=== PATIENT | female | born 1970 | race Caucasian/White ===

== ENCOUNTER 2016-05-16 15:01 | Outpatient (RCR) | payer OTHER, MEDICARE ==
--- OUTSIDE RECORDS SUMMARY | 2016-05-15 11:19 | XMS REPORT | Continuity of Care Document ---
Author Author [facility] Organization [facility] Address Unknown Phone Unavailable Care Team Providers Care Philosophy And Religion Instructor Name Role Phone Yoon Ross PCP [phone] Source Comments Some departments are not documenting in the electronic medical record. If you do not see the information that you expected, contact Release of Information in the Health Information Management department at [phone] for further assistance in locating additional records.[facility] Active Allergies and Adverse Reactions Allergen Noted Date Severity Reactions Comments Tramadol 09/18/2012 ANAPHYLAXIS Current Medications Prescription Sig. Disp. Refills Start End Date Status Date [place]-3 Fatty Acids Take 2 Caps by mouth at Active (SALMON OIL-1000) cap bedtime daily. gabapentin (NEURONTIN) Take 800 mg by mouth Active 800 mg tablet daily. gabapentin (NEURONTIN) Take 1,600 mg by mouth at Active 800 mg tablet bedtime daily. omeprazole DR(+) Take 20 mg by mouth twice Active (PRILOSEC) 20 mg capsule daily. temazepam (RESTORIL) 30 Take 30 mg by mouth at Active mg capsule bedtime as needed. simvastatin (ZOCOR) 40 mg Take 40 mg by mouth at Active tablet bedtime daily. cyclobenzaprine Take 20 mg by mouth at Active (FLEXERIL) 10 mg tablet bedtime daily. ferrous sulfate 325 mg Take 325 mg by mouth Active (65 mg iron) tablet twice weekly. LORazepam (ATIVAN) 0.5 mg Take 0.5 mg by mouth Active tablet every 8 hours as needed. valACYclovir (VALTREX) 1 Take 1,000 mg by mouth Active g tablet twice daily as needed. fluconazole (DIFLUCAN) Take 150 mg by mouth as Active 150 mg tablet Needed. oxyCODone-acetaminophen Take 1 Tab by mouth every Active (PERCOCET; ENDOCET) 4-6 hours as needed Max 10-325 mg tablet 12 tabs/day albuterol (VENTOLIN HFA, Inhale 2 Puffs by mouth Active PROAIR HFA) 90 every 4 hours as needed. mcg/actuation inhaler Jteiubk-Ryqjlyaghbtnl-Dzd Take 2 Caps by mouth Active tamin (VICKS NYQUIL every 4 hours as needed. LIQUICAPS) 6.25-5-325 mg cap predniSONE (DELTASONE) 1 Take 4 mg by mouth daily. Active mg tablet potassium chloride SR Take 20-40 mEq by mouth Active (K-DUR) 20 mEq tablet daily. frovatriptan(+) (FROVA) Take 2.5 mg by mouth as Active 2.5 mg Tab Needed. At onset of headache. May repeat in 2 hours with a maximum of 3 tabs in 24 hours. furosemide (LASIX) 40 mg Take 40-80 mg by mouth. Active tablet sodium chloride (SALINE Apply 1-2 Sprays to each Active NASAL MIST) 0.65 % nasal nostril as directed as spray Needed. sinus rinse (AYR SALINE Insert 1 Packet into nose Active NASAL NETI RINSE) Pack as directed as Needed. kit Propylene Glycol-Glycerin Place 1-2 Drops into or Active (SOOTHE) 0.6-0.6 % Dpet around eye(s) as Needed. simethicone (GAS-X) 80 mg Take 80 mg by mouth every Active chew tablet 6 hours as needed. HYDROmorphone (DILAUDID) Take 1 Tab by mouth every 30 Tab 0 09/23/19 Active 2 mg tablet 6 hours as needed 13 Earliest Fill Date: 09/23/12 warfarin (COUMADIN) 7.5 Take 1 Tab by mouth 90 Tab 09/23/19 Active mg tablet daily. Mon, Wed, Fri 13 ondansetron (ZOFRAN) 4 mg Take 4 mg by mouth every Active tablet 8 hours as needed. folic acid (FOLVITE) 1 mg Take 3 mg by mouth daily. Active tablet cephalexin (KEFLEX) 250 Take 1 Cap by mouth four 0 10/14/19 Active mg capsule times daily. 13 Active Problems Problem Noted Date Cellulitis 09/20/2012 SLE (systemic lupus erythematosus) ([facility]) 09/20/2012 Antiphospholipid antibody positive 09/20/2012 Social History Tobacco Use Types Packs/Day Years Used Date Never Smoker Alcohol Use Drinks/Week oz/Week Comments Yes one glass of wine every week to two Last Filed Vital Signs Vital Sign Reading Time Taken Blood Pressure 106/78 10/09/2012 11:52 AM MANAGER LINUX Pulse 100 10/09/2012 11:52 AM MANAGER LINUX Temperature 36.7 C (98 F) 10/09/2012 11:52 AM MANAGER LINUX Respiratory Rate 16 10/09/2012 11:52 AM MANAGER LINUX Height 1.626 m (5' 4") 10/09/2012 11:52 AM MANAGER LINUX Weight 76.567 kg (168 lb 12.8 10/09/2012 11:52 AM MANAGER LINUX oz) Body Mass Index 28.96 10/09/2012 11:52 AM MANAGER LINUX Oxygen Saturation 99% 09/23/2012 12:13 PM MANAGER LINUX Plan of Care Health Maintenance Due Date Last Done Comments Physical (Comprehensive) 1976 Exam Pertussis Vaccine 1980 Tetanus Vaccine 1986 Cervical Cancer Screening 1990 Breast Cancer Screening 2009 Influenza Vaccine 04/11/2016 Results from Last 3 Months Not on file
[2016-05-15 12:37] LABS: BASOPHILS % (AUTO) 1 % (0-10); EOSINOPHILS # (AUTO) 0.3 10^3/uL (0.0-0.3); EOSINOPHILS % (AUTO) 5 % (0-10); LYMPHOCYTES # (AUTO) 2.2 X 10^3 (1.0-4.0); LYMPHOCYTES % (AUTO) 38 % (12-44); MEAN CORPUSCULAR HEMOGLOBIN 27 PG (25-34); MEAN CORPUSCULAR HGB CONC 31 G/DL (32-36); MEAN CORPUSCULAR VOLUME 87 FL (80-99); MEAN PLATELET VOLUME 11.8 FL (7.4-10.4); MONOCYTES # (AUTO) 0.4 X 10^3 (0.0-1.0); MONOCYTES % (AUTO) 8 % (0-12); NEUTROPHILS # (AUTO) 2.9 X 10^3 (1.8-7.8); NEUTROPHILS % (AUTO) 49 % (42-75); PLATELET COUNT 210 10^3/uL (130-400); RED BLOOD COUNT 4.76 10^6/uL (4.35-5.85); WHITE BLOOD COUNT 5.9 10^3/uL (4.3-11.0)
[2016-05-15 12:43] LABS: ALANINE AMINOTRANSFERASE 23 U/L (0-55); ALBUMIN 4.1 G/DL (3.2-4.5); ANION GAP 10 MMOL/L (5-14); ASPARTATE AMINO TRANSFERASE 24 U/L (5-34); BILIRUBIN,TOTAL 0.3 MG/DL (0.1-1.0); BLOOD UREA NITROGEN 9 MG/DL (7-18); BUN/CREATININE RATIO 9; CALCIUM 8.8 MG/DL (8.5-10.1); CARBON DIOXIDE 18 MMOL/L (21-32); CHLORIDE 112 MMOL/L (98-107); CREATININE SERUM 0.98 MG/DL (0.60-1.30); GFR ESTIMATED > 60; GLUCOSE 103 MG/DL (70-105); POTASSIUM 3.4 MMOL/L (3.6-5.0); SODIUM 140 MMOL/L (135-145); TOTAL PROTEIN 5.9 G/DL (6.4-8.2)
[2016-05-15 14:13] LABS: %SAT TOTAL IRON BINDING CAPIC 43 % (15-50); TIBC 198 ug/dL (280-380)
[2016-05-15 15:36] LABS: UIBC 113 ug/dL (55-450)
[2016-05-16 07:51] LABS: FERRITIN 562 ng/mL (15-150)
[~2016-05-16 15:01] MED LIST: AC325T PO; AC500T PO; ALBU0.8322 NEB; ALBU5SOL10 IH; ALBU8.5H2 IH; ALPR0.25 PO; AMOX-355 PO; BUDE3CAP PO; BUTA-234 PO; CEFP250T2 PO; CETI10CA PO; CETI10TA17 PO; CLAR-19 PO; CODE-54 PO; CPH250CIP PO; CYCL-97 PO; CYCL10TA9 PO; DM/P295L13 PO; FERR325T74 PO; FLC150T PO; FLC1T PO; FLUC100T PO; FLUT1DIS26 IH; FOLI0.4T2 PO; FROV2.5T3 PO; FRSM40T PO; GABA800T PO; GABA800T2 PO; GUAI177L4 PO; GUAI400T71 PO; HDR2T PO; HYDR-2997 PO; HYDR-3456 PO; HYDR-3812 PO; HYDR115S2 PO; HYDR1TAB71 PO; HYDR1TAB85 PO; HYDR473S17 PO; HYOS0.1217 SL; IVIG IV; K-ROCEP1PB IV; LACT1CAP39 PO; LINA145C PO; LINA290C PO; LORA-405 PO; LORA0.5T PO; LORA1TAB PO; METH2.5T PO; METO-354 PO; METO5TAB2 PO; MONT10TA21 PO; MPR22T TP; MTX2.5T PO; MULT-974 PO; NAPR220C11 PO; NITR100C10 PO; NYST1000 PO; OMEP-10 PO; OMEP20TA33 PO; ONDA8TAB9 PO; ONDN4T PO; OSLT75C PO; OXYC-188 PO; OXYC-272 PO; PHOS250T5 PO; POTA10CA43 PO; POTA25TA7 PO; PRD10T PO; PRD1T PO; PRD20T PO; PRED5TAB PO; PREG100C PO; PREG50CA2 PO; RIVA20TA2 PO; RIZA10TA23 PO; SALM1CAP4 PO; SERT50TA9 PO; SIME125C78 PO; SIMV40TA4 PO; TEMA30CA6 PO; TOPI50TA13 PO; TOPI50TA37 PO; VALA100033 PO; VANC250C4 PO; WRF10T PO; WRF5T PO; [UNRECOGNIZED DRUG - CODE] IV; [UNRECOGNIZED DRUG - MIXTURE] TOP; [UNRECOGNIZED DRUG - OTHER] PO; folic acid PO
[2016-05-17 01:19] LABS: IMMUNOGLOBULIN IGA 42 mg/dL (71-263); IMMUNOGLOBULIN IGG 535 mg/dL (672-1680)
[2016-05-17 07:53] LABS: IMMUNOGLOBULIN IGM 28 mg/dL (47-209)
== END 2016-08-13 | disposition home or self-care (01) ==
LOC: ONC 15:01
PROVIDERS: ATTEND Internal Medicine Hematology & Oncology
DX: D80.1 Nonfamilial hypogammaglobulinemia (principal); D50.9 Iron deficiency anemia, unspecified; M32.10 Systemic lupus erythematosus, organ or system involvement unspecified; M06.9 Rheumatoid arthritis, unspecified; Z79.899 Other long term (current) drug therapy
CPT/HCPCS: 80053; 82728; 82784; 83540; 85025; 99213

== ENCOUNTER → 2016-08-20 | Outpatient (CLI) | payer OTHER, MEDICARE ==
[~2016-08-20] MED LIST changes: +ACET-789 PO; +CYCL1DRO OP; +OXYC-197 PO; +RIVA20TA PO; +TOPI100T PO
--- OUTSIDE RECORDS SUMMARY | 2016-08-20 06:19 | XMS REPORT | Continuity of Care Document ---
Author Author [facility] Organization [facility] Address Unknown Phone Unavailable Care Team Providers Care Packaging Specialist Name Role Phone Yoon Ross PCP [phone] Source Comments Some departments are not documenting in the electronic medical record. If you do not see the information that you expected, contact Release of Information in the Health Information Management department at [phone] for further assistance in locating additional records.[facility] Active Allergies and Adverse Reactions Allergen Noted Date Severity Reactions Comments Tramadol 09/18/2012 ANAPHYLAXIS Current Medications Prescription Sig. Disp. Refills Start End Date Status Date [place]-3 Fatty Acids Take 2 Caps by mouth [...] every 4 hours as needed. mcg/actuation inhaler Vefwqyx-Sjfvdncljfvcl-Sir Take 2 Caps by mouth Active tamin [...] 09/20/2012 SLE (systemic lupus erythematosus) ([facility]) 09/20/2012 Antiphospholipid antibody positive 09/20/2012 Social History Tobacco Use Types Packs/Day Years Used Date Never Smoker Alcohol Use Drinks/Week oz/Week Comments Yes one glass of wine every week to two Last Filed Vital Signs Vital Sign Reading Time Taken Blood Pressure 106/78 10/09/2012 11:[address] [employer] Pulse 100 10/09/2012 11:[address] [employer] Temperature 36.7 C (98 F) 10/09/2012 11:[address] [employer] Respiratory Rate 16 10/09/2012 11:[address] [employer] Height 1.626 m (5' 4") 10/09/2012 11:[address] [employer] Weight 76.567 kg (168 lb 12.8 10/09/2012 11:[address] DE[employer] oz) Body Mass Index 28.96 10/09/2012 11:[address] [employer] Oxygen Saturation 99% 09/23/2012 12:[address] [employer] Plan of Care Health Maintenance Due Date Last Done Comments Physical (Comprehensive) 1977 Exam Pertussis Vaccine 1980 Tetanus Vaccine 1986 Cervical Cancer Screening 1990 Breast Cancer Screening 2009 Influenza Vaccine 04/11/2016 Results from Last 3 Months Not on file
== END ==
LOC: PREOP 06:15
PROVIDERS: ATTEND Otolaryngology Otolaryngology/Facial Plastic Surgery
DX: Z01.818 Encounter for other preprocedural examination (principal)

== ENCOUNTER 2016-09-04 09:51 | Outpatient (RCR) | payer OTHER, MEDICARE ==
[~2016-09-04 09:51] MED LIST changes: -ACET-789 PO; -CYCL1DRO OP; -OXYC-197 PO; -RIVA20TA PO; -TOPI100T PO
--- OUTSIDE RECORDS SUMMARY | 2016-09-04 09:54 | XMS REPORT | Continuity of Care Document ---
Author Author [facility] Organization [facility] Address Unknown Phone Unavailable Care Team Providers Care Customer Services Coordinator Name Role Phone Yoon Ross PCP [phone] Source Comments Some departments are not documenting in the electronic medical record. If you do not see the information that you expected, contact Release of Information in the Health Information Management department at [phone] for further assistance in locating additional records.[facility] Active Allergies and Adverse Reactions Allergen Noted Date Severity Reactions Comments Tramadol 09/18/2012 ANAPHYLAXIS Current Medications Prescription Sig. Disp. Refills Start End Date Status Date [place]-3 Fatty Acids Take 2 Caps by mouth [...] every 4 hours as needed. mcg/actuation inhaler Eqohsif-Royuoduqwfgtu-Tfx Take 2 Caps by mouth Active tamin [...] Date Cellulitis 09/20/2012 SLE (systemic lupus erythematosus) ([facility]) 09/20/2012 Antiphospholipid antibody positive 09/20/2012 Social History Tobacco Use Types Packs/Day Years Used Date Never Smoker Alcohol Use Drinks/Week oz/Week Comments Yes one glass of wine every week to two Last Filed Vital Signs Vital Sign Reading Time Taken Blood Pressure 106/78 10/09/2012 11:52 AM WALLET ASSEMBLER Pulse 100 10/09/2012 11:52 AM WALLET ASSEMBLER Temperature 36.7 C (98 F) 10/09/2012 11:52 AM WALLET ASSEMBLER Respiratory Rate 16 10/09/2012 11:52 AM WALLET ASSEMBLER Height 1.626 m (5' 4") 10/09/2012 11:52 AM WALLET ASSEMBLER Weight 76.567 kg (168 lb 12.8 10/09/2012 11:52 AM WALLET ASSEMBLER oz) Body Mass Index 28.96 10/09/2012 11:52 AM WALLET ASSEMBLER Oxygen Saturation 99% 09/23/2012 12:13 PM WALLET ASSEMBLER Plan of Care Health Maintenance Due Date Last Done Comments Physical (Comprehensive) 1977 Exam Pertussis Vaccine 1980 Tetanus Vaccine 1986 Cervical Cancer Screening 1990 Breast Cancer Screening 2009 Influenza Vaccine 04/11/2016 Results from Last 3 Months Not on file
[2016-09-04 10:21] LABS: BASOPHILS % (AUTO) 1 % (0-10); EOSINOPHILS # (AUTO) 0.3 10^3/uL (0.0-0.3); EOSINOPHILS % (AUTO) 4 % (0-10); LYMPHOCYTES # (AUTO) 2.1 X 10^3 (1.0-4.0); LYMPHOCYTES % (AUTO) 33 % (12-44); MEAN CORPUSCULAR HEMOGLOBIN 33 PG (25-34); MEAN CORPUSCULAR HGB CONC 35 G/DL (32-36); MEAN CORPUSCULAR VOLUME 97 FL (80-99); MEAN PLATELET VOLUME 12.2 FL (7.4-10.4); MONOCYTES # (AUTO) 0.4 X 10^3 (0.0-1.0); MONOCYTES % (AUTO) 6 % (0-12); NEUTROPHILS # (AUTO) 3.5 X 10^3 (1.8-7.8); NEUTROPHILS % (AUTO) 56 % (42-75); PLATELET COUNT 219 10^3/uL (130-400); RED BLOOD COUNT 4.43 10^6/uL (4.35-5.85); RED CELL DISTRIBUTION WIDTH 14.4 % (10.0-14.5); WHITE BLOOD COUNT 6.3 10^3/uL (4.3-11.0)
[2016-09-04 10:52] LABS: ALBUMIN 4.2 G/DL (3.2-4.5); BILIRUBIN,TOTAL 0.4 MG/DL (0.1-1.0); CALCIUM 8.8 MG/DL (8.5-10.1); CREATININE SERUM 1.35 MG/DL (0.60-1.30); POTASSIUM 3.5 MMOL/L (3.6-5.0); TOTAL PROTEIN 5.9 G/DL (6.4-8.2)
[2016-09-04 14:23] LABS: %SAT TOTAL IRON BINDING CAPIC 17 % (15-50); TIBC 263 ug/dL (280-380)
[2016-09-05 05:26] LABS: IMMUNOGLOBULIN IGA 51 mg/dL (71-263); IMMUNOGLOBULIN IGG 670 mg/dL (672-1680)
[2016-09-05 08:46] LABS: FERRITIN 156 ng/mL (15-150); UIBC 219 ug/dL (55-450)
[2016-09-05 08:55] LABS: IMMUNOGLOBULIN IGM 28 mg/dL (47-209)
[2016-09-05 08:58] LABS: ERYTHROCYTE SEDIMENTATION RATE 4 MM/HR (0-35)
[2016-11-11] MEDS ORDERED: OXYC-197 PO (12:07)
[2016-11-11] MEDS ORDERED: ACET-789 PO (12:07)
[2016-11-11] MEDS ORDERED: TOPI100T PO (12:07)
[2016-11-11] MEDS ORDERED: RIVA20TA PO (12:12)
[2016-11-11] MEDS ORDERED: CYCL1DRO OP (12:12)
[2016-11-11] MEDS ORDERED: HEParin (CENTRAL IV FLUSH) 500 UNIT/5 ML SYR ONE (12:38)
== END 2016-12-03 | disposition home or self-care (01) ==
LOC: ONC 09:51
PROVIDERS: ATTEND Internal Medicine Hematology & Oncology
DX: D80.1 Nonfamilial hypogammaglobulinemia (principal); D50.9 Iron deficiency anemia, unspecified; M32.10 Systemic lupus erythematosus, organ or system involvement unspecified; M06.9 Rheumatoid arthritis, unspecified; Z79.899 Other long term (current) drug therapy
CPT/HCPCS: 36591; 80053; 82728; 82784; 83540; 85025; 85652; 99213

== ENCOUNTER → 2016-09-04 | Outpatient (CLI) | payer OTHER, MEDICARE ==
--- OUTSIDE RECORDS SUMMARY | 2016-09-04 10:31 | XMS REPORT | Continuity of Care Document ---
Author Author [facility] Organization [facility] Address Unknown Phone Unavailable Care Team Providers Care Smoking Tobacco Cutter Operator Name Role Phone Yoon Ross PCP [phone] Source Comments Some departments are not documenting in the electronic medical record. If you do not see the information that you expected, contact Release of Information in the Health Information Management department at [phone] for further assistance in locating additional records.[facility] Active Allergies and Adverse Reactions Allergen Noted Date Severity Reactions Comments Tramadol 09/18/2012 ANAPHYLAXIS Current Medications Prescription Sig. Disp. Refills Start End Date Status Date [place]-3 Fatty Acids Take 2 Caps by mouth [...] every 4 hours as needed. mcg/actuation inhaler Whsuhjd-Oxmhhnvyosrdu-Dlx Take 2 Caps by mouth Active tamin [...] Date Cellulitis 09/20/2012 SLE (systemic lupus erythematosus) ([facility]) 09/20/2012 Antiphospholipid antibody positive 09/20/2012 Social History Tobacco Use Types Packs/Day Years Used Date Never Smoker Alcohol Use Drinks/Week oz/Week Comments Yes one glass of wine every week to two Last Filed Vital Signs Vital Sign Reading Time Taken Blood Pressure 106/78 10/09/2012 11:52 AM CHILDCARE ATTENDANT Pulse 100 10/09/2012 11:52 AM CHILDCARE ATTENDANT Temperature 36.7 C (98 F) 10/09/2012 11:52 AM CHILDCARE ATTENDANT Respiratory Rate 16 10/09/2012 11:52 AM CHILDCARE ATTENDANT Height 1.626 m (5' 4") 10/09/2012 11:52 AM CHILDCARE ATTENDANT Weight 76.567 kg (168 lb 12.8 10/09/2012 11:52 AM CHILDCARE ATTENDANT oz) Body Mass Index 28.96 10/09/2012 11:52 AM CHILDCARE ATTENDANT Oxygen Saturation 99% 09/23/2012 12:13 PM CHILDCARE ATTENDANT Plan of Care Health Maintenance Due Date Last Done Comments Physical (Comprehensive) 1977 Exam Pertussis Vaccine 1980 Tetanus Vaccine 1986 Cervical Cancer Screening 1990 Breast Cancer Screening 2009 Influenza Vaccine 04/11/2016 Results from Last 3 Months Not on file
[2016-09-04 10:50] LABS: ALBUMIN 4.2 G/DL (3.2-4.5); CALCIUM 9.1 MG/DL (8.5-10.1); CREATININE SERUM 1.34 MG/DL (0.60-1.30); PHOSPHORUS 3.5 MG/DL (2.3-4.7); POTASSIUM 3.6 MMOL/L (3.6-5.0); URIC ACID 6.6 MG/DL (2.6-7.2)
[2016-09-04 11:32] LABS: BILIRUBIN,URINE NEGATIVE (NEGATIVE); KETONES,URINE 2+ (NEGATIVE); LEUKOCYTE ESTERASE ,URINE 1+ (NEGATIVE); NITRITE,URINE NEGATIVE (NEGATIVE); PH,URINE 6.5 (5-9); PROTEIN,URINE NEGATIVE (NEGATIVE); UROBILINOGEN,URINE NORMAL (NORMAL)
[2016-09-04 11:56] LABS: PROTEIN/CREATININE RATIO 0.07
[2016-09-04 12:08] LABS: HYALINE CASTS, URINE RARE /LPF; WBC,URINE 0-2 /HPF
[2016-09-05 08:46] LABS: CALCIUM PARA THYROID HORMONE 8.9 mg/dL (8.5-10.5)
== END ==
LOC: LAB 10:28
PROVIDERS: ATTEND Internal Medicine Nephrology
DX: B37.0 Candidal stomatitis (principal); M32.10 Systemic lupus erythematosus, organ or system involvement unspecified; N18.3 Chronic kidney disease, stage 3 (moderate); D80.1 Nonfamilial hypogammaglobulinemia
CPT/HCPCS: 80069; 81000; 82306; 82570; 83970; 84100; 84156; 84550

== ENCOUNTER → 2016-09-13 | Outpatient (CLI) | payer OTHER, MEDICARE ==
[~2016-09-13] MED LIST changes: +ACET-789 PO; +CYCL1DRO OP; +OXYC-197 PO; +RIVA20TA PO; +TOPI100T PO
--- OUTSIDE RECORDS SUMMARY | 2016-09-13 12:01 | XMS REPORT | Continuity of Care Document ---
Author Author [facility] Organization [facility] Address Unknown Phone Unavailable Care Team Providers Care Budget Director Name Role Phone Yoon Ross PCP [phone] Source Comments Some departments are not documenting in the electronic medical record. If you do not see the information that you expected, contact Release of Information in the Health Information Management department at [phone] for further assistance in locating additional records.[facility] Active Allergies and Adverse Reactions Allergen Noted Date Severity Reactions Comments Tramadol 09/18/2012 ANAPHYLAXIS Current Medications Prescription Sig. Disp. Refills Start End Date Status Date [place]-3 Fatty Acids Take 2 Caps by mouth [...] every 4 hours as needed. mcg/actuation inhaler Mwhtpyv-Arfoxbgmvzmtj-Izm Take 2 Caps by mouth Active tamin [...] Date Cellulitis 09/20/2012 SLE (systemic lupus erythematosus) ([facility]) 09/20/2012 Antiphospholipid antibody positive 09/20/2012 Social History Tobacco Use Types Packs/Day Years Used Date Never Smoker Alcohol Use Drinks/Week oz/Week Comments Yes one glass of wine every week to two Last Filed Vital Signs Vital Sign Reading Time Taken Blood Pressure 106/78 10/09/2012 11:52 AM SNELLER HAND Pulse 100 10/09/2012 11:52 AM SNELLER HAND Temperature 36.7 C (98 F) 10/09/2012 11:52 AM SNELLER HAND Respiratory Rate 16 10/09/2012 11:52 AM SNELLER HAND Height 1.626 m (5' 4") 10/09/2012 11:52 AM SNELLER HAND Weight 76.567 kg (168 lb 12.8 10/09/2012 11:52 AM SNELLER HAND oz) Body Mass Index 28.96 10/09/2012 11:52 AM SNELLER HAND Oxygen Saturation 99% 09/23/2012 12:13 PM SNELLER HAND Plan of Care Health Maintenance Due Date Last Done Comments Physical (Comprehensive) 1977 Exam Pertussis Vaccine 1980 Tetanus Vaccine 1986 Cervical Cancer Screening 1990 Breast Cancer Screening 2009 Influenza Vaccine 04/11/2016 Results from Last 3 Months Not on file
--- NOTE | 2016-09-13 13:33 | Diagnostic Imaging Report ---
INDICATION: Renal failure, right flank pain. EXAMINATION: Bladder ultrasound. FINDINGS: Pre-void urinary bladder volume was 313 mL. Post-void urinary bladder volume was 8 mL. There are no masses seen in the bladder. Bladder wall is normal in thickness. IMPRESSION: Negative ultrasound of the urinary bladder. Dictated by: Dictated on workstation # [id number]
--- NOTE | 2016-09-13 14:15 | Diagnostic Imaging Report ---
INDICATION: Acute renal failure. Bilateral renal sonography is performed in the routine fashion. The right kidney measures 10.5 x 3.9 x 4.7 cm. The left measures 11.0 x 4.4 x 4.9 cm. Both kidneys show normal cortical echogenicity and thickness with no hydronephrosis or mass. Urinary bladder appears unremarkable with bilateral ureteral jets present. Incidentally, there appears to be a cyst in the right ovary measuring about 3.4 cm. IMPRESSION: Unremarkable bilateral renal sonography. Bladder appears unremarkable with bilateral ureteral jets. There is a 3.4 cm right ovarian cyst. Dictated by: Dictated on workstation # [id number]
== END ==
LOC: RAD 11:58
PROVIDERS: ATTEND Internal Medicine Nephrology
DX: N17.9 Acute kidney failure, unspecified (principal); R10.9 Unspecified abdominal pain; E83.31 Familial hypophosphatemia; N18.3 Chronic kidney disease, stage 3 (moderate)
CPT/HCPCS: 76770; 76857

== ENCOUNTER → 2016-09-21 | Outpatient (CLI) | payer OTHER, MEDICARE ==
[~2016-09-21] MED LIST changes: +HEParin (CENTRAL IV FLUSH) 500 UNIT/5 ML SYR ONE
--- OUTSIDE RECORDS SUMMARY | 2016-09-21 09:50 | XMS REPORT | Continuity of Care Document ---
Author Author [facility] Organization [facility] Address Unknown Phone Unavailable Care Team Providers Care Coil Binder Name Role Phone Yoon Ross PCP [phone] Source Comments Some departments are not documenting in the electronic medical record. If you do not see the information that you expected, contact Release of Information in the Health Information Management department at [phone] for further assistance in locating additional records.[facility] Active Allergies and Adverse Reactions Allergen Noted Date Severity Reactions Comments Tramadol 09/18/2012 ANAPHYLAXIS Current Medications Prescription Sig. Disp. Refills Start End Date Status Date [place]-3 Fatty Acids Take 2 Caps by mouth [...] every 4 hours as needed. mcg/actuation inhaler Wugilnz-Tujuokdjzskbv-Gca Take 2 Caps by mouth Active tamin [...] Date Cellulitis 09/20/2012 SLE (systemic lupus erythematosus) ([facility]) 09/20/2012 Antiphospholipid antibody positive 09/20/2012 Social History Tobacco Use Types Packs/Day Years Used Date Never Smoker Alcohol Use Drinks/Week oz/Week Comments Yes one glass of wine every week to two Last Filed Vital Signs Vital Sign Reading Time Taken Blood Pressure 106/78 10/09/2012 11:52 AM CORRECTIONAL COOK Pulse 100 10/09/2012 11:52 AM CORRECTIONAL COOK Temperature 36.7 C (98 F) 10/09/2012 11:52 AM CORRECTIONAL COOK Respiratory Rate 16 10/09/2012 11:52 AM CORRECTIONAL COOK Height 1.626 m (5' 4") 10/09/2012 11:52 AM CORRECTIONAL COOK Weight 76.567 kg (168 lb 12.8 10/09/2012 11:52 AM CORRECTIONAL COOK oz) Body Mass Index 28.96 10/09/2012 11:52 AM CORRECTIONAL COOK Oxygen Saturation 99% 09/23/2012 12:13 PM CORRECTIONAL COOK Plan of Care Health Maintenance Due Date Last Done Comments Physical (Comprehensive) 1977 Exam Pertussis Vaccine 1980 Tetanus Vaccine 1986 Cervical Cancer Screening 1990 Breast Cancer Screening 2009 Influenza Vaccine 04/11/2016 Results from Last 3 Months Not on file
[2016-09-23 17:02] LABS: IGG MUMPS ANTIBODY 3.05 (0.00-0.89); IGM MUMPS ANTIBODY <1:10 (<1:10)
== END ==
LOC: LAB 09:42
PROVIDERS: ATTEND Otolaryngology Otolaryngology/Facial Plastic Surgery
DX: K11.20 Sialoadenitis, unspecified (principal); D89.9 Disorder involving the immune mechanism, unspecified
CPT/HCPCS: 36415; 86735; 87798

== ENCOUNTER → 2016-10-01 | Outpatient (CLI) | payer OTHER, MEDICARE ==
[~2016-10-01] MED LIST changes: -HEParin (CENTRAL IV FLUSH) 500 UNIT/5 ML SYR ONE
[2016-10-01 11:15] LABS: ALBUMIN 3.8 G/DL (3.2-4.5); CALCIUM 8.8 MG/DL (8.5-10.1); CREATININE SERUM 1.15 MG/DL (0.60-1.30); PHOSPHORUS 2.5 MG/DL (2.3-4.7); POTASSIUM 3.4 MMOL/L (3.6-5.0)
--- OUTSIDE RECORDS SUMMARY | 2016-10-01 13:29 | XMS REPORT | Continuity of Care Document ---
Author Author [facility] Organization [facility] Address Unknown Phone Unavailable Care Team Providers Care Mailhouse Operator Name Role Phone Yoon Ross PCP [phone] Source Comments Some departments are not documenting in the electronic medical record. If you do not see the information that you expected, contact Release of Information in the Health Information Management department at [phone] for further assistance in locating additional records.[facility] Active Allergies and Adverse Reactions Allergen Noted Date Severity Reactions Comments Tramadol 09/18/2012 ANAPHYLAXIS Current Medications Prescription Sig. Disp. Refills Start End Date Status Date [place]-3 Fatty Acids Take 2 Caps by mouth [...] every 4 hours as needed. mcg/actuation inhaler Bhibhkh-Uuklxdwpkbwrj-Udv Take 2 Caps by mouth Active tamin [...] Date Cellulitis 09/20/2012 SLE (systemic lupus erythematosus) ([facility]) 09/20/2012 Antiphospholipid antibody positive 09/20/2012 Social History Tobacco Use Types Packs/Day Years Used Date Never Smoker Alcohol Use Drinks/Week oz/Week Comments Yes one glass of wine every week to two Last Filed Vital Signs Vital Sign Reading Time Taken Blood Pressure 106/78 10/09/2012 11:52 AM RAILROAD DINING CAR STEWARDESS Pulse 100 10/09/2012 11:52 AM RAILROAD DINING CAR STEWARDESS Temperature 36.7 C (98 F) 10/09/2012 11:52 AM RAILROAD DINING CAR STEWARDESS Respiratory Rate 16 10/09/2012 11:52 AM RAILROAD DINING CAR STEWARDESS Height 1.626 m (5' 4") 10/09/2012 11:52 AM RAILROAD DINING CAR STEWARDESS Weight 76.567 kg (168 lb 12.8 10/09/2012 11:52 AM RAILROAD DINING CAR STEWARDESS oz) Body Mass Index 28.96 10/09/2012 11:52 AM RAILROAD DINING CAR STEWARDESS Oxygen Saturation 99% 09/23/2012 12:13 PM RAILROAD DINING CAR STEWARDESS Plan of Care Health Maintenance Due Date Last Done Comments Physical (Comprehensive) 1977 Exam Pertussis Vaccine 1980 Tetanus Vaccine 1986 Cervical Cancer Screening 1990 Breast Cancer Screening 2009 Influenza Vaccine 04/11/2016 Results from Last 3 Months Not on file
== END ==
LOC: LAB 10:43
PROVIDERS: ATTEND Internal Medicine Nephrology
DX: N18.3 Chronic kidney disease, stage 3 (moderate) (principal)
CPT/HCPCS: 36415; 80069

== ENCOUNTER → 2016-10-01 | Outpatient (CLI) | payer OTHER, MEDICARE ==
--- OUTSIDE RECORDS SUMMARY | 2016-10-01 13:23 | XMS REPORT | Continuity of Care Document ---
Author Author [facility] Organization [facility] Address Unknown Phone Unavailable Care Team Providers Care Assistant Maintenance Manager Name Role Phone Yoon Ross PCP [phone] Source Comments Some departments are not documenting in the electronic medical record. If you do not see the information that you expected, contact Release of Information in the Health Information Management department at [phone] for further assistance in locating additional records.[facility] Active Allergies and Adverse Reactions Allergen Noted Date Severity Reactions Comments Tramadol 09/18/2012 ANAPHYLAXIS Current Medications Prescription Sig. Disp. Refills Start End Date Status Date [place]-3 Fatty Acids Take 2 Caps by mouth [...] every 4 hours as needed. mcg/actuation inhaler Gvpxkjn-Haynoqmhoypuu-Lzu Take 2 Caps by mouth Active tamin [...] Taken Blood Pressure 106/78 10/09/2012 11:52 AM OPTICAL ENGINEER Pulse 100 10/09/2012 11:52 AM OPTICAL ENGINEER Temperature 36.7 C (98 F) 10/09/2012 11:52 AM OPTICAL ENGINEER Respiratory Rate 16 10/09/2012 11:52 AM OPTICAL ENGINEER Height 1.626 m (5' 4") 10/09/2012 11:52 AM OPTICAL ENGINEER Weight 76.567 kg (168 lb 12.8 10/09/2012 11:52 AM OPTICAL ENGINEER oz) Body Mass Index 28.96 10/09/2012 11:52 AM OPTICAL ENGINEER Oxygen Saturation 99% 09/23/2012 12:13 PM OPTICAL ENGINEER Plan of Care Health Maintenance Due Date Last Done Comments Physical (Comprehensive) 1977 Exam Pertussis Vaccine 1980 Tetanus Vaccine 1986 Cervical Cancer Screening 1990 Breast Cancer Screening 2009 Influenza Vaccine 04/11/2016 Results from Last 3 Months Not on file
--- NOTE | 2016-10-01 13:27 | Diagnostic Imaging Report ---
PROCEDURE: MRI neck without contrast. TECHNIQUE: Multiplanar, multisequence MRI of the neck was performed without contrast. INDICATION: Left neck mass. FINDINGS: There are no previous MRI examinations available for comparison. By history, the patient has a palpable abnormality in the left supraclavicular region. A marker was placed over the area of concern. In this region, however, there is no discrete solid or cystic mass. The subcutaneous fat in this area is somewhat more prominent than at the corresponding level on the right. Whether this accounts for the patient's palpable abnormality, however, is not certain. The scalene muscle on the left is also somewhat larger, and this may also contribute to the patient's apparent palpable abnormality in this area. No other abnormality involving the neck is visualized. There is no mass or adenopathy. The submandibular and parotid glands and thyroid gland are generally unremarkable. There is moderate mucosal thickening of the visualized portions of both maxillary antra. The bone windows show no sign of a fracture or of a destructive lesion. There is levoscoliosis of the upper thoracic spine. IMPRESSION: 1. There is no discrete mass in the area of the patient's palpable abnormality in the left supraclavicular region. The apparent mass could be secondary to asymmetric collection of subcutaneous fat in this area and to the mild prominence of the left scalene muscle when compared to the right. 2. There is no acute abnormality involving the neck otherwise, and there is no sign of a mass or adenopathy. 3. There is bilateral maxillary sinusitis. Dictated by: Dictated on workstation # [id number]
--- NOTE | 2016-10-01 14:22 | Diagnostic Imaging Report ---
CLINICAL INDICATION: Patient with productive cough times approximately 1 week. EXAM: Chest x-ray PA view only. COMPARISONS: Chest x-ray dated 01/15/2016. FINDINGS: Again seen a central line overlying the left chest with distal portion in the distal superior vena cava. Lungs/pleura: There is mild atelectasis in the left lung base and lingular region. There is no interval lung infiltrate. There is no pneumothorax. There is no pleural effusion. Mediastinum: Again seen moderate-sized hiatal hernia which is more fluid-filled than compared to the prior study. Pulmonary vasculature: Unremarkable. Heart: Unremarkable. Bones/extrathoracic soft tissue: Again seen dextroscoliosis of the thoracolumbar spine. Lower cervical spine anterior fusion hardware seen. IMPRESSION: 1: Interval mild atelectasis in the left lung base. Otherwise, there is no radiographic evidence of acute cardiopulmonary process. 2: Moderate hiatal hernia is again seen. Dictated by: Dictated on workstation # [id number]
== END ==
LOC: RAD 09:42
PROVIDERS: ATTEND Otolaryngology Otolaryngology/Facial Plastic Surgery
DX: R05 Cough (principal); R22.1 Localized swelling, mass and lump, neck
CPT/HCPCS: 70540; 71010

== ENCOUNTER 2016-11-11 11:43 | Outpatient (CLI) | payer OTHER, MEDICARE ==
[~2016-11-11] VITALS: Ht 162.6 cm; Wt 85.4 kg
[~2016-11-11 11:43] MED LIST changes: -ACET-789 PO; -CYCL1DRO OP; -OXYC-197 PO; -RIVA20TA PO; -TOPI100T PO
[2016-11-11] MEDS ORDERED: OXYC-197 PO (12:07)
[2016-11-11] MEDS ORDERED: TOPI100T PO (12:07)
[2016-11-11] MEDS ORDERED: ACET-789 PO (12:07)
[2016-11-11] MEDS ORDERED: RIVA20TA PO (12:12)
[2016-11-11] MEDS ORDERED: CYCL1DRO OP (12:12)
[2016-11-11 12:16] VITALS: BP 101/66
== END 2016-11-11 15:00 | disposition home or self-care (01) ==
LOC: PREOP 11:43
PROVIDERS: ATTEND Otolaryngology Otolaryngology/Facial Plastic Surgery
DX: Z01.818 Encounter for other preprocedural examination (principal); Z11.2 Encounter for screening for other bacterial diseases; J32.9 Chronic sinusitis, unspecified
CPT/HCPCS: 87081

== ENCOUNTER 2016-11-14 06:06 | Day surgery (SDC) | payer OTHER, MEDICARE ==
[~2016-11-14] VITALS: Ht 162.6 cm; Wt 85.4 kg
[~2016-11-14 06:06] MED LIST changes: +ACET-789 PO; +CYCL1DRO OP; +OXYC-197 PO; +RIVA20TA PO; +TOPI100T PO
[2016-11-14] MEDS ORDERED: LACTATED RINGERS 1,000 ML IV PRN (06:33)
[2016-11-14] MEDS ORDERED: FAMOTIDINE 20MG/2ML IV (PEPCID) IV ONE (06:45)
[2016-11-14] MEDS ORDERED: proPOfol 200 MG/20 ML (DIPRIVAN) VIAL IV ONE (06:48)
[2016-11-14] MEDS ORDERED: LIDOCAINE PF 2% 10 ML (XYLOCAINE) AMP ONE (06:48)
[2016-11-14] MEDS ORDERED: LIDOCAINE JELLY 2% (XYLOCAINE) 5 ML TUBE ONE (06:48)
[2016-11-14] MEDS ORDERED: ONDANSETRON 4 MG/2 ML (SDV) Z0FRAN ONE ×2 (06:48→08:53)
[2016-11-14] MEDS ORDERED: MIDAZOLAM 2 MG/2 ML (VERSED) VIAL ONE (06:49)
[2016-11-14] MEDS ORDERED: fentaNYL INJECTION 100 MCG/2 ML AMP ONE (06:49)
[2016-11-14] MEDS ORDERED: COCAINE HCL 4% 2 ML SYR ONE (06:55)
[2016-11-14] MEDS ORDERED: BSS 15 ML ONE (06:55)
[2016-11-14] MEDS ORDERED: LACTATED RINGERS 1,000 ML IV ONE (06:56)
[2016-11-14] MEDS ORDERED: PHENYLEPHRINE 0.5% NASAL SPR (NEO-SYNEPHRINE) REG ONE ×2 (06:56→08:18)
[2016-11-14] MEDS ORDERED: ATRACURIUM 50 MG/5 ML (TRACRIUM) IV ONE (06:56)
[2016-11-14] MEDS ORDERED: LIDOCAINE/EPI 1%-1:100,000 (XYLOCAINE) 20ML ONE (06:56)
--- NOTE | 2016-11-14 06:57 | Progress Note-Pre Operative ---
Pre-Operative Progress Note H&P Reviewed The H&P was reviewed, patient examined and no changes noted. Date H&P Reviewed: Nov 14, 2016 Time H&P Reviewed: 06:45 Pre-Operative Diagnosis: Bilat Chronic Sinusitis, Septal Perforation DEEPA RONDON MD Nov 14, 2016 6:57 am
[2016-11-14 07:00] VITALS: BP 107/80
[2016-11-14] MEDS ORDERED: AMPICILLIN/SULBACTAM 1.5 GM/NS 50 ML IVPB IV ONE ×2 (07:00)
[2016-11-14] MEDS ORDERED: HYDROCORTISONE 100 MG/2 ML (Solu-CORTEF) VIAL IV ONE (07:00)
[2016-11-14 07:46] LABS: BASOPHILS % (AUTO) 0 % (0-10); EOSINOPHILS # (AUTO) 0.1 10^3/uL (0.0-0.3); EOSINOPHILS % (AUTO) 2 % (0-10); LYMPHOCYTES # (AUTO) 1.6 X 10^3 (1.0-4.0); LYMPHOCYTES % (AUTO) 20 % (12-44); MEAN CORPUSCULAR HEMOGLOBIN 32 PG (25-34); MEAN CORPUSCULAR HGB CONC 34 G/DL (32-36); MEAN CORPUSCULAR VOLUME 94 FL (80-99); MEAN PLATELET VOLUME 11.9 FL (7.4-10.4); MONOCYTES # (AUTO) 0.4 X 10^3 (0.0-1.0); MONOCYTES % (AUTO) 4 % (0-12); NEUTROPHILS # (AUTO) 6.1 X 10^3 (1.8-7.8); NEUTROPHILS % (AUTO) 74 % (42-75); PLATELET COUNT 249 10^3/uL (130-400); RED BLOOD COUNT 4.17 10^6/uL (4.35-5.85); RED CELL DISTRIBUTION WIDTH 14.1 % (10.0-14.5); WHITE BLOOD COUNT 8.2 10^3/uL (4.3-11.0)
[2016-11-14] MEDS ORDERED: SEVOFLURANE (ULTANE) 15 ML INHAL SOLN ONE ×4 (08:11→08:49)
[2016-11-14] MEDS ORDERED: MEPERIDINE (DEMEROL) INJ 50 MG/ML ONE (08:52)
[2016-11-14] MEDS ORDERED: HYDROmorphone (DILAUDID) 2 MG/ML VIAL ONE (08:52)
[2016-11-14] MEDS ORDERED: morphine INJ 10 MG/ML 1ML (SYR OR VIAL) ONE (08:53)
[2016-11-14] MEDS ORDERED: D5 1/2 NS W/KCL 20 MEQ/L 1,000 ML IV SCH (08:58)
--- NOTE | 2016-11-14 08:58 | Progress Note-Post Operative ---
Post-Operative Progess Note Surgeon (s)/Chief Counsel (s) Surgeon DEEPA RONDON MD Chief Counsel: n/a Pre-Operative Diagnosis Bilat Chronic Sinusitis, Septal Perforation Post-Operative Diagnosis same Post-Op Procedure Note Date of Procedure: Nov 14, 2016 Name of Procedure Performed: Bilat Revision ESS, Placement of Septal Button for SEptal Perforation Description of the Procedure: n/a Findings of the Procedure /a Anesthesia Type get Estimated blood loss (mL): 50cc Packing: DNP bilaterally Specimen(s) collected/removed Bilat Chronic Sinus Disease, Bilat cultures aerobic anaerobic and fungal of right and left maxillary sinuses DEEPA RONDON MD Nov 14, 2016 8:58 am
[2016-11-14] MEDS ORDERED: ONDANSETRON 4 MG/2 ML (SDV) Z0FRAN IVP PRN (09:00)
[2016-11-14] MEDS ORDERED: HYDROcodone/APAP 5 MG/325 MG (LORTAB) TAB PO PRN (09:00)
[2016-11-14] MEDS ORDERED: predniSONE 20 MG TAB PO ONE (09:00)
[2016-11-14] MEDS ORDERED: ACETAMINOPHEN 325 MG TABLET/CAPLET (TYLENOL) PO PRN (09:00)
[2016-11-14] MEDS ORDERED: MEPERIDINE (DEMEROL) INJ 50 MG/ML IVP PRN (09:15)
[2016-11-14] MEDS ORDERED: oxyCODONE/APAP 5/325MG (PERCOCET 5) TABLET PO PRN (09:15)
[2016-11-14] MEDS ORDERED: fentaNYL INJECTION 100 MCG/2 ML AMP IVP PRN (09:15)
[2016-11-14 10:05] VITALS: BP 82/69
[2016-11-14 10:35] VITALS: BP 96/61
[2016-11-14 11:05] VITALS: BP 101/70
[2016-11-14] MEDS ORDERED: predniSONE 20 MG TAB ONE (11:39)
[2016-11-14] MEDS ORDERED: HEParin (CENTRAL IV FLUSH) 500 UNIT/5 ML SYR ONE (11:39)
[2016-11-14] MEDS ORDERED: HEParin (CENTRAL IV FLUSH) 500 UNIT/5 ML SYR IV ONE (12:00)
[2016-11-14 12:20] VITALS: BP 101/70
--- OUTSIDE RECORDS SUMMARY | 2016-12-15 20:15 | XMS REPORT | Continuity of Care Document ---
Author Author [facility] Organization [facility] Address Unknown Phone Unavailable Care Team Providers Care Loss Prevention Specialist Name Role Phone Marcello Hill III PCP [phone] Source Comments Some departments are not documenting in the electronic medical record. If you do not see the information that you expected, contact Release of Information in the Health Information Management department at [phone] for further assistance in locating additional records.[facility] Active Allergies and Adverse Reactions Allergen Noted Date Severity Reactions Comments Levaquin 10/18/2016 Medium MUSCLE PAIN tendonitis Tegaderm 11/20/2016 High BLISTERS Tramadol 09/18/2012 ANAPHYLAXIS Current Medications Prescription Sig. Disp. Refills Start End Date Status Date Abiquiu-3 Fatty Acids Take 2 Caps by mouth [...] twice daily as needed. fluconazole (DIFLUCAN) Take 100 mg by mouth Active 150 mg tablet three times weekly. oxyCODone-acetaminophen Take 1 Tab by mouth every Active (PERCOCET; ENDOCET) 4-6 hours as needed (5 10-325 mg tablet mg) Max 12 tabs/day albuterol (VENTOLIN HFA, Inhale 2 Puffs by mouth Active PROAIR HFA) 90 every 4 hours as needed. mcg/actuation inhaler Asckjhd-Iqyatffstyqwk-Umn Take 2 Caps by mouth Active tamin [...] 3 mg by mouth daily. Active tablet cefuroxime (CEFTIN) 250 Take 250 mg by mouth Active mg tablet every 12 hours. rizatriptan (MAXALT) 10 Take 10 mg by mouth once Active mg tablet as needed. May repeat in 2 hours in needed pregabalin (LYRICA) 150 Take 150 mg by mouth Active mg capsule three times daily. rivaroxaban (XARELTO) 20 Take 20 mg by mouth Active mg tablet daily. Take with food. methotrexate sodium Take 2.5 mg by mouth Active (RHEUMATREX) 2.5 mg every 7 days. tablet metoclopramide (REGLAN) Take 10 mg by mouth Active 10 mg tablet before meals and at bedtime. linaclotide(+) (LINZESS) Take 145 mcg by mouth Active 145 mcg cap capsule daily 30 minutes before breakfast. nystatin (MYCOSTATIN) Take 500,000 Units by Active 100,000 units/mL oral mouth twice daily as suspension needed for Oral Thrush. CETIRIZINE HCL (ZYRTEC Take by mouth. Active PO) MULTIVITAMIN PO Take by mouth. Active FLUTICASONE/SALMETEROL Inhale by mouth into the Active (ADVAIR DISKUS IN) lungs twice daily. montelukast (SINGULAIR) Take 10 mg by mouth at Active 10 mg tablet bedtime daily. ALPRAZolam (XANAX) 0.25 Take 0.25 mg by mouth Active mg tablet twice daily as needed for Anxiety. OLANZAPINE PO Take by mouth. Active other medication 1 Dose. Medication Name & Active Strength: IVIG Dose(how many): 34 grams as of 10/18/16 Frequency(how often): every 4 weeks amoxicillin/K clavulanate Take 1 Tab by mouth every Active (AUGMENTIN) 500/125 mg 12 hours. Take with food. tablet cyclosporine (RESTASIS) Place 1 Drop into or Active 0.05 % ophthalmic around eye(s) twice emulsion daily. doxycycline (VIBRAMYCIN) Take 1 Tab by mouth twice 56 Tab 0 10/19/19 11/16/19 100 mg tablet daily for 28 days. 17 17 Cefepime 2 gram solr Administer 2 g through 1 Each 11/21/19 12/01/19 vein every 8 hours for 10 17 17 days. 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 Infectious Diseases Hever Moran MD Antibiotic Therapy 11/26/2016 Telephone Infectious Diseases Hever Moran MD Outpatient Antibiotic Therapy ([facility]pat) 11/20/2016 Infusion Infusion Hever Moran MD Pseudomonas infection (Primary Dx) 11/20/2016 Office Visit Infectious Diseases Hever Moran MD Pseudomonas infection (Primary Dx); Acute recurrent frontal sinusitis; Immunocompromised (HCC) 11/19/2016 Outpt. Infectious Diseases Hever Moran MD Antibiotic Therapy 11/18/2016 Telephone Infectious Diseases Hever Moran MD General Question 10/18/2016 Office Visit Infectious Diseases Hever Moran MD Chronic maxillary sinusitis (Primary Dx); SLE (systemic lupus erythematosus related syndrome) (HCC); Low grade fever Social History Tobacco Use Types Packs/Day Years Used Date Never Smoker Alcohol Use Drinks/Week oz/Week Comments Yes one glass of wine every week to two Last Filed Vital Signs Vital Sign Reading Time Taken Blood Pressure 101/58 11/20/2016 4:37 PM CDT Pulse 85 11/20/2016 4:37 PM CDT Temperature 36.7 C (98.1 F) 11/20/2016 3:39 PM CDT Respiratory Rate 16 11/20/2016 2:26 PM CDT Height 1.626 m (5' 4") 11/20/2016 2:26 PM CDT Weight 85.186 kg (187 lb 12.8 11/20/2016 2:26 PM CDT oz) Body Mass Index 32.22 11/20/2016 2:26 PM CDT Oxygen Saturation 94% 11/20/2016 3:39 PM CDT Plan of Care Health Maintenance Due Date Last Done Comments Physical (Comprehensive) 1976 Exam Pertussis Vaccine 1980 Tetanus Vaccine 1986 Cervical Cancer Screening 1990 Breast Cancer Screening 2009 Influenza Vaccine 04/11/2017 Results from Last 3 Months * BUN (11/28/2016) Component Value Range Blood Urea Nitrogen 15 Specimen Blood * ALT (SGPT) (11/28/2016) Component Value Range ALT (SGPT) 36 Specimen Blood * AST (SGOT) (11/28/2016) Component Value Range AST (SGOT) 28 Specimen Blood * POTASSIUM (11/28/2016) Component Value Range Potassium 3.6 Specimen Blood * ALK PHOS TOTAL (11/28/2016) Component Value Range Alk Phosphatase 86 Specimen Blood * CREATININE (11/28/2016) Component Value Range Creatinine 1.09 Specimen Blood * PLATELET COUNT (11/28/2016) Component Value Range Platelet Count 200 Specimen Blood * CBC (11/28/2016) Component Value Range White Blood Cells 6.2 Specimen Blood * HEMOGLOBIN (11/28/2016) Component Value Range Hemoglobin 13.5 Specimen Blood * COMPREHENSIVE METABOLIC PANEL (11/20/2016 3:34 PM) Component Value Range Sodium 137 137-147 MMOL/L Potassium 3.9 3.5-5.1 MMOL/L Chloride 103 98-110 MMOL/L Glucose 151 (H) 70-100 MG/DL Blood Urea Nitrogen 16 7-25 MG/DL Creatinine 1.25 (H) 0.4-1.00 MG/DL Calcium 8.9 8.5-10.6 MG/DL Total Protein 6.8 6.0-8.0 G/DL Total Bilirubin 0.3 0.3-1.2 MG/DL Albumin 4.0 3.5-5.0 G/DL Alk Phosphatase 88 25-110 U/L AST (SGOT) 24 7-40 U/L CO2 24 21-30 MMOL/L ALT (SGPT) 20 7-56 U/L Anion Gap 10 3-12 eGFR Non 46 (L)Comment: >60 mL/min The eGFR is not validated for use in drug dosing adjustments. Continue to use estimated creatinine clearance per dosing reference text. Please contact the Clinical Pharmacist for questions. eGFR 56 (L)Comment: >60 mL/min The eGFR is not validated for use in drug dosing adjustments. Continue to use estimated creatinine clearance per dosing reference text. Please contact the Clinical Pharmacist for questions. Specimen Blood * CBC AND DIFF (11/20/2016 3:34 PM) Component Value Range White Blood Cells 13.1 (H) 4.5-11.0 K/UL RBC 4.57 4.0-5.0 M/UL Hemoglobin 14.5 12.0-15.0 GM/DL Hematocrit 43.3 36-45 % MCV 94.9 80-100 FL MCH 31.7 26-34 PG MCHC 33.4 32.0-36.0 G/DL RDW 15.1 (H) 11-15 % Platelet Count 269 150-400 K/UL MPV 10.1 7-11 FL Neutrophils 83 (H) 41-77 % Lymphocytes 12 (L) 24-44 % Monocytes 4 4-12 % Eosinophils 1 0-5 % Basophils 0 0-2 % Absolute Neutrophil Count 10.90 (H) 1.8-7.0 K/UL Absolute Lymph Count 1.60 1.0-4.8 K/UL Absolute Monocyte Count 0.50 0-0.80 K/UL Absolute Eosinophil Count 0.10 0-0.45 K/UL Absolute Basophil Count 0.00 0-0.20 K/UL Specimen Blood
--- OUTSIDE RECORDS SUMMARY | 2016-12-15 20:21 | XMS REPORT | Continuity of Care Document ---
Author Author [facility] Organization [facility] Address Unknown Phone Unavailable Allergies Active Description Code Type Severity Reaction Onset Reported/Identified Relationship to Patient Clinical Status Yes TEGADERM TEGADERM Unknown BLISTERS 01/23/2014 Yes tramadol HCl [id number] Drug Allergy Severe ANAPHYLAXIS 11/11/2016 Yes levofloxacin [id number] Drug Allergy Moderate N/A 11/11/2016 Medications Problems Date Dx Coded Attending Type Code Diagnosis Diagnosed By 07/10/1107 KEVIN BEY, JEANNETTE Adams Ot D50.9 IRON DEFICIENCY ANEMIA, UNSPECIFIED 07/10/1107 KEVIN BEY, JEANNETTE Adams Ot D80.1 NONFAMILIAL HYPOGAMMAGLOBULINEMIA 07/10/1107 KEVIN BEY, JEANNETTE Adams Ot M06.9 RHEUMATOID ARTHRITIS, UNSPECIFIED 07/10/1107 KEVIN BEY, JEANNETTE Adams Ot M32.10 SYSTEMIC LUPUS ERYTHEMATOSUS, ORGAN OR S 07/24/2011 Ot V58.61 ANTICOAGULANTS,LT,CURRENT USE 07/24/2011 Ot V58.83 ENCOUNTER FOR THERAPEUTIC DRUG MONITORIN 10/22/2011 Ot 795.79 OTH AND UNSPEC NONSPECIFIC IMMUNOLOGICAL 10/22/2011 Ot V58.61 ANTICOAGULANTS,LT,CURRENT USE 03/24/2012 Ot 795.79 OTH AND UNSPEC NONSPECIFIC IMMUNOLOGICAL 09/18/2012 Ot 038.9 SEPTICEMIA NOS 09/18/2012 Ot 112.0 THRUSH 09/18/2012 Ot 458.9 HYPOTENSION NOS 09/18/2012 Ot 487.1 FLU W RESP MANIFEST NEC 09/18/2012 Ot 593.9 RENAL URETERAL DIS NOS 09/18/2012 Ot 682.3 CELLULITIS OF ARM 09/18/2012 Ot 710.0 SYST LUPUS ERYTHEMATOSIS 09/18/2012 Ot 726.33 OLECRANON BURSITIS 09/18/2012 Ot 995.91 SEPSIS 09/18/2012 Ot V12.51 HX-VENOUS THROMBOSIS EMBOLISM 09/18/2012 Ot V12.55 PERSONAL HISTORY OF PULMONARY EMBOLISM 09/18/2012 Ot V58.65 LONG-TERM(CURRENT)USE OF STEROIDS 09/18/2012 Ot V58.69 OTH MED,LT,CURRENT USE 11/09/2012 Ot 008.45 INTESTINAL INFECTION DUE TO CLOSTRIDIUM 11/09/2012 Ot 276.51 DEHYDRATION 11/09/2012 Ot 346.90 MIGRAINE UNSPECIFIED W/O INTRACT MGRN W/ 11/09/2012 Ot 493.90 ASTHMA, UNSPECIFIED 11/09/2012 Ot 710.0 SYST LUPUS ERYTHEMATOSIS 11/09/2012 Ot 714.0 RHEUMATOID ARTHRITIS 11/09/2012 Ot V12.51 HX-VENOUS THROMBOSIS EMBOLISM 11/09/2012 Ot V12.55 PERSONAL HISTORY OF PULMONARY EMBOLISM 11/09/2012 Ot V58.61 ANTICOAGULANTS,LT,CURRENT USE 04/06/2013 FARIHA EDMONDSON DO Ot 250.00 DIAB WILLY WO COMPL, TYPE II OR UNSPEC TY 04/06/2013 FARIHA EDMONDSON DO Ot 285.9 ANEMIA NOS 04/06/2013 FARIHA EDMONDSON DO Ot 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 04/06/2013 FARIHA EDMONDSON DO Ot 401.9 HYPERTENSION NOS 04/06/2013 FARIHA EDMONDSON DO Ot 486 PNEUMONIA, ORGANISM NOS 04/06/2013 FARIHA EDMONDSON DO Ot 493.90 ASTHMA, UNSPECIFIED 04/06/2013 FARIHA EDMONDSON DO Ot 530.81 ESOPHAGEAL REFLUX 04/06/2013 FARIHA EDMONDSON DO Ot 564.00 UNSPEC CONSTIPATION 04/06/2013 FARIHA EDMONDSON DO Ot 564.1 IRRITABLE BOWEL SYNDROME 04/06/2013 FARIHA EDMONDSON DO Ot 710.0 SYST LUPUS ERYTHEMATOSIS 04/06/2013 FARIHA EDMONDSON DO Ot 714.0 RHEUMATOID ARTHRITIS 04/06/2013 FARIHA EDMONDSON DO Ot 729.1 MYALGIA AND MYOSITIS NOS 04/06/2013 FARIHA EDMONDSON DO, Ot V12.51 HX-VENOUS THROMBOSIS EMBOLISM 04/06/2013 FARIHA EDMONDSON DO, Ot V12.55 PERSONAL HISTORY OF PULMONARY EMBOLISM 04/06/2013 FARIHA EDMONDSON DO, Ot V58.61 ANTICOAGULANTS,LT,CURRENT USE 07/25/2013 RIDINGSLION C ORTHOPEDIC RADIOLOGIC TECHNOLOGIST Ot 780.64 CHILLS (WITHOUT FEVER) 07/25/2013 RIDINGS, LION C ORTHOPEDIC RADIOLOGIC TECHNOLOGIST Ot 786.2 COUGH 09/06/2013 RIDINGSLION ORTHOPEDIC RADIOLOGIC TECHNOLOGIST Ot 959.09 INJURY OF FACE AND NECK 09/06/2013 LION DE LA CRUZ ORTHOPEDIC RADIOLOGIC TECHNOLOGIST Ot E000.8 OTHER EXTERNAL CAUSE STATUS 09/06/2013 LION DE LA CRUZ ORTHOPEDIC RADIOLOGIC TECHNOLOGIST Ot E928.9 ACCIDENT NOS 09/06/2013 RIDLION CHAPPELL ORTHOPEDIC RADIOLOGIC TECHNOLOGIST Ot V58.81 FIT/ADJ VASCULAR CATHETER 12/06/2013 JEANNETTE BROWN MD Ot 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 12/06/2013 JEANNETTE BROWN MD Ot 280.9 IRON DEFIC ANEMIA NOS 12/06/2013 JEANNETTE BROWN MD Ot 710.0 SYST LUPUS ERYTHEMATOSIS 12/06/2013 JEANNETTE BROWN MD Ot 714.0 RHEUMATOID ARTHRITIS 12/06/2013 JEANNETTE BROWN MD Ot V12.51 HX-VENOUS THROMBOSIS EMBOLISM 12/06/2013 JEANNETTE RBOWN MD Ot V58.11 ENCOUNTER FOR ANTINEOPLASTIC CHEMOTHERAP 12/06/2013 JEANNETTE BROWN MD Ot V58.61 ANTICOAGULANTS,LT,CURRENT USE 12/06/2013 JEANNETTE BROWN MD Ot V58.65 LONG-TERM(CURRENT)USE OF STEROIDS 12/06/2013 JEANNETTE BROWN MD Ot V58.69 OTH MED,LT,CURRENT USE 01/23/2014 PATRICK LAND MD Ot 346.90 MIGRAINE UNSPECIFIED W/O INTRACT MGRN W/ 03/08/2014 JEANNETTE BROWN MD Ot 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 03/08/2014 JEANNETTE BROWN MD Ot 280.9 IRON DEFIC ANEMIA NOS 03/08/2014 JEANNETTE BROWN MD Ot 710.0 SYST LUPUS ERYTHEMATOSIS 03/08/2014 JEANNETTE BROWN MD Ot 714.0 RHEUMATOID ARTHRITIS 03/08/2014 JEANNETTE BROWN MD Ot V58.65 LONG-TERM(CURRENT)USE OF STEROIDS 03/08/2014 JEANNETTE BROWN MD Ot V58.69 OTH MED,LT,CURRENT USE 04/04/2014 FARIHA EDMONDSON DO Ot 585.9 CHRONIC KIDNEY DISEASE, UNSPECIFIED 06/29/2014 JEANNETTE BROWN MD Ot 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 06/29/2014 JEANNETTE BROWN MD Ot 280.9 IRON DEFIC ANEMIA NOS 06/29/2014 JEANNETTE BROWN MD Ot 710.0 SYST LUPUS ERYTHEMATOSIS 06/29/2014 JEANNETTE BROWN MD Ot 714.0 RHEUMATOID ARTHRITIS 06/29/2014 JEANNETTE BROWN MD Ot V58.65 LONG-TERM(CURRENT)USE OF STEROIDS 06/29/2014 JEANNETTE BROWN MD Ot V58.69 OT MED,LT,CURRENT USE 06/29/2014 Ot 289.81 06/29/2014 Ot 453.40 06/29/2014 Ot V58.61 06/29/2014 Ot V58.83 06/29/2014 FARIHA EDMONDSON DO Ot 959.09 06/29/2014 FARIHA EDMONDSON DO Ot E000.8 06/29/2014 FARIHA EDMONDSON DO Ot E928.9 06/29/2014 Ot 780.64 06/29/2014 Ot 786.2 06/29/2014 FARIHA EDMONDSON DO Ot 285.9 06/29/2014 FARIHA EDMONDSON DO Ot V76.12 06/29/2014 LION EDMONDSON DIRECTOR OF ARCHITECTURE Ot 250.00 06/29/2014 LION EDMONDSON DIRECTOR OF ARCHITECTURE Ot 486 06/29/2014 LION EDMONDSON DIRECTOR OF ARCHITECTURE Ot 780.79 06/29/2014 LION EDMONDSON DIRECTOR OF ARCHITECTURE Ot V58.69 06/29/2014 LION DE LA CRUZ ORTHOPEDIC RADIOLOGIC TECHNOLOGIST Ot 486 06/29/2014 MARIA LUZ ANDRADE DIRECTOR OF ARCHITECTURE Ot 279.00 06/29/2014 MARIA LUZ ANDRADE DIRECTOR OF ARCHITECTURE Ot 280.9 06/29/2014 MARIA LUZ ANDRADE DIRECTOR OF ARCHITECTURE Ot 453.40 06/29/2014 MARIA LUZ ANDRADE DIRECTOR OF ARCHITECTURE Ot 585.3 06/29/2014 MARIA LUZ ANDRADE DIRECTOR OF ARCHITECTURE Ot 710.0 06/29/2014 MARIA LUZ ANDRADE DIRECTOR OF ARCHITECTURE Ot 714.0 06/29/2014 MARIA LUZ ANDRADE DIRECTOR OF ARCHITECTURE Ot V58.61 06/29/2014 MARIA LUZ ANDRADE DIRECTOR OF ARCHITECTURE Ot V58.65 06/29/2014 MARIA LUZ ANDRADE DIRECTOR OF ARCHITECTURE Ot V58.69 06/29/2014 FARIHA EDMONDSON DO Ot 593.9 06/29/2014 FARIHA EDMONDSON DO Ot 780.60 06/29/2014 DELVIS SAUERFARIHA Ot 784.0 06/29/2014 EDMONDSON DO, FARIHA Blakely Ot 780.60 06/29/2014 EDMONDSON DO, FARIHA Blakely Ot 919.4 06/29/2014 EDMONDSON DOFARIHA Ot E906.4 06/29/2014 EDMONDSON DO, FARIHA Blakely Ot V58.81 06/29/2014 EDMONDSON DO, FARIHA Blakely Ot 279.00 06/29/2014 EDMONDSON DO, FARIHA Blakely Ot 280.9 06/29/2014 EDMONDSON DO, FARIHA Blakely Ot 585.3 06/29/2014 EDMONDSON DO, FARIHA Blakely Ot 710.0 06/29/2014 EDMONDSON DO, FARIHA Blakely Ot 714.0 06/29/2014 EDMONDSON DO, FARIHA Blakely Ot V58.61 06/29/2014 EDMONDSON DO, FARIHA Blakely Ot V58.65 06/29/2014 EDMONDSON DO, FARIHA Blakely Ot V58.69 06/29/2014 EDMONDSON DO, FARIHA Blakely Ot V58.81 06/29/2014 RAHEL BEY, DAX Scott Ot 695.4 06/29/2014 KEVIN BEY, JEANNETTE Adams Ot 279.00 06/29/2014 KEVIN BEY, JEANNETTE Adams Ot 280.9 06/29/2014 KEVIN BEY, JEANNETTE Adams Ot 710.0 06/29/2014 KEVIN BEY, JEANNETTE Adams Ot 714.0 06/29/2014 JEANNETTE BROWN MD Ot V58.65 06/29/2014 KEVIN BEY, JEANNETTE Adams Ot V58.69 06/29/2014 Ot 585.9 07/04/2014 KEVIN BEY, JEANNETTE Adams Ot 279.00 07/04/2014 KEVIN BEY, JEANNETTE Adams Ot 280.9 07/04/2014 KEVIN BEY, JEANNETTE Adams Ot 710.0 07/04/2014 KEVIN BEY, JEANNETTE Adams Ot 714.0 07/04/2014 KEVIN BEY, JEANNETTE Adams Ot V58.65 07/04/2014 KEIVN BEY, JEANNETTE Adams Ot V58.69 07/04/2014 KEVIN BEY, JEANNETTE Adams Ot 279.00 07/04/2014 KEVIN BEY, JEANNETTE Adams Ot 280.9 07/04/2014 KEVIN BEY, JEANNETTE Adams Ot 710.0 07/04/2014 KEVIN BEY, JEANNETTE Adams Ot 714.0 07/04/2014 JEANNETTE BROWN MD Ot V58.65 07/04/2014 KEVIN BEY, JEANNETTE Adams Ot V58.69 07/05/2014 KEVIN BEY, JEANNETTE Adams Ot 279.00 07/05/2014 KEVIN BEY, JEANNETTE Adams Ot 280.9 07/05/2014 KEVIN BEY, JEANNETTE Adams Ot 710.0 07/05/2014 KEVIN BEY, JEANNETTE Adams Ot 714.0 07/05/2014 KEVIN BEY, JEANNETTE Adams Ot V58.65 07/05/2014 KEVIN BEY, JEANNETTE Adams Ot V58.69 07/06/2014 KEVIN BEY, JEANNETTE Angie Ot 279.00 07/06/2014 KEVIN BEY, JEANNETTE Adams Ot 280.9 07/06/2014 KEVIN BEY, JEANNETTE Adams Ot 710.0 07/06/2014 KEVIN BEY, JEANNETTE Adams Ot 714.0 07/06/2014 KEVIN BEY, JEANNETTE Adams Ot V58.65 07/06/2014 KEVIN BEY, JEANNETTE Adams Ot V58.69 07/26/2014 ZAC GILLETTE DO Ot 279.00 07/26/2014 ZAC GILLETTE DO Ot 584.9 07/26/2014 ZAC GILLETTE DO Ot 710.0 07/26/2014 ZAC GILLETTE DO Ot 782.3 08/01/2014 KEVIN BEY, JEANNETTE Adams Ot 279.00 08/01/2014 KEVIN BEY, JEANNETTE Adams Ot 280.9 08/01/2014 KEVIN BEY, JEANNETTE Adams Ot 710.0 08/01/2014 KEVIN BEY, JEANNETTE Adams Ot 714.0 08/01/2014 KEVIN BEY, JEANNETTE Adams Ot V58.65 08/01/2014 KEVIN BEY, JEANNETTE Adams Ot V58.69 08/31/2014 KEVIN BEY, JEANNETTE Adams Ot 279.00 08/31/2014 KEVIN BEY, JEANNETTE Adams Ot 280.9 08/31/2014 KEVIN BEY, JEANNETTE Adams Ot 710.0 08/31/2014 KEVIN BEY, JEANNETTE Adams Ot 714.0 08/31/2014 KEVIN BEY, JEANNETTE Adams Ot V58.65 08/31/2014 KEVIN BEY, JEANNETTE Adams Ot V58.69 09/01/2014 KEVIN BEY, JEANNETTE Adams Ot 279.00 09/01/2014 KEVIN BEY, JEANNETTE Angie Ot 280.9 09/01/2014 KEVIN BEY, JEANNETTE Adams Ot 710.0 09/01/2014 KEVIN BEY, JEANNETTE Angie Ot 714.0 09/01/2014 KEVIN BEY, JEANNETTE Adams Ot V58.65 09/01/2014 KEVIN BEY, JEANNETTE Adams Ot V58.69 09/21/2014 FARIHA EDMONDSON DO Ot 486 09/21/2014 FARIHA EDMONDSON DO Ot 486 09/21/2014 FARIHA EDMONDSON DO Ot 786.2 10/03/2014 KEVIN BEY, JEANNETTE Adams Ot 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 10/03/2014 KEVIN BEY, JEANNETTE Adams Ot 280.9 IRON DEFIC ANEMIA NOS 10/03/2014 KEVIN BEY, JEANNETTE Adams Ot 710.0 SYST LUPUS ERYTHEMATOSIS 10/03/2014 KEVIN BEY, JEANNETTE Adams Ot 714.0 RHEUMATOID ARTHRITIS 10/03/2014 KEVIN BEY, JEANNETTE Adams Ot V58.65 LONG-TERM(CURRENT)USE OF STEROIDS 10/03/2014 KEVIN BEY, JEANNETTE Adams Ot V58.69 OT MED,LT,CURRENT USE 10/05/2014 KEVIN BEY, JEANNETTE Adams Ot 279.00 10/05/2014 KEVIN BEY, JEANNETTE Adams Ot 280.9 10/05/2014 KEVIN BEY, JEANNETTE Adams Ot 710.0 10/05/2014 KEVIN BEY, JEANNETTE Adams Ot 714.0 10/05/2014 KEVIN BEY, JEANNETTE Adams Ot V58.65 10/05/2014 KEVIN BEY, JEANNETTE Adams Ot V58.69 10/05/2014 KEVIN BEY, JEANNETTE Adams Ot 279.00 10/05/2014 KEVIN BEY, JEANNETTE Adams Ot 280.9 10/05/2014 KEVIN BEY, JEANNETTE Adams Ot 710.0 10/05/2014 KEVIN BEY, JEANNETTE Adams Ot 714.0 10/05/2014 KEVIN BEY, JEANNETTE Adams Ot V58.65 10/05/2014 KEVIN BEY, JEANNETTE Adams Ot V58.69 10/05/2014 KEVIN BEY, JEANNETTE Adams Ot 279.00 10/05/2014 KEVIN BEY, JEANNETTE Adams Ot 280.9 10/05/2014 KEVIN BEY, JEANNETTE Adams Ot 710.0 10/05/2014 KEVIN BEY, JEANNETTE Adams Ot 714.0 10/05/2014 KEVIN BEY, JEANNETTE Adams Ot V58.65 10/05/2014 KEVIN BEY, JEANNETTE Adams Ot V58.69 10/06/2014 KEVIN BEY, JEANNETTE Adams Ot 279.00 10/06/2014 KEVIN BEY, JEANNETTE Adams Ot 280.9 10/06/2014 KEVIN BEY, JEANNETTE Adams Ot 710.0 10/06/2014 KEVIN BEY, JEANNETTE Adams Ot 714.0 10/06/2014 KEVIN BEY, JEANNETTE Adams Ot V58.65 10/06/2014 KEVIN BEY, JEANNETTE Adams Ot V58.69 10/31/2014 KEVIN BEY, JEANNETTE Adams Ot 279.00 10/31/2014 KEVIN BEY, JEANNETTE Adams Ot 280.9 10/31/2014 KEVIN BEY, JEANNETTE Adams Ot 710.0 10/31/2014 KEVIN BEY, JEANNETTE Adams Ot 714.0 10/31/2014 KEVIN BEY, JEANNETTE Adams Ot V58.65 10/31/2014 KEVIN BEY, JEANNETTE Adams Ot V58.69 11/03/2014 KEVIN BEY, JEANNETTE Adams Ot 279.00 11/03/2014 KEVIN BEY, JEANNETTE Adams Ot 280.9 11/03/2014 KEVIN BEY, JEANNETTE Adams Ot 710.0 11/03/2014 KEVIN BEY, JEANNETTE Adams Ot 714.0 11/03/2014 KEVIN BEY, JEANNETTE Adams Ot V58.65 11/03/2014 KEVIN BEY, JEANNETTE Adams Ot V58.69 11/04/2014 LETA SAUER ZAC M Ot 276.8 11/04/2014 LETAMARGARITA SAUER ZAC Scott Ot 584.9 11/04/2014 LETAMARGARITA SAUER ZAC Scott Ot 710.0 11/04/2014 [facility] DO ZAC Scott Ot 276.8 11/04/2014 LETAMARGARITA SAUER ZAC Soctt Ot 584.9 11/04/2014 LETAMARGARITA SAUER ZAC Scott Ot 710.0 11/07/2014 Ot 289.81 11/07/2014 Ot 453.40 11/07/2014 Ot V58.61 11/07/2014 Ot V58.83 11/07/2014 Ot V58.61 11/07/2014 Ot V58.83 11/07/2014 Ot V58.61 11/07/2014 Ot V58.83 11/07/2014 Ot V58.61 11/07/2014 Ot V58.83 11/07/2014 Ot 719.66 11/07/2014 Ot V72.63 11/07/2014 Ot V74.8 11/07/2014 Ot 786.50 11/07/2014 Ot 793.19 11/07/2014 FARIHA EDMONDSON DO Ot 959.09 11/07/2014 FARIHA EDMONDSON DO Ot E000.8 11/07/2014 DELVIS SAUER FARIHA J Ot E928.9 11/07/2014 Ot 780.64 11/07/2014 Ot 786.2 11/07/2014 DELVIS SAUER FARIHA Reddy Ot 285.9 11/07/2014 Ot 959.09 11/07/2014 Ot E000.8 11/07/2014 Ot E928.9 11/07/2014 Ot V58.81 11/07/2014 FARIHA EDMONDSON DO Ot V76.12 11/07/2014 LION EDMONDSON DIRECTOR OF ARCHITECTURE Ot 250.00 11/07/2014 LION EDMONDSON DIRECTOR OF ARCHITECTURE Ot 486 11/07/2014 LION EDMONDSON DIRECTOR OF ARCHITECTURE Ot 780.79 11/07/2014 LION EDMONDSON DIRECTOR OF ARCHITECTURE Ot V58.69 11/07/2014 LION DE LA CRUZ ORTHOPEDIC RADIOLOGIC TECHNOLOGIST Ot 486 11/07/2014 MARIA LUZ ANDRADE DIRECTOR OF ARCHITECTURE Ot 279.00 11/07/2014 MARIA LUZ ANDRADE DIRECTOR OF ARCHITECTURE Ot 280.9 11/07/2014 MARIA LUZ ANDRADE DIRECTOR OF ARCHITECTURE Ot 453.40 11/07/2014 MARIA LUZ ANDRADE DIRECTOR OF ARCHITECTURE Ot 585.3 11/07/2014 MARIA LUZ ANDRADE DIRECTOR OF ARCHITECTURE Ot 710.0 11/07/2014 MARIA LUZ ANDRADE DIRECTOR OF ARCHITECTURE Ot 714.0 11/07/2014 MARIA LUZ ANDRADE DIRECTOR OF ARCHITECTURE Ot V58.61 11/07/2014 MARIA LUZ ANDRADE DIRECTOR OF ARCHITECTURE Ot V58.65 11/07/2014 MARIA LUZ ANDRADE DIRECTOR OF ARCHITECTURE Ot V58.69 11/07/2014 FARIHA EDMONDSON DO Ot 593.9 11/07/2014 FARIHA EDMONDSON DO Ot 780.60 11/07/2014 EDMONDSONFARIHA JACKSON DO Ot 784.0 11/07/2014 FARIHA EDMONDSON DO Ot 780.60 11/07/2014 FARIHA EDMONDSON DO Ot 919.4 11/07/2014 FARIHA EDMONDSON DO Ot E906.4 11/07/2014 FARIHA EDMONDSON DO Ot V58.81 11/07/2014 FARIHA EDMONDSON DO Ot 279.00 11/07/2014 FARIHA EDMONDSON DO Ot 280.9 11/07/2014 EDMONDSON DOFARIHA Ot 585.3 11/07/2014 EDMONDSON DOFARIHA Ot 710.0 11/07/2014 EDMONDSON DOFARIHA Ot 714.0 11/07/2014 EDMONDSON FARIHA Ot V58.61 11/07/2014 EDMONDSON DOFARIHA Ot V58.65 11/07/2014 EDMONDSON DO FARIHA Blakely Ot V58.69 11/07/2014 EDMONDSON DO FARIHA Blakely Ot V58.81 11/07/2014 DAX MCGINNIS MD Ot 695.4 11/07/2014 Ot 585.9 11/07/2014 [facility] ZAC SAUER Ot 279.00 11/07/2014 [facility] ZAC SAUER Ot 584.9 11/07/2014 [facility] DO ZAC M Ot 710.0 11/07/2014 LETA DO ZAC M Ot 782.3 11/07/2014 EDMONDSONMANUEL SAUER FARIHA Blakely Ot 486 11/07/2014 EDMONDSONMANUEL SAUER FARIHA Blakely Ot 486 11/07/2014 DELVIS SAUER FARIHA Blakely Ot 786.2 11/07/2014 LETAZAC AVILA DO Ot 599.70 11/07/2014 KEVIN BEY, JEANNETTE Adams Ot 279.00 11/07/2014 KEVIN BEY, JEANNETTE Adams Ot 280.9 11/07/2014 KEVIN BEY, JEANNETTE Adams Ot 710.0 11/07/2014 KEVIN BEY, JEANNETTE Adams Ot 714.0 11/07/2014 KEVIN BEY, JEANNETTE Adams Ot V58.65 11/07/2014 KEVIN BEY, JEANNETTE Adams Ot V58.69 11/07/2014 [facility] DO ZAC M Ot 276.8 11/07/2014 [facility] DO ZAC Tyler Ot 584.9 11/07/2014 LETAZAC AVILA DO Ot 710.0 11/07/2014 Ot V58.61 11/07/2014 Ot V58.83 11/07/2014 Ot V58.61 11/07/2014 Ot V58.83 11/07/2014 Ot V58.61 11/07/2014 Ot V58.83 11/07/2014 Ot 719.66 11/07/2014 Ot V72.63 11/07/2014 Ot V74.8 11/07/2014 Ot 786.50 11/07/2014 Ot 793.19 11/07/2014 EDMONDSON FARIHA SAUER Ot 959.09 11/07/2014 FARIHA EDMONDSON DO Ot E000.8 11/07/2014 FARIHA EDMONDSON DO Ot E928.9 11/07/2014 Ot 780.64 11/07/2014 Ot 786.2 11/07/2014 EDMONDSON FARIHA Blakely Ot 285.9 11/07/2014 Ot 959.09 11/07/2014 Ot E000.8 11/07/2014 Ot E928.9 11/07/2014 Ot V58.81 11/07/2014 DELVIS SAUER FARIHA Reddy Ot V76.12 11/07/2014 LION EDMONDSON DIRECTOR OF ARCHITECTURE Ot 250.00 11/07/2014 LION EDMONDSON DIRECTOR OF ARCHITECTURE Ot 486 11/07/2014 LION EDMONDSON DIRECTOR OF ARCHITECTURE Ot 780.79 11/07/2014 LION EDMONDSON DIRECTOR OF ARCHITECTURE Ot V58.69 11/07/2014 LION DE LA CRUZ ORTHOPEDIC RADIOLOGIC TECHNOLOGIST Ot 486 11/07/2014 MARIA LUZ ANDRADE DIRECTOR OF ARCHITECTURE Ot 279.00 11/07/2014 MARIA LUZ ANDRADE DIRECTOR OF ARCHITECTURE Ot 280.9 11/07/2014 MARIA LUZ ANDRADE DIRECTOR OF ARCHITECTURE Ot 453.40 11/07/2014 MARIA LUZ ANDRADE DIRECTOR OF ARCHITECTURE Ot 585.3 11/07/2014 MARIA LUZ ANDRADE DIRECTOR OF ARCHITECTURE Ot 710.0 11/07/2014 MARIA LUZ ANDRADE DIRECTOR OF ARCHITECTURE Ot 714.0 11/07/2014 MARIA LUZ ANDRADE DIRECTOR OF ARCHITECTURE Ot V58.61 11/07/2014 MARIA LUZ ANDRADE DIRECTOR OF ARCHITECTURE Ot V58.65 11/07/2014 MARIA LUZ ANDRADE DIRECTOR OF ARCHITECTURE Ot V58.69 11/07/2014 FARIHA EDMONDSON DO Ot 593.9 11/07/2014 FARIHA EDMONDSON DO Ot 780.60 11/07/2014 FARIHA EDMONDSON DO Ot 784.0 11/07/2014 FARIHA EDMONDSON DO Ot 780.60 11/07/2014 FARIHA EDMONDSON DO Ot 919.4 11/07/2014 EDMONDSON DOFARIHA Ot E906.4 11/07/2014 EDMONDSON DO, FARIHA Blakely Ot V58.81 11/07/2014 EDMONDSON DO, FARIHA Blakely Ot 279.00 11/07/2014 EDMONDSON DO, FARIHA Blakely Ot 280.9 11/07/2014 EDMONDSON DO, FARIHA Blakely Ot 585.3 11/07/2014 EDMONDSON DO, FARIHA Blakely Ot 710.0 11/07/2014 EDMONDSON DO, FARIHA Blakely Ot 714.0 11/07/2014 EDMONDSON DO FARIHA Blakely Ot V58.61 11/07/2014 EDMONDSON DO, FARIHA Blakely Ot V58.65 11/07/2014 EDMONDSON DO, FARIHA Blakely Ot V58.69 11/07/2014 EDMON[facility]ON DO FARIHA Blakely Ot V58.81 11/07/2014 RAHEL BEY, DAX Scott Ot 695.4 11/07/2014 Ot 585.9 11/07/2014 LETA DOZAC Ot 279.00 11/07/2014 LETA DOZAC Ot 584.9 11/07/2014 LETA DOZAC Ot 710.0 11/07/2014 LETA DOZAC Ot 782.3 11/07/2014 EDMON[facility] DO FARIHA Blakely Ot 486 11/07/2014 EDMONDSON DO FARIHA Blakely Ot 486 11/07/2014 EDMON[facility]ON DO FARIHA Blakely Ot 786.2 11/07/2014 LETAZAC AVILA DO Ot 599.70 11/07/2014 KEVIN BEY, JEANNETTE Adams Ot 279.00 11/07/2014 KEVIN BEY, JEANNETTE Adams Ot 280.9 11/07/2014 KEVIN BEY, JEANNETTE Adams Ot 710.0 11/07/2014 KEVIN BEY, JEANNETTE Adams Ot 714.0 11/07/2014 KEVIN BEY, JEANNETTE Adams Ot V58.65 11/07/2014 KEVIN BEY, JEANNETTE Adams Ot V58.69 11/07/2014 LETA DOZAC Ot 276.8 11/07/2014 LETA DOZAC Ot 584.9 11/07/2014 LETA DOZAC Ot 710.0 11/08/2014 EDMONDSON DOFARIHA Ot 466.0 11/10/2014 LET[facility] DO ZAC M Ot 276.8 11/10/2014 LET[facility] DO ZAC M Ot 584.9 11/10/2014 LETA SAUER ZAC M Ot 710.0 11/16/2014 KEVIN BEY, JEANNETTE Adams Ot 279.00 11/16/2014 KEVIN BEY, JEANNETTE Adams Ot 280.9 11/16/2014 KEVIN BEY, JEANNETTE Adams Ot 710.0 11/16/2014 KEVIN BEY, JEANNETTE Adams Ot 714.0 11/16/2014 JEANNETTE BROWN MD Ot V58.65 11/16/2014 JEANNETTE BROWN MD Ot V58.69 11/18/2014 FARIHA EDMONDSON DO Ot 466.0 12/05/2014 [facility] DO ZAC M Ot 276.8 12/05/2014 [facility] DO ZAC M Ot 584.9 12/05/2014 [facility] ZAC SAUER Ot 710.0 12/19/2014 [facility] ZAC SAUER Ot 599.70 12/19/2014 [facility] ZAC SAUER Ot 599.70 01/03/2015 JEANNETTE BROWN MD Ot 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 01/03/2015 JEANNETTE BROWN MD Ot 280.9 IRON DEFIC ANEMIA NOS 01/03/2015 JEANNETTE BROWN MD Ot 710.0 SYST LUPUS ERYTHEMATOSIS 01/03/2015 JEANNETTE BROWN MD Ot 714.0 RHEUMATOID ARTHRITIS 01/03/2015 JEANNETTE BROWN MD Ot V58.65 LONG-TERM(CURRENT)USE OF STEROIDS 01/03/2015 JEANNETTE BROWN MD Ot V58.69 [facility] MED,LT,CURRENT USE 01/05/2015 JEANNETTE BROWN MD Ot 279.00 01/05/2015 JEANNETTE BROWN MD Ot 280.9 01/05/2015 JEANNETTE BROWN MD Ot 710.0 01/05/2015 JEANNETTE BROWN MD Ot 714.0 01/05/2015 JEANNETTE BROWN MD Ot V58.65 01/05/2015 JEANNETTE BROWN MD Ot V58.69 01/06/2015 JEANNETTE BROWN MD Ot 279.00 01/06/2015 JEANNETTE BROWN MD Ot 280.9 01/06/2015 JEANNETTE BROWN MD Ot 710.0 01/06/2015 JEANNETTE BROWN MD Ot 714.0 01/06/2015 KEVIN BEY, JEANNETTE Adams Ot V58.65 01/06/2015 KEVIN BYE, JEANNETTE Adams Ot V58.69 01/09/2015 KEVIN BEY, JEANNETTE Adams Ot 279.00 01/09/2015 KEVIN BEY, JEANNETTE Adams Ot 280.9 01/09/2015 KEVIN BEY, JEANNETTE Adams Ot 710.0 01/09/2015 KEVIN BEY, JEANNETTE Adams Ot 714.0 01/09/2015 KEVIN BEY, EJANNETTE Adams Ot V58.65 01/09/2015 KEVIN BEY, JEANNETTE Adams Ot V58.69 01/09/2015 FARIHA EDMONDSON DO Ot 486 01/20/2015 ZAC GILLETTE DO Ot 599.70 01/27/2015 FARIHA EDMONDSON DO Ot 508.2 01/27/2015 FARIHA EDMONDSON DO Ot 780.60 02/04/2015 FARIHA EDMONDSON DO Ot 486 02/04/2015 FARIHA EDMONDSON DO Ot 786.2 02/07/2015 ZAC GILLETTE DO Ot 584.9 02/07/2015 ZAC GILLETTE DO Ot 599.70 02/07/2015 ZAC GILLETTE DO Ot 710.0 02/07/2015 ZAC GILLETTE DO Ot 729.2 02/09/2015 Ot V58.61 02/09/2015 Ot V58.83 02/09/2015 Ot V58.61 02/09/2015 Ot V58.83 02/09/2015 Ot V58.61 02/09/2015 Ot V58.83 02/09/2015 Ot 719.66 02/09/2015 Ot V72.63 02/09/2015 Ot V74.8 02/09/2015 Ot 786.50 02/09/2015 Ot 793.19 02/09/2015 FARIHA EDMONDSON DO Ot 959.09 02/09/2015 FARIHA EDMONDSON DO Ot E000.8 02/09/2015 FARIHA EDMONDSON DO Ot E928.9 02/09/2015 Ot 780.64 02/09/2015 Ot 786.2 02/09/2015 FARIHA EDMONDSON DO Ot 285.9 02/09/2015 Ot 959.09 02/09/2015 Ot E000.8 02/09/2015 Ot E928.9 02/09/2015 Ot V58.81 02/09/2015 FARIHA EDMONDSON DO Ot V76.12 02/09/2015 DELVISFABYIA Renato DIRECTOR OF ARCHITECTURE Ot 250.00 02/09/2015 DELVISLION DIRECTOR OF ARCHITECTURE Ot 486 02/09/2015 DELVISLION DIRECTOR OF ARCHITECTURE Ot 780.79 02/09/2015 DELVIS LION Gross DIRECTOR OF ARCHITECTURE Ot V58.69 02/09/2015 MALULION CHAPPELL ORTHOPEDIC RADIOLOGIC TECHNOLOGIST Ot 486 02/09/2015 MARIA LUZ ANDRADE DIRECTOR OF ARCHITECTURE Ot 279.00 02/09/2015 MARIA LUZ ANDRADE DIRECTOR OF ARCHITECTURE Ot 280.9 02/09/2015 MARIA LUZ ANDRADE DIRECTOR OF ARCHITECTURE Ot 453.40 02/09/2015 MARIA LUZ ANDRADE DIRECTOR OF ARCHITECTURE Ot 585.3 02/09/2015 MARIA LUZ ANDRADE S DIRECTOR OF ARCHITECTURE Ot 710.0 02/09/2015 MARIA LUZ ANDRADE S DIRECTOR OF ARCHITECTURE Ot 714.0 02/09/2015 LUPE VELVETTIN S DIRECTOR OF ARCHITECTURE Ot V58.61 02/09/2015 LUPE MARIA LUZ S DIRECTOR OF ARCHITECTURE Ot V58.65 02/09/2015 MARIA LUZ ANDRADE S DIRECTOR OF ARCHITECTURE Ot V58.69 02/09/2015 FARIHA EDMONDSON DO Ot 593.9 02/09/2015 FARIHA EDMONDSON DO Ot 780.60 02/09/2015 FARIHA EDMONDSON DO Ot 784.0 02/09/2015 FARIHA EDMONDSON DO Ot 780.60 02/09/2015 FARIHA EDMONDSON DO Ot 919.4 02/09/2015 FARIHA EDMONDSON DO Ot E906.4 02/09/2015 FARIHA EDMONDSON DO Ot V58.81 02/09/2015 FARIHA EDMONDSON DO Ot 279.00 02/09/2015 FARIHA EDMONDSON DO Ot 280.9 02/09/2015 FARIHA EDMONDSON DO Ot 585.3 02/09/2015 FARIHA EDMONDSON DO Ot 710.0 02/09/2015 FARIHA EDMONDSON DO Ot 714.0 02/09/2015 FARIHA EDMONDSON DO Ot V58.61 02/09/2015 EDMONDSON DO, FARIHA Blakely Ot V58.65 02/09/2015 EDMONDSON DO, FARIHA Blakely Ot V58.69 02/09/2015 EDMONDSON DO, FARIHA Reddy Ot V58.81 02/09/2015 RAHEL BEY DAX Soctt Ot 695.4 02/09/2015 Ot 585.9 02/09/2015 LETA DO, ZAC Scott Ot 279.00 02/09/2015 LETA DO, ZAC Scott Ot 584.9 02/09/2015 LETA DO, ZAC Scott Ot 710.0 02/09/2015 LETA DO, ZAC Scott Ot 782.3 02/09/2015 EDMONDSON DO FARIHA Reddy Ot 486 02/09/2015 EDMONDSON DOFARIHA Ot 486 02/09/2015 EDMONDSON DO FARIHA Reddy Ot 786.2 02/09/2015 LETA DO, ZAC Scott Ot 599.70 02/09/2015 LETA DO, ZAC M Ot 276.8 02/09/2015 LETA DO, ZAC Scott Ot 584.9 02/09/2015 LETA DO, ZAC Scott Ot 710.0 02/09/2015 EDMONDSON DO, FARIHA Blakely Ot 466.0 02/09/2015 EDMONDSON DO, FARIHA Blakely Ot 466.0 02/09/2015 LETA DO, ZAC Scott Ot 276.8 02/09/2015 LETA DO, ZAC Scott Ot 584.9 02/09/2015 LETA DO, ZAC Scott Ot 710.0 02/09/2015 EDMONDSON DO FARIHA Reddy Ot 508.2 02/09/2015 EDMONDSON DO FARIHA Reddy Ot 786.2 02/09/2015 EDMONDSON DO FARIHA Reddy Ot E890.2 02/09/2015 EDMONDSON DOFARIHA Ot 508.2 02/09/2015 EDMONDSON DOFARIHA Ot 780.60 02/09/2015 KEVIN BEY, JEANNETTE Adams Ot 279.00 02/09/2015 KEVIN BEY, JEANNETTE Adams Ot 280.9 02/09/2015 KEVIN BEY, JEANNETTE Adams Ot 710.0 02/09/2015 KEVIN BEY, JEANNETTE Adams Ot 714.0 02/09/2015 KEVIN BEY, JEANNETTE K Ot V58.65 02/09/2015 KEVIN BEY, JEANNETTE K Ot V58.69 02/09/2015 LETA DO, ZAC M Ot 584.9 02/09/2015 LETA DO, ZAC M Ot 599.70 02/09/2015 LETA DO, ZAC M Ot 710.0 02/09/2015 LETA DO, ZAC M Ot 729.2 02/13/2015 LETA DO, ZAC M Ot 279.00 02/13/2015 LETA DO, ZAC M Ot 584.9 02/13/2015 LETA DO, ZAC M Ot 710.0 02/13/2015 LETA DO, ZAC M Ot 782.3 02/13/2015 KEVIN BEY, JEANNETTE Angie Ot 279.00 02/13/2015 KEVIN BEY, JEANNETTE K Ot 280.9 02/13/2015 KEVIN BEY, JEANNETTE K Ot 710.0 02/13/2015 KEVIN BEY, JEANNETTE K Ot 714.0 02/13/2015 KEVIN BEY, JEANNETTE K Ot V58.65 02/13/2015 KEVIN BEY, JEANNETTE K Ot V58.69 02/13/2015 KEVIN BEY, JEANNETTE K Ot 279.00 02/13/2015 KEVIN BEY, JEANNETTE K Ot 280.9 02/13/2015 KEVIN BEY, JEANNETTE K Ot 710.0 02/13/2015 KEVIN BEY, JEANNETTE K Ot 714.0 02/13/2015 KEVIN BEY, JEANNETTE K Ot V58.65 02/13/2015 KEVIN BEY, JEANNETTE K Ot V58.69 02/14/2015 KEVIN BEY, JEANNETTE K Ot 279.00 02/14/2015 KEVIN BEY, JEANNETTE K Ot 280.9 02/14/2015 KEVIN BEY, JEANNETTE K Ot 710.0 02/14/2015 KEVIN BEY, JEANNETTE K Ot 714.0 02/14/2015 KEVIN BEY, JEANNETTE K Ot V58.65 02/14/2015 KEVIN BEY, JEANNETTE K Ot V58.69 02/16/2015 LETA DO, ZAC M Ot 584.9 02/16/2015 LETA DO, ZAC M Ot 599.70 02/16/2015 LETA DO, ZAC M Ot 710.0 02/16/2015 LETA DO, ZAC M Ot 729.2 02/21/2015 KEVIN BEY, JEANNETTE Adams Ot 279.00 02/21/2015 KEVIN BEY, JEANNETTE Adams Ot 280.9 02/21/2015 KEVIN BEY, JEANNETTE Adams Ot 710.0 02/21/2015 KEVIN BEY, JEANNETTE Adams Ot 714.0 02/21/2015 KEVIN BEY, JEANNETTE Adams Ot V58.65 02/21/2015 KEVIN BEY, JEANNETTE Adams Ot V58.69 02/22/2015 Ot 289.81 02/22/2015 Ot 453.40 02/22/2015 Ot V58.61 02/22/2015 Ot V58.83 02/22/2015 DELVIS SAUERFARIHA Ot 959.09 02/22/2015 EDMONDSON FARIHA SAUER Ot E000.8 02/22/2015 DELVIS SAUERFARIHA Ot E928.9 02/22/2015 Ot 780.64 02/22/2015 Ot 786.2 02/22/2015 DELVIS SAUERFARIHA Ot 285.9 02/22/2015 Ot 959.09 02/22/2015 Ot E000.8 02/22/2015 Ot E928.9 02/22/2015 Ot V58.81 02/22/2015 DELVIS SAUERFARIHA Ot V76.12 02/22/2015 LION EDMONDSON DIRECTOR OF ARCHITECTURE Ot 250.00 02/22/2015 LION EDMONDSON DIRECTOR OF ARCHITECTURE Ot 486 02/22/2015 LION EDMONDSON DIRECTOR OF ARCHITECTURE Ot 780.79 02/22/2015 LION EDMONDSON DIRECTOR OF ARCHITECTURE Ot V58.69 02/22/2015 LION DE LA CRUZ ORTHOPEDIC RADIOLOGIC TECHNOLOGIST Ot 486 02/22/2015 MARIA LUZ ANDRADE DIRECTOR OF ARCHITECTURE Ot 279.00 02/22/2015 MARIA LUZ ANDRADE DIRECTOR OF ARCHITECTURE Ot 280.9 02/22/2015 MARIA LUZ ANDRADE DIRECTOR OF ARCHITECTURE Ot 453.40 02/22/2015 MARIA LUZ ANDRADE DIRECTOR OF ARCHITECTURE Ot 585.3 02/22/2015 MARIA LUZ ANDRADE DIRECTOR OF ARCHITECTURE Ot 710.0 02/22/2015 MARIA LUZ ANDRADE DIRECTOR OF ARCHITECTURE Ot 714.0 02/22/2015 MARIA LUZ ANDRADE DIRECTOR OF ARCHITECTURE Ot V58.61 02/22/2015 MARIA LUZ ANDRADE DIRECTOR OF ARCHITECTURE Ot V58.65 02/22/2015 MARIA LUZ ANDRADE DIRECTOR OF ARCHITECTURE Ot V58.69 02/22/2015 EDMONDSON DO, FARIHA Blakely Ot 593.9 02/22/2015 EDMONDSON DO, FARIHA Blakely Ot 780.60 02/22/2015 EDMONDSON DO, FARIHA Blakely Ot 784.0 02/22/2015 EDMONDSON DO, FARIHA Blakely Ot 780.60 02/22/2015 EDMONDSON DO, FARIHA Blakely Ot 919.4 02/22/2015 EDMONDSON DO, FARIHA Blakely Ot E906.4 02/22/2015 EDMONDSON DO FARIHA Blakely Ot V58.81 02/22/2015 EDMONDSON DO, FARIHA Blakely Ot 279.00 02/22/2015 EDMONDSON DO, FARIHA Blakely Ot 280.9 02/22/2015 EDMONDSON DO FARIHA Reddy Ot 585.3 02/22/2015 EDMONDSON DO FARIHA Blakely Ot 710.0 02/22/2015 EDMONDSON DO FARIHA Blakely Ot 714.0 02/22/2015 EDMONDSON DO FARIHA Blakely Ot V58.61 02/22/2015 EDMONDSON DO FARIHA Blakely Ot V58.65 02/22/2015 EDMONDSON DO FARIHA Blakely Ot V58.69 02/22/2015 EDMONDSON DO FARIHA Blakely Ot V58.81 02/22/2015 DAX MCGINNIS MD Ot 695.4 02/22/2015 Ot 585.9 02/22/2015 LETA DOZAC M Ot 279.00 02/22/2015 LETA DOZAC M Ot 584.9 02/22/2015 LETA DOMACKE M Ot 710.0 02/22/2015 LETA DOMACKE M Ot 782.3 02/22/2015 EDMONDSON DOFARIHA Ot 486 02/22/2015 EDMONDSON DOFARIHA Ot 486 02/22/2015 EDMONDSON DO, FARIHA Blakely Ot 786.2 02/22/2015 LETA DOZAC M Ot 599.70 02/22/2015 LETA DOMACKE M Ot 276.8 02/22/2015 LETA DOMACKE M Ot 584.9 02/22/2015 LETA DOMACKE M Ot 710.0 02/22/2015 EDMONDSON DOFARIHA Ot 466.0 02/22/2015 EDMONDSON DO, FARIHA Blakely Ot 466.0 02/22/2015 LETA DO, ZAC M Ot 276.8 02/22/2015 LETA DO, ZAC M Ot 584.9 02/22/2015 LETA DO, ZAC M Ot 710.0 02/22/2015 EDMONDSON DO, FARIHA Blakely Ot 508.2 02/22/2015 EDMONDSONFARIHA JACKSON DO Ot 786.2 02/22/2015 EDMONDSON DOFARIHA Ot E890.2 02/22/2015 EDMONDSON DO, FARIHA Blakely Ot 508.2 02/22/2015 EDMONDSONFARIHA JACKSON DO Ot 780.60 02/22/2015 KEVIN BEY, JEANNETTE Adams Ot 279.00 02/22/2015 KEVIN BEY, JEANNETTE Adams Ot 280.9 02/22/2015 KEVIN BEY, JEANNETTE Adams Ot 710.0 02/22/2015 KEVIN BEY, JEANNETTE Adams Ot 714.0 02/22/2015 KEVIN BEY, JEANNETTE Adams Ot V58.65 02/22/2015 KEVIN BEY, JEANNETTE Adams Ot V58.69 02/22/2015 LETA DO, ZAC M Ot 584.9 02/22/2015 ELTA DO, ZAC M Ot 599.70 02/22/2015 LETA DO, ZAC M Ot 710.0 02/22/2015 LETA DO, ZAC M Ot 729.2 02/22/2015 LETA DO, ZAC M Ot 279.00 02/22/2015 LETA DO, ZAC M Ot 585.3 02/24/2015 LETA DO, ZAC M Ot 279.00 02/24/2015 LETA DO, ZAC M Ot 585.3 03/30/2015 Ot 289.81 03/30/2015 Ot 453.40 03/30/2015 Ot V58.61 03/30/2015 Ot V58.83 03/30/2015 FARIHA EDMONDSON DO Ot 959.09 03/30/2015 FARIHA EDMONDSON DO Ot E000.8 03/30/2015 FARIHA EDMONDSON DO Ot E928.9 03/30/2015 Ot 780.64 03/30/2015 Ot 786.2 03/30/2015 FARIHA EDMONDSON DO Ot 285.9 03/30/2015 Ot 959.09 03/30/2015 Ot E000.8 03/30/2015 Ot E928.9 03/30/2015 Ot V58.81 03/30/2015 FARIHA EDMONDSON DO Ot V76.12 03/30/2015 KELL EDMONDSONRICIA Renato DIRECTOR OF ARCHITECTURE Ot 250.00 03/30/2015 KELL EDMONDSONRICCALEB Gross DIRECTOR OF ARCHITECTURE Ot 486 03/30/2015 LION EDMONDSON DIRECTOR OF ARCHITECTURE Ot 780.79 03/30/2015 LION EDMONDSON DIRECTOR OF ARCHITECTURE Ot V58.69 03/30/2015 JONOLION ORTHOPEDIC RADIOLOGIC TECHNOLOGIST Ot 486 03/30/2015 MARIA LUZ ANDRADE DIRECTOR OF ARCHITECTURE Ot 279.00 03/30/2015 MARIA LUZ ANDRADE DIRECTOR OF ARCHITECTURE Ot 280.9 03/30/2015 MARIA LUZ ANDRADE DIRECTOR OF ARCHITECTURE Ot 453.40 03/30/2015 MARIA LZU ANDRADE DIRECTOR OF ARCHITECTURE Ot 585.3 03/30/2015 MARIA LUZ ANDRADE DIRECTOR OF ARCHITECTURE Ot 710.0 03/30/2015 MARIA LUZ ANDRADE DIRECTOR OF ARCHITECTURE Ot 714.0 03/30/2015 MARIA LUZ ANDRADE DIRECTOR OF ARCHITECTURE Ot V58.61 03/30/2015 MARIA LUZ ANDRADE DIRECTOR OF ARCHITECTURE Ot V58.65 03/30/2015 MARIA LUZ ANDRADE S DIRECTOR OF ARCHITECTURE Ot V58.69 03/30/2015 FARIHA EDMONDSON DO Ot 593.9 03/30/2015 FARIHA EDMONDSON DO Ot 780.60 03/30/2015 FARIHA EDMONDSON DO Ot 784.0 03/30/2015 EDMONDSONFARIHA CLEMENTE DO Ot 780.60 03/30/2015 EDMONDSONFARIHA JACKSON DO Ot 919.4 03/30/2015 FARIHA EDMONDSON DO Ot E906.4 03/30/2015 FARIHA EDMONDSON DO Ot V58.81 03/30/2015 FARIHA EDMONDSON DO Ot 279.00 03/30/2015 FARIHA EDMONDSON DO Ot 280.9 03/30/2015 FARIHA EDMONDSON DO Ot 585.3 03/30/2015 FARIHA EDMONDSON DO Ot 710.0 03/30/2015 EDMONDSON DO, FARIHA Blakely Ot 714.0 03/30/2015 EDMONDSON DO, FARIHA Blakely Ot V58.61 03/30/2015 EDMONDSON DO, FARIHA Reddy Ot V58.65 03/30/2015 EDMONDSON DO, FARIHA Blakely Ot V58.69 03/30/2015 EDMONDSON DO, FARIHA Blakely Ot V58.81 03/30/2015 RAHEL BEY DAX Scott Ot 695.4 03/30/2015 Ot 585.9 03/30/2015 LETA DO, ZAC Scott Ot 279.00 03/30/2015 LETA DO, ZAC Scott Ot 584.9 03/30/2015 LETA DO, ZAC M Ot 710.0 03/30/2015 LETA DO, ZAC Scott Ot 782.3 03/30/2015 EDMONDSON DO, FARIHA Blakely Ot 486 03/30/2015 EDMONDSON DO, FARIHA Reddy Ot 486 03/30/2015 EDMONDSON DO, FARIHA Blakely Ot 786.2 03/30/2015 LETA DO, ZAC Scott Ot 599.70 03/30/2015 LETA DO, ZAC Scott Ot 276.8 03/30/2015 LETA DO, ZAC Scott Ot 584.9 03/30/2015 LETA DO, ZAC Scott Ot 710.0 03/30/2015 EDMONDSON DO, FARIHA Blakely Ot 466.0 03/30/2015 EDMONDSON DO, FARIHA Blakely Ot 466.0 03/30/2015 LETA DO, ZAC Scott Ot 276.8 03/30/2015 LETA DO, ZAC Scott Ot 584.9 03/30/2015 LETA DO, ZAC Scott Ot 710.0 03/30/2015 EDMONDSON DO, FARIHA Blakely Ot 508.2 03/30/2015 EDMONDSON DO, FARIHA Blakely Ot 786.2 03/30/2015 EDMONDSON DO, FARIHA Blakely Ot E890.2 03/30/2015 EDMONDSON DO, FARIHA Blakely Ot 508.2 03/30/2015 EDMONDSON DO, FARIHA Blakely Ot 780.60 03/30/2015 KEVIN BEY, JEANNETTE Adams Ot 279.00 03/30/2015 KEVIN BEY, JEANNETTE Adams Ot 280.9 03/30/2015 KEVIN BEY, JEANNETTE Adams Ot 710.0 03/30/2015 KEVIN BEY, JEANNETTE Angie Ot 714.0 03/30/2015 KEVIN BEY, JEANNETTE Adams Ot V58.65 03/30/2015 KEVIN BEY, JEANNETTE Adams Ot V58.69 03/30/2015 ZAC GILLETTE DO Ot 584.9 03/30/2015 LETA SAUER, ZAC Scott Ot 599.70 03/30/2015 LETA DO, ZAC Scott Ot 710.0 03/30/2015 LETA DO, ZCA M Ot 729.2 03/30/2015 LETAZAC AVILA DO Ot 279.00 03/30/2015 LETAZAC AVILA DO Ot 585.3 03/31/2015 DEANDRE SPENCER DO Ot 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 03/31/2015 VIDA SPENCER DOI Ot 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 03/31/2015 VIDA SPENCER DOI Ot 285.9 ANEMIA NOS 03/31/2015 VIDA SPENCER DOI Ot 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 03/31/2015 VIDA SPENCER DOI Ot 300.00 ANXIETY STATE NOS 03/31/2015 TJ SAUER DEANDRE Ot 564.1 IRRITABLE BOWEL SYNDROME 03/31/2015 VIDA SPENCER DOI Ot 710.0 SYST LUPUS ERYTHEMATOSIS 03/31/2015 VIDA SPENCER DOI Ot 714.0 RHEUMATOID ARTHRITIS 03/31/2015 VIDA SPENCER DOI Ot 729.1 MYALGIA AND MYOSITIS NOS 03/31/2015 VIDA SPENCER DOI Ot 786.50 CHEST PAIN NOS 03/31/2015 VIDA SPENCER DOI Ot E932.0 ADV EFF CORTICOSTEROIDS 03/31/2015 VIDA SPENCER DOI Ot V12.51 HX-VENOUS THROMBOSIS EMBOLISM 03/31/2015 TJ SAUER DEANDRE Ot 255.0 03/31/2015 VIDA SPENCER DOI Ot 279.03 03/31/2015 TJ SAUER DEANDRE Ot 285.9 03/31/2015 TJ SAUER DEANDRE Ot 289.81 03/31/2015 TJ SAUER DEANDRE Ot 300.00 03/31/2015 VIDA SPENCER DOI Ot 564.1 03/31/2015 VIDA SPENCER DOI Ot 710.0 03/31/2015 SPENCER DO, DEANDRE Ot 714.0 03/31/2015 SPENCER DO, DEANDRE Ot 729.1 03/31/2015 SPENCER DO, DEANDRE Ot 786.50 03/31/2015 SPENCER DO, DEANDRE Ot E932.0 03/31/2015 TJ SAUER, DEANDRE Ot V12.51 04/06/2015 KEVIN BEY, JEANNETTE Adams Ot 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 04/06/2015 KEVIN BEY, JEANNETTE Adams Ot 280.9 IRON DEFIC ANEMIA NOS 04/06/2015 JEANNETTE BROWN MD Ot 710.0 SYST LUPUS ERYTHEMATOSIS 04/06/2015 JEANNETTE BROWN MD Ot 714.0 RHEUMATOID ARTHRITIS 04/06/2015 JEANNETTE BROWN MD Ot V58.65 LONG-TERM(CURRENT)USE OF STEROIDS 04/06/2015 JEANNETTE BROWN MD, Ot V58.69 OT MED,LT,CURRENT USE 04/26/2015 KEVIN BEY, JEANNETTE Adams Ot 279.00 04/26/2015 JEANNETTE BROWN MD Ot 280.9 04/26/2015 JEANNETTE BROWN MD Ot 710.0 04/26/2015 JEANNETTE BROWN MD Ot 714.0 04/26/2015 JEANNETTE BROWN MD Ot V58.65 04/26/2015 JEANNETTE BROWN MD Ot V58.69 05/04/2015 KEVIN BEY, JEANNETTE Adams Ot 279.00 05/04/2015 KEVIN BEY, JEANNETTE Adams Ot 280.9 05/04/2015 JEANNETTE BROWN MD Ot 710.0 05/04/2015 KEVIN BEY, JEANNETTE Adams Ot 714.0 05/04/2015 JEANNETTE BROWN MD Ot V58.65 05/04/2015 JEANNETTE BROWN MD Ot V58.69 05/05/2015 Ot 289.81 05/05/2015 Ot 453.40 05/05/2015 Ot V58.61 05/05/2015 Ot V58.83 05/05/2015 FARIHA EDMONDSON DO Ot 959.09 05/05/2015 FARIHA EDMONDSON DO Ot E000.8 05/05/2015 FARIHA EDMONDSON DO Ot E928.9 05/05/2015 Ot 780.64 05/05/2015 Ot 786.2 05/05/2015 FARIHA EDMONDSON DO Ot 285.9 05/05/2015 Ot 959.09 05/05/2015 Ot E000.8 05/05/2015 Ot E928.9 05/05/2015 Ot V58.81 05/05/2015 FARIHA EDMONDSON DO Ot V76.12 05/05/2015 DELVISLION DIRECTOR OF ARCHITECTURE Ot 250.00 05/05/2015 DELVISLION DIRECTOR OF ARCHITECTURE Ot 486 05/05/2015 DELVIS LION L DIRECTOR OF ARCHITECTURE Ot 780.79 05/05/2015 DELVISLION DIRECTOR OF ARCHITECTURE Ot V58.69 05/05/2015 MALULION CHAPPELL ORTHOPEDIC RADIOLOGIC TECHNOLOGIST Ot 486 05/05/2015 MARIA LUZ ANDRADE DIRECTOR OF ARCHITECTURE Ot 279.00 05/05/2015 MARIA LUZ ANDRADE DIRECTOR OF ARCHITECTURE Ot 280.9 05/05/2015 MARIA LUZ ANDRADE DIRECTOR OF ARCHITECTURE Ot 453.40 05/05/2015 MARIA LUZ ANDRADE DIRECTOR OF ARCHITECTURE Ot 585.3 05/05/2015 MARIA LUZ ANDRADE DIRECTOR OF ARCHITECTURE Ot 710.0 05/05/2015 MARIA LUZ ANDRADE DIRECTOR OF ARCHITECTURE Ot 714.0 05/05/2015 MARIA LUZ ANDRADE DIRECTOR OF ARCHITECTURE Ot V58.61 05/05/2015 MARIA LUZ ANDRADE S DIRECTOR OF ARCHITECTURE Ot V58.65 05/05/2015 MARIA LUZ ANDRADE S DIRECTOR OF ARCHITECTURE Ot V58.69 05/05/2015 FARIHA EDMONDSON DO Ot 593.9 05/05/2015 FARIHA EDMONDSON DO Ot 780.60 05/05/2015 FARIHA EDMONDSON DO Ot 784.0 05/05/2015 FARIHA EDMONDSON DO Ot 780.60 05/05/2015 EDMONDSONFARIHA CLEMENTE DO Ot 919.4 05/05/2015 EDMONDSONFARIHA JACKSON DO Ot E906.4 05/05/2015 FARIHA EDMONDSON DO Ot V58.81 05/05/2015 FARIHA EDMONDSON DO Ot 279.00 05/05/2015 FARIHA EDMONDSON DO Ot 280.9 05/05/2015 FARIHA EDMONDSON DO Ot 585.3 05/05/2015 FARIHA EDMONDSON DO Ot 710.0 05/05/2015 FARIHA EDMONDSON DO Ot 714.0 05/05/2015 DELVIS SAUER FARIHA J Ot V58.61 05/05/2015 EDMONDSON DO, FARIHA Blakely Ot V58.65 05/05/2015 EDMONDSON DOFARIHA Ot V58.69 05/05/2015 EDMONDSON DOFARIHA Ot V58.81 05/05/2015 RAHEL BEY DAX M Ot 695.4 05/05/2015 Ot 585.9 05/05/2015 LETA DO, ZAC M Ot 279.00 05/05/2015 LETA DO, ZAC M Ot 584.9 05/05/2015 LETA DO, ZAC M Ot 710.0 05/05/2015 LETA DOMACKE M Ot 782.3 05/05/2015 EDMONDSON DOFARIHA Ot 486 05/05/2015 EDMONDSON DOFARIHA Ot 486 05/05/2015 EDMONDSON DOFARIHA Ot 786.2 05/05/2015 LETA DOMACKE M Ot 599.70 05/05/2015 LETA DO ZAC M Ot 276.8 05/05/2015 LETA DO, ZAC M Ot 584.9 05/05/2015 LETA DO ZAC M Ot 710.0 05/05/2015 EDMONDSON DOFARIHA Ot 466.0 05/05/2015 EDMONDSON DOFARIHA Ot 466.0 05/05/2015 LETA DO ZAC M Ot 276.8 05/05/2015 LETA DO ZAC M Ot 584.9 05/05/2015 LETA DO ZAC M Ot 710.0 05/05/2015 EDMONDSON DOFARIHA Ot 508.2 05/05/2015 EDMONDSON DOFARIHA Ot 786.2 05/05/2015 EDMONDSON DOFARIHA Ot E890.2 05/05/2015 EDMONDSON DOFARIHA Ot 508.2 05/05/2015 EDMONDSON DOFARIHA Ot 780.60 05/05/2015 LETA DO ZAC M Ot 584.9 05/05/2015 LETA DO ZAC M Ot 599.70 05/05/2015 LETA DO ZAC M Ot 710.0 05/05/2015 LETA ZAC SAUER Ot 729.2 05/05/2015 LETA SAUERZAC Ot 279.00 05/05/2015 LETA SAUERZAC Ot 585.3 05/05/2015 KEVIN BEY, JEANNETTE Adams Ot 279.00 05/05/2015 KEVIN BEY, JEANNETTE Adams Ot 280.9 05/05/2015 KEVIN BEY, JEANNETTE Adams Ot 710.0 05/05/2015 KEVIN BEY, JEANNETTE Adams Ot 714.0 05/05/2015 KEVIN BEY, JEANNETTE Adams Ot V58.65 05/05/2015 KEVIN BEY, JEANNETTE Adams Ot V58.69 05/11/2015 KEVIN BEY, JEANNETTE Adams Ot 279.00 05/11/2015 KEVIN BEY, JEANNETTE Adams Ot 280.9 05/11/2015 KEVIN BEY, JEANNETTE Adams Ot 710.0 05/11/2015 KEVIN BEY, JEANNETTE Adams Ot 714.0 05/11/2015 KEVIN BEY, JEANNETTE Adams Ot V58.65 05/11/2015 KEVIN BEY, JEANNETTE Adams Ot V58.69 06/08/2015 KEVIN BEY, JEANNETTE Adams Ot 279.00 06/08/2015 KEVIN BEY, JEANNETTE Adams Ot 280.9 06/08/2015 KEVIN BEY, JEANNETTE Adams Ot 710.0 06/08/2015 KEVIN BEY, JEANNETTE Adams Ot 714.0 06/08/2015 KEVIN BEY, JEANNETTE Adams Ot V58.65 06/08/2015 KEVIN BEY, JEANNETTE Adams Ot V58.69 06/13/2015 LION EDMONDSON Ot L03.90 06/13/2015 LION EDMONDSON Ot R50.9 06/21/2015 Ot V58.61 06/21/2015 Ot V58.83 06/21/2015 Ot V58.61 06/21/2015 Ot V58.83 06/21/2015 Ot V58.61 06/21/2015 Ot V58.83 06/21/2015 Ot 719.66 06/21/2015 Ot V72.63 06/21/2015 Ot V74.8 06/21/2015 Ot 786.50 06/21/2015 Ot 793.19 06/21/2015 FARIHA EDMONDSON DO Ot 959.09 06/21/2015 FARIHA EDMONDSON DO Ot E000.8 06/21/2015 FARIHA EDMONDSON DO Ot E928.9 06/21/2015 Ot 780.64 06/21/2015 Ot 786.2 06/21/2015 DELVIS SAUER FARIHA Blakely Ot 285.9 06/21/2015 Ot 959.09 06/21/2015 Ot E000.8 06/21/2015 Ot E928.9 06/21/2015 Ot V58.81 06/21/2015 DELVIS SAUER FARIHA Reddy Ot V76.12 06/21/2015 LION EDMONDSON DIRECTOR OF ARCHITECTURE Ot 250.00 06/21/2015 LION EDMONDSON DIRECTOR OF ARCHITECTURE Ot 486 06/21/2015 LION EDMONDSON DIRECTOR OF ARCHITECTURE Ot 780.79 06/21/2015 LION EDMONDSON DIRECTOR OF ARCHITECTURE Ot V58.69 06/21/2015 LION DE LA CRUZ ORTHOPEDIC RADIOLOGIC TECHNOLOGIST Ot 486 06/21/2015 MARIA LUZ ANDRADE DIRECTOR OF ARCHITECTURE Ot 279.00 06/21/2015 MARIA LUZ ANDRADE DIRECTOR OF ARCHITECTURE Ot 280.9 06/21/2015 MARIA LUZ ANDRADE DIRECTOR OF ARCHITECTURE Ot 453.40 06/21/2015 MARIA LUZ ANDRADE DIRECTOR OF ARCHITECTURE Ot 585.3 06/21/2015 MARIA LUZ ANDRADE DIRECTOR OF ARCHITECTURE Ot 710.0 06/21/2015 MARIA LUZ ANDRADE DIRECTOR OF ARCHITECTURE Ot 714.0 06/21/2015 MARIA LUZ ANDRADE DIRECTOR OF ARCHITECTURE Ot V58.61 06/21/2015 MARIA LUZ ANDRADE DIRECTOR OF ARCHITECTURE Ot V58.65 06/21/2015 MARIA LUZ ANDRADE DIRECTOR OF ARCHITECTURE Ot V58.69 06/21/2015 DELVIS SAUER FARIHA Reddy Ot 593.9 06/21/2015 DELVIS SAUER FARIHA Reddy Ot 780.60 06/21/2015 DELVIS SAUER FARIHA Reddy Ot 784.0 06/21/2015 FARIHA EDMONDSON DO Ot 780.60 06/21/2015 FARIHA EDMONDSON DO Ot 919.4 06/21/2015 DELVIS SAUER FARIHA Reddy Ot E906.4 06/21/2015 DELVIS SAUER FARIHA Reddy Ot V58.81 06/21/2015 DELVIS SAUER FARIHA Reddy Ot 279.00 06/21/2015 FARIHA EDMONDSON DO Ot 280.9 06/21/2015 EDMONDSON DOFARIHA Ot 585.3 06/21/2015 EDMONDSON DOFARIHA Ot 710.0 06/21/2015 EDMONDSON DOFARIHA Ot 714.0 06/21/2015 EDMONDSON DOFARIHA Ot V58.61 06/21/2015 EDMONDSON DOFARIHA Ot V58.65 06/21/2015 EDMONDSON DOFARIHA Ot V58.69 06/21/2015 EDMONDSON DOFARIHA Ot V58.81 06/21/2015 DAX MCGINNIS MD Ot 695.4 06/21/2015 Ot 585.9 06/21/2015 LETA DOZAC Ot 279.00 06/21/2015 LETA DOZAC Ot 584.9 06/21/2015 LETA DO ZAC M Ot 710.0 06/21/2015 LETA DOZAC Ot 782.3 06/21/2015 EDMONDSONFARIHA JACKSON DO Ot 486 06/21/2015 EDMONDSON DOFARIHA Ot 486 06/21/2015 EDMONDSON DOFARIHA Ot 786.2 06/21/2015 LETA DO ZAC M Ot 599.70 06/21/2015 LETA DO ZAC M Ot 276.8 06/21/2015 LETA DO ZAC M Ot 584.9 06/21/2015 LETA DO ZAC M Ot 710.0 06/21/2015 FARIHA EDMONDSON DO Ot 466.0 06/21/2015 EDMONDSON DOFARIHA Ot 466.0 06/21/2015 LETA DO ZAC M Ot 276.8 06/21/2015 LETA DO ZAC Tyler Ot 584.9 06/21/2015 LETA DO ZAC M Ot 710.0 06/21/2015 EDMONDSONFARIHA JACKSON DO Ot 508.2 06/21/2015 EDMONDSON FARIHA SAUER Ot 786.2 06/21/2015 EDMONDSONFARIHA JACKSON DO Ot E890.2 06/21/2015 EDMONDSONFARIHA JACKSON DO Ot 508.2 06/21/2015 EDMONDSONFARIHA JACKSON DO Ot 780.60 06/21/2015 LETA DOZAC Ot 584.9 06/21/2015 LETA DO, ZAC Scott Ot 599.70 06/21/2015 LETA SAUER, ZAC Scott Ot 710.0 06/21/2015 LETA DO, ZAC Scott Ot 729.2 06/21/2015 ZAC GILLETTE DO Ot 279.00 06/21/2015 ZAC GILLETTE DO Ot 585.3 06/21/2015 KEVIN BEY, JEANNETTE Adams Ot 279.00 06/21/2015 KEVIN BEY, JEANNETTE Adams Ot 280.9 06/21/2015 KEVIN BEY, JEANNETTE Adams Ot 710.0 06/21/2015 KEVIN BEY, JEANNETTE Adams Ot 714.0 06/21/2015 KEVIN BEY, JEANNETTE Adams Ot D50.9 06/21/2015 KEVIN BEY, JEANNETTE Adams Ot D80.1 06/21/2015 KEVIN BEY, JEANNETTE Adams Ot M06.9 06/21/2015 KEVIN BEY, JEANNETTE Adams Ot M32.10 06/21/2015 KEVIN BEY, JEANNETTE Adams Ot V58.65 06/21/2015 KEVIN BEY, JEANNETTE Adams Ot V58.69 06/21/2015 LION EDMONDSON DIRECTOR OF ARCHITECTURE Ot L03.90 06/21/2015 LION EDMONDSON DIRECTOR OF ARCHITECTURE Ot R50.9 06/22/2015 Ot 289.81 06/22/2015 Ot 453.40 06/22/2015 Ot V58.61 06/22/2015 Ot V58.83 06/22/2015 FARIHA EDMONDSON DO Ot 959.09 06/22/2015 FARIHA EDMONDSON DO Ot E000.8 06/22/2015 FARIHA EDMONDSON DO Ot E928.9 06/22/2015 Ot 780.64 06/22/2015 Ot 786.2 06/22/2015 FARIHA EDMONDSON DO Ot 285.9 06/22/2015 Ot 959.09 06/22/2015 Ot E000.8 06/22/2015 Ot E928.9 06/22/2015 Ot V58.81 06/22/2015 FARIHA EDMONDSON DO Ot V76.12 06/22/2015 LION EDMONDSON DIRECTOR OF ARCHITECTURE Ot 250.00 06/22/2015 LION EDMONDSON DIRECTOR OF ARCHITECTURE Ot 486 06/22/2015 EDMONDSONLION CLEMENTE DIRECTOR OF ARCHITECTURE Ot 780.79 06/22/2015 EDMONDSONLION DIRECTOR OF ARCHITECTURE Ot V58.69 06/22/2015 LION DE LA CRUZ ORTHOPEDIC RADIOLOGIC TECHNOLOGIST Ot 486 06/22/2015 ANDRADEMARIA LUZ Garcia DIRECTOR OF ARCHITECTURE Ot 279.00 06/22/2015 ANDRADE MARIA LUZ S DIRECTOR OF ARCHITECTURE Ot 280.9 06/22/2015 ANDRADE MARIA LUZ S DIRECTOR OF ARCHITECTURE Ot 453.40 06/22/2015 ANDRADE MARIA LUZ S DIRECTOR OF ARCHITECTURE Ot 585.3 06/22/2015 ANDRADE VELVETAH S DIRECTOR OF ARCHITECTURE Ot 710.0 06/22/2015 ANDRADE VELVETAH S DIRECTOR OF ARCHITECTURE Ot 714.0 06/22/2015 LUPE MARIA LUZ S DIRECTOR OF ARCHITECTURE Ot V58.61 06/22/2015 ANDRADE MARIA LUZ S DIRECTOR OF ARCHITECTURE Ot V58.65 06/22/2015 LUPE MARIA LUZ S DIRECTOR OF ARCHITECTURE Ot V58.69 06/22/2015 FARIHA EDMONDSON DO Ot 593.9 06/22/2015 EDMONDSONFARIHA CLEMENTE DO Ot 780.60 06/22/2015 EDMONDSON FARIHA SAUER Ot 784.0 06/22/2015 EDMONDSONFARIHA CLEMENTE DO Ot 780.60 06/22/2015 EDMONDSONFARIHA CLEMENTE DO Ot 919.4 06/22/2015 EDMONDSONFARIHA CLEMENTE DO Ot E906.4 06/22/2015 EDMONDSONFARIHA CLEMENTE DO Ot V58.81 06/22/2015 EDMONDSONFARIHA JACKSON DO Ot 279.00 06/22/2015 EDMONDSONFARIHA JACKSON DO Ot 280.9 06/22/2015 EDMONDSON FARIHA SAUER Ot 585.3 06/22/2015 EDMONDSON FARIHA SAUER Ot 710.0 06/22/2015 EDMONDSONFARIHA CLEMENTE DO Ot 714.0 06/22/2015 EDMONDSONFARIHA CLEMENTE DO Ot V58.61 06/22/2015 EDMONDSON FARIHA SAUER Ot V58.65 06/22/2015 EDMONDSON FARIHA SAUER Ot V58.69 06/22/2015 EDMONDSONFARIHA CLEMENTE DO Ot V58.81 06/22/2015 RAHEL BEY, DAX M Ot 695.4 06/22/2015 Ot 585.9 06/22/2015 LETA DO, ZAC M Ot 279.00 06/22/2015 LETA DO, ZAC M Ot 584.9 06/22/2015 LETA DO, ZAC M Ot 710.0 06/22/2015 LETA DO, ZAC M Ot 782.3 06/22/2015 EDMONDSONFARIHA JACKSON DO Ot 486 06/22/2015 EDMONDSON DO, FARIHA Blakely Ot 486 06/22/2015 EDMONDSON DO, FARIHA Blakely Ot 786.2 06/22/2015 LETA DO, ZAC M Ot 599.70 06/22/2015 LETA DO, ZAC M Ot 276.8 06/22/2015 LETA DO, ZAC M Ot 584.9 06/22/2015 LETA DO, ZAC M Ot 710.0 06/22/2015 EDMONDSON DOFARIHA Ot 466.0 06/22/2015 EDMONDSON DO, FARIHA Blakely Ot 466.0 06/22/2015 LETA DO, ZAC M Ot 276.8 06/22/2015 LETA DO, ZAC M Ot 584.9 06/22/2015 LETA DO, ZAC M Ot 710.0 06/22/2015 EDMONDSON DOFARIHA Ot 508.2 06/22/2015 EDMONDSON DOFARIHA Ot 786.2 06/22/2015 EDMONDSON DOFARIHA Ot E890.2 06/22/2015 EDMONDSON DOFARIHA Ot 508.2 06/22/2015 EDMONDSON DOFARIHA Ot 780.60 06/22/2015 LETA DO, ZAC M Ot 584.9 06/22/2015 LETA DO, ZCA M Ot 599.70 06/22/2015 LETA DO, ZAC M Ot 710.0 06/22/2015 LETA DO, ZAC M Ot 729.2 06/22/2015 LETA DO, ZAC M Ot 279.00 06/22/2015 LETA DO, ZAC M Ot 585.3 06/22/2015 KEVIN BEY, JEANNETTE Adams Ot 279.00 06/22/2015 KEVIN BEY, JEANNETTE Adams Ot 280.9 06/22/2015 JEANNETTE BROWN MD Ot 710.0 06/22/2015 KEVIN BEY, JEANNETTE Adams Ot 714.0 06/22/2015 JEANNETTE BROWN MD Ot D50.9 06/22/2015 JEANNETTE BROWN MD Ot D80.1 06/22/2015 JEANNETTE BROWN MD Ot M06.9 06/22/2015 JEANNETTE BROWN MD Ot M32.10 06/22/2015 JEANNETTE BROWN MD Ot V58.65 06/22/2015 JEANNETTE BROWN MD Ot V58.69 06/22/2015 FABY EDMONDSONIA L DIRECTOR OF ARCHITECTURE Ot L03.90 06/22/2015 DELVIS LION L DIRECTOR OF ARCHITECTURE Ot R50.9 06/23/2015 DELVIS LION L DIRECTOR OF ARCHITECTURE Ot J32.9 06/23/2015 DELVIS LION L DIRECTOR OF ARCHITECTURE Ot R50.9 07/20/2015 DELVIS LION L DIRECTOR OF ARCHITECTURE Ot J32.9 07/20/2015 DELVIS LION L DIRECTOR OF ARCHITECTURE Ot R50.9 07/25/2015 DELVIS LION L DIRECTOR OF ARCHITECTURE Ot J32.9 07/25/2015 EDMONDSON, LION L DIRECTOR OF ARCHITECTURE Ot R50.9 07/31/2015 DELVIS LION L DIRECTOR OF ARCHITECTURE Ot L03.90 07/31/2015 DELVIS LION L DIRECTOR OF ARCHITECTURE Ot R50.9 08/10/2015 JEANNETTE BROWN MD Ot 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 08/10/2015 JEANNETTE BROWN MD Ot 280.9 IRON DEFIC ANEMIA NOS 08/10/2015 JEANNETTE BROWN MD Ot 710.0 SYST LUPUS ERYTHEMATOSIS 08/10/2015 JEANNETTE BROWN MD Ot 714.0 RHEUMATOID ARTHRITIS 08/10/2015 JEANNETTE BROWN MD Ot D50.9 IRON DEFICIENCY ANEMIA, UNSPECIFIED 08/10/2015 JEANNETTE BROWN MD Ot D80.1 NONFAMILIAL HYPOGAMMAGLOBULINEMIA 08/10/2015 JEANNETTE BROWN MD Ot M06.9 RHEUMATOID ARTHRITIS, UNSPECIFIED 08/10/2015 JEANNETTE BROWN MD Ot M32.10 SYSTEMIC LUPUS ERYTHEMATOSUS, ORGAN OR S 08/15/2015 JEANNETTE BROWN MD Ot 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 08/15/2015 JEANNETTE BROWN MD Ot 280.9 IRON DEFIC ANEMIA NOS 08/15/2015 JEANNETTE BROWN MD Ot 710.0 SYST LUPUS ERYTHEMATOSIS 08/15/2015 JEANNETTE BROWN MD Ot 714.0 RHEUMATOID ARTHRITIS 08/15/2015 JEANNETTE BROWN MD Ot D50.9 IRON DEFICIENCY ANEMIA, UNSPECIFIED 08/15/2015 JEANNETTE BROWN MD Ot D80.1 NONFAMILIAL HYPOGAMMAGLOBULINEMIA 08/15/2015 JEANNETTE BROWN MD Ot M06.9 RHEUMATOID ARTHRITIS, UNSPECIFIED 08/15/2015 JEANNETTE BROWN MD Ot M32.10 SYSTEMIC LUPUS ERYTHEMATOSUS, ORGAN OR S 08/15/2015 JEANNETTE BROWN MD Ot V58.65 LONG-TERM(CURRENT)USE OF STEROIDS 08/15/2015 JEANNETTE BROWN MD, Ot V58.69 OT MED,LT,CURRENT USE 08/15/2015 LION EDMONDSON DIRECTOR OF ARCHITECTURE Ot J32.9 08/15/2015 LION EDMONDSON DIRECTOR OF ARCHITECTURE Ot R50.9 09/06/2015 LION EDMONDSON DIRECTOR OF ARCHITECTURE Ot L03.90 09/06/2015 LION EDMONDSON DIRECTOR OF ARCHITECTURE Ot R50.9 09/06/2015 LION EDMONDSON DIRECTOR OF ARCHITECTURE Ot J06.9 09/06/2015 FARIHA EDMONDSON DO Ot J18.9 09/06/2015 RAHEL BEY, DAX Scott Ot Z51.81 09/06/2015 RAHEL BEY, DAX Scott Ot Z79.899 09/06/2015 ZAC GILLETTE DO Ot D64.9 09/06/2015 ZAC GILLETTE DO Ot M32.9 09/06/2015 ZAC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 DEEPA Lindsey Ot R05 COUGH 10/02/2016 DEEPA RONDON MD Ot R22.1 LOCALIZED SWELLING, MASS AND LUMP, NECK 10/03/2016 ZAC GILLETTE DO, Ot B37.0 CANDIDAL STOMATITIS 10/03/2016 ZAC GILLETTE DO Ot D80.1 NONFAMILIAL HYPOGAMMAGLOBULINEMIA 10/03/2016 ZAC GILLETTE DO, Ot M32.10 SYSTEMIC LUPUS ERYTHEMATOSUS, ORGAN OR S 10/03/2016 ZAC GILLETTE DO Ot N18.3 CHRONIC KIDNEY DISEASE, STAGE 3 (MODERAT 10/09/2016 JEANNETTE BROWN MD, Ot D50.9 IRON DEFICIENCY ANEMIA, UNSPECIFIED 10/09/2016 JEANNETTE BROWN MD, Ot D80.1 NONFAMILIAL HYPOGAMMAGLOBULINEMIA 10/09/2016 JEANNETTE BROWN MD Ot M06.9 RHEUMATOID ARTHRITIS, UNSPECIFIED 10/09/2016 JEANNETTE BROWN MD Ot M32.10 SYSTEMIC LUPUS ERYTHEMATOSUS, ORGAN OR S 10/09/2016 KEVIN BEY, JEANNETTE Adams Ot Z79.899 OTHER [place] CAPTAIN (CURRENT) DRUG THERAPY 10/16/2016 ZAC GILLETTE DO Ot 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 10/16/2016 ZAC GILLETTE DO, Ot N17.9 ACUTE KIDNEY FAILURE, UNSPECIFIED 10/16/2016 ZAC GILLETTE DO, Ot N18.3 CHRONIC KIDNEY DISEASE, STAGE 3 (MODERAT 10/16/2016 ZAC GILLETTE DO, Ot R10.9 UNSPECIFIED ABDOMINAL PAIN 10/25/2016 JEANNETTE BROWN MD, Ot D50.9 IRON DEFICIENCY ANEMIA, UNSPECIFIED 10/25/2016 JEANNETTE BROWN MD Ot D80.1 NONFAMILIAL HYPOGAMMAGLOBULINEMIA 10/25/2016 JEANNETTE BROWN MD Ot M06.9 RHEUMATOID ARTHRITIS, UNSPECIFIED 10/25/2016 JEANNETTE BROWN MD Ot M32.10 SYSTEMIC LUPUS ERYTHEMATOSUS, ORGAN OR S 10/25/2016 JEANNETTE BROWN MD Ot Z79.899 OTHER [place] (CURRENT) DRUG THERAPY 10/28/2016 DEEPA RONDON MD Ot 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, 10/28/2016 DEEPA RONDON MD Ot K11.20 SIALOADENITIS, UNSPECIFIED 10/30/2016 DEEPA RONDON MD Ot R05 COUGH 10/30/2016 DEEPA RONDON MD Ot R22.1 LOCALIZED SWELLING, MASS AND LUMP, NECK 10/30/2016 LETA DO ZAC Tyler Ot N18.3 CHRONIC KIDNEY DISEASE, STAGE 3 (MODERAT 11/11/2016 Ot 780.64 CHILLS (WITHOUT FEVER) 11/11/2016 Ot 786.2 COUGH 11/11/2016 Ot 959.09 INJURY OF FACE AND NECK 11/11/2016 Ot E000.8 OTHER EXTERNAL CAUSE STATUS 11/11/2016 Ot E928.9 ACCIDENT NOS 11/11/2016 Ot V58.81 FIT/ADJ VASCULAR CATHETER 11/11/2016 Ot 585.9 CHRONIC KIDNEY DISEASE, UNSPECIFIED 11/11/2016 JEANNETTE BROWN MD Ot J06.9 ACUTE UPPER RESPIRATORY INFECTION, UNSPE 11/11/2016 DEEPA RONDON MD Ot J32.9 CHRONIC SINUSITIS, UNSPECIFIED 11/11/2016 DEEPA RONDON MD Ot Z01.818 ENCOUNTER FOR OTHER PREPROCEDURAL EXAMIN 11/11/2016 DEEPA RONDON MD Ot Z11.2 ENCOUNTER FOR SCREENING FOR OTHER BACTER 11/13/2016 DEEPA RONDON MD Ot J32.9 CHRONIC SINUSITIS, UNSPECIFIED 11/13/2016 DEEAP RONDON MD Ot Z01.818 ENCOUNTER FOR OTHER PREPROCEDURAL EXAMIN 11/13/2016 DEEPA RONDON MD Ot Z11.2 ENCOUNTER FOR SCREENING FOR OTHER BACTER 11/14/2016 FARIHA EDMONDSON DO Ot J18.9 PNEUMONIA, UNSPECIFIED ORGANISM 11/14/2016 LION EDMONDSON Ot R59.0 LOCALIZED ENLARGED LYMPH NODES 11/14/2016 LION EDMONDSON Ot R68.84 JAW PAIN 11/14/2016 JEANNETTE BROWN MD Ot D50.9 IRON DEFICIENCY ANEMIA, UNSPECIFIED 11/14/2016 JEANNETTE BROWN MD Ot D80.1 NONFAMILIAL HYPOGAMMAGLOBULINEMIA 11/14/2016 JEANNETTE BROWN MD Ot M06.9 RHEUMATOID ARTHRITIS, UNSPECIFIED 11/14/2016 JEANNETTE BROWN MD Ot M32.10 SYSTEMIC LUPUS ERYTHEMATOSUS, ORGAN OR S 11/14/2016 JEANNETTE BROWN MD Ot Z79.899 OTHER HALFWAY (CURRENT) DRUG THERAPY 11/14/2016 DEEPA RONDON MD Ot Z01.818 ENCOUNTER FOR OTHER PREPROCEDURAL EXAMIN 11/14/2016 ZAC GILLETTE DO, Ot B37.0 CANDIDAL STOMATITIS 11/14/2016 ZAC GILLETTE DO, Ot D80.1 NONFAMILIAL HYPOGAMMAGLOBULINEMIA 11/14/2016 ZAC GILLETTE DO, Ot M32.10 SYSTEMIC LUPUS ERYTHEMATOSUS, ORGAN OR S 11/14/2016 ZAC GILLETTE DO, Ot N18.3 CHRONIC KIDNEY DISEASE, STAGE 3 (MODERAT 11/14/2016 ZAC GILLETTE DO Ot 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 11/14/2016 ZAC GILLETTE DO, Ot N17.9 ACUTE KIDNEY FAILURE, UNSPECIFIED 11/14/2016 ZAC GILLETTE DO, Ot N18.3 CHRONIC KIDNEY DISEASE, STAGE 3 (MODERAT 11/14/2016 ZAC GILLETTE DO Ot R10.9 UNSPECIFIED ABDOMINAL PAIN 11/14/2016 DEEPA RONDON MD Ot 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, 11/14/2016 DEEPA RONDON MD Ot K11.20 SIALOADENITIS, UNSPECIFIED 11/14/2016 DEEPA RONDON MD Ot R05 COUGH 11/14/2016 DEEPA RONDON MD Ot R22.1 LOCALIZED SWELLING, MASS AND LUMP, NECK 11/14/2016 ZAC GILLETTE DO, Ot N18.3 CHRONIC KIDNEY DISEASE, STAGE 3 (MODERAT 11/14/2016 DEEPA RONDON MD Ot J32.0 CHRONIC MAXILLARY SINUSITIS 11/14/2016 DEEPA RONDON MD Ot J32.2 CHRONIC ETHMOIDAL SINUSITIS 11/14/2016 DEEPA RONDON MD Ot 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 11/15/2016 DEEPA RONDON MD Ot J32.0 CHRONIC MAXILLARY SINUSITIS 11/15/2016 DEEPA RONDON MD Ot J32.2 CHRONIC ETHMOIDAL SINUSITIS 11/15/2016 DEEPA RONDON MD Ot 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 11/17/2016 DEEPA RONDON MD Ot J32.0 CHRONIC MAXILLARY SINUSITIS 11/17/2016 DEEPA RONDON MD Ot J32.2 CHRONIC ETHMOIDAL SINUSITIS 11/17/2016 DEEPA RONDON MD Ot 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 11/20/2016 DEEPA RONDON MD Ot J32.0 CHRONIC MAXILLARY SINUSITIS 11/20/2016 DEEPA RONDON MD Ot J32.2 CHRONIC ETHMOIDAL SINUSITIS 11/20/2016 DEEPA RONDON MD Ot 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 11/21/2016 DEEPA RONDON MD Ot J32.0 CHRONIC MAXILLARY SINUSITIS 11/21/2016 DEEPA RONDON MD Ot J32.2 CHRONIC ETHMOIDAL SINUSITIS 11/21/2016 DEEPA RONDON MD Ot 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 12/03/2016 JEANNETTE BROWN MD, Ot D50.9 IRON DEFICIENCY ANEMIA, UNSPECIFIED 12/03/2016 JEANNETTE BROWN MD, Ot D80.1 NONFAMILIAL HYPOGAMMAGLOBULINEMIA 12/03/2016 JEANNETTE BROWN MD, Ot M06.9 RHEUMATOID ARTHRITIS, UNSPECIFIED 12/03/2016 JEANNETTE BROWN MD, Ot M32.10 SYSTEMIC LUPUS ERYTHEMATOSUS, ORGAN OR S 12/03/2016 JEANNETTE BROWN MD, Ot Z79.899 OTHER HALFWAY (CURRENT) DRUG THERAPY Procedures Results Test Result Range Complete blood count (CBC) with automated white blood cell (WBC) differential - 03/19/16 13:49 Blood leukocytes automated count (number/volume) 8.0 10*3/ uL 4.3-11.0 Blood erythrocytes automated count (number/volume) 4.18 10*6 /uL 4.35-5.85 Venous blood hemoglobin measurement (mass/volume) 9.8 g/dL 11.5-16.0 Blood hematocrit (volume fraction) 33 % 35-52 Automated erythrocyte mean corpuscular volume 79 [foz_us] 80-99 Automated erythrocyte mean corpuscular hemoglobin (mass per erythrocyte) 23 pg 25-34 Automated erythrocyte mean corpuscular hemoglobin concentration measurement ( mass/volume) 30 g/dL 32-36 Automated erythrocyte distribution width ratio 18.4 % 10.0-14.5 Automated blood platelet count (count/volume) 394 10*3/uL 130-400 Automated blood platelet mean volume measurement 11.7 [foz_ us] 7.4-10.4 Automated blood neutrophils/100 leukocytes 62 % 42-75 Automated blood lymphocytes/100 leukocytes 26 % 12-44 Blood monocytes/100 leukocytes 8 % 0-12 Automated blood eosinophils/100 leukocytes 3 % 0-10 Automated blood basophils/100 leukocytes 1 % 0-10 Blood neutrophils automated count (number/volume) 5.0 10*3 1.8-7.8 Blood lymphocytes automated count (number/volume) 2.1 10*3 1.0-4.0 Blood monocytes automated count (number/volume) 0.7 10*3 0.0-1.0 Automated eosinophil count 0.3 10*3/uL 0.0-0.3 Automated blood basophil count (count/volume) 0.1 10*3/uL 0.0-0.1 Serum or plasma iron measurement (mass/volume) - 03/19/16 13:49 Serum or plasma iron measurement (mass/volume) 15 ug/dL 50-175 Serum or plasma ferritin measurement (mass/volume) - 03/19/16 13:49 Serum or plasma ferritin measurement (mass/volume) 14 % 15-150 Serum or plasma renal function panel (Na, K, Cl, CO2, BUN, Cr, glucose,Ca, phos , alb) - 09/04/16 10:15 Serum or plasma sodium measurement (moles/volume) 139 mmol/ L 135-145 Serum or plasma potassium measurement (moles/volume) 3.6 mmol/L 3.6-5.0 Serum or plasma chloride measurement (moles/volume) 106 mmol /L 98-107 Carbon dioxide 22 mmol/L 21-32 Serum or plasma anion gap determination (moles/volume) 11 mmol/L 5-14 Serum or plasma urea nitrogen measurement (mass/volume) 18 mg/dL 7-18 Serum or plasma creatinine measurement (mass/volume) 1.34 mg /dL 0.60-1.30 Serum or plasma urea nitrogen/creatinine mass ratio 13 NRG Serum or plasma creatinine measurement with calculation of estimated glomerular filtration rate 42 NRG Serum or plasma glucose measurement (mass/volume) 88 mg/dL 70-105 Serum or plasma calcium measurement (mass/volume) 9.1 mg/dL 8.5-10.1 Serum or plasma albumin measurement (mass/volume) 4.2 g/dL 3.2-4.5 Serum or plasma phosphate measurement (mass/volume) 3.5 mg/ dL 2.3-4.7 Serum or plasma uric acid measurement (mass/volume) - 09/04/16 10:15 Serum or plasma uric acid measurement (mass/volume) 6.6 mg/ dL 2.6-7.2 Serum or plasma intact pararthyroid hormone measurement (mass/volume) - 10:15 Serum or plasma intact parathyroid hormone measurement (mass/volume) 123 pg/mL 10-65 Bio-intact parathyroid hormone (PTH) measurement with calcium 8.9 % 8.5-10.5 25-hydroxyvitamin D measurement - 09/04/16 10:15 25-hydroxy vitamin D measurement 36 % 30- 100 Complete urinalysis with reflex to culture - 09/04/16 11:20 Urine color determination YELLOW NRG Urine clarity determination CLEAR NRG Urine pH measurement by test strip 6.5 5 -9 Specific gravity of urine by test strip 1.010 1.016-1.022 Urine protein assay by test strip, semi-quantitative NEGATIVE NEGATIVE Urine glucose detection by automated test strip NEGATIVE NEGATIVE Erythrocytes detection in urine sediment by light microscopy NEGATIVE NEGATIVE Urine ketones detection by automated test strip 2+ NEGATIVE Urine nitrite detection by test strip NEGATIVE NEGATIVE Urine total bilirubin detection by test strip NEGATIVE NEGATIVE Urine urobilinogen measurement by automated test strip (mass/volume) NORMAL NORMAL Urine leukocyte esterase detection by dipstick 1+ NEGATIVE Automated urine sediment erythrocyte count by microscopy (number/high power field) NONE NRG Automated urine sediment leukocyte count by microscopy (number/high power field ) [HPF] NRG Bacteria detection in urine sediment by light microscopy TRACE NRG Squamous epithelial cells detection in urine sediment by light microscopy 5-10 NRG Crystals detection in urine sediment by light microscopy NONE NRG Casts detection in urine sediment by light microscopy PRESENT NRG Mucus detection in urine sediment by light microscopy NEGATIVE NRG Complete urinalysis with reflex to culture NO NRG Hyaline casts detection in urine sediment by light microscopy RARE NRG Urine protein/creatinine mass ratio - 09/04/16 11:20 Urine protein measurement (mass/volume) 14 mg/dL 6-12 Urine creatinine measurement (mass/volume) 194 mg/dL 30-125 Urine protein/creatinine mass ratio 0.07 NRG Gram stain microscopy - 09/21/16 10:00 Gram stain microscopy TNP NRG MUMPS ANTIBODY IGG T M - 09/21/16 10:00 Serum mumps virus IgG antibody assay (units/volume) 3.05 0.00-0.89 Serum mumps virus IgM antibody assay (units/volume) <1:10 <1:10 Bacteria identified - 09/21/16 10:00 Bacteria identified See scanned report for mumps PCR result NRG Serum or plasma renal function panel (Na, K, Cl, CO2, BUN, Cr, glucose,Ca, phos , alb) - 10/01/16 10:51 Serum or plasma sodium measurement (moles/volume) 138 mmol/ L 135-145 Serum or plasma potassium measurement (moles/volume) 3.4 mmol/L 3.6-5.0 Serum or plasma chloride measurement (moles/volume) 106 mmol /L 98-107 Carbon dioxide 24 mmol/L 21-32 Serum or plasma anion gap determination (moles/volume) 8 mmol/L 5-14 Serum or plasma urea nitrogen measurement (mass/volume) 12 mg/dL 7-18 Serum or plasma creatinine measurement (mass/volume) 1.15 mg /dL 0.60-1.30 Serum or plasma urea nitrogen/creatinine mass ratio 10 NRG Serum or plasma creatinine measurement with calculation of estimated glomerular filtration rate 51 NRG Serum or plasma glucose measurement (mass/volume) 149 mg/dL 70-105 Serum or plasma calcium measurement (mass/volume) 8.8 mg/dL 8.5-10.1 Serum or plasma albumin measurement (mass/volume) 3.8 g/dL 3.2-4.5 Serum or plasma phosphate measurement (mass/volume) 2.5 mg/ dL 2.3-4.7 Methicillin resistant Staphylococcus aureus (MRSA) screening culture - 12:45 Methicillin resistant Staphylococcus aureus (MRSA) screening culture NEG NRG Urine beta human chorionic gonadotropin (hCG) measurement - 11/14/16 06:10 Urine beta human chorionic gonadotropin (hCG) measurement NEGATIVE NEGATIVE Complete blood count (CBC) with automated white blood cell (WBC) differential - 11/14/16 07:30 Blood leukocytes automated count (number/volume) 8.2 10*3/ uL 4.3-11.0 Blood erythrocytes automated count (number/volume) 4.17 10*6 /uL 4.35-5.85 Venous blood hemoglobin measurement (mass/volume) 13.4 g/dL 11.5-16.0 Blood hematocrit (volume fraction) 39 % 35-52 Automated erythrocyte mean corpuscular volume 94 [foz_us] 80-99 Automated erythrocyte mean corpuscular hemoglobin (mass per erythrocyte) 32 pg 25-34 Automated erythrocyte mean corpuscular hemoglobin concentration measurement ( mass/volume) 34 g/dL 32-36 Automated erythrocyte distribution width ratio 14.1 % 10.0-14.5 Automated blood platelet count (count/volume) 249 10*3/uL 130-400 Automated blood platelet mean volume measurement 11.9 [foz_ us] 7.4-10.4 Automated blood neutrophils/100 leukocytes 74 % 42-75 Automated blood lymphocytes/100 leukocytes 20 % 12-44 Blood monocytes/100 leukocytes 4 % 0-12 Automated blood eosinophils/100 leukocytes 2 % 0-10 Automated blood basophils/100 leukocytes 0 % 0-10 Blood neutrophils automated count (number/volume) 6.1 10*3 1.8-7.8 Blood lymphocytes automated count (number/volume) 1.6 10*3 1.0-4.0 Blood monocytes automated count (number/volume) 0.4 10*3 0.0-1.0 Automated eosinophil count 0.1 10*3/uL 0.0-0.3 Automated blood basophil count (count/volume) 0.0 10*3/uL 0.0-0.1 Bacteria identification in isolate by anaerobe culture - 11/14/16 08:07 Bacteria identification in isolate by anaerobe culture NOANA NRG Gram stain microscopy - 11/14/16 08:07 GRAM STAIN RESULT FEW WBC'S, NO BACTERIA OBSERVED NRG Bacteria identification in wound by culture - 11/14/16 08:07 Bacteria identification in wound by culture [id number] NR FREE TEXT EXTERNAL SENSITIVITY REPORTED AT 1000, 4-10-17 NRG QUANTITY OF GROWTH Scant Growth NR Bacterial susceptibility panel - 11/14/16 08:07 Gentamicin susceptibility test by minimum inhibitory concentration <= NRG Tobramycin susceptibility test by minimum inhibitory concentration <= NRG Piperacillin/tazobactam susceptibility test by minimum inhibitory concentration 8 NRG Ciprofloxacin susceptibility test by minimum inhibitory concentration 0.5 NRG Meropenem susceptibility test by minimum inhibitory concentration <= NRG Cefepime susceptibility test by minimum inhibitory concentration 2 NR Bacterial susceptibility panel - 11/14/16 08:07 Oxacillin susceptibility test by minimum inhibitory concentration >= NRG Gentamicin susceptibility test by minimum inhibitory concentration <= NRG Clindamycin susceptibility test by minimum inhibitory concentration >= NRG Erythromycin susceptibility test by minimum inhibitory concentration >= NRG Trimethoprim/sulfamethoxazole susceptibility test by minimum inhibitoryconcentration 80 NRG Vancomycin susceptibility test by minimum inhibitory concentration 1 NRG Levofloxacin susceptibility test by minimum inhibitory concentration >= NRG Rifampin susceptibility test by minimum inhibitory concentration <= NRG Tetracycline susceptibility test by minimum inhibitory concentration >= NRG Ciprofloxacin susceptibility test by minimum inhibitory concentration R NRG Fungus culture - 11/14/16 08:07 FUNGUS REPORT NO FUNGUS GROWTH OBSERVED NRG Bacteria identification in isolate by anaerobe culture - 11/14/16 08:24 Bacteria identification in isolate by anaerobe culture NG NRG Gram stain microscopy - 11/14/16 08:24 GRAM STAIN RESULT FEW WBC'S, NO BACTERIA OBSERVED NRG Bacteria identification in wound by culture - 11/14/16 08:24 Bacteria identification in wound by culture [id number] NRG FREE TEXT EXTERNAL REFER TO CULTURE M4681 FOR SENSITIVITIES NRG QUANTITY OF GROWTH Scant Growth NRG Fungus culture - 11/14/16 08:24 FUNGUS REPORT NO FUNGUS GROWTH OBSERVED NRG Complete blood count (CBC) with automated white blood cell (WBC) differential - 11/28/16 17:28 Blood leukocytes automated count (number/volume) 6.2 10*3/ uL 4.3-11.0 Blood erythrocytes automated count (number/volume) 4.31 10*6 /uL 4.35-5.85 Venous blood hemoglobin measurement (mass/volume) 13.5 g/dL 11.5-16.0 Blood hematocrit (volume fraction) 42 % 35-52 Automated erythrocyte mean corpuscular volume 97 [foz_us] 80-99 Automated erythrocyte mean corpuscular hemoglobin (mass per erythrocyte) 31 pg 25-34 Automated erythrocyte mean corpuscular hemoglobin concentration measurement ( mass/volume) 32 g/dL 32-36 Automated erythrocyte distribution width ratio 15.1 % 10.0-14.5 Automated blood platelet count (count/volume) 200 10*3/uL 130-400 Automated blood platelet mean volume measurement 11.5 [foz_ us] 7.4-10.4 Automated blood neutrophils/100 leukocytes 69 % 42-75 Automated blood lymphocytes/100 leukocytes 20 % 12-44 Blood monocytes/100 leukocytes 5 % 0-12 Automated blood eosinophils/100 leukocytes 5 % 0-10 Automated blood basophils/100 leukocytes 1 % 0-10 Blood neutrophils automated count (number/volume) 4.3 10*3 1.8-7.8 Blood lymphocytes automated count (number/volume) 1.3 10*3 1.0-4.0 Blood monocytes automated count (number/volume) 0.3 10*3 0.0-1.0 Automated eosinophil count 0.3 10*3/uL 0.0-0.3 Automated blood basophil count (count/volume) 0.0 10*3/uL 0.0-0.1 Comprehensive metabolic panel - 11/28/16 17:28 Serum or plasma sodium measurement (moles/volume) 140 mmol/ L 135-145 Serum or plasma potassium measurement (moles/volume) 3.6 mmol/L 3.6-5.0 Serum or plasma chloride measurement (moles/volume) 110 mmol /L 98-107 Carbon dioxide 20 mmol/L 21-32 Serum or plasma anion gap determination (moles/volume) 10 mmol/L 5-14 Serum or plasma urea nitrogen measurement (mass/volume) 15 mg/dL 7-18 Serum or plasma creatinine measurement (mass/volume) 1.09 mg /dL 0.60-1.30 Serum or plasma urea nitrogen/creatinine mass ratio 14 NRG Serum or plasma creatinine measurement with calculation of estimated glomerular filtration rate 54 NRG Serum or plasma glucose measurement (mass/volume) 163 mg/dL 70-105 Serum or plasma calcium measurement (mass/volume) 8.9 mg/dL 8.5-10.1 Serum or plasma total bilirubin measurement (mass/volume) 0.3 mg/dL 0.1-1.0 Serum or plasma alkaline phosphatase measurement (enzymatic activity/volume) 86 U/L 40-136 Serum or plasma aspartate aminotransferase measurement (enzymatic activity/ volume) 28 U/L 5-34 Serum or plasma alanine aminotransferase measurement (enzymatic activity/volume ) 36 U/L 0-55 Serum or plasma protein measurement (mass/volume) 6.2 g/dL 6.4-8.2 Serum or plasma albumin measurement (mass/volume) 3.9 g/dL 3.2-4.5 Encounters ACCT No. Visit Date/Time Discharge Status Pt. Type Provider Facility Loc./Unit Complaint [id number] 09/04/2016 09:51:00 2016 00:01:00 DIS Outpatient KEVIN BEY, JEANNETTE [facility] [id number] 11/14/2016 06:06:00 2016 12:20:00 DIS Outpatient DEEPA RONDON MD [facility] SLIPPED SEPTAL BUTTON [id number] 11/11/2016 11:43:00 2016 15:00:00 DIS Outpatient DEEPA RONDON MD [facility] PREOP SEPTAL BUTTON [id number] 09/04/2016 09:47:00 2016 09:47:00 CAN Preadmit JEANNETTE BROWN MD [facility] ONC [id number] 05/16/2016 15:01:00 2016 00:01:00 DIS Outpatient JEANNETTE BROWN MD [facility] ONC [id number] 04/19/2016 15:05:00 2015 11:08:00 DIS Outpatient JEANNETTE BROWN MD [facility] ONC [id number] 02/16/2016 07:07:00 2015 13:20:00 DIS Outpatient DEEPA RONDON MD [facility] CHRONIC SINUSITIS,DEVIATED SEPTUM [id number] 02/13/2016 05:32:00 2015 09:44:00 DIS Outpatient DEEPA RONDON MD [facility] PREOP SEPTAL NASAL PERF [id number] 01/15/2016 13:58:00 2015 16:20:00 DIS Outpatient DEEPA RONDON MD [facility] PREOP SINUSITIS,DEVAITED SEPTUM [id number] 07/03/2015 15:17:00 2015 00:01:00 DIS Outpatient LION EDMONDSON [facility] LAB [id number] 05/05/2015 09:45:00 2015 00:01:00 DIS Outpatient JEANNETTE BROWN MD [facility] ONC [id number] 07/14/2015 10:49:00 2014 00:01:00 DIS Outpatient JEANNETTE BROWN MD [facility] ONC [id number] 07/12/2015 13:13:00 2014 23:59:59 CLS Outpatient ZAC GILLETTE DO [facility] LAB [id number] 07/05/2015 14:39:00 2014 23:59:59 CLS Outpatient DAX MCGINNIS MD [facility] LAB [id number] 06/26/2015 14:32:00 2014 23:59:59 CLS Outpatient FARIHA EDMONDSON DO [facility] LAB [id number] 06/21/2015 15:03:00 2014 23:59:59 CLS Outpatient LION EDMONDSON [facility] LAB FEVER [id number] 05/31/2015 09:23:00 2014 23:59:59 CLS Outpatient LION EDMONDSON [facility] LAB [id number] 03/30/2015 10:27:00 2014 00:01:00 DIS Outpatient JEANNETTE BROWN MD [facility] ONC [id number] 03/30/2015 20:42:00 2014 15:50:00 DIS Inpatient DEANDRE SPENCER DO [facility] CSD CHEST PAIN [id number] 02/09/2015 09:37:00 2014 23:59:59 CLS Outpatient ZAC GILLETTE DO [facility] RAD HEMATURIA,ACUTE RENAL FAILURE [id number] 02/02/2015 11:05:00 2014 23:59:59 CLS Outpatient ZAC GILLETTE DO [facility] LAB [id number] 01/03/2015 11:55:00 2014 00:01:00 DIS Outpatient JEANNETTE BROWN MD [facility] ONC [id number] 11/16/2014 14:45:00 2014 23:59:59 CLS Outpatient FARIHA EDMONDSON DO [facility] RAD SMOKE INHALATION,FEVER [id number] 11/16/2014 14:00:00 2014 23:59:59 CLS Outpatient FARIHA EDMONDSON DO [facility] LAB [id number] 11/10/2014 16:02:00 2014 23:59:59 CLS Outpatient ZAC GILLETTE DO [facility] LAB [id number] 11/07/2014 17:35:00 2014 23:59:59 CLS Outpatient FARIHA EDMONDSON DO [facility] SURG RCR PORT ACCESS [id number] 11/07/2014 17:31:00 2014 23:59:59 CLS Outpatient FARIHA EDMONDSON DO [facility] LAB ACUTE BRONCHITIS [id number] 10/31/2014 13:48:00 2014 23:59:59 CLS Outpatient ZAC GILLETTE DO [facility] LAB [id number] 09/27/2014 09:50:00 2014 23:59:59 CLS Outpatient ZAC GILLETTE DO [facility] LAB [id number] 09/07/2014 09:39:00 2014 23:59:59 CLS Outpatient JEANNETTE BROWN MD [facility] ONC [id number] 08/25/2014 11:33:00 2014 23:59:59 CLS Outpatient FARIHA EDMONDSON DO [facility] RAD [id number] 08/25/2014 11:26:00 2014 23:59:59 CLS Outpatient FARIHA EDMONDSON DO [facility] LAB [id number] 07/05/2014 10:16:00 2013 23:59:59 CLS Outpatient ZAC GILLETTE DO [facility] LAB [id number] 06/13/2014 12:52:00 2013 00:01:00 DIS Outpatient JEANNETTE BROWN MD [facility] ONC [id number] 01/04/2014 10:35:00 2013 00:01:00 DIS Outpatient FARIHA EDMONDSON DO [facility] LAB CHRONIC KIDNEY DISEASE [id number] 02/01/2014 09:54:00 2013 00:01:00 DIS Outpatient JEANNETTE BROWN MD [facility] ONC [id number] 02/01/2014 09:57:00 2013 23:59:59 CLS Outpatient DAX MCGINNIS MD [facility] LAB [id number] 01/27/2014 10:17:00 2013 23:59:59 CLS Outpatient FARIHA EDMONDSON DO [facility] ONC [id number] 01/22/2014 23:49:00 2013 02:05:00 DIS Emergency SHANDA BEY, PATRICK Tran [facility] ER HEADACHE;ON IV ANTIBIOTICS [id number] 01/17/2014 16:26:00 2013 23:59:59 CLS Outpatient FARIHA EDMONDSON DO [facility] ONC [id number] 01/13/2014 10:22:00 2013 23:59:59 CLS Outpatient FARIHA EDMONDSON DO [facility] SDC TICK BITE,HEADACHE,FEVER [id number] 01/12/2014 15:07:00 2013 23:59:59 CLS Outpatient FARIHA EDMONDSON DO [facility] LAB [id number] 01/04/2014 10:41:00 2013 23:59:59 CLS Outpatient FARIHA EDMONDSON DO [facility] RAD RENAL INSUFFINCENCY [id number] 12/08/2013 09:04:00 2013 23:59:59 CLS Outpatient MARIA LUZ ANDRADE [facility] ONC [id number] 11/16/2013 08:54:00 2013 00:01:00 DIS Outpatient JEANNETTE BROWN MD [facility] ONC [id number] 11/25/2013 08:52:00 2013 23:59:59 CLS Outpatient FARIHA EDMONDSON DO [facility] RAD SCREENING [id number] 09/27/2013 16:00:00 2013 23:59:59 CLS Outpatient LION DE LA CRUZ APRN [facility] RAD COUGH,PNUEMOINA [id number] 09/22/2013 14:36:00 2013 23:59:59 CLS Outpatient LION EDMONDSON DIRECTOR OF ARCHITECTURE [facility] PNUEMONIA,DIABETES [id number] 06/08/2013 11:23:00 2013 00:01:00 DIS Outpatient RIDINGSLION ORTHOPEDIC RADIOLOGIC TECHNOLOGIST [facility] MONTHLY PORT FLUSH [id number] 08/23/2013 15:46:00 2013 23:59:59 CLS Outpatient FARIHA EDMONDSON DO [facility] ANEMIA [id number] 04/27/2013 07:31:00 2012 00:01:00 DIS Outpatient RIDTA LION Robin APRN [facility] LAB COUGH/CHILLS,ELEVATED TEMP [id number] 06/08/2013 11:17:00 2012 23:59:59 CLS Outpatient FARIHA EDMONDSON DO [facility] RAD TRAUMA [id number] 04/04/2013 21:53:00 2012 12:22:00 DIS Inpatient FARIHA EDMONDSON DO [facility] 4TH PNEUMONIA UNRESPONSIVE TO OUTPATIENT TREATMENT [id number] 12/04/2016 00:11:00 PEN Preadmit JEANNETTE BROWN MD [facility] ONC [id number] 11/27/2016 22:40:00 PEN Preadmit MALCOLM JUSTIN MD [facility] HH PSUEDOMONAS INFECTION [id number] 10/01/2016 10:43:00 ACT Outpatient ZAC GILLETTE DO [facility] LAB KD STAGE III [id number] 10/01/2016 09:42:00 ACT Outpatient DEEPA RONDON MD [facility] RAD COUGH [id number] 09/21/2016 09:42:00 ACT Outpatient DEEPA RONDON MD [facility] LAB UN PAROTITIS IN IMMUNOSUPPRESSED PT [id number] 09/13/2016 11:58:00 ACT Outpatient ZAC GILLETTE DO [facility] RAD ACUTE RENAL FAILURE [id number] 09/04/2016 10:28:00 ACT Outpatient LETA ZAC SAUER [facility] LAB [id number] 08/20/2016 06:15:00 ACT Outpatient DEEPA RONDON MD [facility] PREOP SLIPPED SEPTAL BUTTON [id number] 06/10/2016 16:26:00 ACT Outpatient LION EDMONDSON [facility] RAD MASS LT SALIVARY GLAND [id number] 05/08/2016 09:19:00 ACT Outpatient FARIHA EDMONDSON DO [facility] SDC PORT ACCESS [id number] 03/19/2016 13:28:00 ACT Outpatient FARIHA EDMONDSON DO [facility] LAB IRON DEFICIENCY [id number] 10/19/2015 14:21:00 ACT Outpatient FARIHA EDMONDSON DO [facility] RAD CONTUSSION OF THROAT [id number] 10/06/2015 13:26:00 ACT Outpatient BOGDAN BARBOUR [facility] QUICK [id number] 09/11/2015 13:51:00 ACT Outpatient FARIHA EDMONDSON DO [facility] LAB Rheumatoid arthritis,Iron deficiency anemia, unspe [id number] 08/16/2015 00:08:00 DEENA BROWN MD, JEANNETTE Adams [facility] ONC [id number] 11/07/2014 17:31:00 Document Registration [id number] 11/07/2014 17:31:00 Document Registration [id number] 11/07/2014 17:31:00 Document Registration [id number] 11/07/2014 17:31:00 Document Registration [id number] 11/07/2014 17:30:00 Document Registration [id number] 04/05/2014 00:00:00 Document Registration [id number] 09/07/2013 00:00:00 Document Registration [id number] 07/26/2013 00:00:00 Document Registration [id number] 09/17/2012 18:45:00 Document Registration [id number] 09/04/2012 12:27:00 Document Registration [id number] 07/21/2012 08:17:00 Document Registration [id number] 08/09/2011 13:43:00 Document Registration [id number] 06/19/2011 08:59:00 Document Registration [id number] 06/07/2011 11:43:00 Document Registration [id number] 05/25/2011 11:02:00 Document Registration [id number] 05/20/2011 12:14:00 Document Registration [id number] 05/18/2011 11:19:00 Document Registration
== END 2016-11-14 12:20 | disposition home or self-care (01) ==
LOC: SDC 06:06
PROVIDERS: ATTEND Otolaryngology Otolaryngology/Facial Plastic Surgery
DX: J32.2 Chronic ethmoidal sinusitis (principal); J32.0 Chronic maxillary sinusitis; J34.2 Deviated nasal septum
CPT/HCPCS: 36415; 84703; 85025; 87070; 87075; 87101; 87186; 87205; 88305

== ENCOUNTER → 2016-12-24 | Outpatient (CLI) | payer OTHER, MEDICARE ==
[~2016-12-24] MED LIST changes: +HEParin (CENTRAL IV FLUSH) 500 UNIT/5 ML SYR IV PRN
[2016-12-24 14:50] LABS: BILIRUBIN,URINE NEGATIVE (NEGATIVE); KETONES,URINE NEGATIVE (NEGATIVE); LEUKOCYTE ESTERASE ,URINE 1+ (NEGATIVE); NITRITE,URINE NEGATIVE (NEGATIVE); PH,URINE 8 (5-9); PROTEIN,URINE NEGATIVE (NEGATIVE); UROBILINOGEN,URINE NORMAL (NORMAL)
[2016-12-24 15:12] LABS: CALCIUM OXALATE CRYSTALS,UR MODERATE /LPF
[2016-12-24 15:23] LABS: BASOPHILS % (AUTO) 0 % (0-10); EOSINOPHILS # (AUTO) 0.2 10^3/uL (0.0-0.3); EOSINOPHILS % (AUTO) 3 % (0-10); LYMPHOCYTES # (AUTO) 2.1 X 10^3 (1.0-4.0); LYMPHOCYTES % (AUTO) 34 % (12-44); MEAN CORPUSCULAR HEMOGLOBIN 31 PG (25-34); MEAN CORPUSCULAR HGB CONC 33 G/DL (32-36); MEAN CORPUSCULAR VOLUME 93 FL (80-99); MEAN PLATELET VOLUME 11.9 FL (7.4-10.4); MONOCYTES # (AUTO) 0.4 X 10^3 (0.0-1.0); MONOCYTES % (AUTO) 6 % (0-12); NEUTROPHILS # (AUTO) 3.4 X 10^3 (1.8-7.8); NEUTROPHILS % (AUTO) 56 % (42-75); PLATELET COUNT 258 10^3/uL (130-400); RED CELL DISTRIBUTION WIDTH 15.1 % (10.0-14.5); WHITE BLOOD COUNT 6.2 10^3/uL (4.3-11.0)
[2016-12-24 15:43] LABS: ALBUMIN 3.8 G/DL (3.2-4.5); CALCIUM 8.7 MG/DL (8.5-10.1); CREATININE SERUM 1.05 MG/DL (0.60-1.30); PHOSPHORUS 3.2 MG/DL (2.3-4.7); POTASSIUM 3.6 MMOL/L (3.6-5.0)
== END ==
LOC: LAB 14:28
PROVIDERS: ATTEND Internal Medicine Nephrology
DX: N17.9 Acute kidney failure, unspecified (principal); R10.9 Unspecified abdominal pain; E83.31 Familial hypophosphatemia; N18.3 Chronic kidney disease, stage 3 (moderate)
CPT/HCPCS: 36415; 80069; 81000; 82570; 84156; 85025

== ENCOUNTER → 2017-01-22 | Outpatient (CLI) | payer OTHER, MEDICARE ==
[~2017-01-22] MED LIST changes: -HEParin (CENTRAL IV FLUSH) 500 UNIT/5 ML SYR IV PRN
--- NOTE | 2017-01-22 13:58 | Diagnostic Imaging Report ---
EXAMINATION: Three views of the cervical spine. INDICATION: Spondylosis. FINDINGS: There is anterior fusion hardware seen at the C4 through C6 levels with solid anterior fusion of these vertebral bodies. There is straightening of the cervical lordosis. The alignment of the posterior spinal line is satisfactory. The alignment of the lateral masses of C1 and C2 is satisfactory. Sclerotic degenerative changes are suggested along the upper and mid cervical spine facet joints. IMPRESSION: C4 through C6 anterior fusion hardware with solid osseous fusion seen. Dictated by: Dictated on workstation # [id number]
== END ==
LOC: RAD 11:10
PROVIDERS: ATTEND Psychiatry & Neurology Neurology
DX: M47.812 Spondylosis without myelopathy or radiculopathy, cervical region (principal); Z98.1 Arthrodesis status
CPT/HCPCS: 72040

== ENCOUNTER → 2017-01-22 | Outpatient (CLI) | payer OTHER, MEDICARE ==
--- NOTE | 2017-01-22 13:33 | Diagnostic Imaging Report ---
PROCEDURE: MR imaging left lower extremity without contrast. TECHNIQUE: Multiplanar, multisequence non contrast enhanced MR imaging of the left ankle was accomplished. INDICATION: Foot pain. COMPARISONS: None available. FINDINGS: TENDONS: Distal Achilles tendon is normal. Peroneal tendons are normal in position and morphology. The posterior tibialis, flexor digitorum longus and flexor hallucis longus tendons are normal. Anterior tibialis, extensor hallucis longus, and extensor digitorum longus tendons are also normal. LIGAMENTS: Visualized aspects of the Lisfranc ligament are normal. The anterior and posterior inferior tibiofibular syndesmotic ligaments are intact. The anterior talofibular, calcaneofibular and posterior talofibular ligaments are normal. The medial deltoid ligamentous complex is intact. Spring ligament is intact with mild thickening, which may relate to old injury and/or scar tissue. BONES AND CARTILAGE: No fracture or bone contusion. No osteochondral lesion of the talar dome. There is fluid distending the talonavicular joint resulting in a convex margin of the dorsal talonavicular ligament/capsule. This is more focal on the lateral aspect of the talonavicular joint and may represent a small ganglion measuring approximately 10 x 5 mm. There is no abnormal mass effect on the tarsal canal/sinus tarsi. Posterior subtalar joint space is maintained and there is no chondromalacia. SOFT TISSUES: No evidence of plantar fasciitis. No abnormal soft tissue scar/fibrosis within the tarsal canal/sinus tarsi or tarsal tunnel. No ankle joint effusion. IMPRESSION: 1. There is a joint effusion and small ganglion distending the lateral aspect of the talonavicular joint which is near the region of patient's maximal pain and may serve as a source of patient's pain. 2. No ligamentous or tendon abnormalities to account for patient's lateral ankle pain. 3. No stress fracture or bone contusion. Dictated by: Dictated on workstation # [id number]
== END ==
LOC: RAD 11:20
PROVIDERS: ATTEND Podiatrist Foot & Ankle Surgery
DX: G57.52 Tarsal tunnel syndrome, left lower limb (principal)

== ENCOUNTER → 2017-01-31 | Outpatient (CLI) | payer OTHER, MEDICARE ==
[2017-01-31 16:07] LABS: BILIRUBIN,URINE NEGATIVE (NEGATIVE); KETONES,URINE NEGATIVE (NEGATIVE); LEUKOCYTE ESTERASE ,URINE NEGATIVE (NEGATIVE); NITRITE,URINE NEGATIVE (NEGATIVE); PH,URINE 7 (5-9); PROTEIN,URINE NEGATIVE (NEGATIVE); UROBILINOGEN,URINE NORMAL (NORMAL)
[2017-01-31 16:23] LABS: GRANULAR CASTS,URINE 0-2 /LPF
[2017-01-31 16:27] LABS: BASOPHILS % (AUTO) 1 % (0-10); EOSINOPHILS # (AUTO) 0.2 10^3/uL (0.0-0.3); EOSINOPHILS % (AUTO) 4 % (0-10); LYMPHOCYTES # (AUTO) 1.6 X 10^3 (1.0-4.0); LYMPHOCYTES % (AUTO) 30 % (12-44); MEAN CORPUSCULAR HEMOGLOBIN 29 PG (25-34); MEAN CORPUSCULAR HGB CONC 32 G/DL (32-36); MEAN CORPUSCULAR VOLUME 90 FL (80-99); MONOCYTES # (AUTO) 0.3 X 10^3 (0.0-1.0); MONOCYTES % (AUTO) 6 % (0-12); NEUTROPHILS # (AUTO) 3.2 X 10^3 (1.8-7.8); NEUTROPHILS % (AUTO) 59 % (42-75); PLATELET COUNT 270 10^3/uL (130-400); RED BLOOD COUNT 4.16 10^6/uL (4.35-5.85); RED CELL DISTRIBUTION WIDTH 16.4 % (10.0-14.5); WHITE BLOOD COUNT 5.3 10^3/uL (4.3-11.0)
[2017-01-31 16:48] LABS: ALBUMIN 3.8 GM/DL (3.2-4.5); CALCIUM 8.9 MG/DL (8.5-10.1); CREATININE SERUM 1.13 MG/DL (0.60-1.30); ICTERUS 0.3 (-100-1.9); PHOSPHORUS 2.9 MG/DL (2.3-4.7); POTASSIUM 3.9 MMOL/L (3.6-5.0)
== END ==
LOC: LAB 15:40
PROVIDERS: ATTEND Internal Medicine Nephrology
DX: N18.3 Chronic kidney disease, stage 3 (moderate) (principal)
CPT/HCPCS: 36415; 80069; 81000; 85025

== ENCOUNTER → 2017-07-16 | Outpatient (CLI) | payer OTHER, MEDICARE ==
--- NOTE | 2017-07-16 13:11 | Diagnostic Imaging Report ---
EXAMINATION: PA and lateral views of the chest. INDICATION: Right axilla and chest pain. FINDINGS: There is a moderate-sized hiatal hernia. Minimal atelectasis in the left lung base is seen. The right lung is clear. The heart size is normal. No effusion or pneumothorax. The mediastinum and mike appear unremarkable. There is a left subclavian venous catheter terminating at the upper SVC level. There is scoliosis convex to the right in the lower thoracic and convex to the left in the upper thoracic levels. Cervical spine fusion hardware is noted. IMPRESSION: Moderate hiatal hernia. Minimal left basilar atelectasis. Dictated by: Dictated on workstation # [id number]
--- NOTE | 2017-07-16 13:49 | Diagnostic Imaging Report ---
EXAMINATION: Right upper extremity venous vascular duplex Ultrasound. INDICATION: Right axillary pain. FINDINGS: The right internal jugular, subclavian, axillary, brachial, basilic, radial, and ulnar veins are all patent with venous flow, waveforms and normal compressibility seen when applicable. The cephalic vein is not seen. The right axillary area of pain is scanned with no definite underlying abnormality. IMPRESSION: Negative study. Dictated by: Dictated on workstation # [id number]
== END ==
LOC: RAD 12:41
PROVIDERS: ATTEND Internal Medicine
DX: M79.621 Pain in right upper arm (principal); K44.9 Diaphragmatic hernia without obstruction or gangrene; R07.9 Chest pain, unspecified
CPT/HCPCS: 71020

== ENCOUNTER → 2017-08-27 | Outpatient (CLI) | payer OTHER, MEDICARE ==
[~2017-08-27] MED LIST changes: +ACHD5005 PO; -HYDR-3812 PO
== END ==
LOC: LAB 14:58
PROVIDERS: ATTEND Internal Medicine
DX: J11.1 Influenza due to unidentified influenza virus with other respiratory manifestations (principal)
CPT/HCPCS: 87804

== ENCOUNTER 2017-09-11 14:13 | Outpatient (RCR) | payer OTHER, MEDICARE ==
[2017-07-31 09:06] LABS: BASOPHILS % (AUTO) 1 % (0-10); EOSINOPHILS # (AUTO) 0.3 10^3/uL (0.0-0.3); EOSINOPHILS % (AUTO) 4 % (0-10); HEMATOCRIT 32 % (35-52); HEMOGLOBIN 9.7 G/DL (11.5-16.0); LYMPHOCYTES # (AUTO) 2.7 X 10^3 (1.0-4.0); LYMPHOCYTES % (AUTO) 37 % (12-44); MEAN CORPUSCULAR HEMOGLOBIN 23 PG (25-34); MEAN CORPUSCULAR HGB CONC 31 G/DL (32-36); MEAN CORPUSCULAR VOLUME 77 FL (80-99); MEAN PLATELET VOLUME 12.7 FL (7.4-10.4); MONOCYTES # (AUTO) 0.5 X 10^3 (0.0-1.0); MONOCYTES % (AUTO) 7 % (0-12); NEUTROPHILS # (AUTO) 3.7 X 10^3 (1.8-7.8); NEUTROPHILS % (AUTO) 51 % (42-75); PLATELET COUNT 338 10^3/uL (130-400); RED BLOOD COUNT 4.14 10^6/uL (4.35-5.85); RED CELL DISTRIBUTION WIDTH 18.2 % (10.0-14.5); WHITE BLOOD COUNT 7.2 10^3/uL (4.3-11.0)
[2017-07-31 09:20] LABS: ABSOLUTE RETIC # 69 10e9/L (24-90); RETICULOCYTE % 1.67 % (0.50-2.40)
[2017-07-31 09:28] LABS: ALBUMIN 4.2 GM/DL (3.2-4.5); BILIRUBIN,TOTAL 0.2 MG/DL (0.1-1.0); CALCIUM 8.7 MG/DL (8.5-10.1); CREATININE SERUM 1.24 MG/DL (0.60-1.30); TOTAL PROTEIN 6.6 GM/DL (6.4-8.2)
[~2017-09-11 14:13] MED LIST changes: +FERRIC CARBOXYMALTOSE (CANCER) 750 MG in NS (IVPB) CANCER CENTER 250 ML IV SCH
[2017-09-11 15:13] LABS: BASOPHILS % (AUTO) 0 % (0-10); EOSINOPHILS # (AUTO) 0.4 10^3/uL (0.0-0.3); EOSINOPHILS % (AUTO) 6 % (0-10); HEMATOCRIT 40 % (35-52); LYMPHOCYTES # (AUTO) 1.7 X 10^3 (1.0-4.0); LYMPHOCYTES % (AUTO) 25 % (12-44); MEAN CORPUSCULAR HEMOGLOBIN 28 PG (25-34); MEAN CORPUSCULAR HGB CONC 33 G/DL (32-36); MEAN CORPUSCULAR VOLUME 85 FL (80-99); MEAN PLATELET VOLUME 11.6 FL (7.4-10.4); MONOCYTES # (AUTO) 0.4 X 10^3 (0.0-1.0); MONOCYTES % (AUTO) 6 % (0-12); NEUTROPHILS # (AUTO) 4.4 X 10^3 (1.8-7.8); NEUTROPHILS % (AUTO) 64 % (42-75); PLATELET COUNT 238 10^3/uL (130-400); RED CELL DISTRIBUTION WIDTH 23.8 % (10.0-14.5)
[2017-10-13] MEDS ORDERED: HYDR115S2 PO (14:07)
[2017-10-13] MEDS ORDERED: CETI10TA17 PO (14:07)
[2017-10-13] MEDS ORDERED: RT-ALBUINH IH (14:07)
[2017-10-13] MEDS ORDERED: METO10TA3 PO (14:07)
[2017-10-13] MEDS ORDERED: METH2.5T PO (14:07)
[2017-10-13] MEDS ORDERED: VALA10004 PO (14:07)
[2017-10-13] MEDS ORDERED: TEMA30CA PO (14:07)
[2017-10-13] MEDS ORDERED: SALM1CAP4 PO (14:07)
[2017-10-13] MEDS ORDERED: CYCL10TA9 PO (14:07)
[2017-10-13] MEDS ORDERED: FOLI1TAB24 PO (14:07)
[2017-10-13] MEDS ORDERED: RIZA10TA23 PO (14:07)
[2017-10-13] MEDS ORDERED: RTX10V10 IV (14:07)
[2017-10-13] MEDS ORDERED: RIVA20TA PO (14:07)
== END 2017-10-29 | disposition home or self-care (01) ==
LOC: ONC 14:13
PROVIDERS: ATTEND Internal Medicine Hematology & Oncology
DX: D80.1 Nonfamilial hypogammaglobulinemia (principal); D50.9 Iron deficiency anemia, unspecified; M32.10 Systemic lupus erythematosus, organ or system involvement unspecified; M06.9 Rheumatoid arthritis, unspecified; Z79.899 Other long term (current) drug therapy
CPT/HCPCS: 36415; 36591; 80053; 82607; 82668; 82728; 82746; 82784; 83540; 85025; 85045; 96365

== ENCOUNTER 2017-10-13 06:13 | Outpatient (CLI) | payer OTHER, MEDICARE ==
[~2017-10-13] VITALS: Ht 162.6 cm; Wt 79.8 kg
[~2017-10-13 06:13] MED LIST changes: -FERRIC CARBOXYMALTOSE (CANCER) 750 MG in NS (IVPB) CANCER CENTER 250 ML IV SCH
[2017-10-13] MEDS ORDERED: SALM1CAP4 PO (14:07)
[2017-10-13] MEDS ORDERED: RT-ALBUINH IH (14:07)
[2017-10-13] MEDS ORDERED: HYDR115S2 PO (14:07)
[2017-10-13] MEDS ORDERED: CETI10TA17 PO (14:07)
[2017-10-13] MEDS ORDERED: RIVA20TA PO (14:07)
[2017-10-13] MEDS ORDERED: METO10TA3 PO (14:07)
[2017-10-13] MEDS ORDERED: FOLI1TAB24 PO (14:07)
[2017-10-13] MEDS ORDERED: RIZA10TA23 PO (14:07)
[2017-10-13] MEDS ORDERED: CYCL10TA9 PO (14:07)
[2017-10-13] MEDS ORDERED: VALA10004 PO (14:07)
[2017-10-13] MEDS ORDERED: RTX10V10 IV (14:07)
[2017-10-13] MEDS ORDERED: TEMA30CA PO (14:07)
[2017-10-13] MEDS ORDERED: METH2.5T PO (14:07)
== END 2017-10-13 14:14 ==
LOC: PREOP 06:13
PROVIDERS: ATTEND Specialist
DX: Z01.818 Encounter for other preprocedural examination (principal); H25.89 Other age-related cataract

== ENCOUNTER 2017-10-17 09:56 | Day surgery (SDC) | payer OTHER, MEDICARE ==
[~2017-10-17] VITALS: Ht 162.6 cm; Wt 79.8 kg
[~2017-10-17 09:56] MED LIST changes: +FOLI1TAB24 PO; +METO10TA3 PO; +RT-ALBUINH IH; +RTX10V10 IV; +TEMA30CA PO; +VALA10004 PO
[2017-10-17] MEDS ORDERED: EPINEPHrine INJECTION 1 MG/ML AMP INJ ONE (10:15)
[2017-10-17] MEDS: TETRACAINE 0.5% OPHTH SOLN 4 ML BTL (SINGLE DOSE ONLY) OU PRN ×4 (10:15→10:50)
[2017-10-17] MEDS ORDERED: TIMOLOL MALEATE 0.5% 5 ML (TIMOPTIC) BTL OU PRN (10:15)
[2017-10-17] MEDS ORDERED: POVIDONE (BETADINE) OPHTH SOLN 5% 30 ML OP ONE (10:15)
[2017-10-17] MEDS ORDERED: LIDOCAINE PF 1% 2 ML AMP IR PRN (10:15)
[2017-10-17] MEDS ORDERED: VANCOMYCIN/BSS (COMPOUNDED) 10 MG/ML SYR OP ONE (10:15)
[2017-10-17 10:30] VITALS: BP 95/66
[2017-10-17] MEDS: CYCLOPENTOLATE 1% (CYCLOGYL) 2 ML DROPS OP SCH ×3 (10:35→10:50)
[2017-10-17] MEDS: PHENYLEPHRINE 10% OPHTH (NEO-SYN) 5 ML BTL OU SCH ×3 (10:35→10:50)
[2017-10-17] MEDS ORDERED: HEParin (CENTRAL IV FLUSH) 500 UNIT/5 ML SYR ONE (10:55)
--- NOTE | 2017-10-17 11:09 | Ophthalmologist Pre-Op Note ---
Pre-Operative Progress Note H&P Reviewed The H&P was reviewed, patient examined and no changes noted. Date H&P Reviewed: Oct 17, 2017 Time H&P Reviewed: 11:08 Pre-Op Dx Cataract, Left Eye AZEEM RABAGO MD Oct 17, 2017 11:09
[2017-10-17] MEDS ORDERED: MIDAZOLAM 2 MG/2 ML (VERSED) VIAL ONE (11:13)
--- NOTE | 2017-10-17 11:36 | Ophthalmology Operative Report ---
Cataract removal/placement IOL PREOPERATIVE DIAGNOSIS: Cataract Left Eye POSTOPERATIVE DIAGNOSIS: Cataract Left Eye PROCEDURE: Cataract removal and placement of posterior chamber implant, left eye SURGEON: Te Rabago ANESTHESIA: Topical with sedation COMPLICATIONS: None ESTIMATED BLOOD LOSS: Minimal DESCRIPTION OF PROCEDURE: After proper informed consent was obtained, the patient, a 47 female, was taken to the Operating Room and the left eye was anesthetized with tetracaine. They left eye was then prepped and draped in the usual manner. A wire lid speculum was placed. A paracentesis was made at the left hand position. Preservative free lidocaine was injected into the anterior chamber followed by viscoelastic. A clear corneal incision was made in the temporal position. A capsulorrhexis was preformed and the central nuclear and cortical material were removed. The posterior capsule was polished and [place] [id number] 22.0 IOL was placed into the capsular bag. The residual viscoelastic was aspirated and balanced saline solution was injected into the anterior chamber. 1.0 ml of Vancomycin (10mg/ 1.0ml) was injected into the anterior chamber. The would was checked and found to be water tight. The patient tolerated the procedure well without complications. TE RABAGO MD Oct 17, 2017 11:36
[2017-10-17 11:52] VITALS: BP 99/67
--- NOTE | 2017-10-17 15:01 | Anesthesia-General Post-Op ---
MAC Patient Condition Mental Status/LOC: Same as Preop Cardiovascular: Satisfactory Nausea/Vomiting: Absent Respiratory: Satisfactory Pain: Controlled Complications: Absent Post Op Complications Complications None Follow Up Care/Instructions Patient Instructions None needed. Anesthesiology Discharge Order Discharge Order Patient is doing well, no complaints, stable vital signs, no apparent adverse anesthesia problems. No complications reported per nursing. SUSAN HUNT CRNA Oct 17, 2017 15:01
--- OUTSIDE RECORDS SUMMARY | 2017-10-19 04:11 | XMS REPORT | Clinical Summary ---
Author Author [facility] Organization [facility] Address Unknown Phone Unavailable Care Team Providers [employer] Name Role Phone Sonal Calderon MD Unavailable Rina Flores RN Unavailable Unavailable Hever Moran MD Unavailable Marcello Hill MD PCP Source Comments Some departments are not documenting in the electronic medical record. If you do not see the information that you expected, contact Release of Information in the Health Information Management department at [phone] for further assistance in locating additional records.[facility] Allergies Active Allergy Reactions Severity Noted Date Comments Adhesive Tape (Rosins) RASH Medium 09/17/2017 Levofloxacin MUSCLE PAIN Medium 10/18/2016 tendonitis Tegaderm BLISTERS High 11/20/2016 Tramadol ANAPHYLAXIS 09/18/2012 Current Medications Prescription Sig. Disp. Refills Start End Date Status Date [place]-3 Fatty Acids Take 2 Caps by mouth at Active (SALMON OIL-1000) cap bedtime daily. omeprazole DR(+) Take 20 mg by mouth twice Active (PRILOSEC) 20 mg capsule daily. temazepam (RESTORIL) 30 Take 30 mg by mouth at Active mg capsule bedtime as needed. cyclobenzaprine Take 20 mg by mouth at Active (FLEXERIL) 10 mg tablet bedtime daily. LORazepam (ATIVAN) 0.5 mg Take 0.5 mg [...] every 4 hours as needed. mcg/actuation inhaler predniSONE (DELTASONE) 1 Take 4 mg by mouth daily. Active mg tablet sodium chloride (SALINE Apply 1-2 Sprays to each Active NASAL MIST) 0.65 % nasal nostril as directed as spray Needed. sinus rinse (AYR SALINE Insert 1 Packet into nose Active NASAL NETI RINSE) Pack as directed as Needed. kit simethicone (GAS-X) 80 mg Take 80 mg by mouth every Active chew tablet 6 hours as needed. ondansetron (ZOFRAN) 4 mg Take 4 mg by mouth every Active tablet 8 hours as needed. folic acid (FOLVITE) 1 mg Take 3 mg by mouth daily. Active tablet rizatriptan (MAXALT) 10 Take 10 mg by mouth once Active mg tablet as needed. May repeat in 2 hours in needed pregabalin (LYRICA) 150 Take 150 mg by mouth Active mg capsule three times daily. rivaroxaban (XARELTO) 20 Take 20 mg by mouth Active mg tablet daily. Take with food. metoclopramide (REGLAN) Take 10 mg by mouth [...] % ophthalmic around eye(s) twice emulsion daily. hydroCHLOROthiazide Take 50 mg by mouth every Active (HYDRODIURIL) 50 mg morning. tablet nitrofurantoin Take 100 mg by mouth Active monohyd/m-cryst daily. Take with food. (MACROBID) 100 mg capsule TOPIRAMATE (TOPAMAX PO) Take 50 mg by mouth. 50mg Active tab every morning and 100mg every night sertraline (ZOLOFT) 50 mg Take 100 mg by mouth Active tablet daily. Potassium Bicarb-Citric Take 25 mEq by mouth. Active Acid (EFFER-K) 20 mEq tbef HYDROCODONE/CHLORPHEN Take by mouth. Active P-STIREX (TUSSIONEX PENNKINETIC ER PO) other medication 1 Dose. Medication Name & Active Strength: Blink Dose(how many): 1-2 drops to both eyes Frequency(how often): every evening methotrexate sodium Take 15 mg by mouth every Active (RHEUMATREX) 2.5 mg 7 days. tablet AMIKACIN (BULK) MISC Use as directed. Using Active amakacin in neti pot bid. Active Problems Problem Noted Date Nasal septal perforation 08/08/2017 Immunosuppressed status ([facility]) 07/07/2017 Pseudomonas infection 11/19/2016 Cellulitis 09/20/2012 SLE (systemic lupus erythematosus) ([facility]) 09/20/2012 Antiphospholipid antibody positive 09/20/2012 Encounters Date Type Specialty Care Team Description 09/22/2017 Clinical Otolaryngology Stephanie Perez AUD Sensorineural hearing Support loss (SNHL) of left ear with unrestricted hearing of right ear 09/22/2017 Office Visit Otolaryngology Raul Fowler MD Nasal septal perforation (Primary Dx); Asymmetrical hearing loss of left ear; Sensorineural hearing loss (SNHL) of left ear with unrestricted hearing of right ear 09/17/2017 Office Visit Otolaryngology Iván Ortez MD Nasal septal perforation (Primary Dx); Antiphospholipid antibody positive 07/28/2017 Telephone Otolaryngology Raul Fowler MD Results 07/21/2017 Hospital Lab Raul Fowler MD Other general symptoms Encounter and signs 07/21/2017 Office Visit Otolaryngology Raul Fowler MD Nasal septal perforation (Primary Dx); Flu-like symptoms from Last 3 Months Immunizations Name Dates Previously Given Next Due Flu Vaccine=>6 Months 06/27/2017 Quadrivalent PF Family History Medical History Relation Name Comments Cancer Father Heart Attack Father Arthritis-osteo Mother Relation Name Status Comments Father Mother Alive Social History Tobacco Use Types Packs/Day Years Used Date Never Smoker Smokeless Tobacco: Never Used Alcohol Use Drinks/Week oz/Week Comments Yes one glass of wine every week to two Sex Assigned at Date Recorded Not on file Last Filed Vital Signs Vital Sign Reading Time Taken Blood Pressure 115/76 09/22/2017 3:05 PM ORDER [facility] Pulse 102 09/22/2017 3:05 PM ORDER [facility] Temperature 37.4 C (99.4 F) 06/27/2017 11:06 AM ORDER [facility] Respiratory Rate 16 11/20/2016 2:26 PM CDT Oxygen Saturation 94% 11/20/2016 3:39 PM CDT Inhaled Oxygen - - Concentration Weight 82.1 kg (181 lb) 09/22/2017 3:05 PM ORDER [facility] Height 162.6 cm (5' 4") 09/22/2017 3:05 PM ORDER [facility]ER Body Mass Index 31.07 09/22/2017 3:05 PM ORDER [facility]ER Plan of Treatment Health Maintenance Due Date Last Done Comments PHYSICAL (COMPREHENSIVE) 1976 EXAM PERTUSSIS VACCINE 1980 HIV SCREENING 1984 TETANUS VACCINE 1986 CERVICAL CANCER SCREENING 1999 BREAST CANCER SCREENING 2009 INFLUENZA VACCINE 05/11/2018 06/27/2017 Procedures Procedure Name Priority Date/Time Associated Diagnosis Comments AUDIOMETRY WITH Routine 09/22/2017 TYMPANOMETRY 12:00 AM ORDER BOOKER from Last 3 Months Results * AUDIOMETRY WITH TYMPANOMETRY (09/22/2017) Specimen Performing Laboratory IN CLINIC * CULTURE-WOUND/TISSUE/FLUID(AEROBIC ONLY)W/SENSITIVITY (07/21/2017 12:15 PM) Component Value Ref Range Battery Name ROUTINE CULTURE Specimen Description SWAB RIGHT SPHENOID SINUS Special Requests NONE Culture NO GROWTH 5 DAYS Report Status FINAL 07/26/2017 Specimen Performing Laboratory [facility] [address] [place] [address] from Last 3 Months
--- OUTSIDE RECORDS SUMMARY | 2017-10-19 04:11 | XMS REPORT | Encounter Summary ---
Author Author [facility] Organization [facility] Address Unknown Phone Unavailable Care Team Providers Care Torts Law Professor Name Role Phone Sonal Calderon MD Unavailable Rina Flores RN Unavailable Unavailable Hever Moran MD Unavailable Marcello Hill MD PCP Reason for Visit * Reason Comments Nasal Obstruction Encounter Details Date Type Department Care Team Description 09/17/2017 [facility] Iván Ortez MD Nasal septal perforation Physicians - ENT [address] (Primary Dx); 3RD FLOOR POD C [place] [address] Antiphospholipid antibody [address] [place] [address] positive OFFICE BLDG [phone] [place] [address] Social History Tobacco Use Types Packs/Day Years Used Date Never Smoker Smokeless Tobacco: Never Used Alcohol Use Drinks/Week oz/Week Comments Yes one glass of wine every week to two Sex Assigned at Date Recorded Not on file as of this encounter Last Filed Vital Signs Vital Sign Reading Time Taken Blood Pressure 111/77 09/17/2017 1:50 PM WARPER CREELER Pulse 97 09/17/2017 1:50 PM WARPER CREELER Temperature - - Respiratory Rate - - Oxygen Saturation - - Inhaled Oxygen - - Concentration Weight 82.4 kg (181 lb 9.6 oz) 09/17/2017 1:50 PM WARPER CREELER Height 162.6 cm (5' 4") 09/17/2017 1:50 PM WARPER CREELER Body Mass Index 31.17 09/17/2017 1:50 PM WARPER CREELER in this encounter Functional Status Functional Status Response Date of Assessment Does the patient have a hearing impairment: No 11/20/2016 Does the patient have a visual impairment: Yes 11/20/2016 Does the patient have impaired ambulation: No 11/20/2016 Does the patient have an activity of daily living No 11/20/2016 (ADL) impairment: Does the patient have an instrumental activity of No 11/20/2016 daily living (IADL) impairment: Cognitive Status Response Date of Assessment Does the patient have a cognitive impairment: No 11/20/2016 as of this encounter Progress Notes * Iván Ortez MD - 09/17/2017 1:30 PM WARPER CREELER Formatting of this note may be different from the original. Date of Service: 09/17/2017 Subjective: Ritika Nuñez is a 47 y.o. female. History of Present Illness Kia presents on referral from Luis Fowler with a septal perforation and congestion. She has had multiple septal buttons placed and the current button has been in place at least 2 years. She is noticing more foul drainage around the button recently. There was a question of colonization with Pseudomonas but cultures were negative. She was previously a heavy Afrin user. She also has SLE that she reports is not well controlled currently. She has antiphospholipid antibodies causing hypercoagulability requiring that she be on Xarelto. Review of Systems Constitutional: Negative. HENT: Positive for congestion. Eyes: Negative. Respiratory: Negative. Cardiovascular: Negative. Gastrointestinal: Negative. Endocrine: Negative. Genitourinary: Negative. Musculoskeletal: Negative. Skin: Negative. Allergic/Immunologic: Negative. Neurological: Positive for headaches. Hematological: Negative. Psychiatric/Behavioral: Negative. Objective: albuterol (VENTOLIN HFA, PROAIR HFA) 90 mcg/actuation inhaler Inhale 2 Puffs by mouth every 4 hours as needed. ALPRAZolam (XANAX) 0.25 mg tablet Take 0.25 mg by mouth twice daily as needed for Anxiety. amoxicillin/K clavulanate (AUGMENTIN) 500/125 mg tablet Take 1 Tab by mouth every 12 hours. Take with food. CETIRIZINE HCL (ZYRTEC PO) Take by mouth. cyclobenzaprine (FLEXERIL) 10 mg tablet Take 20 mg by mouth at bedtime daily. cyclosporine (RESTASIS) 0.05 % ophthalmic emulsion Place 1 Drop into or around eye(s) twice daily. fluconazole (DIFLUCAN) 150 mg tablet Take 100 mg by mouth three times weekly. FLUTICASONE/SALMETEROL (ADVAIR DISKUS IN) Inhale by mouth into the lungs twice daily. folic acid (FOLVITE) 1 mg tablet Take 3 mg by mouth daily. hydroCHLOROthiazide (HYDRODIURIL) 50 mg tablet Take 50 mg by mouth every morning. HYDROCODONE/CHLORPHEN P-STIREX (TUSSIONEX PENNKINETIC ER PO) Take by mouth. linaclotide(+) (LINZESS) 145 mcg cap capsule Take 145 mcg by mouth daily 30 minutes before breakfast. LORazepam (ATIVAN) 0.5 mg tablet Take 0.5 mg by mouth every 8 hours as needed. methotrexate sodium (RHEUMATREX) 2.5 mg tablet Take 15 mg by mouth every 7 days. metoclopramide (REGLAN) 10 mg tablet Take 10 mg by mouth before meals and at bedtime. montelukast (SINGULAIR) 10 mg tablet Take 10 mg by mouth at bedtime daily. MULTIVITAMIN PO Take by mouth. nitrofurantoin monohyd/m-cryst (MACROBID) 100 mg capsule Take 100 mg by mouth daily. Take with food. nystatin (MYCOSTATIN) 100,000 units/mL oral suspension Take 500,000 Units by mouth twice daily as needed for Oral Thrush. OLANZAPINE PO Take by mouth. [place]-3 Fatty Acids (SALMON OIL-1000) cap Take 2 Caps by mouth at bedtime daily. omeprazole DR(+) (PRILOSEC) 20 mg capsule Take 20 mg by mouth twice daily. ondansetron (ZOFRAN) 4 mg tablet Take 4 mg by mouth every 8 hours as needed. other medication 1 Dose. Medication Name & Strength: Blink Dose(how many) : 1-2 drops to both eyes Frequency(how often): every evening other medication 1 Dose. Medication Name & Strength: IVIG Dose(how many): 34 grams as of 10/18/16 Frequency(how often): every 4 weeks oxyCODone-acetaminophen (PERCOCET; ENDOCET) 10-325 mg tablet Take 1 Tab by mouth every 4-6 hours as needed (5 mg) Max 12 tabs/day Potassium Bicarb-Citric Acid (EFFER-K) 20 mEq tbef Take 25 mEq by mouth. predniSONE (DELTASONE) 1 mg tablet Take 4 mg by mouth daily. pregabalin (LYRICA) 150 mg capsule Take 150 mg by mouth three times daily. rivaroxaban (XARELTO) 20 mg tablet Take 20 mg by mouth daily. Take with food. rizatriptan (MAXALT) 10 mg tablet Take 10 mg by mouth once as needed. May repeat in 2 hours in needed sertraline (ZOLOFT) 50 mg tablet Take 100 mg by mouth daily. simethicone (GAS-X) 80 mg chew tablet Take 80 mg by mouth every 6 hours as needed. sinus rinse (AYR SALINE NASAL NETI RINSE) Pack kit Insert 1 Packet into nose as directed as Needed. sodium chloride (SALINE NASAL MIST) 0.65 % nasal spray Apply 1-2 Sprays to each nostril as directed as Needed. temazepam (RESTORIL) 30 mg capsule Take 30 mg by mouth at bedtime as needed. TOPIRAMATE (TOPAMAX PO) Take 50 mg by mouth. 50mg tab every morning and 100mg every night valACYclovir (VALTREX) 1 g tablet Take 1,000 mg by mouth twice daily as needed. Vitals: 09/17/17 1350 BP: 111/77 Pulse: 97 Weight: 82.4 kg (181 lb 9.6 oz) Height: 162.6 cm (64") Body mass index is 31.17 kg/m. Physical Exam NAD, alert, awake. Anterior rhinoscopy performed revealing patent airways. Grommet type septal button is in good position. I lifted the edges of the button revealing an ~2 cm perforation. The edges are covered with moist mucosa. There is no crust or bleeding. There is some deviation of the septum to the left side. Assessment and Plan: Ritika has a longstanding septal deviation. I think this is most likely secondary to her prior Afrin use although SLE is a consideration as well. The edges are healthy and she has done well with a button in the past. The current button has been in over 2 years and she complains that it shifts around a lot. It has a small round grommet. We have discussed replacement with a new button with an elliptical grommet in the OR. We will schedule at her convenience. in this encounter Plan of Treatment Not on fileas of this encounter Visit Diagnoses Diagnosis Nasal septal perforation - Primary Other diseases of nasal cavity and sinuses Antiphospholipid antibody positive Other and unspecified nonspecific immunological findings
--- OUTSIDE RECORDS SUMMARY | 2017-10-19 04:11 | XMS REPORT | Continuity of Care Document ---
Author Author [facility] Organization [facility] Address Unknown Phone Unavailable Care Team Providers Care Emergency Veterinary Technician Name Role Phone [employer] Unavailable Unavailable Problems Medications Allergies, Adverse Reactions, Alerts Immunizations Results Vital Signs Encounters Location Location Details Encounter Type Encounter Number Reason For Visit Attending Provider ADM Date DC Date Status Source OUTPATIENT [id number] DARCI CHENG 07/07/2017 07/07/2017 Active [facility] SPECIMEN [id number] DARCI CHENG 07/07/2017 07/07/2017 Active [facility] SPECIMEN [id number] DARCI CHENG 07/21/2017 07/21/2017 Active [facility] O DARCI CHENG Active [facility] Procedures Plan of Care Social History Assessment and Plan Family History Advance Directives Functional Status
--- OUTSIDE RECORDS SUMMARY | 2017-10-19 04:11 | XMS REPORT | Encounter Summary ---
Author Author [facility] Organization [facility] Address Unknown Phone Unavailable Care Team Providers Care Oyster Grader Name Role Phone Sonal Calderon MD Unavailable Rina Flores RN Unavailable Unavailable Hever Moran MD Unavailable Marcello Hill MD PCP Reason for Visit * Reason Comments Hearing Testing Encounter Details Date Type Department Care Team Description 09/22/2017 Clinical [facility] Stephanie Perez AUD Sensorineural hearing Support Physicians - ENT [address] loss (SNHL) of left ear 3RD [place] [address] with unrestricted hearing [address] MED [phone] [place] [address] Social History Tobacco Use Types Packs/Day Years Used Date Never Smoker Smokeless Tobacco: Never Used Alcohol Use Drinks/Week oz/Week Comments Yes one glass of wine every week to two Sex Assigned at Date Recorded Not on file as of this encounter Functional Status Functional Status Response [...] impairment: No 11/20/2016 as of this encounter Plan of Treatment Not on fileas of this encounter Procedures Procedure Name Priority Date/Time Associated Diagnosis Comments AUDIOMETRY WITH Routine 09/22/2017 TYMPANOMETRY 12:00 AM PUBLIC RELATIONS ASSOCIATE in this encounter Visit Diagnoses Diagnosis Sensorineural hearing loss (SNHL) of left ear with unrestricted hearing of right ear
--- OUTSIDE RECORDS SUMMARY | 2017-10-19 04:11 | XMS REPORT | Encounter Summary ---
Author Author [facility] Organization [facility] Address Unknown Phone Unavailable Care Team Providers Care Inspector Salvage Name Role Phone Sonal Calderon MD Unavailable Rina Flores RN Unavailable Unavailable Hever Moran MD Unavailable Marcello Hill MD PCP Reason for Visit * Reason Comments Results Encounter Details Date Type Department Care Team Description 07/28/2017 Telephone [facility] Raul Fowler MD Results Physicians - ENT [address] [facility] 3RD FLOOR POD C [place] [address] [facility] [place] [address] OFFICE BLDG [phone] [place] [address] Social History Tobacco Use Types [...] impairment: No 11/20/2016 as of this encounter Miscellaneous Notes * Telephone Encounter - Emily Yost RN - 07/28/2017 3:47 PM HEAD START COORDINATOR Patient notified of lab results. Patient verbalized understanding and will contact the office if she has any further questions. Emily Yost AUTOMOTIVE DESIGN LAYOUT DRAFTER * Telephone Encounter - Emily Yost RN - 07/28/2017 3:42 PM HEAD START COORDINATOR ----- Message from Raul Fowler MD sent at 07/27/2017 1:13 PM HEAD START COORDINATOR ----- Call with results in this encounter Plan of Treatment Not on fileas of this encounter Visit Diagnoses Not on filein this encounter
--- OUTSIDE RECORDS SUMMARY | 2017-10-19 04:11 | XMS REPORT | Encounter Summary ---
Author Author [facility] Organization [facility] Address Unknown Phone Unavailable Care Team Providers Care Ice Guard Skating Rink Name Role Phone Sonal Calderon MD Unavailable Rina Flores RN Unavailable Unavailable Hever Moran MD Unavailable Marcello Hill MD PCP Reason for Visit * Reason Comments Nasal Obstruction Encounter Details Date Type Department Care Team Description 09/22/2017 Office Visit [facility] Raul Fowler MD Nasal septal perforation Physicians - ENT [address] (Primary Dx); 3RD FLOOR POD C [place] [address] Asymmetrical hearing loss [address] [place] [address] of left ear; OFFICE BLDG [phone] Sensorineural hearing [place] loss (SNHL) of left ear [phone] with unrestricted hearing [phone] of right ear Social History Tobacco Use Types Packs/Day Years Used Date Never Smoker Smokeless Tobacco: Never Used Alcohol Use Drinks/Week oz/Week Comments Yes one glass of wine every week to two Sex Assigned at Date Recorded Not on file as of this encounter Last Filed Vital Signs Vital Sign Reading Time Taken Blood Pressure 115/76 09/22/2017 3:05 PM HEAD CONTROL CLERK Pulse 102 09/22/2017 3:05 PM HEAD CONTROL CLERK Temperature - - Respiratory Rate - - Oxygen Saturation - - Inhaled Oxygen - - Concentration Weight 82.1 kg (181 lb) 09/22/2017 3:05 PM HEAD CONTROL CLERK Height 162.6 cm (5' 4") 09/22/2017 3:05 PM HEAD CONTROL CLERK Body Mass Index 31.07 09/22/2017 3:05 PM HEAD CONTROL CLERK in this encounter Functional Status Functional Status [...] as of this encounter Progress Notes * Raul Fowler MD - 09/22/2017 3:00 PM HEAD CONTROL CLERK Formatting of this note may be different from the original. Date of Service: 09/22/2017 Subjective: Ritika Nuñez is a 47 y.o. female. History of Present Illness Is not happy with current nasal septal button because it makes noises and shifts around We referred to Dr. Ortez who said he could replace with new button with an elliptical grommet in the OR. Plans to do that in November Has some crusting when irrigating but has not been bright green in color like in the past Complains of aural fullness and some ear pain when blowing her nose. Ears will pop intermittently She feels like she has difficulty hearing, been getting worse within the past year or two Review of Systems Constitutional: Negative. HENT: Positive for sinus pain (a little). Pt states having pressure in ears when blowing nose Eyes: Negative. Respiratory: Negative. Cardiovascular: Negative. Gastrointestinal: Negative. Endocrine: Negative. Genitourinary: Negative. Musculoskeletal: Negative. Skin: Negative. Allergic/Immunologic: Negative. Neurological: Negative. Hematological: Negative. Psychiatric/Behavioral: Negative. Objective: albuterol (VENTOLIN HFA, PROAIR HFA) 90 mcg/actuation inhaler Inhale 2 Puffs by mouth every 4 hours as needed. ALPRAZolam (XANAX) 0.25 mg tablet Take 0.25 mg by mouth twice daily as needed for Anxiety. AMIKACIN (BULK) MISC Use as directed. Using amakacin in neti pot bid. amoxicillin/K clavulanate (AUGMENTIN) 500/125 mg tablet Take [...] Oral Thrush. OLANZAPINE PO Take by mouth. [place]-3 Fatty Acids (SALMON OIL-1000) cap Take 2 [...] by mouth twice daily as needed. Vitals: 09/22/17 1505 BP: 115/76 Pulse: 102 Weight: 82.1 kg (181 lb) Height: 162.6 cm (64") Body mass index is 31.07 kg/m. Physical Exam General: Well-developed, well-nourished Inspection: Normocephalic and atraumatic without mass or lesion Palpation: Facial skeleton intact without bony stepoffs Facial Strength: Facial motility symmetric and full bilaterally Tympanic Membrane: Normal bilaterally External nose: No scar or anatomic deformity Internal Nose: Septum with septal button. Oral cavity, Lips, Teeth, and Gums: Mucosa and teeth intact and viable, No lesions, masses or ulcers Oropharynx: No erythema or exudate, no masses or ulcerations, non-obstructive tonsils Larynx: Normal voice, no stridor or stertor. Neck, Trachea, Lymphatics: Midline trachea without mass or lesion, no lymphadenopathy Eyes: No nystagmus with equal extraocular motion bilaterally Cranial nerves I-XII are intact Rinne: AC>BC bilaterally Amezquita: middle Assessment and Plan: Encounter Diagnoses Name Primary? Nasal septal perforation Yes Asymmetrical hearing loss of left ear Sensorineural hearing loss (SNHL) of left ear with unrestricted hearing of right ear Had an audiogram done today due to possible hearing loss--some SNHL on the left with conductive component and asymmetry. Discrim normal. Will plan to repeat in 6 months. She is planning to replace button with Dr. Ortez In the presence of Raul Fowler MD, I have taken down these notes, Klaus Lua. 09/22/2017 4:24 PM in this encounter Plan of Treatment Not on fileas of this encounter Visit Diagnoses Diagnosis Nasal septal perforation - Primary Other diseases of nasal cavity and sinuses Asymmetrical hearing loss of left ear Sensorineural hearing loss (SNHL) of left ear with unrestricted hearing of right ear
--- OUTSIDE RECORDS SUMMARY | 2017-10-19 04:12 | XMS REPORT | Encounter Summary ---
Author Author [facility] Organization [facility] Address Unknown Phone Unavailable Care Team Providers Care Circular Saw Filer Name Role Phone Sonal Calderon MD Unavailable Rina Flores RN Unavailable Unavailable Heevr Moran MD Unavailable Marcello Hill MD PCP Encounter Details Date Type Department Care Team Description 07/21/2017 Hospital [facility], Raul Smith MD Other general symptoms Encounter [address] [place] [address] [address] [place] [address] [phone] Social History Tobacco Use Types Packs/Day Years [...] impairment: No 11/20/2016 as of this encounter Medications at Time of Discharge Medication Sig. Disp. Refills Start Date End Date albuterol (VENTOLIN HFA, Inhale 2 Puffs by mouth PROAIR HFA) 90 every 4 hours as needed. mcg/actuation inhaler ALPRAZolam (XANAX) 0.25 Take 0.25 mg by mouth mg tablet twice daily as needed for Anxiety. amoxicillin/K clavulanate Take 1 Tab by mouth every (AUGMENTIN) 500/125 mg 12 hours. Take with food. tablet CETIRIZINE HCL (ZYRTEC Take by mouth. PO) cyclobenzaprine Take 20 mg by mouth at (FLEXERIL) 10 mg tablet bedtime daily. cyclosporine (RESTASIS) Place 1 Drop into or 0.05 % ophthalmic around eye(s) twice emulsion daily. fluconazole (DIFLUCAN) Take 100 mg by mouth 150 mg tablet three times weekly. FLUTICASONE/SALMETEROL Inhale by mouth into the (ADVAIR DISKUS IN) lungs twice daily. folic acid (FOLVITE) 1 mg Take 3 mg by mouth daily. tablet hydroCHLOROthiazide Take 50 mg by mouth every (HYDRODIURIL) 50 mg morning. tablet HYDROCODONE/CHLORPHEN Take by mouth. P-STIREX (TUSSIONEX PENNKINETIC ER PO) linaclotide(+) (LINZESS) Take 145 mcg by mouth 145 mcg cap capsule daily 30 minutes before breakfast. LORazepam (ATIVAN) 0.5 mg Take 0.5 mg by mouth tablet every 8 hours as needed. metoclopramide (REGLAN) Take 10 mg by mouth 10 mg tablet before meals and at bedtime. montelukast (SINGULAIR) Take 10 mg by mouth at 10 mg tablet bedtime daily. MULTIVITAMIN PO Take by mouth. nitrofurantoin Take 100 mg by mouth monohyd/m-cryst daily. Take with food. (MACROBID) 100 mg capsule nystatin (MYCOSTATIN) Take 500,000 Units by 100,000 units/mL oral mouth twice daily as suspension needed for Oral Thrush. OLANZAPINE PO Take by mouth. [place]-3 Fatty Acids Take 2 Caps by mouth at (SALMON OIL-1000) cap bedtime daily. omeprazole DR(+) Take 20 mg by mouth twice (PRILOSEC) 20 mg capsule daily. ondansetron (ZOFRAN) 4 mg Take 4 mg by mouth every tablet 8 hours as needed. other medication 1 Dose. Medication Name & Strength: IVIG Dose(how many): 34 grams as of 10/18/16 Frequency(how often): every 4 weeks oxyCODone-acetaminophen Take 1 Tab by mouth every (PERCOCET; ENDOCET) 4-6 hours as needed (5 10-325 mg tablet mg) Max 12 tabs/day Potassium Bicarb-Citric Take 25 mEq by mouth. Acid (EFFER-K) 20 mEq tbef predniSONE (DELTASONE) 1 Take 4 mg by mouth daily. mg tablet pregabalin (LYRICA) 150 Take 150 mg by mouth mg capsule three times daily. rivaroxaban (XARELTO) 20 Take 20 mg by mouth mg tablet daily. Take with food. rizatriptan (MAXALT) 10 Take 10 mg by mouth once mg tablet as needed. May repeat in 2 hours in needed sertraline (ZOLOFT) 50 mg Take 100 mg by mouth tablet daily. simethicone (GAS-X) 80 mg Take 80 mg by mouth every chew tablet 6 hours as needed. sinus rinse (AYR SALINE Insert 1 Packet into nose NASAL NETI RINSE) Pack as directed as Needed. kit sodium chloride (SALINE Apply 1-2 Sprays to each NASAL MIST) 0.65 % nasal nostril as directed as spray Needed. temazepam (RESTORIL) 30 Take 30 mg by mouth at mg capsule bedtime as needed. TOPIRAMATE (TOPAMAX PO) Take 50 mg by mouth. 50mg tab every morning and 100mg every night valACYclovir (VALTREX) 1 Take 1,000 mg by mouth g tablet twice daily as needed. cefuroxime (CEFTIN) 250 Take 250 mg by mouth 09/17/2017 mg tablet every 12 hours. Dqcmgxu-Iujgrkyuxqrrb-Crn Take 2 Caps by mouth 09/17/2017 tamin (VICKS NYQUIL every 4 hours as needed. LIQUICAPS) 6.25-5-325 mg cap ferrous sulfate 325 mg Take 325 mg by mouth 09/17/2017 (65 mg iron) tablet twice weekly. frovatriptan(+) (FROVA) Take 2.5 mg by mouth as 09/17/2017 2.5 mg Tab Needed. At onset of headache. May repeat in 2 hours with a maximum of 3 tabs in 24 hours. furosemide (LASIX) 40 mg Take 40-80 mg by mouth. 09/17/2017 tablet gabapentin (NEURONTIN) Take 800 mg by mouth 09/17/2017 800 mg tablet daily. gabapentin (NEURONTIN) Take 1,600 mg by mouth at 09/17/2017 800 mg tablet bedtime daily. HYDROmorphone (DILAUDID) Take 1 Tab by mouth every 30 Tab 0 201209/17/2017 2 mg tablet 6 hours as needed Earliest Fill Date: 09/23/12 methotrexate sodium Take 2.5 mg by mouth 09/17/2017 (RHEUMATREX) 2.5 mg every 7 days. tablet oseltamivir (TAMIFLU) 75 Take 1 capsule by mouth 10 capsule 0 201609/17/2017 mg capsule twice daily. potassium chloride SR Take 20-40 mEq by mouth 09/17/2017 (K-DUR) 20 mEq tablet daily. Propylene Glycol-Glycerin Place 1-2 Drops into or 09/17/2017 (SOOTHE) 0.6-0.6 % Dpet around eye(s) as Needed. simvastatin (ZOCOR) 40 mg Take 40 mg by mouth at 09/17/2017 tablet bedtime daily. SOD PHOS DI, MONO/K PHOS Take by mouth. 09/17/2017 MONO (PHOSPHA 250 NEUTRAL PO) warfarin (COUMADIN) 7.5 Take 1 Tab by mouth 90 Tab 09/23/20122017 mg tablet daily. Mon, Wed, Fri as of this encounter Plan of Treatment Not on fileas of this encounter Results * CULTURE-WOUND/TISSUE/FLUID(AEROBIC ONLY)W/SENSITIVITY (07/21/2017 12:15 PM) Component Value Ref Range Battery Name ROUTINE CULTURE Specimen Description SWAB RIGHT SPHENOID SINUS Special Requests NONE Culture NO GROWTH 5 DAYS Report Status FINAL 07/26/2017 Specimen Performing Laboratory Swab [facility] [address] [place] [address] in this encounter Visit Diagnoses Diagnosis Flu-like symptoms Influenza with other respiratory manifestations Admitting Diagnoses Diagnosis Other general symptoms and signs
--- OUTSIDE RECORDS SUMMARY | 2017-10-19 04:12 | XMS REPORT | Encounter Summary ---
Author Author [facility] Organization [facility] Address Unknown Phone Unavailable Care Team Providers Care Provider Relations Manager Name Role Phone Sonal Calderon MD Unavailable Rina Flores RN Unavailable Unavailable Hever Moran MD Unavailable Marcello Hill MD PCP Reason for Visit * Reason Comments Follow Up Encounter Details Date Type Department Care Team Description 07/21/2017 Office Visit [facility] Raul Fowler MD Nasal septal perforation [facility] - ENT [address] (Primary Dx); 3RD FLOOR POD [address] Flu-like symptoms [address] [place] [address] OFFICE BLDG [phone] [place] [address] Social History Tobacco Use Types Packs/Day Years Used Date Never Smoker Smokeless Tobacco: Never Used Alcohol Use Drinks/Week oz/Week Comments Yes one glass of wine every week to two Sex Assigned at Date Recorded Not on file as of this encounter Last Filed Vital Signs Vital Sign Reading Time Taken Blood Pressure 127/74 07/21/2017 11:20 AM [facility] Pulse 104 07/21/2017 11:20 AM [facility] Temperature - - Respiratory Rate - - Oxygen Saturation - - Inhaled Oxygen - - Concentration Weight 86.5 kg (190 lb 9.6 oz) 07/21/2017 11:20 AM [facility] Height 162.6 cm (5' 4") 07/21/2017 11:20 AM [facility] Body Mass Index 32.72 07/21/2017 11:20 AM [facility] in this encounter Functional Status Functional Status [...] Progress Notes * Raul Fowler MD - 07/21/2017 11:15 AM [facility] Formatting of this note may be different from the original. Date of Service: 07/21/2017 Subjective: Ritika Nuñez is a 47 y.o. female. History of Present Illness Ritika Nuñez is a 47 y.o. female. Patient is not feeling well today. Complaining of flu- like symptoms; fever, sore throat, achy. Will test for flu. Due to chronic kidneys; recommended Amacasin instead of Gentamycin. Has had IV Gentamycin previously with ringing ears. Using baby shampoo nasal irrigation for pseudomonas. Patient states that it victor but notices that this is getting better. She has been told to replace irrigation bottle every couple of months. Review of Systems Constitutional: Negative. HENT: Positive for postnasal drip and sinus pressure. Eyes: Negative. Respiratory: Negative. Cardiovascular: Negative. Gastrointestinal: [...] mouth every 12 hours. Take with food. cefuroxime (CEFTIN) 250 mg tablet Take 250 mg by mouth every 12 hours. CETIRIZINE HCL (ZYRTEC PO) Take by mouth. cyclobenzaprine (FLEXERIL) 10 mg tablet Take 20 mg by mouth at bedtime daily. cyclosporine (RESTASIS) 0.05 % ophthalmic emulsion Place 1 Drop into or around eye(s) twice daily. Znxzqfv-Bfwkxaldcahas-Faanibcz (VICKS NYQUIL LIQUICAPS) 6.25-5-325 mg cap Take 2 Caps by mouth every 4 hours as needed. ferrous sulfate 325 mg (65 mg iron) tablet Take 325 mg by mouth twice weekly. fluconazole (DIFLUCAN) 150 mg tablet Take 100 mg by mouth three times weekly. FLUTICASONE/SALMETEROL (ADVAIR DISKUS IN) Inhale by mouth into the lungs twice daily. folic acid (FOLVITE) 1 mg tablet Take 3 mg by mouth daily. frovatriptan(+) (FROVA) 2.5 mg Tab Take 2.5 mg by mouth as Needed. At onset of headache. May repeat in 2 hours with a maximum of 3 tabs in 24 hours. furosemide (LASIX) 40 mg tablet Take 40-80 mg by mouth. gabapentin (NEURONTIN) 800 mg tablet Take 800 mg by mouth daily. gabapentin (NEURONTIN) 800 mg tablet Take 1,600 mg by mouth at bedtime daily. hydroCHLOROthiazide (HYDRODIURIL) 50 mg tablet Take 50 mg by mouth every morning. HYDROCODONE/CHLORPHEN P-STIREX (TUSSIONEX PENNKINETIC ER PO) Take by mouth. HYDROmorphone (DILAUDID) 2 mg tablet Take 1 Tab by mouth every 6 hours as needed Earliest Fill Date: 09/23/12 linaclotide(+) (LINZESS) 145 mcg cap capsule Take 145 mcg by mouth daily 30 minutes before breakfast. LORazepam (ATIVAN) 0.5 mg tablet Take 0.5 mg by mouth every 8 hours as needed. methotrexate sodium (RHEUMATREX) 2.5 mg tablet Take 2.5 mg by mouth every 7 days. metoclopramide [...] Oral Thrush. OLANZAPINE PO Take by mouth. [place]-3 Fatty Acids (SALMON OIL-1000) cap Take 2 [...] mEq tbef Take 25 mEq by mouth. potassium chloride SR (K-DUR) 20 mEq tablet Take 20-40 mEq by mouth daily. predniSONE (DELTASONE) 1 mg tablet Take 4 mg by mouth daily. pregabalin (LYRICA) 150 mg capsule Take 150 mg by mouth three times daily. Propylene Glycol-Glycerin (SOOTHE) 0.6-0.6 % Dpet Place 1-2 Drops into or around eye(s) as Needed. rivaroxaban (XARELTO) 20 mg tablet Take 20 mg by mouth daily. Take with food. rizatriptan (MAXALT) 10 mg tablet Take 10 mg by mouth once as needed. May repeat in 2 hours in needed sertraline (ZOLOFT) 50 mg tablet Take 100 mg by mouth daily. simethicone (GAS-X) 80 mg chew tablet Take 80 mg by mouth every 6 hours as needed. simvastatin (ZOCOR) 40 mg tablet Take 40 mg by mouth at bedtime daily. sinus rinse (AYR SALINE NASAL NETI RINSE) Pack kit Insert 1 Packet into nose as directed as Needed. SOD PHOS DI, MONO/K PHOS MONO (PHOSPHA 250 NEUTRAL PO) Take by mouth. sodium chloride (SALINE NASAL MIST) 0.65 % nasal spray Apply 1-2 Sprays to each nostril as directed as Needed. temazepam (RESTORIL) 30 mg capsule Take 30 mg by mouth at bedtime as needed. TOPIRAMATE (TOPAMAX PO) Take 50 mg by mouth. valACYclovir (VALTREX) 1 g tablet Take 1,000 mg by mouth twice daily as needed. warfarin (COUMADIN) 7.5 mg tablet Take 1 Tab by mouth daily. Mon, Wed, Fri Vitals: 07/21/17 1120 BP: 127/74 Pulse: 104 Weight: 86.5 kg (190 lb 9.6 oz) Height: 162.6 cm (64") Body mass index is 32.72 kg/(m^2). Physical Exam General: Well-developed, well-nourished Communication and Voice: Clear pitch and clarity Hearing: Hearing adequate for verbal communication bilaterally Inspection: Normocephalic and atraumatic without mass or lesion Palpation: Facial skeleton intact without bony stepoffs Facial Strength: Facial motility symmetric and full bilaterally Pinna: External ear intact and fully developed External canal: Canal is patent with intact skin Tympanic Membrane: Normal bilaterally External nose: No scar or anatomic deformity Internal Nose: Septum with perforation and septal button in place Oral cavity, Lips, Teeth, and Gums: Mucosa and teeth intact and viable, No lesions, masses or ulcers Oropharynx: No erythema or exudate, no masses or ulcerations, non-obstructive tonsils Larynx: Normal voice, no stridor or stertor. Neck, Trachea, Lymphatics: Midline trachea without mass or lesion, no lymphadenopathy Thyroid: No mass or nodularity Eyes: No nystagmus with equal extraocular motion bilaterally Neuro/Psych/Balance: Patient oriented and appropriate in interaction; Appropriate mood and affect; Gait is intact with no imbalance; Cranial nerves I -XII are intact Respiratory effort: Equal inspiration and expiration, no respiratory distress Peripheral Vascular: Warm extremities with equal distal pulses CT images and report reviewed with her today Per my interpretation there is a septal perforation with button in place There is mucosal edema in the bilateral maxillary sinuses, however the OMC is open and maxillary sinus ostia are widely open. Assessment and Plan: Encounter Diagnoses Name Primary? Nasal septal perforation Yes Flu-like symptoms Nasal button is still in place. Looks okay, but possibly covered in biofilm and this could lead to infection. Patient is given the option of having the button removed in clinic today or keeping the button in place and continuing current treatment for 6 more weeks. Also given the option for referral to facial plastics for consultation for closure of septal defect. RTC in 6 weeks in this encounter Plan of Treatment Not on fileas of this encounter Results * CULTURE-WOUND/TISSUE/FLUID(AEROBIC ONLY)W/SENSITIVITY (07/21/2017 12:15 PM) Component Value Ref Range Battery Name ROUTINE CULTURE Specimen Description SWAB RIGHT SPHENOID SINUS Special Requests NONE Culture NO GROWTH 5 DAYS Report Status FINAL 07/26/2017 Specimen Performing Laboratory [facility] [address] [place] [address] in this encounter Visit Diagnoses Diagnosis Nasal septal perforation - Primary Other diseases of nasal cavity and sinuses Flu-like symptoms Influenza with other respiratory manifestations
--- OUTSIDE RECORDS SUMMARY | 2017-10-19 04:20 | XMS REPORT | Continuity of Care Document ---
Author Author [facility] [address] Organization [facility] [address] Address Unknown Phone Unavailable Allergies Active Description Code Type Severity Reaction Onset Reported/Identified Relationship to Patient Clinical Status Yes TEGADERM TEGADERM Unknown BLISTERS 01/23/2014 Yes tramadol HCl [id number] Drug Allergy Severe ANAPHYLAXIS 11/11/2016 Yes levofloxacin [id number] Drug Allergy Moderate N/A 11/11/2016 Medications There is no data. Problems Date Dx Coded Attending Type Code Diagnosis Diagnosed By 07/10/1107 KEVIN BEY, JEANNETTE Adams Ot D50.9 IRON DEFICIENCY ANEMIA, UNSPECIFIED 07/10/1107 JEANNETTE BROWN MD Ot D80.1 NONFAMILIAL HYPOGAMMAGLOBULINEMIA 07/10/1107 JEANNETTE BROWN MD Ot M06.9 RHEUMATOID ARTHRITIS, UNSPECIFIED 07/10/1107 JEANNETTE BROWN MD Ot M32.10 SYSTEMIC LUPUS [...] HISTORY OF PULMONARY EMBOLISM 09/18/2012 Ot V58.65 LONG-TERM( CURRENT)USE OF STEROIDS 09/18/2012 Ot V58.69 OTH MED,LT, CURRENT USE 11/09/2012 Ot 008.45 INTESTINAL INFECTION DUE [...] EDMONDSON DO, Ot V58.61 ANTICOAGULANTS,LT,CURRENT USE 07/25/2013 LION DE LA CRUZ APRN Ot 780.64 CHILLS (WITHOUT FEVER) 07/25/2013 LION DE LA CRUZ C NATURAL GAS TECHNICIAN Ot 786.2 COUGH 09/06/2013 RIDLION CHAPPELL NATURAL GAS TECHNICIAN Ot 959.09 INJURY OF FACE AND NECK 09/06/2013 LION DE LA CRUZ NATURAL GAS TECHNICIAN Ot E000.8 OTHER EXTERNAL CAUSE STATUS 09/06/2013 LION DE LA CRUZ NATURAL GAS TECHNICIAN Ot E928.9 ACCIDENT NOS 09/06/2013 RIDLION CHAPPELL NATURAL GAS TECHNICIAN Ot V58.81 FIT/ADJ VASCULAR CATHETER 12/06/2013 JEANNETTE BROWN MD Ot 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 12/06/2013 JEANNETTE BROWN MD Ot 280.9 IRON DEFIC ANEMIA NOS 12/06/2013 JEANNETTE BROWN MD Ot 710.0 SYST LUPUS ERYTHEMATOSIS 12/06/2013 JEANNETTE BROWN MD Ot 714.0 RHEUMATOID ARTHRITIS 12/06/2013 JEANNETTE BROWN MD Ot V12.51 HX-VENOUS THROMBOSIS EMBOLISM 12/06/2013 JEANNETTE BROWN MD Ot V58.11 ENCOUNTER FOR ANTINEOPLASTIC CHEMOTHERAP [...] STEROIDS 06/29/2014 JEANNETTE BROWN MD Ot V58.69 OTH MED,LT,CURRENT USE 06/29/2014 Ot 289.81 06/29/2014 Ot 453.40 06/29/2014 Ot V58.61 06/29/2014 Ot V58.83 06/29/2014 FARIHA EDMONDSON DO Ot 959.09 06/29/2014 FARIHA EDMONDSON DO Ot E000.8 06/29/2014 FARIHA EDMONDSON DO Ot E928.9 06/29/2014 Ot 780.64 06/29/2014 Ot 786.2 06/29/2014 FARIHA EDMONDSON DO Ot 285.9 06/29/2014 FARIHA EDMONDSON DO Ot V76.12 06/29/2014 LION EDMONDSON POMOLOGIST Ot 250.00 06/29/2014 LION EDMONDSON POMOLOGIST Ot 486 06/29/2014 LION EDMONDSON POMOLOGIST Ot 780.79 06/29/2014 LION EDMONDSON POMOLOGIST Ot V58.69 06/29/2014 LION DE LA CRUZ NATURAL GAS TECHNICIAN Ot 486 06/29/2014 MARIA LUZ ANDRADE POMOLOGIST Ot 279.00 06/29/2014 MARIA LUZ ANDRADE POMOLOGIST Ot 280.9 06/29/2014 MARIA LUZ ANDRADE POMOLOGIST Ot 453.40 06/29/2014 MARIA LUZ ANDRADE POMOLOGIST Ot 585.3 06/29/2014 MARIA LUZ ANDRADE POMOLOGIST Ot 710.0 06/29/2014 MARIA LUZ ANDRADE POMOLOGIST Ot 714.0 06/29/2014 MARIA LUZ ANDARDE POMOLOGIST Ot V58.61 06/29/2014 MARIA LUZ ANDRADE POMOLOGIST Ot V58.65 06/29/2014 MARIA LUZ ANDRADE POMOLOGIST Ot V58.69 06/29/2014 FARIHA EDMONDSON DO Ot 593.9 06/29/2014 FARIHA EDMONDSON DO Ot 780.60 06/29/2014 EDMONDSON DOFARIHA Ot 784.0 06/29/2014 EDMONDSON DO, FARIHA Blakely [...] KEVIN BEY, JEANNETTE Adams Ot 714.0 06/29/2014 KEVIN BEY, JEANNETTE Adams Ot V58.65 06/29/2014 KEVIN BEY, JEANNETTE Adams Ot V58.69 06/29/2014 Ot 585.9 07/04/2014 KEVIN BEY, JEANNETTE Adams Ot 279.00 07/04/2014 KEVIN BEY, JEANNETTE Adams Ot 280.9 07/04/2014 KEVIN BEY, JEANNETTE Adams Ot 710.0 07/04/2014 KEVIN BEY, JEANNETTE Adams Ot 714.0 07/04/2014 KEVIN BEY, JEANNETTE Adams Ot V58.65 07/04/2014 KEVIN BEY, JEANNETTE Adams Ot V58.69 07/04/2014 KEVIN BEY, JEANNETTE Adams Ot 279.00 07/04/2014 KEVIN BEY, JEANNETTE Adams Ot 280.9 07/04/2014 KEVIN BEY, JEANNETTE Adams Ot 710.0 07/04/2014 JEANNETTE BROWN MD Ot 714.0 07/04/2014 JEANNETTE BROWN MD Angie Ot V58.65 07/04/2014 KEVIN BEY, JEANNETTE Adams Ot V58.69 07/05/2014 KEVIN BEY, JEANNETTE Adams Ot 279.00 07/05/2014 KEVIN BEY, JEANNETTE Angie Ot 280.9 07/05/2014 KEVIN BEY, JEANNETTE Adams Ot 710.0 07/05/2014 KEVIN BEY, JEANNETTE Adams Ot 714.0 07/05/2014 KEVIN BEY, JEANNETTE Adams Ot V58.65 07/05/2014 KEVIN BEY, JEANNETTE Angie Ot V58.69 07/06/2014 KEVIN BEY, JEANNETTE Angie Ot 279.00 07/06/2014 KEVIN BEY, JEANNETTE Angie Ot 280.9 07/06/2014 KEVIN BEY, JEANNETTE Adams Ot 710.0 07/06/2014 KEVIN BEY, JEANNETTE Adams Ot 714.0 07/06/2014 KEVIN BEY, JEANNETTE Adams Ot V58.65 07/06/2014 KEVIN BEY, JEANNETTE Adams Ot V58.69 07/26/2014 ZAC GILLETTE DO Ot 279.00 07/26/2014 ZAC GILLETTE DO Ot 584.9 07/26/2014 ZAC GILLETTE DO Ot 710.0 07/26/2014 ZAC GILLETTE DO M Ot 782.3 08/01/2014 KEVIN BEY, JEANNETTE Adams [...] LETA SAUER ZAC M Ot 276.8 11/04/2014 [facility] DO ZAC Scott Ot 584.9 11/04/2014 [facility] DO ZAC Scott Ot 710.0 11/04/2014 [facility] DO ZAC M Ot 276.8 11/04/2014 LETAMARGARITA SAUER ZAC M Ot 584.9 11/04/2014 LETAMARGARITA SAUER ZAC Scott [...] FARIHA EDMONDSON DO Ot E000.8 11/07/2014 DELVIS SAUERFARIHA Ot E928.9 11/07/2014 Ot 780.64 11/07/2014 Ot 786.2 11/07/2014 DELVIS SAUER FARIHA Reddy Ot 285.9 11/07/2014 Ot 959.09 11/07/2014 Ot E000.8 11/07/2014 Ot E928.9 11/07/2014 Ot V58.81 11/07/2014 FARIHA EDMONDSON DO Ot V76.12 11/07/2014 LION EDMONDSON POMOLOGIST Ot 250.00 11/07/2014 LION EDMONDSON POMOLOGIST Ot 486 11/07/2014 LION EDMONDSON POMOLOGIST Ot 780.79 11/07/2014 LION EDMONDSON POMOLOGIST Ot V58.69 11/07/2014 LION DE LA CRUZ NATURAL GAS TECHNICIAN Ot 486 11/07/2014 MARIA LUZ ANDRADE POMOLOGIST Ot 279.00 11/07/2014 MARIA LUZ ANDRADE POMOLOGIST Ot 280.9 11/07/2014 MARIA LUZ ANDRADE POMOLOGIST Ot 453.40 11/07/2014 MARIA LUZ ANDRADE POMOLOGIST Ot 585.3 11/07/2014 MARIA LUZ ANDRADE POMOLOGIST Ot 710.0 11/07/2014 MARIA LUZ ANDRADE POMOLOGIST Ot 714.0 11/07/2014 MARIA LUZ ANDRADE POMOLOGIST Ot V58.61 11/07/2014 MARIA LUZ ANDRADE POMOLOGIST Ot V58.65 11/07/2014 MARIA LUZ ANDRADE POMOLOGIST Ot V58.69 11/07/2014 FARIHA EDMONDSON DO Ot [...] 11/07/2014 EDMONDSON DOFARIHA Ot 714.0 11/07/2014 EDMONDSON DOFARIHA Ot V58.61 11/07/2014 EDMONDSON DOFARIHA Ot V58.65 11/07/2014 EDMONDSON DOFARIHA Ot V58.69 11/07/2014 EDMONDSON DO FARIHA Blakely Ot V58.81 11/07/2014 RAHEL BEY, DAX Scott Ot 695.4 11/07/2014 Ot 585.9 11/07/2014 LETA ZAC SAUER Ot 279.00 11/07/2014 LETA DO ZAC Tyler Ot 584.9 11/07/2014 LETA DO ZAC Tyler Ot 710.0 11/07/2014 LETAZAC AVILA DO Ot 782.3 11/07/2014 EDMONDSONMANUEL SAUER FARIHA Blakely Ot 486 11/07/2014 EDMONDSON DO FARIHA Blakely Ot 486 11/07/2014 EDMONDSONFARIHA JACKSON DO Ot 786.2 11/07/2014 ZAC GILLETTE DO Ot 599.70 11/07/2014 KEVIN BEY, JEANNETTE Adams Ot 279.00 11/07/2014 KEVIN BEY, JEANNETTE Adams Ot 280.9 11/07/2014 KEVIN BEY, JEANNETTE Adams Ot 710.0 11/07/2014 KEVIN BEY, JEANNETTE Adams Ot 714.0 11/07/2014 KEVIN BEY, JEANNETTE Adams Ot V58.65 11/07/2014 KEVIN BEY, JEANNETTE Adams Ot V58.69 11/07/2014 LETAMARGARITA SAUER ZAC Tyler Ot 276.8 11/07/2014 LETA DO ZAC Tyler Ot 584.9 11/07/2014 LETAZAC [...] EDMONDSON DO Ot V76.12 11/07/2014 LION EDMONDSON POMOLOGIST Ot 250.00 11/07/2014 LION EDMONDSON POMOLOGIST Ot 486 11/07/2014 LION EDMONDSON POMOLOGIST Ot 780.79 11/07/2014 LION EDMONDSON POMOLOGIST Ot V58.69 11/07/2014 LION DE LA CRUZ NATURAL GAS TECHNICIAN Ot 486 11/07/2014 MARIA LUZ ANDRADE POMOLOGIST Ot 279.00 11/07/2014 MARIA LUZ ANDRADE POMOLOGIST Ot 280.9 11/07/2014 MARIA LUZ ANDRADE POMOLOGIST Ot 453.40 11/07/2014 MARIA LUZ ANDRADE POMOLOGIST Ot 585.3 11/07/2014 MARIA LUZ ANDRADE POMOLOGIST Ot 710.0 11/07/2014 MARIA LUZ ANDRADE POMOLOGIST Ot 714.0 11/07/2014 MARIA LUZ ANDRADE POMOLOGIST Ot V58.61 11/07/2014 MARIA LUZ ANDRADE POMOLOGIST Ot V58.65 11/07/2014 MARIA LUZ ANDRADE POMOLOGIST Ot V58.69 11/07/2014 FARIHA EDMONDSON DO Ot 593.9 11/07/2014 FARIHA EDMONDSON DO Ot 780.60 11/07/2014 FARIHA EDMONDSON DO Ot 784.0 11/07/2014 FARIHA EDMONDSON DO Ot 780.60 11/07/2014 FARIHA EDMONDSON DO Ot 919.4 11/07/2014 EDMONDSON DO, FARIHA Blakely Ot E906.4 11/07/2014 EDMONDSON DO, FARIHA Blakely Ot V58.81 11/07/2014 EDMONDSON DO, FARIHA Blakely Ot 279.00 11/07/2014 EDMONDSON DO FARIHA Blakely Ot 280.9 11/07/2014 EDMONDSON DO FARIHA Blakely Ot 585.3 11/07/2014 EDMONDSON DO, FARIHA Blakely Ot 710.0 11/07/2014 EDMONDSON DO, FARIHA Blakely Ot 714.0 11/07/2014 EDMONDSON DO FARIHA Blakely Ot V58.61 11/07/2014 EDMONDSON DO FARIHA Blakely Ot V58.65 11/07/2014 EDMONDSON DO FARIHA Blakely Ot V58.69 11/07/2014 EDMONDSON DO FARIHA Blakely Ot V58.81 11/07/2014 RAHEL BEY, DAX Scott Ot 695.4 11/07/2014 Ot 585.9 11/07/2014 LETA DOZAC Ot 279.00 11/07/2014 LETA DOZAC Ot 584.9 11/07/2014 LETA DOZAC Ot 710.0 11/07/2014 LETA DOZAC Ot 782.3 11/07/2014 EDMONDSON DO FARIHA Reddy Ot 486 11/07/2014 EDMONDSON DO FARIHA Reddy Ot 486 11/07/2014 EDMONDSON DO FARIHA Blakely Ot 786.2 11/07/2014 LETA ZAC SAUER Ot 599.70 11/07/2014 KEVIN BEY, JEANNETTE dAams Ot 279.00 11/07/2014 KEVIN BEY, JEANNETTE Adams Ot 280.9 11/07/2014 KEVIN BEY, JEANNETTE Adams Ot 710.0 11/07/2014 KEVIN BEY, JENANETTE Adams Ot 714.0 11/07/2014 KEVIN BEY, JEANNETTE Adams Ot V58.65 11/07/2014 KEVIN BEY, JEANNETTE Adams Ot V58.69 11/07/2014 LETA DOZAC Ot 276.8 11/07/2014 LETA DOZAC Ot 584.9 11/07/2014 LETA DOZAC Ot 710.0 11/08/2014 FARIHA EDMONDSON DO Ot 466.0 11/10/2014 LETA SAUER ZAC M Ot 276.8 11/10/2014 LETA SAUER ZAC M Ot 584.9 11/10/2014 LETA SAUER ZAC M Ot 710.0 11/16/2014 KEVIN BEY, JEANNETTE Adams Ot 279.00 11/16/2014 KEVIN BEY, JEANNETTE Adams Ot 280.9 11/16/2014 JEANNETTE RBOWN MD Ot 710.0 11/16/2014 JEANNETTE BROWN MD Ot 714.0 11/16/2014 JEANNETTE BORWN MD Ot V58.65 11/16/2014 JEANNETTE BROWN MD Ot V58.69 11/18/2014 FARIHA EDMONDSON DO Ot 466.0 12/05/2014 LETA DO ZAC M Ot 276.8 12/05/2014 [facility] DO ZAC Tyler Ot 584.9 12/05/2014 [facility] DO ZAC M Ot 710.0 12/19/2014 [facility] ZAC SAUER Ot 599.70 12/19/2014 [facility] DO ZAC M Ot 599.70 01/03/2015 JEANNETTE BROWN MD Ot 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 01/03/2015 JEANNETTE BROWN MD Ot 280.9 IRON DEFIC ANEMIA NOS 01/03/2015 JEANNETTE BROWN MD Ot 710.0 SYST LUPUS ERYTHEMATOSIS 01/03/2015 JEANNETTE BROWN MD Ot 714.0 RHEUMATOID ARTHRITIS 01/03/2015 JEANNETTE BROWN MD Ot V58.65 LONG-TERM(CURRENT)USE OF STEROIDS 01/03/2015 JEANNETTE BROWN MD Ot V58.69 OT MED,LT,CURRENT USE 01/05/2015 JEANNETTE BROWN MD Ot 279.00 01/05/2015 JEANNETTE BORWN MD Ot 280.9 01/05/2015 JEANNETTE BROWN MD Ot 710.0 01/05/2015 JEANNETTE BROWN MD Ot 714.0 01/05/2015 JEANNETTE BROWN MD Ot V58.65 01/05/2015 JEANNETTE BROWN MD Ot V58.69 01/06/2015 JEANNETTE BROWN MD Ot 279.00 01/06/2015 JEANNETTE BROWN MD Ot 280.9 01/06/2015 JEANNETTE BROWN MD Ot 710.0 01/06/2015 KEVIN BEY, JEANNETTE Adams Ot 714.0 01/06/2015 KEVIN BEY, JEANNETTE Adams Ot V58.65 01/06/2015 KEVIN BYE, JEANNETTE Admas Ot V58.69 01/09/2015 KEVIN BEY, JEANNETTE Adams Ot 279.00 01/09/2015 KEVIN BEY, JEANNETTE Adams Ot 280.9 01/09/2015 KEVIN BEY, JEANNETTE Adams Ot 710.0 01/09/2015 KEVIN BEY, JEANNETTE Adams Ot 714.0 01/09/2015 KEVIN BEY, JEANNETTE Adams Ot V58.65 01/09/2015 KEVIN BEY, JEANNETTE [...] 02/09/2015 FARIHA EDMONDSON DO Ot V76.12 02/09/2015 DELVIS LION L POMOLOGIST Ot 250.00 02/09/2015 KELL EDMONDSONRICKY Gross POMOLOGIST Ot 486 02/09/2015 LION EDMONDSON POMOLOGIST Ot 780.79 02/09/2015 LION EDMONDSON POMOLOGIST Ot V58.69 02/09/2015 MALULION CHAPPELL NATURAL GAS TECHNICIAN Ot 486 02/09/2015 MARIA LUZ ANDRADE POMOLOGIST Ot 279.00 02/09/2015 MARIA LUZ ANDRADE POMOLOGIST Ot 280.9 02/09/2015 MARIA LUZ ANDRADE POMOLOGIST Ot 453.40 02/09/2015 MARI ALUZ ANDRADE POMOLOGIST Ot 585.3 02/09/2015 MARIA LUZ ANDRADE POMOLOGIST Ot 710.0 02/09/2015 MARIA LUZ ANDRADE POMOLOGIST Ot 714.0 02/09/2015 MARIA LUZ ANDRADE POMOLOGIST Ot V58.61 02/09/2015 MARIA LUZ ANDRADE POMOLOGIST Ot V58.65 02/09/2015 MARIA LUZ ANDRADE POMOLOGIST Ot V58.69 02/09/2015 FARIHA EDMONDSON DO Ot [...] 02/09/2015 FARIHA EDMONDSON DO Ot 714.0 02/09/2015 EDMONDSON DO, FARIHA Blakely Ot V58.61 02/09/2015 EDMONDSON DO, FARIHA Blakely Ot V58.65 02/09/2015 EDMONDSON DO, FARIHA Blakely Ot V58.69 02/09/2015 EDMONDSON DO, FARIHA Blakely Ot V58.81 02/09/2015 RAHEL BEY, DAX Scott Ot 695.4 02/09/2015 Ot 585.9 02/09/2015 LETA DO, ZAC Scott Ot 279.00 02/09/2015 LETA DO, ZAC Scott Ot 584.9 02/09/2015 LETA DO, ZAC Scott Ot 710.0 02/09/2015 LETA DO ZAC Scott Ot 782.3 02/09/2015 EDMONDSON DO, FARIHA Reddy Ot 486 02/09/2015 EDMONDSON DO FARIHA Reddy Ot 486 02/09/2015 EDMONDSON DO FARIHA Reddy Ot 786.2 02/09/2015 LETA DO ZAC Scott Ot 599.70 02/09/2015 LETA DO, ZAC M Ot 276.8 02/09/2015 LETA DO, ZAC Scott Ot 584.9 02/09/2015 LETA DO, ZAC Scott Ot 710.0 02/09/2015 EDMONDSON DO, FARIHA lBakely Ot 466.0 02/09/2015 EDMONDSON DO, FARIHA Blakely Ot 466.0 02/09/2015 LETA DO, ZAC Scott Ot 276.8 02/09/2015 LETA DO ZAC Scott Ot 584.9 02/09/2015 LETA DO ZAC Scott Ot 710.0 02/09/2015 EDMONDSON DO FARIHA Blakely Ot 508.2 02/09/2015 EDMONDSON DO FARIHA Reddy Ot 786.2 02/09/2015 EDMONDSON DOFARIHA Ot E890.2 02/09/2015 EDMONDSON DO, FARIHA Blakely Ot 508.2 02/09/2015 EDMONDSON DOFARIHA Ot 780.60 [...] 02/22/2015 Ot V58.61 02/22/2015 Ot V58.83 02/22/2015 EDMONDSON FARIHA SAUER Ot 959.09 02/22/2015 FARIHA EDMONDSON DO Ot E000.8 02/22/2015 EDMONDSON FARIHA SAUER Ot E928.9 02/22/2015 Ot 780.64 02/22/2015 Ot 786.2 02/22/2015 EDMONDSON DOFARIHA Ot 285.9 02/22/2015 Ot 959.09 02/22/2015 Ot E000.8 02/22/2015 Ot E928.9 02/22/2015 Ot V58.81 02/22/2015 EDMONDSON FARIHA Ot V76.12 02/22/2015 LION EDMONDSON POMOLOGIST Ot 250.00 02/22/2015 LION EDMONDSON POMOLOGIST Ot 486 02/22/2015 LION EDMONDSON POMOLOGIST Ot 780.79 02/22/2015 LION EDMONDSON POMOLOGIST Ot V58.69 02/22/2015 LION DE LA CRUZ NATURAL GAS TECHNICIAN Ot 486 02/22/2015 MARIA LUZ ANDRADE POMOLOGIST Ot 279.00 02/22/2015 MARIA LUZ ANDRADE POMOLOGIST Ot 280.9 02/22/2015 MARIA LUZ ANDRADE POMOLOGIST Ot 453.40 02/22/2015 MARIA LUZ ANDRADE POMOLOGIST Ot 585.3 02/22/2015 MARIA LUZ ANDRADE POMOLOGIST Ot 710.0 02/22/2015 MARIA LUZ ANDRADE POMOLOGIST Ot 714.0 02/22/2015 MARIA LUZ ANDRADE POMOLOGIST Ot V58.61 02/22/2015 MARIA LUZ ANDRADE POMOLOGIST Ot V58.65 02/22/2015 ANDRADEMARIA LUZ POMOLOGIST Ot V58.69 02/22/2015 EDMONDSON DO, FARIHA Blakely Ot 593.9 02/22/2015 EDMONDSON DO, FARIHA Blakely Ot 780.60 02/22/2015 EDMONDSON DO, FARIHA Blakely Ot 784.0 02/22/2015 EDMONDSON DO, FARIHA Blakely Ot 780.60 02/22/2015 EDMONDSON DO, FARIHA Blakely Ot 919.4 02/22/2015 EDMONDSON DO, FARIHA Blakely Ot E906.4 02/22/2015 EDMONDSON DO, FARIHA Blakely Ot V58.81 02/22/2015 EDMONDSON DO, FARIHA Blakely Ot 279.00 02/22/2015 EDMONDSON DO, FARIHA Blakely Ot 280.9 02/22/2015 EDMONDSON DO, FARIHA Blakely Ot 585.3 02/22/2015 EDMONDSON DO, FARIHA Blakely Ot 710.0 02/22/2015 EDMONDSON DO, FARIHA Blakely Ot 714.0 02/22/2015 EDMONDSON DO FARIHA Blakely Ot V58.61 02/22/2015 EDMONDSON DO, FARIHA Blakely Ot V58.65 02/22/2015 EDMONDSON DO, FARIHA Blakely Ot V58.69 02/22/2015 EDMONDSON DO, FARIHA Blakely Ot V58.81 02/22/2015 DAX MCGINNIS MD Ot 695.4 02/22/2015 Ot 585.9 02/22/2015 LETA DOZAC M Ot 279.00 02/22/2015 LETA DOMACKE M Ot 584.9 02/22/2015 LETA DOMACKE M Ot 710.0 02/22/2015 LETA DOMACKE M Ot 782.3 02/22/2015 EDMONDSON DOFARIHA Ot 486 02/22/2015 EDMONDSON DO, FARIHA Reddy Ot 486 02/22/2015 EDMONDSON DO, FARIHA Reddy Ot 786.2 02/22/2015 LETA DOMACKE M Ot 599.70 02/22/2015 LETA DOMACKE M Ot 276.8 02/22/2015 LETA DOKIMZAC M Ot 584.9 02/22/2015 LETA DOKIMZAC M Ot 710.0 02/22/2015 EDMONDSON DO, FARIHA Blakely Ot 466.0 02/22/2015 EDMONDSON DO, FARIHA Blakely Ot 466.0 02/22/2015 LETA DO, ZAC M Ot 276.8 02/22/2015 LETA DO, ZAC M Ot 584.9 02/22/2015 LETA DO, ZAC M Ot 710.0 02/22/2015 EDMONDSON DO, FARIHA Reddy Ot 508.2 02/22/2015 EDMONDSON DO, FARIHA Blakely Ot 786.2 02/22/2015 EDMONDSON DO, FARIHA Blakely Ot E890.2 02/22/2015 EDMONDSON DO, FARIHA Reddy Ot 508.2 02/22/2015 EDMONDSON DO, FARIHA Blakely Ot 780.60 02/22/2015 KEVIN BEY, JEANNETTE Adams Ot 279.00 02/22/2015 KEVIN BEY, JEANNETTE Adams Ot 280.9 02/22/2015 KEVIN BEY, JEANNETTE Adams Ot 710.0 02/22/2015 KEVIN BEY, JEANNETTE Adams Ot 714.0 02/22/2015 KEVIN BEY, JEANNETTE Adams Ot V58.65 02/22/2015 KEVIN BEY, JEANNETTE Adams Ot V58.69 02/22/2015 LETA DO, ZAC M Ot 584.9 02/22/2015 LETA DO, ZAC M Ot 599.70 02/22/2015 LETA DO, ZAC M Ot 710.0 02/22/2015 LETA DO, ZAC M Ot 729.2 02/22/2015 LETA DO, ZAC M Ot 279.00 02/22/2015 LETA DO, ZAC M Ot 585.3 02/24/2015 LETA DO, ZAC M Ot 279.00 02/24/2015 LETA DO, AZC M Ot 585.3 03/30/2015 Ot 289.81 03/30/2015 Ot 453.40 03/30/2015 Ot V58.61 03/30/2015 Ot V58.83 03/30/2015 EDMONDSON DO FARIHA Reddy Ot 959.09 03/30/2015 EDMONDSON DO FARIHA Reddy Ot E000.8 03/30/2015 EDMONDSONFARIHA JACKSON DO Ot E928.9 03/30/2015 Ot 780.64 03/30/2015 Ot 786.2 03/30/2015 FARIHA EDMONDSON DO Ot 285.9 03/30/2015 Ot 959.09 03/30/2015 Ot E000.8 03/30/2015 Ot E928.9 03/30/2015 Ot V58.81 03/30/2015 FARIHA EDMONDSON DO Ot V76.12 03/30/2015 DELVIS LION Renato POMOLOGIST Ot 250.00 03/30/2015 DELVIS LION Renato POMOLOGIST Ot 486 03/30/2015 FABY EDMONDSONIA Renato POMOLOGIST Ot 780.79 03/30/2015 LION EDMONDSON POMOLOGIST Ot V58.69 03/30/2015 JONOFABYCALEB Robin NATURAL GAS TECHNICIAN Ot 486 03/30/2015 MARIA LUZ ANDRADE POMOLOGIST Ot 279.00 03/30/2015 MARIA LUZ ANDRADE POMOLOGIST Ot 280.9 03/30/2015 MARIA LUZ ANDRADE POMOLOGIST Ot 453.40 03/30/2015 MARIA LUZ ANDRADE POMOLOGIST Ot 585.3 03/30/2015 MARIA LUZ ANDRADE POMOLOGIST Ot 710.0 03/30/2015 MARIA LUZ ANDRADE POMOLOGIST Ot 714.0 03/30/2015 MARIA LUZ ANDRADE POMOLOGIST Ot V58.61 03/30/2015 MARIA LUZ ANDRADE POMOLOGIST Ot V58.65 03/30/2015 MARIA LUZ ANDRADE POMOLOGIST Ot V58.69 03/30/2015 FARIHA EDMONDSON DO Ot 593.9 03/30/2015 FARIHA EDMONDSON DO Ot 780.60 03/30/2015 FARIHA EDMONDSON DO Ot 784.0 03/30/2015 FARIHA EDMONDSON DO Ot 780.60 03/30/2015 EDMONDSONFARIHA JACKSON DO Ot 919.4 03/30/2015 FARIHA EDMONDSON DO Ot E906.4 03/30/2015 FARIHA EDMONDSON DO Ot V58.81 03/30/2015 FARIHA EDMONDSON DO Ot 279.00 03/30/2015 FARIHA EDMONDSON DO Ot 280.9 03/30/2015 FARIHA EDMONDSON DO Ot 585.3 03/30/2015 FARIHA EDMONDSON DO Ot 710.0 03/30/2015 EDMONDSON DO, FARIHA Blakely Ot 714.0 03/30/2015 EDMONDSON DO, FARIHA Blakely Ot V58.61 03/30/2015 EDMONDSON DO, FARIHA Blakely Ot V58.65 03/30/2015 EDMONDSON DO, FARIHA Blakely Ot V58.69 03/30/2015 EDMONDSON DO, FARIHA Blakely Ot V58.81 03/30/2015 RAHEL BEY, DAX Scott Ot 695.4 03/30/2015 Ot 585.9 03/30/2015 LETA DO, ZAC M Ot 279.00 03/30/2015 LETA DO, ZAC M Ot 584.9 03/30/2015 LETA DO, ZAC M Ot 710.0 03/30/2015 LETA DO, ZAC Scott Ot 782.3 03/30/2015 EDMONDSON DO, FARIHA Blakely Ot 486 03/30/2015 EDMONDSON DO, FARIHA Blakely Ot 486 03/30/2015 EDMONDSON DO, FARIHA Blakely Ot 786.2 03/30/2015 LETA DO, ZAC Scott Ot 599.70 03/30/2015 LETA DO, ZAC M Ot 276.8 03/30/2015 LETA DO, ZAC M Ot 584.9 03/30/2015 LETA DO, ZAC M Ot 710.0 03/30/2015 EDMONDSON DO, FARIHA Blakely Ot 466.0 03/30/2015 EDMONDSON DO, FARIHA Blakely Ot 466.0 03/30/2015 LETA DO, ZAC Scott Ot 276.8 03/30/2015 LETA DO, ZAC Scott Ot 584.9 03/30/2015 LETA DO, ZAC Scott Ot 710.0 03/30/2015 EDMONDSON DO, FARIHA Blakely Ot 508.2 03/30/2015 EDMONDSON DO, FARIHA Reddy Ot 786.2 03/30/2015 EDMONDSON DOFARIHA Ot E890.2 03/30/2015 EDMONDSON DO, FARIHA Reddy Ot 508.2 03/30/2015 EDMONDSON DO, FARIHA Blakely Ot 780.60 03/30/2015 KEVIN BEY, JEANNETTE Adams Ot 279.00 03/30/2015 KEVIN BEY, JEANNETTE Adams Ot 280.9 03/30/2015 KEVIN BEY, JEANNETTE Adams Ot 710.0 03/30/2015 KEVIN BEY, JEANNETTE Adams Ot 714.0 03/30/2015 KEVIN BEY, JEANNETTE Adams Ot V58.65 03/30/2015 KEVIN BEY, JEANNETTE Adams Ot V58.69 03/30/2015 ZAC GILLETTE DO Ot 584.9 03/30/2015 LETA SAUER, ZAC Scott Ot 599.70 03/30/2015 LETA DO ZAC Scott Ot 710.0 03/30/2015 LETA DO ZAC Scott Ot 729.2 03/30/2015 LETA ZAC Ot 279.00 03/30/2015 LETAMARGARITA SAUER ZAC Scott Ot 585.3 03/31/2015 VIDA SPENCER DOI Ot 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 03/31/2015 VIDA SPENCER DOI Ot 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 03/31/2015 TJ SAUER DEANDRE Ot 285.9 ANEMIA NOS 03/31/2015 TJ SAUER DEANDRE Ot 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 03/31/2015 TJ SAUER DEANDRE Ot 300.00 ANXIETY STATE NOS 03/31/2015 TJ SAUER DEANDRE Ot 564.1 IRRITABLE BOWEL SYNDROME 03/31/2015 TJ SAUER DEANDRE Ot 710.0 SYST LUPUS ERYTHEMATOSIS 03/31/2015 TJ SAUER DEANDRE Ot 714.0 RHEUMATOID ARTHRITIS 03/31/2015 TJ SAUER DEANDRE Ot 729.1 MYALGIA AND MYOSITIS NOS 03/31/2015 VIDA SPENCER DOI Ot 786.50 CHEST PAIN NOS 03/31/2015 VIDA SPENCER DOI Ot E932.0 ADV EFF CORTICOSTEROIDS 03/31/2015 VIDA SPENCER DOI Ot V12.51 HX-VENOUS THROMBOSIS EMBOLISM 03/31/2015 TJ SAUER DEANDRE Ot 255.0 03/31/2015 TJ SAUER DEANDRE Ot 279.03 03/31/2015 TJ SAUER DEANDRE Ot [...] JEANNETTE Adams Ot 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 04/06/2015 JEANNETTE BROWN MD Ot 280.9 IRON DEFIC ANEMIA NOS 04/06/2015 JEANNETTE BROWN MD Ot 710.0 SYST LUPUS ERYTHEMATOSIS 04/06/2015 JEANNETTE BROWN MD Ot 714.0 RHEUMATOID ARTHRITIS 04/06/2015 JEANNETTE BROWN MD Ot V58.65 LONG-TERM(CURRENT)USE OF STEROIDS 04/06/2015 JEANNETTE BROWN MD, Ot V58.69 OT MED,LT,CURRENT USE 04/26/2015 KEVIN BEY, JEANNETTE Adams Ot 279.00 04/26/2015 KEVIN BEY, JEANNETTE Adams Ot 280.9 04/26/2015 JEANNETTE BROWN MD Ot 710.0 04/26/2015 JEANNETTE BROWN MD Ot 714.0 04/26/2015 KEVIN BEY, JEANNETTE Adams Ot V58.65 04/26/2015 KEVIN BEY, JEANNETTE Adams Ot V58.69 05/04/2015 KEVIN BEY, JEANNETTE Adams Ot 279.00 05/04/2015 KEVIN BEY, JEANNETTE Adams Ot 280.9 05/04/2015 KEIVN BEY, JEANNETTE Adams Ot 710.0 05/04/2015 KEVIN BEY, JEANNETTE Adams [...] FARIHA EDMONDSON DO Ot V76.12 05/05/2015 DELVISLION POMOLOGIST Ot 250.00 05/05/2015 DELVISLINO POMOLOGIST Ot 486 05/05/2015 DELVISLION Renato POMOLOGIST Ot 780.79 05/05/2015 DELVISLION Renato POMOLOGIST Ot V58.69 05/05/2015 MALULION CHAPPELL NATURAL GAS TECHNICIAN Ot 486 05/05/2015 MARIA LUZ ANDRADE POMOLOGIST Ot 279.00 05/05/2015 MARIA LUZ ANDRADE POMOLOGIST Ot 280.9 05/05/2015 MARIA LUZ ANDRADE POMOLOGIST Ot 453.40 05/05/2015 MARIA LUZ ANDRADE POMOLOGIST Ot 585.3 05/05/2015 MARIA LUZ ANDRADE POMOLOGIST Ot 710.0 05/05/2015 MARIA LUZ ANDRADE POMOLOGIST Ot 714.0 05/05/2015 MARIA LUZ ANDRADE POMOLOGIST Ot V58.61 05/05/2015 MARIA LUZ ANDRADE POMOLOGIST Ot V58.65 05/05/2015 MARIA LUZ ANDRADE POMOLOGIST Ot V58.69 05/05/2015 FARIHA EDMONDSON DO Ot 593.9 05/05/2015 EDMONDSONFARIHA JACKSON DO Ot 780.60 05/05/2015 EDMONDSONFARIHA JACKSON DO Ot 784.0 05/05/2015 EDMONDSONFARIHA JACKSON DO Ot 780.60 05/05/2015 EDMONDSON FARIHA SAUER Ot 919.4 05/05/2015 EDMONDSONFARIHA CLEMENTE DO Ot E906.4 05/05/2015 EDMONDSONFARIHA JACKSON DO Ot V58.81 05/05/2015 FARIHA EDMONDSON DO Ot 279.00 05/05/2015 EDMONDSONFARIHA CLEMENTE DO Ot 280.9 05/05/2015 EDMONDSONFARIHA JACKSON DO Ot 585.3 05/05/2015 FARIHA EDMONDSON DO Ot 710.0 05/05/2015 FARIHA EDMONDSON DO Ot 714.0 05/05/2015 EDMONDSON DO, FARIHA Blakely Ot V58.61 05/05/2015 EDMONDSON DO, FARIHA Blakely Ot V58.65 05/05/2015 EDMONDSON DO, FARIHA Blakely Ot V58.69 05/05/2015 EDMONDSON DO, FARIHA Blakely Ot V58.81 05/05/2015 RAHEL BEY DAX Scott Ot 695.4 05/05/2015 Ot 585.9 05/05/2015 LETA DO, ZAC M Ot 279.00 05/05/2015 LETA DO, ZAC M Ot 584.9 05/05/2015 LETA DO, ZAC M Ot 710.0 05/05/2015 LETA DO, ZAC M Ot 782.3 05/05/2015 EDMONDSON DOFARIHA Ot 486 05/05/2015 EDMONDSON DOFARIHA Ot 486 05/05/2015 EDMONDSON DOFARIHA Ot 786.2 05/05/2015 LETA DO, ZAC M Ot 599.70 05/05/2015 LETA DO, ZAC M Ot 276.8 05/05/2015 LETA DO, ZAC M Ot 584.9 05/05/2015 LETA DO ZAC M Ot 710.0 05/05/2015 EDMONDSON DO, FARIHA Blakely Ot 466.0 05/05/2015 EDMONDSON DOFARIHA Ot 466.0 05/05/2015 LETA DO, ZAC M Ot 276.8 05/05/2015 LETA DO ZAC M Ot 584.9 05/05/2015 LETA DO ZAC M Ot 710.0 05/05/2015 EDMONDSON DOFARIHA Ot 508.2 05/05/2015 EDMONDSON DOFARIHA Ot 786.2 05/05/2015 EDMONDSON DOFARIHA Ot E890.2 05/05/2015 EDMONDSON DOFARIHA Ot 508.2 05/05/2015 EDMONDSON DOFARIHA Ot 780.60 05/05/2015 LETA DO, ZAC M Ot 584.9 05/05/2015 LETA DO ZAC M Ot 599.70 05/05/2015 LETA DO ZAC M Ot 710.0 05/05/2015 LETA DOZAC Ot 729.2 05/05/2015 LETA ZAC SAUER Ot 279.00 05/05/2015 LETA ZAC SAUER Ot 585.3 05/05/2015 KEVIN BEY, JEANNETTE Adams [...] JEANNETTE Adams Ot V58.69 06/13/2015 LION EDMONDSON POMOLOGIST Ot L03.90 06/13/2015 LION EDMONDSONP Ot R50.9 06/21/2015 Ot V58.61 06/21/2015 Ot V58.83 06/21/2015 Ot V58.61 06/21/2015 Ot V58.83 06/21/2015 Ot V58.61 06/21/2015 Ot V58.83 06/21/2015 Ot 719.66 06/21/2015 Ot V72.63 06/21/2015 Ot V74.8 06/21/2015 Ot 786.50 06/21/2015 Ot 793.19 06/21/2015 FARIHA EDMONDSON DO Ot 959.09 06/21/2015 FARIHA EDMONDSON DO Ot E000.8 06/21/2015 DELVIS SAUER FARIHA Blakely Ot E928.9 06/21/2015 Ot 780.64 06/21/2015 Ot 786.2 06/21/2015 DELVIS SAUER FARIHA Reddy Ot 285.9 06/21/2015 Ot 959.09 06/21/2015 Ot E000.8 06/21/2015 Ot E928.9 06/21/2015 Ot V58.81 06/21/2015 FARIHA EDMONDSON DO Ot V76.12 06/21/2015 LION EDMONDSON POMOLOGIST Ot 250.00 06/21/2015 LION EDMONDSON POMOLOGIST Ot 486 06/21/2015 LION EDMONDSON POMOLOGIST Ot 780.79 06/21/2015 LION EDMONDSON POMOLOGIST Ot V58.69 06/21/2015 LION DE LA CRUZ NATURAL GAS TECHNICIAN Ot 486 06/21/2015 MARIA LUZ ANDRADE POMOLOGIST Ot 279.00 06/21/2015 MARIA LUZ ANDRADE POMOLOGIST Ot 280.9 06/21/2015 MARIA LUZ ANDRADE POMOLOGIST Ot 453.40 06/21/2015 MARIA LUZ ANDRADE POMOLOGIST Ot 585.3 06/21/2015 MARIA LUZ ANDRADE POMOLOGIST Ot 710.0 06/21/2015 MARIA LUZ ANDRADE POMOLOGIST Ot 714.0 06/21/2015 MARIA LUZ ANDRADE POMOLOGIST Ot V58.61 06/21/2015 MARIA LUZ ANDRADE POMOLOGIST Ot V58.65 06/21/2015 MARIA LUZ ANDRADE POMOLOGIST Ot V58.69 06/21/2015 FARIHA EDMONDSON DO Ot 593.9 06/21/2015 FARIHA EDMONDSON DO Ot 780.60 06/21/2015 FARIHA EDMONDSON DO Ot 784.0 06/21/2015 FARIHA EDMONDSON DO Ot 780.60 06/21/2015 FARIHA EDMONDSON DO Ot 919.4 06/21/2015 FARIHA EDMONDSON DO Ot E906.4 06/21/2015 FARIHA EDMONDSON DO Ot V58.81 06/21/2015 FARIHA EDMONDSON DO Ot 279.00 06/21/2015 FARIHA EDMONDSON DO Ot 280.9 06/21/2015 EDMONDSON DO FARIHA Reddy Ot 585.3 06/21/2015 EDMONDSON DO FARIHA Reddy Ot 710.0 06/21/2015 EDMONDSON DOFARIHA Ot 714.0 06/21/2015 EDMONDSON DOFARIHA Ot V58.61 06/21/2015 EDMONDSON DO FARIHA Reddy Ot V58.65 06/21/2015 EDMONDSON DOFARIHA Ot V58.69 06/21/2015 EDMONDSON DOFARIHA Ot V58.81 06/21/2015 DAX MCGINNIS MD Ot 695.4 06/21/2015 Ot 585.9 06/21/2015 LETA DO ZAC M Ot 279.00 06/21/2015 LETA DO ZAC M Ot 584.9 06/21/2015 LETA DO ZAC M Ot 710.0 06/21/2015 LETA DO ZAC M Ot 782.3 06/21/2015 EDMONDSONFARIHA JACKSON DO Ot 486 06/21/2015 EDMONDSON DOFARIHA Ot 486 06/21/2015 EDMONDSON DOFARIHA Ot 786.2 06/21/2015 LETA DO ZAC M Ot 599.70 06/21/2015 LETA DO ZAC M Ot 276.8 06/21/2015 LETA DO ZAC M Ot 584.9 06/21/2015 LETA DO ZAC M Ot 710.0 06/21/2015 EDMONDSON DOFARIHA Ot 466.0 06/21/2015 EDMONDSON DOFARIHA Ot 466.0 06/21/2015 LETA DO ZAC M Ot 276.8 06/21/2015 LETA DO, ZAC M Ot 584.9 06/21/2015 LETA DO ZAC M Ot 710.0 06/21/2015 EDMONDSONFARIHA JACKSON DO Ot 508.2 06/21/2015 EDMONDSON FARIHA SAUER Ot 786.2 06/21/2015 EDMONDSON FARIHA SAUER Ot E890.2 06/21/2015 EDMONDSON DOFARIHA Ot 508.2 06/21/2015 EDMONDSONFARIHA JACKSON DO Ot 780.60 06/21/2015 LETA DOZAC Ot 584.9 06/21/2015 LETA DO, ZAC Scott Ot 599.70 06/21/2015 LETA DO, ZAC Scott Ot 710.0 06/21/2015 LETA DO, ZAC Scott Ot 729.2 06/21/2015 LETA DO, ZAC Scott Ot 279.00 06/21/2015 LETA DO, ZAC Scott Ot 585.3 06/21/2015 KEVIN BEY, JEANNETTE Adams [...] JEANNETTE Adams Ot V58.69 06/21/2015 LION EDMONDSON POMOLOGIST Ot L03.90 06/21/2015 LION EDMONDSON POMOLOGIST Ot R50.9 06/22/2015 Ot 289.81 06/22/2015 Ot [...] EDMONDSON DO Ot V76.12 06/22/2015 LION EDMONDSON POMOLOGIST Ot 250.00 06/22/2015 FABY EDMONDSNOIA L POMOLOGIST Ot 486 06/22/2015 EDMONDSONLION CLEMENTE POMOLOGIST Ot 780.79 06/22/2015 DELVISLION POMOLOGIST Ot V58.69 06/22/2015 LION DE LA CRUZ NATURAL GAS TECHNICIAN Ot 486 06/22/2015 ANDRADE MARIA LUZ S POMOLOGIST Ot 279.00 06/22/2015 LUPE MARIA LUZ S POMOLOGIST Ot 280.9 06/22/2015 LUPE MARIA LUZ S POMOLOGIST Ot 453.40 06/22/2015 ANDRADE MARIA LUZ S POMOLOGIST Ot 585.3 06/22/2015 ANDRADE MARIA LUZ S POMOLOGIST Ot 710.0 06/22/2015 LUPE MARIA LUZ S POMOLOGIST Ot 714.0 06/22/2015 LUPE MARIA LUZ S POMOLOGIST Ot V58.61 06/22/2015 LUPE MARIA LUZ S POMOLOGIST Ot V58.65 06/22/2015 LUPE MARIA LUZ S POMOLOGIST Ot V58.69 06/22/2015 FARIHA EDMONDSON DO Ot 593.9 06/22/2015 EDMONDSONFARIHA CLEMENTE DO Ot 780.60 06/22/2015 EDMONDSON DO, FARIHA Blakely Ot 784.0 06/22/2015 EDMONDSONFARIHA CLEMENTE DO Ot 780.60 06/22/2015 EDMONDSON FARIHA SAUER Ot 919.4 06/22/2015 EDMONDSONFARIHA JACKSON DO Ot E906.4 06/22/2015 EDMONDSONFARIHA JACKSON DO Ot V58.81 06/22/2015 EDMONDSONFARIHA JACKSON DO Ot 279.00 06/22/2015 EDMONDSON FARIHA SAUER J Ot 280.9 06/22/2015 EDMONDSON FARIHA SAUER Ot 585.3 06/22/2015 EDMONDSONFARIHA CLEMENTE DO Ot 710.0 06/22/2015 EDMONDSON FARIHA SAUER Ot 714.0 06/22/2015 EDMONDSONFARIHA CLEMENTE DO Ot V58.61 06/22/2015 EDMONDSONFARIHA CLEMENTE DO Ot V58.65 06/22/2015 EDMONDSONFARIHA CLEMENTE DO Ot V58.69 06/22/2015 EDMONDSONFARIHA CLEMENTE DO Ot V58.81 06/22/2015 DAX MCGINNIS MD M Ot 695.4 06/22/2015 Ot 585.9 06/22/2015 LETA DO, ZAC M Ot 279.00 06/22/2015 LETA DO, ZAC M Ot 584.9 06/22/2015 LETA DO, ZAC M Ot 710.0 06/22/2015 LETA DO, ZAC M Ot 782.3 06/22/2015 EDMONDSON DOFARIHA Ot 486 06/22/2015 EDMONDSON DOFARIHA Ot 486 06/22/2015 EDMONDSON DO, FARIHA Blakely Ot 786.2 06/22/2015 LETA DO, ZAC M Ot 599.70 06/22/2015 LETA DO, ZAC M Ot 276.8 06/22/2015 LETA DO, ZAC M Ot 584.9 06/22/2015 LETA DO, ZAC M Ot 710.0 06/22/2015 EDMONDSON DOFARIHA Ot 466.0 06/22/2015 EDMONDSON DOFARIHA Ot 466.0 06/22/2015 LETA DO, ZAC M Ot 276.8 06/22/2015 LETA DO, ZAC M Ot 584.9 06/22/2015 LETA DO, ZAC M Ot 710.0 06/22/2015 EDMONDSON DOFARIHA Ot 508.2 06/22/2015 EDMONDSON DOFARIHA Ot 786.2 06/22/2015 EDMONDSON DOFARIHA Ot E890.2 06/22/2015 EDMONDSON DOFARIHA Ot 508.2 06/22/2015 EDMONDSON DOFARIHA Ot 780.60 06/22/2015 LETA DO, ZAC M Ot 584.9 06/22/2015 LETA DO, ZAC M Ot 599.70 06/22/2015 LETA DO, ZAC M Ot 710.0 06/22/2015 LETA DO, ZAC M Ot 729.2 06/22/2015 LETA DO, ZAC M Ot 279.00 06/22/2015 LETA DO, ZAC M Ot 585.3 06/22/2015 KEVIN BEY, JEANNETTE Adams Ot 279.00 06/22/2015 JEANNETTE BROWN MD Ot 280.9 06/22/2015 JEANNETTE BROWN MD Ot 710.0 06/22/2015 JEANNETTE BROWN MD Ot 714.0 06/22/2015 JEANNETTE BROWN MD Ot D50.9 06/22/2015 JEANNETTE BROWN MD Ot D80.1 06/22/2015 JEANNETTE BROWN MD Ot M06.9 06/22/2015 JEANNETTE BROWN MD Ot M32.10 06/22/2015 JEANNETTE BROWN MD Ot V58.65 06/22/2015 JEANNETTE BROWN MD Ot V58.69 06/22/2015 LION EDMONDSON L POMOLOGIST Ot L03.90 06/22/2015 DELVIS LION L POMOLOGIST Ot R50.9 06/23/2015 DELVIS LION L POMOLOGIST Ot J32.9 06/23/2015 DELVIS LION L POMOLOGIST Ot R50.9 07/20/2015 DELVIS LION L POMOLOGIST Ot J32.9 07/20/2015 DELVIS LION L POMOLOGIST Ot R50.9 07/25/2015 DELVIS LION L POMOLOGIST Ot J32.9 07/25/2015 DELVIS LION L POMOLOGIST Ot R50.9 07/31/2015 DELVIS LION L POMOLOGIST Ot L03.90 07/31/2015 DELVIS LION L POMOLOGIST Ot R50.9 08/10/2015 JEANNETTE BROWN MD Ot [...] STEROIDS 08/15/2015 JEANNETTE BROWN MD, Ot V58.69 OTH MED,LT,CURRENT USE 08/15/2015 LION EDMONDSON POMOLOGIST Ot J32.9 08/15/2015 LION EDMONDSON POMOLOGIST Ot R50.9 09/06/2015 LION EDMONDSON POMOLOGIST Ot L03.90 09/06/2015 LION EDMONDSON POMOLOGIST Ot R50.9 09/06/2015 LION EDMONDSON POMOLOGIST Ot J06.9 09/06/2015 FARIHA EDMONDSON DO Ot J18.9 09/06/2015 RAHEL BEY, DAX Scott Ot Z51.81 09/06/2015 RAHEL BEY, DAX Scott Ot Z79.899 09/06/2015 ZAC GILLETTE DO Ot D64.9 09/06/2015 ZAC GILLETTE DO Ot M32.9 09/06/2015 ZAC GILLETTE DO Ot N17.9 09/06/2015 ZAC GILLETTE DO Ot R19.7 09/21/2015 FARIHA EDMONDSON DO Ot D50.9 09/21/2015 FARIHA EDMONDSON DO Ot M06.9 10/01/2015 LION EDMONDSON POMOLOGIST Ot J06.9 ACUTE UPPER RESPIRATORY INFECTION, UNSPE 10/05/2015 FARIHA EDMONDSON DO Ot J18.9 10/05/2015 ZAC GILLETTE DO Ot D64.9 10/05/2015 LETA DO, ZAC M Ot M32.9 10/05/2015 LETA DO, ZAC M Ot N17.9 10/05/2015 LETA DO, ZAC M Ot R19.7 10/12/2015 DELVIS SAUER, FARIHA Blakely Ot D50.9 10/12/2015 FARIHA EDMONDSON DO Ot M06.9 10/13/2015 RAHEL BEY, DAX M Ot Z51.81 10/13/2015 RAHEL BEY, DAX M Ot Z79.899 10/19/2015 LION EDMONDSON POMOLOGIST Ot J32.9 10/19/2015 LION EDMONDSON POMOLOGIST Ot R50.9 10/19/2015 FARIHA EDMONDSON DO Ot J18.9 10/19/2015 RAHEL BEY, DAX M Ot Z51.81 10/19/2015 RAHEL BEY, DAX M Ot Z79.899 10/19/2015 LETA DO, ZAC M Ot D64.9 10/19/2015 LETA DO, ZAC M Ot M32.9 10/19/2015 LETA DO, ZAC M Ot N17.9 10/19/2015 LETA DO, ZAC M Ot R19.7 10/19/2015 KEVIN BEY, JEANNETTE Angie Ot 279.00 10/19/2015 KEVIN BEY, JEANNETTE Angie Ot 280.9 10/19/2015 KEVIN BEY, JEANNETTE Angie Ot 710.0 10/19/2015 KEVIN BEY, JEANNETTE K Ot 714.0 10/19/2015 KEVIN BEY, JEANNETTE Adams Ot D50.9 10/19/2015 KEVIN BEY, JEANNETTE Adams Ot D80.1 10/19/2015 KEVIN BEY, JEANNETTE Adams Ot M06.9 10/19/2015 KEVIN BEY, JEANNETTE Adams Ot M32.10 10/19/2015 FARIHA EDMONDSON DO Ot D50.9 10/19/2015 FARIHA EDMONDSON DO Ot M06.9 10/19/2015 KEVIN BEY, JEANNETTE Adams Ot J06.9 10/23/2015 FARIHA EDMONDSON DO Ot J01.00 11/15/2015 FARIHA EDMONDSON DO Ot J01.00 01/15/2016 DEEPA RONDON MD Ot [...] CHRONIC SEROUS OTITIS MEDIA, BILATERAL 02/13/2016 DEEPA RODNON MD Ot J32.9 CHRONIC SINUSITIS, UNSPECIFIED 02/13/2016 [...] EDMONDSON Ot J32.9 CHRONIC SINUSITIS, UNSPECIFIED 02/16/2016 DELVIS LION Gross ROSELYN Ot R50.9 FEVER, UNSPECIFIED 02/16/2016 FARIHA EDMONDSON DO, Ot J18.9 PNEUMONIA, UNSPECIFIED ORGANISM 02/16/2016 RAHEL BEY, DAX Scott Ot Z51.81 ENCOUNTER FOR THERAPEUTIC DRUG LEVEL MON 02/16/2016 RAHEL BEY, DAX Scott Ot Z79.899 OTHER SECURITY REP (CURRENT) DRUG THERAPY 02/16/2016 ZAC GILLETTE DO Ot D64.9 ANEMIA, UNSPECIFIED 02/16/2016 ZAC GILLETTE DO, Ot M32.9 SYSTEMIC LUPUS ERYTHEMATOSUS, UNSPECIFIE 02/16/2016 ZAC GILLETTE DO, Ot N17.9 ACUTE KIDNEY FAILURE, UNSPECIFIED 02/16/2016 ZAC GILLETTE DO, Ot R19.7 DIARRHEA, UNSPECIFIED 02/16/2016 KEVIN BEY, JEANNETTE Adams Ot 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 02/16/2016 KEVIN BEY, JEANNETTE Adams Ot 280.9 IRON DEFIC ANEMIA NOS 02/16/2016 [...] Ot D50.9 IRON DEFICIENCY ANEMIA, UNSPECIFIED 03/25/2016 KEVIN BEY, JEANNETTE Adams Ot 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 03/25/2016 JEANNETTE BROWN MD Ot 280.9 IRON DEFIC ANEMIA NOS 03/25/2016 JEANNETTE BROWN MD Ot 710.0 SYST LUPUS ERYTHEMATOSIS 03/25/2016 JEANNETTE BROWN MD Ot 714.0 RHEUMATOID ARTHRITIS 03/25/2016 JEANNETTE BROWN MD Ot D50.9 IRON DEFICIENCY ANEMIA, UNSPECIFIED 03/25/2016 [...] ERYTHEMATOSUS, ORGAN OR S 04/19/2016 FARIHA EDMONDSON DO, Ot D50.9 IRON DEFICIENCY ANEMIA, UNSPECIFIED 05/08/2016 LION EDMONDSON Ot J32.9 CHRONIC SINUSITIS, UNSPECIFIED 05/08/2016 LION EDMONDSON Ot R50.9 FEVER, UNSPECIFIED 05/08/2016 FARIHA EDMONDSON DO Ot J18.9 PNEUMONIA, UNSPECIFIED ORGANISM 05/08/2016 DAX MCGINNIS MD Ot Z51.81 ENCOUNTER FOR THERAPEUTIC DRUG LEVEL MON 05/08/2016 DAX MCGINNIS MD, Ot Z79.899 OTHER SECURITY REP (CURRENT) DRUG THERAPY 05/08/2016 ZAC GILLETTE DO, Ot D64.9 ANEMIA, UNSPECIFIED 05/08/2016 ZAC GILLETTE DO, Ot M32.9 SYSTEMIC LUPUS ERYTHEMATOSUS, UNSPECIFIE 05/08/2016 LETA DO, ZAC M Ot N17.9 ACUTE KIDNEY FAILURE, UNSPECIFIED 05/08/2016 ZAC GILLETTE DO Ot R19.7 DIARRHEA, UNSPECIFIED 05/08/2016 JEANNETTE BROWN MD Ot D50.9 [...] IRON DEFICIENCY ANEMIA, UNSPECIFIED 05/08/2016 JEANNETTE BROWN MD, Ot D50.9 IRON DEFICIENCY ANEMIA, UNSPECIFIED 05/08/2016 [...] M06.9 RHEUMATOID ARTHRITIS, UNSPECIFIED 05/16/2016 JEANNETTE BROWN MD, Ot M32.10 SYSTEMIC LUPUS ERYTHEMATOSUS, ORGAN OR S 05/29/2016 FARIHA EDMONDSON DO Ot J18.9 PNEUMONIA, UNSPECIFIED ORGANISM 06/11/2016 EDMONDSON, LION L POMOLOGIST Ot R59.0 LOCALIZED ENLARGED LYMPH NODES 06/11/2016 EDMONDSON, LION L POMOLOGIST Ot R68.84 JAW PAIN 06/11/2016 EDMONDSON, LION L POMOLOGIST Ot R59.0 LOCALIZED ENLARGED LYMPH NODES 06/11/2016 EDMONDSON, LION L POMOLOGIST Ot R68.84 JAW PAIN 06/17/2016 EDMONDSON, LION L POMOLOGIST Ot R59.0 LOCALIZED ENLARGED LYMPH NODES 06/17/2016 EDMONDSON, LION L POMOLOGIST Ot R68.84 JAW PAIN 07/10/2016 EDMONDSON, LION L POMOLOGIST Ot R59.0 LOCALIZED ENLARGED LYMPH NODES 07/10/2016 EDMONDSON, LION L POMOLOGIST Ot R68.84 JAW PAIN 07/18/2016 JEANNETTE BROWN MD Ot D50.9 IRON DEFICIENCY ANEMIA, UNSPECIFIED 07/18/2016 JEANNETTE BROWN MD Ot D80.1 NONFAMILIAL HYPOGAMMAGLOBULINEMIA 07/18/2016 JEANNETTE BROWN MD Ot M06.9 RHEUMATOID ARTHRITIS, UNSPECIFIED 07/18/2016 JEANNETTE BROWN MD, Ot M32.10 SYSTEMIC LUPUS ERYTHEMATOSUS, ORGAN OR S 07/18/2016 JEANNETTE BROWN MD Ot Z79.899 OTHER SECURITY REP (CURRENT) DRUG THERAPY 07/30/2016 JEANNETTE BROWN MD Ot D50.9 IRON DEFICIENCY ANEMIA, UNSPECIFIED 07/30/2016 JEANNETTE BROWN MD, Ot D80.1 NONFAMILIAL HYPOGAMMAGLOBULINEMIA 07/30/2016 JEANNETTE BROWN MD Ot M06.9 RHEUMATOID ARTHRITIS, UNSPECIFIED 07/30/2016 JEANNETTE BROWN MD Ot M32.10 SYSTEMIC LUPUS ERYTHEMATOSUS, ORGAN OR S 07/30/2016 JEANNETTE BROWN MD Ot Z79.899 OTHER SECURITY REP (CURRENT) DRUG THERAPY 08/13/2016 JEANNETTE BROWN MD Ot D50.9 IRON DEFICIENCY ANEMIA, UNSPECIFIED 08/13/2016 JEANNETTE BROWN MD Ot D80.1 NONFAMILIAL HYPOGAMMAGLOBULINEMIA 08/13/2016 JEANNETTE BROWN MD, Ot M06.9 RHEUMATOID ARTHRITIS, UNSPECIFIED 08/13/2016 JEANNETTE BROWN MD Ot M32.10 SYSTEMIC LUPUS ERYTHEMATOSUS, ORGAN OR S 08/13/2016 JEANNETTE BROWN MD Ot Z79.899 OTHER SECURITY REP (CURRENT) DRUG THERAPY 09/04/2016 JEANNETTE BROWN MD Ot J06.9 ACUTE UPPER RESPIRATORY INFECTION, UNSPE 09/04/2016 JEANNETTE BROWN MD, Ot J06.9 ACUTE UPPER RESPIRATORY INFECTION, UNSPE 09/04/2016 ZAC GILLETTE DO, Ot B37.0 CANDIDAL STOMATITIS 09/04/2016 ZAC GILLETTE [...] KEVIN BEY, JEANNETTE Adams Ot Z79.899 OTHER RETIREMENT (CURRENT) DRUG THERAPY 09/13/2016 Ot V58.61 ANTICOAGULANTS,LT,CURRENT USE 09/13/2016 Ot V58.83 ENCOUNTER FOR THERAPEUTIC DRUG MONITORIN 09/13/2016 Ot V58.61 ANTICOAGULANTS,LT,CURRENT USE 09/13/2016 Ot V58.83 ENCOUNTER FOR THERAPEUTIC DRUG MONITORIN 09/13/2016 Ot V58.61 ANTICOAGULANTS,LT,CURRENT USE 09/13/2016 Ot V58.83 ENCOUNTER FOR THERAPEUTIC DRUG MONITORIN 09/13/2016 Ot 719.66 JOINT SYMPTOM NEC-L/LEG 09/13/2016 Ot V72.63 PRE- PROCEDURAL LABORATORY EXAMINATION 09/13/2016 Ot V74.8 SCREEN- BACTERIAL DIS NEC 09/13/2016 Ot 786.50 CHEST PAIN NOS 09/13/2016 Ot 793.19 OTHER NONSPECIFIC ABNORMAL FINDING OF MYESHA 09/13/2016 FARIHA EDMONDSON DO Ot 959.09 INJURY OF FACE AND NECK 09/13/2016 FARIHA EDMONDSON DO Ot E000.8 OTHER EXTERNAL CAUSE STATUS 09/13/2016 FARIHA EDMONDSON DO Ot E928.9 ACCIDENT NOS 09/13/2016 Ot 780.64 CHILLS ( WITHOUT FEVER) 09/13/2016 Ot 786.2 COUGH 09/13/2016 FARIHA EDOMNDSON DO Ot 285.9 ANEMIA NOS 09/13/2016 Ot 959.09 INJURY OF FACE AND NECK 09/13/2016 Ot E000.8 OTHER EXTERNAL CAUSE STATUS 09/13/2016 Ot E928.9 ACCIDENT NOS 09/13/2016 Ot V58.81 FIT/ADJ VASCULAR CATHETER 09/13/2016 FARIHA EDMONDSON DO Ot V76.12 OTH SCREEN MAMMO-MALIGN NEOPLASM OF [place] 09/13/2016 LION EDMONDSON POMOLOGIST Ot 250.00 DIAB WILLY WO COMPL, TYPE II OR UNSPEC TY 09/13/2016 LION EDMONDSON POMOLOGIST Ot 486 PNEUMONIA, ORGANISM NOS 09/13/2016 LION EDMONDSON POMOLOGIST Ot 780.79 OTH MALAISE FATIGUE 09/13/2016 LION EDMONDSON POMOLOGIST Ot V58.69 OTH MED,LT,CURRENT USE 09/13/2016 JONO LIONRICKY Robin APRN Ot 486 PNEUMONIA, ORGANISM NOS 09/13/2016 MARIA LUZ ANDRADE POMOLOGIST Ot 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 09/13/2016 MARIA LUZ ANDRADE POMOLOGIST Ot 280.9 IRON DEFIC ANEMIA NOS 09/13/2016 MARIA LUZ ANDRADEP Ot 453.40 ACUTE VENOUS EMBOLISM THROMBOSIS UNSP 09/13/2016 MARIA LUZ ANDRADE POMOLOGIST Ot 585.3 CHRONIC KIDNEY DISEASE, STAGE III (MODER 09/13/2016 MARIA LUZ ANDRADE POMOLOGIST Ot 710.0 SYST LUPUS ERYTHEMATOSIS 09/13/2016 MARIA LUZ ANDRADEP Ot 714.0 RHEUMATOID ARTHRITIS 09/13/2016 MARIA LUZ ANDRADEP Ot V58.61 ANTICOAGULANTS,LT,CURRENT USE 09/13/2016 MARIA LUZ ANDRADE POMOLOGIST Ot V58.65 LONG-TERM(CURRENT)USE OF STEROIDS 09/13/2016 MARIA LUZ ANDRADE POMOLOGIST Ot V58.69 OTH MED,LT,CURRENT USE 09/13/2016 FARIHA [...] 280.9 IRON DEFIC ANEMIA NOS 09/13/2016 FARIHA DEMONDSON DO Ot 585.3 CHRONIC KIDNEY DISEASE, STAGE III (MODER 09/13/2016 FARIHA EDMONDSON DO Ot 710.0 SYST LUPUS ERYTHEMATOSIS 09/13/2016 FARIHA EDMONDSON DO Ot 714.0 RHEUMATOID ARTHRITIS 09/13/2016 FARIHA EDMONDSON DO Ot V58.61 ANTICOAGULANTS,LT,CURRENT USE 09/13/2016 FARIHA EDMONDSON DO, Ot V58.65 LONG-TERM(CURRENT)USE OF STEROIDS 09/13/2016 FARIHA EDMONDSON DO, Ot V58.69 OT MED,LT,CURRENT USE 09/13/2016 FARIHA EDMONDSON DO, Ot V58.81 FIT/ADJ VASCULAR CATHETER 09/13/2016 DAX MCGINNIS MD Ot 695.4 LUPUS ERYTHEMATOSUS 09/13/2016 Ot 585.9 CHRONIC KIDNEY DISEASE, UNSPECIFIED 09/13/2016 ZAC GILLETTE DO Ot 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 09/13/2016 ZAC GILLETTE DO Ot 584.9 ACUTE RENAL FAILURE, UNSPECIFIED 09/13/2016 ZAC GILLETTE DO Ot 710.0 SYST LUPUS ERYTHEMATOSIS 09/13/2016 ZAC GILLETTE DO Ot 782.3 EDEMA 09/13/2016 FARIHA EDMONDSON DO Ot 486 PNEUMONIA, ORGANISM NOS 09/13/2016 EDMONDSON DO, FARIHA J Ot 486 PNEUMONIA, ORGANISM NOS 09/13/2016 FARIHA EDMONDSON DO Ot 786.2 COUGH 09/13/2016 ZAC GILLETTE DO Ot 599.70 HEMATURIA, UNSPECIFIED 09/13/2016 ZAC GILLETTE DO Ot 276.8 HYPOPOTASSEMIA 09/13/2016 ZAC GILLETTE DO Ot 584.9 ACUTE RENAL FAILURE, UNSPECIFIED 09/13/2016 ZAC GILLETTE DO Ot 710.0 SYST LUPUS ERYTHEMATOSIS 09/13/2016 FARIHA EDMONDSNO DO Ot 466.0 ACUTE BRONCHITIS 09/13/2016 FARIHA [...] DISEASE, STAGE III (MODER 09/13/2016 LION EDMONDSON POMOLOGIST Ot L03.90 CELLULITIS, UNSPECIFIED 09/13/2016 LION EDMONDSON POMOLOGIST Ot R50.9 FEVER, UNSPECIFIED 09/13/2016 LION EDMONDSON POMOLOGIST Ot J32.9 CHRONIC SINUSITIS, UNSPECIFIED 09/13/2016 LION EDMONDSONP Ot R50.9 FEVER, UNSPECIFIED 09/13/2016 FARIHA EDMONDSON DO Ot J18.9 PNEUMONIA, UNSPECIFIED ORGANISM 09/13/2016 RAHEL BEY, DAX Scott Ot Z51.81 ENCOUNTER FOR THERAPEUTIC DRUG LEVEL MON 09/13/2016 DAX MCGINNIS MD, Ot Z79.899 OTHER RETIREMENT (CURRENT) DRUG THERAPY 09/13/2016 ZAC GILLETTE DO Ot D64.9 ANEMIA, UNSPECIFIED 09/13/2016 ZAC GILLETTE DO, Ot M32.9 SYSTEMIC LUPUS ERYTHEMATOSUS, UNSPECIFIE 09/13/2016 ZAC GILLETTE DO Ot N17.9 ACUTE KIDNEY FAILURE, UNSPECIFIED 09/13/2016 ZAC GILLETTE DO Ot R19.7 DIARRHEA, UNSPECIFIED 09/13/2016 FARIHA EDMONDSON DO Ot D50.9 IRON DEFICIENCY ANEMIA, UNSPECIFIED 09/13/2016 FARIHA EDMONDSON DO Ot M06.9 RHEUMATOID ARTHRITIS, UNSPECIFIED 09/13/2016 KEVIN BEY, JEANNETTE Adams Ot J06.9 ACUTE UPPER RESPIRATORY INFECTION, UNSPE 09/13/2016 FARIHA EDMONDSON DO Ot J01.00 ACUTE MAXILLARY SINUSITIS, UNSPECIFIED 09/13/2016 FARIHA EDMONDSON DO Ot D50.9 IRON DEFICIENCY ANEMIA, UNSPECIFIED 09/13/2016 FARIHA EDMONDSON DO Ot J18.9 PNEUMONIA, UNSPECIFIED ORGANISM 09/13/2016 LION EDMONDSON POMOLOGIST Ot R59.0 LOCALIZED ENLARGED LYMPH NODES 09/13/2016 LION EDMONDSON POMOLOGIST Ot R68.84 JAW PAIN 09/13/2016 JEANNETTE BROWN MD Ot D50.9 IRON DEFICIENCY ANEMIA, UNSPECIFIED 09/13/2016 JEANNETTE BROWN MD Ot D80.1 NONFAMILIAL HYPOGAMMAGLOBULINEMIA 09/13/2016 JEANNETTE BROWN MD Ot M06.9 RHEUMATOID ARTHRITIS, UNSPECIFIED 09/13/2016 JEANNETTE BROWN MD Ot M32.10 SYSTEMIC LUPUS ERYTHEMATOSUS, ORGAN OR S 09/13/2016 KEVIN BEY, JEANNETTE Adams Ot Z79.899 OTHER SECURITY REP (CURRENT) DRUG THERAPY 09/13/2016 ALCON BEY, DEEPA [...] KIDNEY DISEASE, STAGE 3 (MODERAT 09/16/2016 ZAC GILELTTE DO Ot R10.9 UNSPECIFIED ABDOMINAL PAIN 09/19/2016 [...] E928.9 ACCIDENT NOS 10/01/2016 Ot 780.64 CHILLS ( WITHOUT FEVER) 10/01/2016 Ot 786.2 COUGH 10/01/2016 FARIHA EDMONDSON DO Ot 285.9 ANEMIA NOS 10/01/2016 Ot 959.09 INJURY OF FACE AND NECK 10/01/2016 Ot E000.8 OTHER EXTERNAL CAUSE STATUS 10/01/2016 Ot E928.9 ACCIDENT NOS 10/01/2016 Ot V58.81 FIT/ADJ VASCULAR CATHETER 10/01/2016 FARIHA EDMONDSON DO Ot V76.12 OTH SCREEN MAMMO-MALIGN NEOPLASM OF [place] 10/01/2016 LION EDMONDSON POMOLOGIST Ot 250.00 DIAB WILLY WO COMPL, TYPE II OR UNSPEC TY 10/01/2016 LION EDMONDSON POMOLOGIST Ot 486 PNEUMONIA, ORGANISM NOS 10/01/2016 LION EDMONDSON POMOLOGIST Ot 780.79 OTH MALAISE FATIGUE 10/01/2016 LION EDMONDSON POMOLOGIST Ot V58.69 OT MED,LT,CURRENT USE 10/01/2016 LION DE LA CRUZ NATURAL GAS TECHNICIAN Ot 486 PNEUMONIA, ORGANISM NOS 10/01/2016 MARIA LUZ ANDRADEP Ot 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 10/01/2016 MARIA LUZ ANDRADE POMOLOGIST Ot 280.9 IRON DEFIC ANEMIA NOS 10/01/2016 MARIA LUZ ANDRADEP Ot 453.40 ACUTE VENOUS EMBOLISM THROMBOSIS UNSP 10/01/2016 MARIA LUZ NADRADEP Ot 585.3 CHRONIC KIDNEY DISEASE, STAGE III (MODER 10/01/2016 MARIA LUZ ANDRADEP Ot 710.0 SYST LUPUS ERYTHEMATOSIS 10/01/2016 MARIA LUZ ANDRADEP Ot 714.0 RHEUMATOID ARTHRITIS 10/01/2016 MARIA LUZ ANDRADEP Ot V58.61 ANTICOAGULANTS,LT,CURRENT USE 10/01/2016 MARIA LUZ ANDRADEP Ot V58.65 LONG-TERM(CURRENT)USE OF STEROIDS 10/01/2016 MARIA LUZ ANDRADEP Ot V58.69 OT MED,LT,CURRENT USE 10/01/2016 FARIHA EDMONDSON DO Ot 593.9 RENAL URETERAL DIS NOS 10/01/2016 FARIHA EDMONDSON DO Ot 780.60 FEVER, [...] CHRONIC KIDNEY DISEASE, STAGE III (MODER 10/01/2016 FARIHA EDMONDSON DO Ot 710.0 SYST LUPUS ERYTHEMATOSIS 10/01/2016 FARIHA EDMONDSON DO Ot 714.0 RHEUMATOID ARTHRITIS 10/01/2016 FARIHA EDMONDSON DO, Ot V58.61 ANTICOAGULANTS,LT,CURRENT USE 10/01/2016 FARIHA EDMONDSON DO Ot V58.65 LONG-TERM(CURRENT)USE OF STEROIDS 10/01/2016 FARIHA [...] DISEASE, STAGE III (MODER 10/01/2016 LION EDMONDSON POMOLOGIST Ot L03.90 CELLULITIS, UNSPECIFIED 10/01/2016 LION EDMONDSON POMOLOGIST Ot R50.9 FEVER, UNSPECIFIED 10/01/2016 ALCON BEY, DEEPA Lindsey Ot R05 COUGH 10/01/2016 ALCON BEY, DEEPA Lindsey Ot R22.1 LOCALIZED SWELLING, MASS AND LUMP, NECK 10/02/2016 DEEPA RONDON MD Ot R05 COUGH 10/02/2016 DEEPA RONDON MD Ot R22.1 LOCALIZED SWELLING, MASS AND LUMP, NECK 10/02/2016 DEEPA RONDON MD Ot R05 COUGH 10/02/2016 DEEPA RONDON MD, Ot R22.1 LOCALIZED SWELLING, MASS AND LUMP, NECK 10/03/2016 ZAC GILLETTE DO, Ot B37.0 CANDIDAL STOMATITIS 10/03/2016 ZAC GILLETTE DO, Ot D80.1 NONFAMILIAL HYPOGAMMAGLOBULINEMIA 10/03/2016 ZAC GILLETTE DO, Ot M32.10 SYSTEMIC LUPUS ERYTHEMATOSUS, ORGAN OR S 10/03/2016 ZAC GILLETTE DO, Ot N18.3 CHRONIC KIDNEY DISEASE, STAGE 3 (MODERAT 10/09/2016 JEANNETTE BROWN MD, Ot D50.9 IRON DEFICIENCY ANEMIA, UNSPECIFIED 10/09/2016 JEANNETTE BROWN MD, Ot D80.1 NONFAMILIAL HYPOGAMMAGLOBULINEMIA 10/09/2016 JEANNETTE BROWN MD Ot M06.9 RHEUMATOID ARTHRITIS, UNSPECIFIED 10/09/2016 JEANNETTE BROWN MD Ot M32.10 SYSTEMIC LUPUS ERYTHEMATOSUS, ORGAN OR S 10/09/2016 JEANNETTE BROWN MD Ot Z79.899 OTHER SECURITY REP (CURRENT) DRUG THERAPY 10/16/2016 ZAC GILLETTE DO, Ot 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 10/16/2016 ZAC GILLETTE DO, Ot N17.9 ACUTE KIDNEY FAILURE, UNSPECIFIED 10/16/2016 ZAC GILLETTE DO, Ot N18.3 CHRONIC KIDNEY DISEASE, STAGE 3 (MODERAT 10/16/2016 ZAC GILLETTE DO, Ot R10.9 UNSPECIFIED ABDOMINAL PAIN 10/25/2016 JEANNETTE BROWN MD Ot D50.9 IRON DEFICIENCY ANEMIA, UNSPECIFIED 10/25/2016 JEANNETTE BROWN MD Ot D80.1 NONFAMILIAL HYPOGAMMAGLOBULINEMIA 10/25/2016 JEANNETTE BROWN MD Ot M06.9 RHEUMATOID ARTHRITIS, UNSPECIFIED 10/25/2016 JEANNETTE BROWN MD Ot M32.10 SYSTEMIC LUPUS ERYTHEMATOSUS, ORGAN OR S 10/25/2016 JEANNETTE BROWN MD Ot Z79.899 OTHER RETIREMENT (CURRENT) DRUG THERAPY 10/28/2016 DEEPA RONDON MD Ot 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, 10/28/2016 DEEPA RONDON MD Ot K11.20 SIALOADENITIS, UNSPECIFIED 10/30/2016 DEEPA RONDON MD Ot R05 COUGH 10/30/2016 DEEPA RONDON MD, Ot R22.1 LOCALIZED SWELLING, MASS AND LUMP, NECK 10/30/2016 LETA SAUER ZAC Tyler Ot N18.3 CHRONIC KIDNEY DISEASE, STAGE 3 (MODERAT 11/11/2016 Ot 780.64 CHILLS ( WITHOUT FEVER) 11/11/2016 Ot 786.2 COUGH 11/11/2016 Ot [...] MD Ot J32.9 CHRONIC SINUSITIS, UNSPECIFIED 11/13/2016 DEEPA RONDON MD Ot Z01.818 ENCOUNTER FOR [...] 11/14/2016 JEANNETTE BROWN MD Ot Z79.899 OTHER SECURITY REP (CURRENT) DRUG THERAPY 11/14/2016 DEEPA RONDON MD [...] DISEASE, STAGE 3 (MODERAT 11/14/2016 ZAC GILLETTE DO, Ot R10.9 UNSPECIFIED ABDOMINAL PAIN 11/14/2016 DEEPA [...] MD Ot J32.0 CHRONIC MAXILLARY SINUSITIS 11/20/2016 EDEPA RONDON MD Ot J32.2 CHRONIC ETHMOIDAL SINUSITIS 11/20/2016 DEEPA RONDON MD Ot 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 11/21/2016 DEEPA RONDON MD Ot J32.0 CHRONIC MAXILLARY SINUSITIS 11/21/2016 DEEPA RONDON MD Ot J32.2 CHRONIC ETHMOIDAL SINUSITIS 11/21/2016 DEEPA RONDON MD Ot 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 12/03/2016 JEANNETTE BROWN MD Ot D50.9 IRON DEFICIENCY ANEMIA, UNSPECIFIED 12/03/2016 JEANNETTE BROWN MD Ot D80.1 NONFAMILIAL HYPOGAMMAGLOBULINEMIA 12/03/2016 JEANNETTE BROWN MD Ot M06.9 RHEUMATOID ARTHRITIS, UNSPECIFIED 12/03/2016 JEANNETTE BROWN MD Ot M32.10 SYSTEMIC LUPUS ERYTHEMATOSUS, ORGAN OR S 12/03/2016 JEANNETTE BROWN MD Ot Z79.899 OTHER SECURITY REP (CURRENT) DRUG THERAPY 12/24/2016 Ot 719.66 JOINT SYMPTOM NEC-L/LEG 12/24/2016 Ot V72.63 PRE- PROCEDURAL LABORATORY EXAMINATION 12/24/2016 Ot V74.8 SCREEN- BACTERIAL DIS NEC 12/24/2016 Ot 786.50 CHEST PAIN NOS 12/24/2016 Ot 793.19 OTHER NONSPECIFIC ABNORMAL FINDING OF MYESHA 12/24/2016 FARIHA EDMONDSON DO Ot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 epithelial cells detection in urine sediment by light microscopy 2-5 NRG Crystals detection in urine sediment by light microscopy PRESENT NRG Casts detection in urine sediment by light microscopy PRESENT NRG Mucus detection in urine sediment by light microscopy NEGATIVE NRG Complete urinalysis with reflex to culture NO NRG Amorphous sediment detection in urine sediment by light microscopy FEW SIGIFREDO URATES NRG Granular casts detection in urine sediment by light microscopy 0-2 NRG Complete blood count (CBC) with automated white blood cell (WBC) differential - 01/31/17 16:20 Blood leukocytes automated count (number/volume) 5.3 10*3/uL 4.3-11.0 Blood erythrocytes automated count (number/volume) 4.16 10*6/uL 4.35-5.85 Venous blood hemoglobin measurement (mass/volume) 12.2 g/dL 11.5-16.0 Blood hematocrit (volume fraction) 38 % 35-52 Automated erythrocyte mean corpuscular volume 90 [foz_us] 80-99 Automated erythrocyte mean corpuscular hemoglobin (mass per erythrocyte) 29 pg 25-34 Automated erythrocyte mean corpuscular hemoglobin concentration measurement ( mass/volume) 32 g/dL 32-36 Automated erythrocyte distribution width ratio 16.4 % 10.0-14.5 Automated blood platelet count (count/volume) 270 10*3/uL 130-400 Automated blood platelet mean volume measurement 12.0 [foz_us] 7.4-10.4 Automated blood neutrophils/100 leukocytes 59 % 42-75 Automated blood lymphocytes/100 leukocytes 30 % 12-44 Blood monocytes/100 leukocytes 6 % 0-12 Automated blood eosinophils/100 leukocytes 4 % 0-10 Automated blood basophils/100 leukocytes 1 % 0-10 Blood neutrophils automated count (number/volume) 3.2 10*3 1.8-7.8 Blood lymphocytes automated count (number/volume) 1.6 10*3 1.0-4.0 Blood monocytes automated count (number/volume) 0.3 10*3 0.0-1.0 Automated eosinophil count 0.2 10*3/uL 0.0-0.3 Automated blood basophil count (count/volume) 0.0 10*3/uL 0.0-0.1 Serum or plasma renal function panel (Na, K, Cl, CO2, BUN, Cr, glucose,Ca, phos , alb) - 01/31/17 16:20 Serum or plasma sodium measurement (moles/volume) 141 mmol/L 135-145 Serum or plasma potassium measurement (moles/volume) 3.9 mmol/L 3.6-5.0 Serum or plasma chloride measurement (moles/volume) 113 mmol/L 98-107 Carbon dioxide 19 mmol/L 21-32 Serum or plasma anion gap determination (moles/volume) 9 mmol/L 5-14 Serum or plasma urea nitrogen measurement (mass/volume) 13 mg/dL 7-18 Serum or plasma creatinine measurement (mass/volume) 1.13 mg/dL 0.60-1.30 Serum or plasma urea nitrogen/creatinine mass ratio 12 0 -20 Serum or plasma creatinine measurement with calculation of estimated glomerular filtration rate 52 NRG Serum or plasma glucose measurement (mass/volume) 144 mg/dL 70-105 Serum or plasma calcium measurement (mass/volume) 8.9 mg/dL 8.5-10.1 Serum or plasma albumin measurement (mass/volume) 3.8 g/dL 3.2-4.5 Serum or plasma phosphate measurement (mass/volume) 2.9 mg/dL 2.3-4.7 Complete blood count (CBC) with automated white blood cell (WBC) differential - 06/13/17 10:35 Blood leukocytes automated count (number/volume) 7.8 10*3/uL 4.3-11.0 Blood erythrocytes automated count (number/volume) 5.31 10*6/uL 4.35-5.85 Venous blood hemoglobin measurement (mass/volume) 13.6 g/dL 11.5-16.0 Blood hematocrit (volume fraction) 44 % 35-52 Automated erythrocyte mean corpuscular volume 82 [foz_us] 80-99 Automated erythrocyte mean corpuscular hemoglobin (mass per erythrocyte) 26 pg 25-34 Automated erythrocyte mean corpuscular hemoglobin concentration measurement ( mass/volume) 31 g/dL 32-36 Automated erythrocyte distribution width ratio 18.8 % 10.0-14.5 Automated blood platelet count (count/volume) 371 10*3/uL 130-400 Automated blood platelet mean volume measurement 11.9 [foz_us] 7.4-10.4 Automated blood neutrophils/100 leukocytes 62 % 42-75 Automated blood lymphocytes/100 leukocytes 28 % 12-44 Blood monocytes/100 leukocytes 6 % 0-12 Automated blood eosinophils/100 leukocytes 4 % 0-10 Automated blood basophils/100 leukocytes 1 % 0-10 Blood neutrophils automated count (number/volume) 4.8 10*3 1.8-7.8 Blood lymphocytes automated count (number/volume) 2.1 10*3 1.0-4.0 Blood monocytes automated count (number/volume) 0.5 10*3 0.0-1.0 Automated eosinophil count 0.3 10*3/uL 0.0-0.3 Automated blood basophil count (count/volume) 0.1 10*3/uL 0.0-0.1 Complete urinalysis with reflex to culture - 06/13/17 10:35 Urine color determination YELLOW NRG Urine clarity determination CLEAR NRG Urine pH measurement by test strip 6.5 5-9 Specific gravity of urine by test strip 1.015 1.016- 1.022 Urine protein assay by test strip, semi-quantitative NEGATIVE NEGATIVE Urine glucose detection by automated test strip NEGATIVE NEGATIVE Erythrocytes detection in urine sediment by light microscopy NEGATIVE NEGATIVE Urine ketones detection by automated test strip NEGATIVE NEGATIVE Urine nitrite detection by test strip NEGATIVE NEGATIVE Urine total bilirubin detection by test strip NEGATIVE NEGATIVE Urine urobilinogen measurement by automated test strip (mass/volume) NORMAL NORMAL Urine leukocyte esterase detection by dipstick NEGATIVE NEGATIVE Automated urine sediment erythrocyte count by microscopy (number/high power field) NONE NRG Automated urine sediment leukocyte count by microscopy (number/high power field ) NONE NRG Bacteria detection in urine sediment by light microscopy NEGATIVE NRG Squamous epithelial cells detection in urine sediment by light microscopy 5-10 NRG Crystals detection in urine sediment by light microscopy NONE NRG Casts detection in urine sediment by light microscopy NONE NRG Mucus detection in urine sediment by light microscopy NEGATIVE NRG Complete urinalysis with reflex to culture NO NRG Amorphous sediment detection in urine sediment by light microscopy MOD SIGIFREDO URATES NRG Serum or plasma renal function panel (Na, K, Cl, CO2, BUN, Cr, glucose,Ca, phos , alb) - 06/13/17 10:35 Serum or plasma sodium measurement (moles/volume) 143 mmol/L 135-145 Serum or plasma potassium measurement (moles/volume) 3.5 mmol/L 3.6-5.0 Serum or plasma chloride measurement (moles/volume) 109 mmol/L 98-107 Carbon dioxide 21 mmol/L 21-32 Serum or plasma anion gap determination (moles/volume) 13 mmol/L 5-14 Serum or plasma urea nitrogen measurement (mass/volume) 23 mg/dL 7-18 Serum or plasma creatinine measurement (mass/volume) 1.34 mg/dL 0.60-1.30 Serum or plasma urea nitrogen/creatinine mass ratio 17 NRG Serum or plasma creatinine measurement with calculation of estimated glomerular filtration rate 42 NRG Serum or plasma glucose measurement (mass/volume) 119 mg/dL 70-105 Serum or plasma calcium measurement (mass/volume) 9.9 mg/dL 8.5-10.1 Serum or plasma albumin measurement (mass/volume) 4.9 g/dL 3.2-4.5 Serum or plasma phosphate measurement (mass/volume) 3.2 mg/dL 2.3-4.7 Influenza virus A and B antigen detection - 08/27/17 15:14 FLU RESULT NEGATIVE FOR INFLUENZA A AND B ANTIGENS BY IA NRG Encounters ACCT No. Visit Date/Time Discharge Status Pt. Type Provider Facility Loc./Unit Complaint [id number] 10/13/2017 06:13:00 10/13/2017 14:14:00 DIS Outpatient AZEEM RABAGO MD [facility] [address] PREOP CATARACT LEFT EYE [id number] 09/11/2017 14:13:00 09/11/2017 23:59:59 CLS Outpatient ESTELITA BAUM MD [facility] [address] ONC [id number] 08/27/2017 14:58:00 08/27/2017 23:59:59 CLS Outpatient FARIHA EDMONDSON DO [facility] [address] LAB J11.1 [id number] 07/16/2017 12:41:00 07/16/2017 23:59:59 CLS Outpatient FARIHA EDMONDSON DO [facility] [address] RAD R AXILLARY PAIN [id number] 06/13/2017 10:28:00 06/13/2017 23:59:59 CLS Outpatient ZAC GILLETTE DO [facility] [address] LAB R82.99 N83.299 R60.9 [id number] 01/31/2017 15:40:00 01/31/2017 23:59:59 CLS Outpatient ZAC GILLETTE DO [facility] [address] LAB N18.3 [id number] 01/22/2017 11:20:00 01/22/2017 23:59:59 CLS Outpatient SUAD LADD DPM Q [facility] [address] RAD TARSAL TUNNEL SYNDROME G57.50 [id number] 01/22/2017 11:10:00 01/22/2017 23:59:59 CLS Outpatient PARK HAWKINS MD [facility] [address] RAD SPONDYLOSIS OF CERVIAL REGION W/O MYELOPATHY [id number] 12/24/2016 14:28:00 12/24/2016 23:59:59 CLS Outpatient ZAC GILLETTE DO [facility] [address] LAB N17.9 R10.9 E83.51 N18.3 [id number] 09/04/2016 09:51:00 12/03/2016 00:01:00 DIS Outpatient JEANNETTE BROWN MD [facility] [address] ONC [id number] 11/27/2016 22:40:00 11/27/2016 23:59:59 CLS Preadmit MARGOTH BEY, MALCOLM Gross [facility] [address] HH PSUEDOMONAS INFECTION [id number] 11/14/2016 06:06:00 11/14/2016 12:20:00 DIS Outpatient DEEPA RONDON MD [facility] [address] SDC SLIPPED SEPTAL BUTTON [id number] 11/11/2016 11:43:00 11/11/2016 15:00:00 DIS Outpatient DEEPA RONDON MD [facility] [address] PREOP SEPTAL BUTTON [id number] 10/01/2016 10:43:00 10/01/2016 23:59:59 CLS Outpatient ZAC GILLETTE DO [facility] [address] LAB KD STAGE III [id number] 10/01/2016 09:42:00 10/01/2016 23:59:59 CLS Outpatient DEEPA RONDON MD [facility] [address] RAD COUGH [id number] 09/21/2016 09:42:00 09/21/2016 23:59:59 CLS Outpatient DEEPA RONDON MD [facility] [address] LAB UN PAROTITIS IN IMMUNOSUPPRESSED PT [id number] 09/13/2016 11:58:00 09/13/2016 23:59:59 CLS Outpatient ZAC GILLETTE DO [facility] [address] RAD ACUTE RENAL FAILURE [id number] 09/04/2016 10:28:00 09/04/2016 23:59:59 CLS Outpatient ZAC GILLETTE DO [facility] [address] LAB [id number] 09/04/2016 09:47:00 09/04/2016 09:47:00 CAN Preadmit JEANNETTE BROWN MD [facility] [address] ONC [id number] 08/20/2016 06:15:00 08/20/2016 23:59:59 CLS Outpatient DEEPA RONDON MD [facility] [address] PREOP SLIPPED SEPTAL BUTTON [id number] 05/16/2016 15:01:00 08/13/2016 00:01:00 DIS Outpatient JEANNETTE BROWN MD [facility] [address] ONC [id number] 06/10/2016 16:26:00 06/10/2016 23:59:59 CLS Outpatient LION EDMONDSON [facility] [address] RAD MASS LT SALIVARY GLAND [id number] 04/19/2016 15:05:00 05/13/2016 11:08:00 DIS Outpatient JEANNETTE BROWN MD [facility] [address] ONC [id number] 05/08/2016 09:19:00 05/08/2016 23:59:59 CLS Outpatient FARIHA EDMONDSON DO [facility] PORT ACCESS [id number] 03/19/2016 13:28:00 03/19/2016 23:59:59 CLS Outpatient FARIHA EDMONDSON DO [facility] [address] LAB IRON DEFICIENCY [id number] 02/16/2016 07:07:00 02/16/2016 13:20:00 DIS Outpatient DEEPA RONDON MD [facility] CHRONIC SINUSITIS, DEVIATED SEPTUM [id number] 02/13/2016 05:32:00 02/13/2016 09:44:00 DIS Outpatient DEEPA RONDON MD [facility] [address] PREOP SEPTAL NASAL PERF [id number] 01/15/2016 13:58:00 01/15/2016 16:20:00 DIS Outpatient DEEPA RONDON MD [facility] [address] PREOP SINUSITIS,DEVAITED SEPTUM [id number] 10/19/2015 14:21:00 10/19/2015 23:59:59 CLS Outpatient FARIHA EDMONDSON DO [facility] [address] RAD CONTUSSION OF THROAT [id number] 10/06/2015 13:26:00 10/06/2015 23:59:59 CLS Outpatient BOGDAN BARBOUR [facility] [address] QUICK [id number] 07/03/2015 15:17:00 10/01/2015 00:01:00 DIS Outpatient LION EDMONDSON [facility] [address] LAB [id number] 09/11/2015 13:51:00 09/11/2015 23:59:59 CLS Outpatient FARIHA EDMONDSON DO [facility] [address] LAB Rheumatoid arthritis, Iron deficiency anemia, unspe [id number] 08/16/2015 00:08:00 08/16/2015 23:59:59 CLS Preadmit JEANNETTE BROWN MD [facility] [address] ONC [id number] 05/05/2015 09:45:00 08/15/2015 00:01:00 DIS Outpatient JEANNETTE BROWN MD [facility] [address] ONC [id number] 07/14/2015 10:49:00 08/10/2015 00:01:00 DIS Outpatient JEANNETTE BROWN MD [facility] [address] ONC [id number] 07/12/2015 13:13:00 07/12/2015 23:59:59 CLS Outpatient ZAC GILLETTE DO [facility] LAB [id number] 07/05/2015 14:39:00 07/05/2015 23:59:59 CLS Outpatient DAX MCGINNIS MD [facility] [address] LAB [id number] 06/26/2015 14:32:00 06/26/2015 23:59:59 CLS Outpatient FARIHA EDMONDSON DO [facility] [address] LAB [id number] 06/21/2015 15:03:00 06/21/2015 23:59:59 CLS Outpatient LION EDMONDSON [facility] [address] LAB FEVER [id number] 05/31/2015 09:23:00 05/31/2015 23:59:59 CLS Outpatient LION EDMONDSON [facility] [address] LAB [id number] 03/30/2015 10:27:00 04/06/2015 00:01:00 DIS Outpatient JEANNETTE BROWN MD [facility] [address] ONC [id number] 03/30/2015 20:42:00 03/31/2015 15:50:00 DIS Inpatient DEANDRE SPENCER DO [facility] [address] CSD CHEST PAIN [id number] 02/09/2015 09:37:00 02/09/2015 23:59:59 CLS Outpatient ZAC GILLETTE DO [facility] [address] RAD HEMATURIA,ACUTE RENAL FAILURE [id number] 02/02/2015 11:05:00 02/02/2015 23:59:59 CLS Outpatient ZAC GILLETTE DO [facility] LAB [id number] 01/03/2015 11:55:00 01/03/2015 00:01:00 DIS Outpatient JEANNETTE BROWN MD [facility] [address] ONC [id number] 11/16/2014 14:45:00 11/16/2014 23:59:59 CLS Outpatient FARIHA EDMONDSON DO [facility] RAD SMOKE INHALATION, FEVER [id number] 11/16/2014 14:00:00 11/16/2014 23:59:59 ALFRED Outpatient FARIHA EDMONDSON DO [facility] [address] LAB [id number] 11/10/2014 16:02:00 11/10/2014 23:59:59 CLS Outpatient ZAC GILLETTE DO [facility] [address] LAB [id number] 11/07/2014 17:35:00 11/07/2014 23:59:59 CLS Outpatient FARIHA EDMONDSON DO [facility] [address] SURG RCR PORT ACCESS [id number] 11/07/2014 17:31:00 11/07/2014 23:59:59 ALFRED Outpatient FARIHA EDMONDSON DO [facility] [address] LAB ACUTE BRONCHITIS [id number] 10/31/2014 13:48:00 10/31/2014 23:59:59 CLS Outpatient ZAC GILLETTE DO [facility] [address] LAB [id number] 09/27/2014 09:50:00 09/27/2014 23:59:59 CLS Outpatient ZAC GILLETTE DO [facility] [address] LAB [id number] 09/07/2014 09:39:00 09/07/2014 23:59:59 CLS Outpatient JEANNETTE BROWN MD [facility] [address] ONC [id number] 08/25/2014 11:33:00 08/25/2014 23:59:59 CLS Outpatient FARIHA EDMONDSON DO [facility] [address] RAD [id number] 08/25/2014 11:26:00 08/25/2014 23:59:59 CLS Outpatient FARIHA EDMONDSON DO [facility] [address] LAB [id number] 07/05/2014 10:16:00 07/05/2014 23:59:59 CLS Outpatient ZAC GILLETTE DO [facility] [address] LAB [id number] 06/13/2014 12:52:00 06/29/2014 00:01:00 DIS Outpatient JEANNETTE BROWN MD [facility] [address] ONC [id number] 01/04/2014 10:35:00 04/04/2014 00:01:00 DIS Outpatient FARIHA EDMONDSON DO [facility] [address] LAB CHRONIC KIDNEY DISEASE [id number] 02/01/2014 09:54:00 03/08/2014 00:01:00 DIS Outpatient JEANNETTE BROWN MD [facility] [address] ONC [id number] 02/01/2014 09:57:00 02/01/2014 23:59:59 CLS Outpatient DAX MCGINNIS MD [facility] [address] LAB [id number] 01/27/2014 10:17:00 01/27/2014 23:59:59 CLS Outpatient FARIHA EDMONDSON DO [facility] [address] ONC [id number] 01/22/2014 23:49:00 01/23/2014 02:05:00 DIS Opal LAND MD, PATRICK Tran [facility] [address] ER HEADACHE;ON IV ANTIBIOTICS [id number] 01/17/2014 16:26:00 01/17/2014 23:59:59 CLS Outpatient FARIHA EDMONDSON DO [facility] [address] ONC [id number] 01/13/2014 10:22:00 01/13/2014 23:59:59 CLS Outpatient FARIHA EDMONDSON DO [facility] TICK BITE,HEADACHE, FEVER [id number] 01/12/2014 15:07:00 01/12/2014 23:59:59 CLS Outpatient FARIHA EDMONDSON DO [facility] LAB [id number] 01/04/2014 10:41:00 01/04/2014 23:59:59 CLS Outpatient FARIHA EDMONDSON DO [facility] [address] RAD RENAL INSUFFINCENCY [id number] 12/08/2013 09:04:00 12/08/2013 23:59:59 CLS Outpatient MARIA LUZ ANDRADE POMOLOGIST [facility] [address] ONC [id number] 11/16/2013 08:54:00 12/06/2013 00:01:00 DIS Outpatient JEANNETTE BROWN MD [facility] [address] ONC [id number] 11/25/2013 08:52:00 11/25/2013 23:59:59 CLS Outpatient FARIHA EDMONDSON DO [facility] RAD SCREENING [id number] 09/27/2013 16:00:00 09/27/2013 23:59:59 CLS Outpatient RIDINGSLION APRN [facility] RAD COUGH,PNUEMOINA [id number] 09/22/2013 14:36:00 09/22/2013 23:59:59 CLS Outpatient LION EDMONDSON POMOLOGIST [facility] PNUEMONIA, DIABETES [id number] 06/08/2013 11:23:00 09/06/2013 00:01:00 DIS Outpatient RIDINGSLION APRN [facility] MONTHLY PORT FLUSH [id number] 08/23/2013 15:46:00 08/23/2013 23:59:59 CLS Outpatient FARIHA EDMONDSON DO [facility] ANEMIA [id number] 04/27/2013 07:31:00 07/25/2013 00:01:00 DIS Outpatient RIDINGSLOIN NATURAL GAS TECHNICIAN [facility] LAB COUGH/CHILLS, ELEVATED TEMP [id number] 06/08/2013 11:17:00 06/08/2013 23:59:59 CLS Outpatient FARIHA EDMONDSON DO [facility] RAD TRAUMA [id number] 04/04/2013 21:53:00 04/06/2013 12:22:00 DIS Inpatient FARIHA EDMONDSON DO [facility] 4TH PNEUMONIA UNRESPONSIVE TO OUTPATIENT TREATMENT [id number] 10/17/2017 12:00:00 PEN Preadmit AZEEM RABAGO MD [facility] [address] SDC CATARACT LEFT EYE [id number] 11/07/2014 17:31:00 Document Registration [id number] 11/07/2014 17:31:00 Document Registration [id number] 11/07/2014 17:31:00 Document Registration [id number] 11/07/2014 17:31:00 Document Registration [id number] 11/07/2014 17:30:00 Document Registration [id number] 04/05/2014 00:00:00 Document Registration [id number] 09/07/2013 00:00:00 Document Registration [id number] 07/26/2013 00:00:00 Document Registration [id number] 09/17/2012 18:45:00 Document Registration [id number] 09/04/2012 12:27:00 Document Registration [id number] 07/21/2012 08:17:00 Document Registration [id number] 08/09/2011 13:43:00 Document Registration [id number] 06/19/2011 08:59:00 Document Registration [id number] 06/07/2011 11:43:00 Document Registration [id number] 05/25/2011 11:02:00 Document Registration [id number] 05/20/2011 12:14:00 Document Registration [id number] 05/18/2011 11:19:00 Document Registration
== END 2017-10-17 11:52 | disposition home or self-care (01) ==
LOC: SDC 09:56
PROVIDERS: ATTEND Specialist
DX: H25.9 Unspecified age-related cataract (principal); M06.9 Rheumatoid arthritis, unspecified; N18.9 Chronic kidney disease, unspecified; M35.00 Sjogren syndrome, unspecified; G62.9 Polyneuropathy, unspecified; F32.9 Major depressive disorder, single episode, unspecified; F41.9 Anxiety disorder, unspecified; Z87.891 Personal history of nicotine dependence; Z86.718 Personal history of other venous thrombosis and embolism; Z79.01 Long term (current) use of anticoagulants; Z79.899 Other long term (current) drug therapy
CPT/HCPCS: 84703

== ENCOUNTER → 2017-10-27 | Outpatient (CLI) | payer OTHER, MEDICARE ==
[2017-10-27 14:28] LABS: BASOPHILS % (AUTO) 0 % (0-10); EOSINOPHILS # (AUTO) 0.1 10^3/uL (0.0-0.3); EOSINOPHILS % (AUTO) 1 % (0-10); HEMATOCRIT 43 % (35-52); HEMOGLOBIN 14.8 G/DL (11.5-16.0); LYMPHOCYTES # (AUTO) 1.5 X 10^3 (1.0-4.0); LYMPHOCYTES % (AUTO) 21 % (12-44); MEAN CORPUSCULAR HEMOGLOBIN 31 PG (25-34); MEAN CORPUSCULAR HGB CONC 35 G/DL (32-36); MEAN CORPUSCULAR VOLUME 89 FL (80-99); MEAN PLATELET VOLUME 12.3 FL (7.4-10.4); MONOCYTES # (AUTO) 0.3 X 10^3 (0.0-1.0); MONOCYTES % (AUTO) 4 % (0-12); NEUTROPHILS # (AUTO) 5.1 X 10^3 (1.8-7.8); NEUTROPHILS % (AUTO) 73 % (42-75); PLATELET COUNT 207 10^3/uL (130-400); RED BLOOD COUNT 4.81 10^6/uL (4.35-5.85); RED CELL DISTRIBUTION WIDTH 18.6 % (10.0-14.5)
[2017-10-27 14:32] LABS: BILIRUBIN,URINE NEGATIVE (NEGATIVE); CLARITY,URINE SLIGHTLY CLOUDY; COLOR,URINE YELLOW; GLUCOSE, URINE (UA) NEGATIVE (NEGATIVE); KETONES,URINE NEGATIVE (NEGATIVE); LEUKOCYTE ESTERASE ,URINE NEGATIVE (NEGATIVE); NITRITE,URINE NEGATIVE (NEGATIVE); PH,URINE 5 (5-9); PROTEIN,URINE NEGATIVE (NEGATIVE); UROBILINOGEN,URINE NORMAL (NORMAL)
[2017-10-27 14:51] LABS: BACTERIA,URINE NEGATIVE /HPF
[2017-10-27 14:52] LABS: ALBUMIN 4.3 GM/DL (3.2-4.5); CALCIUM 8.9 MG/DL (8.5-10.1); CREATININE SERUM 1.11 MG/DL (0.60-1.30); MAGNESIUM 2.1 MG/DL (1.8-2.4); PHOSPHORUS 2.4 MG/DL (2.3-4.7); POTASSIUM 3.6 MMOL/L (3.6-5.0); RBC,URINE 0-2 /HPF; URIC ACID 5.8 MG/DL (2.6-7.2)
[2017-10-27 15:04] LABS: URINE CREATININE FOR RATIO 77 MG/DL (30-125); URINE PROTEIN FOR RATIO ONLY < 6 MG/DL (6-12)
== END ==
LOC: LAB 13:47
PROVIDERS: ATTEND Internal Medicine Nephrology
DX: E87.6 Hypokalemia (principal); R60.9 Edema, unspecified; R82.99 Other abnormal findings in urine
CPT/HCPCS: 36415; 80069; 81000; 82306; 82570; 83735; 83970; 84156; 84550; 85025; 86160; 86225

== ENCOUNTER 2018-03-27 09:06 | Outpatient (RCR) | payer OTHER, MEDICARE ==
[~2018-03-27 09:06] MED LIST changes: -METH2.5T PO; -OXYC-197 PO; +OXYC1TAB87 PO
[2018-03-27 09:14] LABS: BASOPHILS % (AUTO) 0 % (0-10); EOSINOPHILS # (AUTO) 0.1 10^3/uL (0.0-0.3); EOSINOPHILS % (AUTO) 2 % (0-10); HEMATOCRIT 41 % (35-52); HEMOGLOBIN 13.9 G/DL (11.5-16.0); LYMPHOCYTES # (AUTO) 1.1 X 10^3 (1.0-4.0); LYMPHOCYTES % (AUTO) 25 % (12-44); MEAN CORPUSCULAR HEMOGLOBIN 31 PG (25-34); MEAN CORPUSCULAR HGB CONC 34 G/DL (32-36); MEAN CORPUSCULAR VOLUME 92 FL (80-99); MEAN PLATELET VOLUME 12.5 FL (7.4-10.4); MONOCYTES # (AUTO) 0.2 X 10^3 (0.0-1.0); MONOCYTES % (AUTO) 5 % (0-12); NEUTROPHILS # (AUTO) 3.1 X 10^3 (1.8-7.8); NEUTROPHILS % (AUTO) 67 % (42-75); PLATELET COUNT 210 10^3/uL (130-400); RED BLOOD COUNT 4.45 10^6/uL (4.35-5.85); RED CELL DISTRIBUTION WIDTH 14.6 % (10.0-14.5); WHITE BLOOD COUNT 4.5 10^3/uL (4.3-11.0)
[2018-03-27 09:34] LABS: ALBUMIN 4.2 GM/DL (3.2-4.5); BILIRUBIN,TOTAL 0.3 MG/DL (0.1-1.0); CALCIUM 9.1 MG/DL (8.5-10.1); CREATININE SERUM 1.18 MG/DL (0.60-1.30); POTASSIUM 3.5 MMOL/L (3.6-5.0)
== END 2018-04-10 | disposition home or self-care (01) ==
LOC: ONC 09:06
PROVIDERS: ATTEND Internal Medicine Hematology & Oncology
DX: D80.1 Nonfamilial hypogammaglobulinemia (principal); D50.9 Iron deficiency anemia, unspecified; M32.10 Systemic lupus erythematosus, organ or system involvement unspecified; M06.9 Rheumatoid arthritis, unspecified; Z79.899 Other long term (current) drug therapy
CPT/HCPCS: 36591; 80053; 82784; 85025

== ENCOUNTER 2018-05-27 06:15 | Outpatient (CLI) | payer OTHER, MEDICARE ==
[~2018-05-27] VITALS: Ht 162.6 cm; Wt 79.8 kg
[~2018-05-27 06:15] MED LIST changes: -IVIG IV; +IVIG SC
[2018-05-27] MEDS ORDERED: METH25VI57 SC (14:23)
[2018-05-27] MEDS ORDERED: HYDR200T78 PO (14:23)
[2018-05-27] MEDS ORDERED: CYCL1DRO OP (14:23)
[2018-05-27] MEDS ORDERED: LEVO50TA PO (14:23)
== END 2018-05-27 14:31 | disposition home or self-care (01) ==
LOC: PREOP 06:15
PROVIDERS: ATTEND Specialist
DX: Z01.818 Encounter for other preprocedural examination (principal)

== ENCOUNTER 2018-05-29 06:38 | Day surgery (SDC) | payer OTHER, MEDICARE ==
[~2018-05-29] VITALS: Ht 162.6 cm; Wt 79.8 kg
[~2018-05-29 06:38] MED LIST changes: +HYDR200T78 PO; +LEVO50TA PO; +METH25VI57 SC; +acetaZOLAMIDE ER 500 MG CAP (DIAMOX SEQUELS) PO ONE
--- OUTSIDE RECORDS SUMMARY | 2018-05-29 06:43 | XMS REPORT | Encounter Summary ---
Author Author [facility] Organization [facility] Address Unknown Phone Unavailable Care Team Providers Care Investment Officer Name Role Phone Sonal Calderon MD Unavailable Rina Flores RN Unavailable Unavailable Hever Moran MD Unavailable Marcello Hill MD PCP Reason for Visit * Reason Comments Medication Question vials vs Rasuvo Encounter Details Date Type Department Care Team Description 05/28/2018 Telephone [facility] Madalyn Sahu MD Medication Question Physicians-Rheumatology [address] [facility] (vials vs Rasuvo) [address] [place] [address] [place] [address] [phone] Social History Tobacco Use Types Packs/Day Years [...] encounter Miscellaneous Notes * Telephone Encounter - Roderick Yanez, BHAVANI - 05/28/2018 12:22 PM CDT Pt sent mycCutefundt message below. Per MYESHA note, "pt has noted improvement of her joint symptoms w/ SC mtx (rasuvo ) and has not had any infections. However, unable to afford the co-pay. - will increase mtx to 17.5 mg SC weekly and switch to mtx vials." Routing to Dr. Sahu for review and approval to switch back Rasuvo * Telephone Encounter - Roderick Yanez RN - 05/28/2018 12:22 PM CDT ----- Message from Mira Adame RN sent at 05/28/2018 11:50 AM CDT ----- Regarding: FW: Prescription Question Contact: ----- Message ----- From: Ritika Nuñez Sent: 05/28/2018 11:49 AM To: Nelson Mckeon Rheumatology Nurse Subject: Prescription Question My insurance will not cover sq methotrexate and it is going to cost MORE for me to draw up and administer it that route than to just use Rasuvo. Can you please call in the Rasuvo again for me to [facility]? Thank you! Kia Nuñez in this encounter Plan of Treatment Not on fileas of this encounter Visit Diagnoses Not on filein this encounter
--- OUTSIDE RECORDS SUMMARY | 2018-05-29 06:43 | XMS REPORT | Clinical Summary ---
Author [facility] Address Unknown Phone Unavailable Care Team Providers Care Overnight Houseperson Name Role Phone Sonal Calderon MD Unavailable Rina Flores RN Unavailable Unavailable Hever Moran MD Unavailable Marcello Hill MD PCP Source Comments Some departments are not documenting in the electronic medical record. If you do not see the information that you expected, contact Release of Information in the Health Information Management department at [phone] for further assistance in locating additional records.[facility] Allergies Active Allergy Reactions Severity Noted Date Comments Adhesive Tape (Rosins) RASH Medium 09/17/2017 Levofloxacin MUSCLE PAIN Medium 10/18/2016 tendonitis Tegaderm BLISTERS High 11/20/2016 Tramadol ANAPHYLAXIS 09/18/2012 Current Medications Prescription Sig. Disp. Refills Start End Date Status Date [place]-3 Fatty Acids Take 2 Caps by mouth [...] of 10/18/16 Frequency(how often): every 4 weeks cyclosporine (RESTASIS) Place 1 Drop into or [...] to both eyes Frequency(how often): every evening AMIKACIN (BULK) MISC Use as directed. Using Active amakacin in neti pot bid. ALPRAZolam (XANAX) 0.25 Take 0.25 mg by mouth Active mg tablet every 12 hours as needed. fluconazole (DIFLUCAN) Take 100 mg by mouth. Active 100 mg tablet mupirocin (BACTROBAN) 2 % Apply topically to 30 g 0 12/24/19 Active topical ointment affected area twice 18 daily. hydroxychloroquine Take one tablet by mouth 180 tablet 0 05/11/20 Active (PLAQUENIL) 200 mg tablet twice daily. Take with 18 food. methotrexate PF 25 mg/mL Inject 0.7 mL under the 3 mL 1 05/11/20 Active injection skin every 7 days. 18 Syringe with Needle Inject under the skin 12 Syringe 3 05/11/20 Active (Disp) (MONOJECT TB every 7 days. Use for 18 SAFETY SYRINGE) 1 mL 25 methotrexate injection gauge x 5/8" syrg once weekly. amoxicillin/K clavulanate Take 1 Tab by mouth every 05/11/20 Discontin (AUGMENTIN) 500/125 mg 12 hours. Take with food. 18 ued tablet hydroxychloroquine Take 1 tablet by mouth 180 tablet 0 03/16/2008/30 Discontin (PLAQUENIL) 200 mg tablet twice daily. Take with 18 18 ued food. methotrexate (PF) (RASUVO Inject 0.3 mL under the 4 Syringe 1 05/11/20 Discontin (PF)) 15 mg/0.3 mL skin every 7 days. 18 18 ued syringe Active Problems Problem Noted Date Nasal septal perforation 08/08/2017 Immunosuppressed status ([facility]) 07/07/2017 Pseudomonas infection 11/19/2016 Cellulitis 09/20/2012 SLE (systemic lupus erythematosus) ([facility]) 09/20/2012 Antiphospholipid antibody positive 09/20/2012 Encounters Date Type Specialty Care Team Description 05/28/2018 Telephone Rheumatology Madalyn Sahu MD Medication Question (vials vs Rasuvo) 05/11/2018 Office Visit Orthopedic Surgery Zhao Jackson MD Patellofemoral syndrome of both knees (Primary Dx) 05/11/2018 Office Visit Rheumatology Madalyn Sahu MD Inflammatory arthritis (Primary Dx); Chronic pain of both hips; Therapeutic drug monitoring; Pulmonary nodules; Polyarthralgia; Antiphospholipid syndrome ([facility]); Hypogammaglobulinemia ([facility]); Raynaud's disease without gangrene; Nasal septal perforation 05/11/2018 Refill Rheumatology Madalyn Sahu MD 04/14/2018 Pharmacy Visit 04/13/2018 Pharmacy Visit 04/10/2018 Telephone Rheumatology Madalyn Sahu MD Records Request ( Lab results - PCP) 03/20/2018 Pharmacy Visit 03/19/2018 Pharmacy Visit 03/19/2018 Pharmacy Visit 03/19/2018 Pharmacy Visit 03/16/2018 Hospital Radiology Madalyn Sahu MD Encounter 03/16/2018 Office Visit Rheumatology Madalyn Sahu MD Systemic lupus erythematosus (SLE) in adult ([facility]) (Primary Dx); Chronic pain of both knees; Therapeutic drug monitoring; Polyarthralgia; Antiphospholipid syndrome ([facility]); Hypogammaglobulinemia ([facility]); Recurrent infections; Fibromyalgia; Raynaud's disease without gangrene; Pulmonary nodules 03/16/2018 Hospital Lab Madalyn Sahu MD Encounter 03/16/2018 Pharmacy Visit from Last 3 Months Immunizations Name Dates Previously Given Next Due Flu Vaccine=>6 Months 06/27/2017 Quadrivalent PF Family History Medical History Relation Name Comments Suicide Brother Cancer Father Heart Attack Father Arthritis-osteo Mother Fibromyalgia Other Relation Name Status Comments Brother Father Mother Alive Other Social History Tobacco Use Types Packs/Day Years Used Date Never Smoker Smokeless Tobacco: Never Used Alcohol Use Drinks/Week oz/Week Comments Yes one glass of wine every week to two Sex Assigned at Date Recorded Not on file Last Filed Vital Signs Vital Sign Reading Time Taken Blood Pressure 100/68 05/11/2018 1:02 PM CDT Pulse 80 05/11/2018 1:02 PM CDT Temperature 36.7 C (98 F) 05/11/2018 11:00 AM CDT Respiratory Rate 16 05/11/2018 11:00 AM CDT Oxygen Saturation 98% 05/11/2018 11:00 AM CDT Inhaled Oxygen - - Concentration Weight 83.5 kg (184 lb) 05/11/2018 1:02 PM CDT Height 162.6 cm (5' 4") 05/11/2018 1:02 PM CDT Body Mass Index 31.58 05/11/2018 1:02 PM CDT Plan of Treatment Health Maintenance Due Date Last Done Comments PHYSICAL (COMPREHENSIVE) 1976 EXAM PERTUSSIS VACCINE 1980 HIV SCREENING 1984 TETANUS VACCINE 1986 CERVICAL CANCER SCREENING 1999 BREAST CANCER SCREENING 2009 INFLUENZA VACCINE 03/11/2018 06/27/2017 Procedures Procedure Name Priority Date/Time Associated Diagnosis Comments KNEE 3 VIEWS BILATERAL Routine 03/16/2018 Chronic pain of both Results for this 4:05 PM CDT knees procedure are in the Systemic lupus results section. erythematosus (SLE) in adult ([facility]) COMPREHENSIVE METABOLIC Routine 03/16/2018 Systemic lupus Results for this PANEL 11:24 AM CDT erythematosus (SLE) in procedure are in the adult ([facility]) results section. Therapeutic drug monitoring C REACTIVE PROTEIN (CRP) Routine 03/16/2018 Systemic lupus Results for this 11:24 AM CDT erythematosus (SLE) in procedure are in the adult ([facility]) results section. Therapeutic drug monitoring SED RATE Routine 03/16/2018 Systemic lupus Results for this 11:24 AM CDT erythematosus (SLE) in procedure are in the adult ([facility]) results section. Therapeutic drug monitoring CBC AND DIFF Routine 03/16/2018 Systemic lupus Results for this 11:24 AM CDT erythematosus (SLE) in procedure are in the adult ([facility]) results section. Therapeutic drug monitoring from Last 3 Months Results * KNEE 3 VIEWS BILATERAL (03/16/2018 4:05 PM) Impressions Performed At Osseous structures are intact without evidence of acute fracture or dislocation. [facility] Joint spaces are preserved. No osseous erosions. No joint effusions. No radiopaque foreign body. Finalized by EARLINE DANIELSON on 03/16/2018 4:10 PM. Dictated by EARLINE DANIELSON on 03/16/2018 4:09 PM. Narrative Performed At KNEE 3 VIEWS BILATERAL [facility] Indication: pt w/ hx of SLE, inflammatory arthritis. chronic B/L knee pain. Comparison: None Technique: Bilateral PA, lateral and merchant views Procedure Note Interface, Radiant Results - 03/16/2018 4:13 PM CDT KNEE 3 VIEWS BILATERAL Indication: pt w/ hx of SLE, inflammatory arthritis. chronic B/L knee pain. Comparison: None Technique: Bilateral PA, lateral and merchant views IMPRESSION Osseous structures are intact without evidence of acute fracture or dislocation. Joint spaces are preserved. No osseous erosions. No joint effusions. No radiopaque foreign body. Finalized by EARLINE DANIELSON on 03/16/2018 4:10 PM. Dictated by EARLINE DANIELSON on 03/16/2018 4:09 PM. Performing Organization Address City/[facility]/Zipcode Phone Number [facility] * SED RATE (03/16/2018 11:24 AM) Sed Rate -ESR 5 0 - 20 MM/HR [facility] Specimen Blood Performing Organization Address City/[facility]/Zipcode Phone Number [facility] [address] [place] [address] * CBC AND DIFF (03/16/2018 11:24 AM) White Blood Cells 4.1 (L) 4.5 - 11.0 K/UL [facility] RBC 4.24 4.0 - 5.0 M/UL [facility] Hemoglobin 13.3 12.0 - 15.0 GM/DL [facility] Hematocrit 40.4 36 - 45 % [facility] MCV 95.4 80 - 100 FL [facility] MCH 31.3 26 - 34 PG [facility] MCHC 32.8 32.0 - 36.0 G/DL [facility] RDW 15.8 (H) 11 - 15 % [facility] Platelet Count 221 150 - 400 K/UL [facility] MPV 11.9 (H) 7 - 11 FL [facility] Neutrophils 68 41 - 77 % [facility] Lymphocytes 27 24 - 44 % [facility] Monocytes 5 4 - 12 % [facility] Eosinophils 0 0 - 5 % [facility] Basophils 0 0 - 2 % [facility] Absolute Neutrophil Count 2.80 1.8 - 7.0 K/UL [facility] Absolute Lymph Count 1.10 1.0 - 4.8 K/UL [facility] Absolute Monocyte Count 0.20 0 - 0.80 K/UL [facility] Absolute Eosinophil Count 0.00 0 - 0.45 K/UL [facility] Absolute Basophil Count 0.00 0 - 0.20 K/UL [facility] Specimen Blood Performing Organization Address [facility] Phone Number [facility] [address] [place] [address] * C REACTIVE PROTEIN (CRP) (03/16/2018 11:24 AM) C-Reactive Protein 0.73 <1.0 MG/DL [facility] Specimen Blood Performing Organization Address [facility] Phone Number [facility] [address] [place] [address] * COMPREHENSIVE METABOLIC PANEL (03/16/2018 11:24 AM) Sodium 139 137 - 147 MMOL/L [facility] Potassium 3.1 (L) 3.5 - 5.1 MMOL/L [facility] Chloride 106 98 - 110 MMOL/L [facility] Glucose 128 (H) 70 - 100 MG/DL [facility] Blood Urea Nitrogen 19 7 - 25 MG/DL [facility] Creatinine 1.21 (H) 0.4 - 1.00 MG/DL [facility] Calcium 9.7 8.5 - 10.6 MG/DL [facility] Total Protein 7.3 6.0 - 8.0 G/DL [facility] Total Bilirubin 0.2 (L) 0.3 - 1.2 MG/DL [facility] Albumin 4.4 3.5 - 5.0 G/DL [facility] Alk Phosphatase 59 25 - 110 U/L [facility] AST (SGOT) 24 7 - 40 U/L [facility] CO2 23 21 - 30 MMOL/L [facility] ALT (SGPT) 13 7 - 56 U/L [facility] Anion Gap 10 3 - 12 [facility] eGFR Non 47 (L) >60 mL/min [facility] Comment: The eGFR is not validated for use in drug dosing adjustments.Continue to use estimated creatinine clearance per dosing reference text.Please contact the Clinical Pharmacist for questions. eGFR 57 (L) >60 mL/min [facility] Comment: The eGFR is not validated for use in drug dosing adjustments.Continue to use estimated creatinine clearance per dosing reference text.Please contact the Clinical Pharmacist for questions. Specimen Blood Performing Organization Address City/State/Zipcode Phone Number [facility] [address] [place] [address] from Last 3 Months
--- OUTSIDE RECORDS SUMMARY | 2018-05-29 06:44 | XMS REPORT | Encounter Summary ---
Author Author [facility] Organization [facility] Address Unknown Phone Unavailable Care Team Providers Care Preflight Mechanic Name Role Phone Sonal Calderon MD Unavailable Rina Flores RN Unavailable Unavailable Hever Moran MD Unavailable Marcello Hill MD PCP Encounter Details Date Type Department Care Team Description 03/20/2018 Pharmacy Visit [facility] [address] [facility] [address] [place] [phone] Social History Tobacco Use Types Packs/Day Years [...]
--- OUTSIDE RECORDS SUMMARY | 2018-05-29 06:44 | XMS REPORT | Encounter Summary ---
Author Author [facility] Organization [facility] Address Unknown Phone Unavailable Care Team Providers Care Home Supervisor Name Role Phone Sonal Calderon MD Unavailable Rina Flores RN Unavailable Unavailable Hever Moran MD Unavailable Marcello Hill MD PCP Reason for Referral * Consult, Test & Treat (Routine) Status Reason Specialty Diagnoses / Referred By Referred To Procedures Contact Contact Closed Specialty Diagnoses Zhao Jackson, Services Patellofemoral MD Required syndrome of both [address] [place] [address] Reason for Visit * Reason Comments Knee Pain Bilat * Consult, Test & Treat Status Reason Specialty Diagnoses / Referred By Referred To Procedures Contact Contact No Auth Needed Specialty Orthopedic Surgery Diagnoses Madalyn Sahu Vopat, Bryan G, MD Services Chronic pain of MD [address] Required both knees [address] [place], [place] erythematosus [place] [address] [phone] (SLE) in adult [place], [place] Phone: [facility]) [address] Phone: Encounter Details Date Type Department Care Team Description 05/11/2018 Office Visit [facility] Zhao Jackson MD Patellofemoral syndrome Physicians - Orthopedics [address] of both knees ([facility] Orth[facility] [address] [place]x) [place] [address] [address] [facility] [phone] [place] [address] Social History Tobacco Use Types Packs/Day Years [...] Pulse 80 05/11/2018 1:02 PM CDT Temperature - - Respiratory Rate - - Oxygen Saturation - - Inhaled Oxygen - - Concentration Weight 83.5 kg (184 lb) 05/11/2018 1:02 PM CDT Height 162.6 cm (5' 4") 05/11/2018 1:02 PM CDT Body Mass Index 31.58 05/11/2018 1:02 PM CDT in this encounter Functional Status Functional Status [...] impairment: No 11/20/2016 as of this encounter Instructions * Patient Instructions - Nina Cano, BHAVANI - 05/11/2018 1:10 PM CDT Neoprene Knee Braces Please do not hesitate to contact my office with any questions. Dr. Zhao Jackson | Orthopedic Surgeon, Sports Medicine [facility] | | [phone] [address] [facility], [address] | [place] [address] Nina SIMONN, RN | Clinical Nurse Coordinator Bg SMITH, RN | Clinical Nurse Coordinator Lorene Bucio [facility], [facility] | Psychiatric Specialist in this encounter Progress Notes * Zhao Jackson MD - 05/11/2018 1:10 PM CDT Formatting of this note may be different from the original. Date of Service: 05/11/2018 Chief Complaint Patient presents with Knee Pain Bilat Patient is a 39-year-old female presents to clinic with long-standing history of bilateral knee pain without any specific injury. She does have rheumatoid arthritis and a number of other rheumatologic diseases. She reports that she is tried steroids injections and Visco supplementation in the past. 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 She is disabled secondary to multiple medical co morbitities. She tried physical therapy in the past for her knees but stopped due to some issues with her ankles. She cannot take anti- inflammatories secondary to her kidney disease. She denies any mechanical symptoms in either knee. I have personally reviewed the patient intake form with the patient today, it was signed by me and scanned into O2. Please see below for details. Past Medical History: Past Medical History: Diagnosis Date Anemia Antiphospholipid antibody syndrome (HCC) Anxiety Bilaterl fracture of great toe Chronic kidney disease (CKD), stage III (moderate) ([facility]) Chronic migraine Chronic sinus infection Depression DVT (deep venous thrombosis) ([facility]) H/O hiatal hernia H/O Sjogren's disease Hypogammaglobulinemia (HCC) PE (pulmonary embolism) Post herpetic neuralgia Raynaud's disease Rheumatoid arthritis (HCC) Sjogren's syndrome (HCC) SLE (systemic lupus erythematosus) ([facility]) Past Surgical History: Procedure Laterality Date HX LAP CHOLECYSTECTOMY 2003 HX SINUS SURGERY 2017 HX CATARACT REMOVAL Left 2018 CERVICAL FUSION HX APPENDECTOMY HX CHOLECYSTECTOMY HX TONSIL AND ADENOIDECTOMY HX TUBAL LIGATION SINUS SURGERY Allergies: Tegaderm; Adhesive tape (rosins); Levaquin [levofloxacin]; and Tramadol Current Medications: albuterol (VENTOLIN HFA, PROAIR HFA) 90 mcg/actuation inhaler Inhale 2 Puffs by mouth every 4 hours as needed. ALPRAZolam (XANAX) 0.25 mg tablet Take 0.25 mg by mouth every 12 hours as needed. ALPRAZolam (XANAX) 0.25 mg tablet Take 0.25 mg by mouth twice daily as needed for Anxiety. AMIKACIN (BULK) MISC Use as directed. Using amakacin in neti pot bid. CETIRIZINE HCL (ZYRTEC PO) Take by mouth. cyclobenzaprine (FLEXERIL) 10 mg tablet Take 20 mg by mouth at bedtime daily. cyclosporine (RESTASIS) 0.05 % ophthalmic emulsion Place 1 Drop into or around eye(s) twice daily. fluconazole (DIFLUCAN) 100 mg tablet Take 100 mg by mouth. fluconazole (DIFLUCAN) 150 mg tablet Take 100 mg by mouth three times weekly. FLUTICASONE/SALMETEROL (ADVAIR DISKUS IN) Inhale by mouth into the lungs twice daily. folic acid (FOLVITE) 1 mg tablet Take 3 mg by mouth daily. hydroCHLOROthiazide (HYDRODIURIL) 50 mg tablet Take 50 mg by mouth every morning. HYDROCODONE/CHLORPHEN P-STIREX (TUSSIONEX PENNKINETIC ER PO) Take by mouth. hydroxychloroquine (PLAQUENIL) 200 mg tablet Take one tablet by mouth twice daily. Take with food. linaclotide(+) (LINZESS) 145 mcg cap capsule Take 145 mcg by mouth daily 30 minutes before breakfast. LORazepam (ATIVAN) 0.5 mg tablet Take 0.5 mg by mouth every 8 hours as needed. methotrexate PF 25 mg/mL injection Inject 0.7 mL under the skin every 7 days. metoclopramide (REGLAN) 10 mg tablet Take 10 mg by mouth before meals and at bedtime. montelukast (SINGULAIR) 10 mg tablet Take 10 mg by mouth at bedtime daily. MULTIVITAMIN PO Take by mouth. mupirocin (BACTROBAN) 2 % topical ointment Apply topically to affected area twice daily. nitrofurantoin monohyd/m-cryst (MACROBID) 100 mg capsule Take 100 mg by mouth daily. Take with food. nystatin (MYCOSTATIN) 100,000 units/mL oral suspension Take 500,000 Units by mouth twice daily as needed for Oral Thrush. OLANZAPINE PO Take by mouth. [place]-3 Fatty Acids (SALMON OIL-1000) cap Take 2 [...] to each nostril as directed as Needed. Syringe with Needle (Disp) (MONOJECT TB SAFETY SYRINGE) 1 mL 25 gauge x 5/8 " syrg Inject under the skin every 7 days. Use for methotrexate injection once weekly. temazepam (RESTORIL) 30 mg capsule Take 30 mg by mouth at bedtime as needed. TOPIRAMATE (TOPAMAX PO) Take 50 mg by mouth. 50mg tab every morning and 100mg every night valACYclovir (VALTREX) 1 g tablet Take 1,000 mg by mouth twice daily as needed. Social History: History Smoking Status Never Smoker Smokeless Tobacco Never Used History Drug Use No History Alcohol Use Yes Comment: one glass of wine every week to two Family History Problem Relation Age of Onset Arthritis-osteo Mother Cancer Father Heart Attack Father Suicide Brother Fibromyalgia Other Review Of Systems: A 14 point review of systems including HEENT, cardiovascular, pulmonary, gastrointestinal,?genitourinary, psychiatric, neurologic, musculoskeletal, endocrine, and integumentary are negative unless otherwise noted in the history of present illness or on the signed intake form. Objective: Vitals: 05/11/18 1302 BP: 100/68 Pulse: 80 Weight: 83.5 kg (184 lb) Height: 162.6 cm (64") Body mass index is 31.58 kg/m. General alert and cooperative no acute distress Heart regular Abdomen soft Breathing unlabored on room air Exam of her bilateral knees notes range of motion from 0-130 degrees with some painful crepitus under her patella. She is stable to varus and valgus stress 0 and 30 degrees. Stable to anterior and posterior posterior drawer testing. Negative Lockman. Negative medial and lateral Fernando's. Negative patellar apprehension sign Imaging: Weightbearing radiographs of bilateral knees were obtained and demonstrate no significant intra-articular pathology. Assessment and plan 47-year-old female with bilateral patellofemoral syndrome We discussed the patient the diagnosis and different treatment options. Given the fact that she has failed intra-articular injections and cannot take anti- inflammatories we are somewhat limited in different treatments for her. At this point we are recommending physical therapy and patella stabilization braces to treat her patellofemoral syndrome. She can return to clinic on a as needed basis. ATTESTATION I personally performed the E/M including history, physical exam, and MDM. Staff name: Zhao Jackson MD Date: 05/11/2018 Zhao Jackson MD Portions of this noted may have been created using [employer], a voice recognition software. Please contact my office for any clarification of documentation Please send a copy of office notes to the primary care physician and referring providers in this encounter Plan of Treatment Name Priority Associated Diagnoses Order Schedule AMB REFERRAL TO PHYSICAL THERAPY Routine Patellofemoral syndrome Ordered : 05/11/2018 of both knees as of this encounter Visit Diagnoses Diagnosis Patellofemoral syndrome of both knees - Primary
--- OUTSIDE RECORDS SUMMARY | 2018-05-29 06:44 | XMS REPORT | Encounter Summary ---
Author Author [facility] Organization [facility] Address Unknown Phone Unavailable Care Team Providers Care Electrician Substation Supervisor Name Role Phone Sonal Calderon MD Unavailable Rina Flores RN Unavailable Unavailable Hever Moran MD Unavailable Marcello Hill MD PCP Encounter Details Date Type Department Care Team Description 04/13/2018 Pharmacy Visit [facility] [id number] [place] [address] [place] [phone] Social History Tobacco Use Types Packs/Day Years [...]
--- OUTSIDE RECORDS SUMMARY | 2018-05-29 06:44 | XMS REPORT | Encounter Summary ---
Author Author [facility] Organization [facility] Address Unknown Phone Unavailable Care Team Providers Care Lineman Apprentice Name Role Phone Sonal Calderon MD Unavailable Rina Flores RN Unavailable Unavailable Hever Moran MD Unavailable Marcello Hill MD PCP Encounter Details Date Type Department Care Team Description 03/19/2018 Pharmacy Visit [facility] [address] [place] [address] Social History Tobacco Use Types Packs/Day Years [...]
--- OUTSIDE RECORDS SUMMARY | 2018-05-29 06:44 | XMS REPORT | Encounter Summary ---
Author Author [facility] Organization [facility] Address Unknown Phone Unavailable Care Team Providers Care Third Cook Name Role Phone Sonal Calderon MD Unavailable Rina Flores RN Unavailable Unavailable Hever Moran MD Unavailable Marcello Hill MD PCP Reason for Visit * Reason Comments Records Request Lab results - PCP Encounter Details Date Type Department Care Team Description 04/10/2018 Telephone [facility] Madalyn Sahu MD Records Request (Lab Physicians-Rheumatology [address] [facility] results - PCP) [address] [place] [address] [place] [address] [phone] Social History Tobacco Use Types Packs/Day Years [...] encounter Miscellaneous Notes * Telephone Encounter - Judit Dickerson - 04/10/2018 3:36 PM CDT Jeimy, would you please fax her lab results to her PCP? Thank you. Faxed lab results to Dr Hill @ [phone]. Confirmation received @ 1:08pm in this encounter Plan of Treatment Not on fileas of this encounter Visit Diagnoses Not on filein this encounter
--- OUTSIDE RECORDS SUMMARY | 2018-05-29 06:44 | XMS REPORT | Encounter Summary ---
Author Author [facility] Organization [facility] Address Unknown Phone Unavailable Care Team Providers Care Tractor Operator Battery Name Role Phone Sonal Calderon MD Unavailable Rina Flores RN Unavailable Unavailable Hever Moran MD Unavailable Marcello Hill MD PCP Encounter Details Date Type Department Care Team Description 04/14/2018 Pharmacy Visit [facility] [id number] [place] [address] [place] [phone] Social History Tobacco Use Types Packs/Day Years [...]
--- OUTSIDE RECORDS SUMMARY | 2018-05-29 06:44 | XMS REPORT | Encounter Summary ---
Author Author [facility] Organization [facility] Address Unknown Phone Unavailable Care Team Providers Care Md Psychiatry Name Role Phone Sonal Calderon MD Unavailable Rina Flores RN Unavailable Unavailable Hever Moran MD Unavailable Marcello Hill MD PCP Encounter Details Date Type Department Care Team Description 03/19/2018 Pharmacy Visit [facility] [id number] [place] [address] [place] [id number] Social History Tobacco Use Types Packs/Day Years [...]
--- OUTSIDE RECORDS SUMMARY | 2018-05-29 06:44 | XMS REPORT | Encounter Summary ---
Author Author [facility] Organization [facility] Address Unknown Phone Unavailable Care Team Providers Care Core Inspector Name Role Phone Sonal Calderon MD Unavailable Rina Flores RN Unavailable Unavailable Hever Moran MD Unavailable Marcello Hill MD PCP Reason for Referral * Radiology Services (Routine) Status Reason Specialty Diagnoses / Referred By Referred To Procedures Contact Contact New Request Radiology Diagnoses Madalyn Sahu Pulmonary nodules [address] [place]cedures [place] [address] [place]ST [place], [place] CONTRAST [address] Reason for Visit * Reason Comments Lupus Encounter Details Date Type Department Care Team Description 05/11/2018 Office Visit [facility] Madalyn Sahu MD Inflammatory arthritis [facility] [address] (Primary Dx); Rheumatology [place] [address]25 [place] [address] hips; [address] [phone] Therapeutic drug [place], [place] monitoring; [id number] Pulmonary nodules; [phone] Polyarthralgia; Antiphospholipid syndrome (HCC); Hypogammaglobulinemia (HCC); Raynaud's disease without gangrene; Nasal septal perforation Social History Tobacco Use Types Packs/Day Years Used Date Never Smoker Smokeless Tobacco: Never Used Alcohol Use Drinks/Week oz/Week Comments Yes one glass of wine every week to two Sex Assigned at Date Recorded Not on file as of this encounter Last Filed Vital Signs Vital Sign Reading Time Taken Blood Pressure 110/63 05/11/2018 11:00 AM CDT Pulse 80 05/11/2018 11:00 AM CDT Temperature 36.7 C (98 F) 05/11/2018 11:00 AM CDT Respiratory Rate 16 05/11/2018 11:00 AM CDT Oxygen Saturation 98% 05/11/2018 11:00 AM CDT Inhaled Oxygen - - Concentration Weight 83.9 kg (185 lb) 05/11/2018 11:00 AM CDT Height 162.6 cm (5' 4") 05/11/2018 11:00 AM CDT Body Mass Index 31.76 05/11/2018 11:00 AM CDT in this encounter Functional Status Functional [...] this encounter Instructions * Patient Instructions - Madalyn Sauh MD - 05/11/2018 11:00 AM CDT - please get a repeat CT chest done after end of June. - please get labs done every 2 months. - please get x-ray of your hips done. - please increase your methotrexate dose to 17.5 mg once weekly and continue taking folic acid. in this encounter Progress Notes * Madalyn Sahu MD - 05/11/2018 11:00 AM CDT Formatting of this note may be different from the original. Date of Service: 05/11/2018 Pt is accompanied by her today. Subjective: Ritika Nuñez is a 47 y.o. female. Rheum hx: (from the initial visit 12/05/17) Ms. Nuñez is a pleasant 47 yo F w/ hx of DVT on chronic anticoagulation, PE, IVC filter, RA/SLE, antiphospholipid antibody syndrome, Sjogren's, Raynaud's, hypogammaglobulinemia, recurrent infections, CKD III, iron deficiency anemia, and nasal septal perforation s/p button placement who presents to rheumatology clinic to establish care. She was a former patient of Dr. Martin, a director of early childhood in [place], [place]. 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 She states that her health problems began shortly after her second child was born in September 1998. She slipped and fell at work in April and started having pain in her back and joints since. She also noted joint swelling and severe fatigue. Her joint symptoms were on both sides. She eventually underwent neck surgery in 2001 with some improvement of her numbness and tingling sensation. She reports that she had a cryptosporidium infection and was diagnosed with reactive arthritis around that time. She saw a director of early childhood, Dr. Helm, in [place], where she was living at that time and was diagnosed with fibromyalgia. She states that her symptoms went away and she went into remission when she was with her third child in 2001. All her symptoms returned when her daughter was 6 weeks old. She asked her then director of early childhood to check for rheumatoid arthritis and was found to have a positive CCP. She was then diagnosed with rheumatoid arthritis. She transitioned care to Dr. Brink, another director of early childhood in 2002. She was started on injectable methotrexate but could not tolerate it due to nausea/ vomiting. She was switched to oral methotrexate and has been taking it since. The highest dose that she has been on was 20 mg per week. She does not recall why the dose was decreased to 15 mg per week. She states that she was also taking arava for a few years but discontinued it after it had stopped working. She subsequently tried Enbrel, Humira, and Remicade. She reports that shortly after she was started on Remicade in 10/2006, she developed full-blown lupus symptoms, which included facial rash, photosensitivity, and nasal septal perforation. She was then started on rituximab every 6 months in 11/2006. When she moved to [place] in 03/2009, she started seeing Dr. Martin, her previous director of early childhood. She was continued on the same medications, which included methotrexate 15 mg once weekly, rituximab infusions q 6 months and prednisone 5 mg daily. The frequency of rituximab infusions was increased to every 4 months in 2010. Her last RTX dose was in 2014. It was discontinued due to recurrent infections. She denies use of HCQ, AZA, MMF or belimumab. She states that she was evaluated by Dr. Garcia, an insole tape stitcher uco, for low IgG levels and was started on IVIG replacement therapy in 08/2013. She reports that Dr. Martin subsequently recommended that she try stopping the IVIG when her insurance changed. She then had a sinus infection. She was off of IVIG for about 6 months. Her primary care doctor, Dr. Hill, referred her to a senior painter in [place] for evaluation of anemia. She was restarted on IVIG about a month ago and just received her second dose yesterday. She has another dose of IV IVIG in 4 weeks, then will be switching to subcutaneous injections. She has hx of iron deficiency. She reports that she was told that due to her hiatal hernia, she was not absorbing iron well. She receives iron infusion as needed. She last saw Dr. Martin about 4-5 months ago. There was no medication change at that time. Her reports that she has been having frequent infections requiring antibiotic treatment almost every other week for the last few years. She states that this winter was the best she has been from the infection standpoint. She complains of extreme fatigue and joint pain in her hands, feet, and knees. Her knees pop with movement. Her joint symptoms are worse when rain or storm is coming in. She reports that each flare up lasts anywhere from 2 days to a week. Her morning stiffness lasts about 1 hour. She takes Percocet as needed for pain; however, she has been afraid of taking Percocet because she was hospitalized 1.5 months ago for fecal impaction. She takes Linzess and Senokot for the constipation. She states that her primary care doctor occasionally gives her "stress dose" steroids, starting at 20 or 30 mg and taper. She reports having side effects from prednisone, including facial swelling, before hump, leg edema. In addition, she reports that in 04/2017, she developed swelling over her left cheek. There was reportedly a concern for mumps but it was eventually determined that she did not have mump. She had an ultrasound over the anterior aspect of her neck and was told that it was fat tissues. She complains of dry eyes, dry mouth, recurrent oral ulcers, diffuse hair thinning, Raynaud's, photosensitivity. +History of blood clot and 2 miscarriages. 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 She states that her face was swollen and turning blue. She was told that she had 80% occlusion. She underwent stent placement and replacement of her port. She is taking Xarelto. History of Present Illness Pt reports that she has noted improvement of her joint symptoms w/ SC mtx. The pain remains most severe in her knees. The pain is described as sharp pain that occurs when she goes up and down the stairs. It is worse on her L knee. She endorses intermittent joint swelling in her fingers and knees, although it has not been as severe or frequent. She feels that mtx has also helped w/ the rash on her face. Her AM stiffness lasts ~5-10 minutes. She reports having mild nausea and flu-like symptoms after SC mtx and IVIG. These symptoms last ~2 days. She has been doing weekly SC IVIG and tolerating it better. She states that she only gets mild headache as long as she stays well hydrated. She c/o worsening fatigue. She states that her energy level was improved when she was on a ketogenic diet. However, when her grandmother about a month ago, she stopped the diet. She is planning to go back on it soon. She denies recent infections. She continues to have sinus symptoms (congestion and drainage) which are unchanged. Denies f/c. She does nasal rinses almost daily. Her last antibiotic course was ~4-5 months ago. She reports that she just had an exam and follows w/ her ranch helper regularly. She underwent a cataract surgery in L eye in 11/2017 and is scheduled for R eye surgery on 05/19/18. Current SLE meds: - HCQ 200 mg bid, started 12/05/17 - mtx 15 mg po q week --> 15 mg SC weekly 03/16/18 - prednisone 5 mg qd Review of Systems Constitutional: Positive for fatigue. HENT: Positive for congestion, mouth sores, sinus pressure and tinnitus. Respiratory: Positive for cough. Gastrointestinal: Positive for constipation. Musculoskeletal: Positive for arthralgias and myalgias. Neurological: Positive for headaches. All other systems reviewed and are negative. Past Medical History: Diagnosis Date Anemia Antiphospholipid antibody syndrome (HCC) Anxiety Bilaterl fracture of great toe Chronic kidney disease (CKD), stage III (moderate) (HCC) Chronic migraine Chronic sinus infection Depression DVT (deep venous thrombosis) ([facility]) H/O hiatal hernia H/O Sjogren's disease Hypogammaglobulinemia (HCC) PE (pulmonary embolism) Post herpetic neuralgia Raynaud's disease Rheumatoid arthritis (HCC) Sjogren's syndrome (HCC) SLE (systemic lupus erythematosus) (HCC) Past Surgical History: Procedure Laterality Date HX LAP CHOLECYSTECTOMY 2003 HX SINUS SURGERY 2017 HX CATARACT REMOVAL Left 2018 CERVICAL FUSION HX APPENDECTOMY HX CHOLECYSTECTOMY HX TONSIL AND ADENOIDECTOMY HX TUBAL LIGATION SINUS SURGERY MEDS: albuterol (VENTOLIN HFA, PROAIR HFA) 90 mcg/actuation [...] mouth. hydroxychloroquine (PLAQUENIL) 200 mg tablet Take 1 tablet by mouth twice daily. Take with food. linaclotide(+) (LINZESS) 145 mcg cap capsule Take 145 mcg by mouth daily 30 minutes before breakfast. LORazepam (ATIVAN) 0.5 mg tablet Take 0.5 mg by mouth every 8 hours as needed. methotrexate (PF) (RASUVO (PF)) 15 mg/0.3 mL syringe Inject 0.3 mL under the skin every 7 days. [...] Oral Thrush. OLANZAPINE PO Take by mouth. [place]-3 Fatty Acids (SALMON OIL-1000) cap Take 2 [...] mg by mouth twice daily as needed. Allergies: Allergies Allergen Reactions Tegaderm BLISTERS Adhesive Tape (Rosins) RASH Levaquin [Levofloxacin] MUSCLE PAIN tendonitis Tramadol ANAPHYLAXIS Social hx: - Denies tobacco, Etoh and illicit drug use Family hx: - Paternal grandmother with rheumatoid arthritis, youngest daughter with Raynaud 's - Another daughter has fibromyalgia - mother has psoriatic arthritis Objective: Vitals: 05/11/18 1100 BP: 110/63 Pulse: 80 Resp: 16 Temp: 36.7 C (98 F) TempSrc: Oral SpO2: 98% Weight: 83.9 kg (185 lb) Height: 162.6 cm (64") Body mass index is 31.76 kg/m. and falls within the category of Obesity 1 (30 to <35); specialist visit only, referred back to Primary Care Provider for follow up. Physical Exam GEN: Well developed. Well nourished. Appropriate affect. No apparent distress. Alert. HEENT: Moist mucous membranes. No oral sores. Normal exam of external ear. Normal hearing. No parotid or submandibular gland swelling. Mild TTP over the L maxillary sinus. EYES: normal conjunctiva. EOMI. RESP: Clear to auscultation bilaterally. No wheezes. No crackles. Normal respiratory effort. CV: regular rate and rhythm. No murmurs. EXT: No edema. Warm. ABD: Soft. Nontender. No distension. SKIN: No rash or abnormal skin lesions. No alopecia. Normal nailfold capillaries. LYMPH: No enlarged cervical lymph nodes NEURO: No focal neuro deficits. Normal gait. MsK: Spine: Normal ROM of cervical lumbar spine. +midline tenderness over the lumber spine. +paraspinal tenderness. Shoulders: FROM, no tenderness. Elbows: FROM, no synovitis. Wrists: FROM, No synovitis. Hands: no synovitis. + mild TTP over B/L PIP joints. Hips: mild pain is elicited in the groin w/ ROM, R>L. Knees: FROM. TTP, crepitus B/L knees. No swelling or effusion is appreciated. Ankles: FROM, no synovitis Feet: no synovitis. Labs: 12/18/17 YOHAN 640*, dsDNA neg, anti-toney neg, anti-MILITARY TECHNOLOGY MANAGER neg, SSA/B neg, RF neg, anti-CCP neg, anti-centromere neg, scl70 neg, C3/4 wnl, it is a glycoprotein IgG /IgM negative, anticardiolipin IgG/IgM negative, DRVVT negative, hexagonal lupus anticoagulant neg IMAGING: XR B/L hands, feet, SI joints: no erosions. CT chest (01/06/18) 1. No evidence of pulmonary fibrosis, air trapping, or bronchiectasis. 2. Large hiatal hernia. 3. Small nodules in the right lung, measuring up to 0.7 cm. Follow-up CT chest in 6-12 months is recommended. 4. Prominent bony bridge/osteophyte involving the right posterior sixth, seventh , and eighth ribs with pseudoarticulation, accounting for the abnormal finding on recent chest radiograph. CT sinuses 06/2017 1. Postoperative changes from previous bilateral maxillary antrectomies. 2. Mucosal thickening involving both maxillary sinuses. Assessment and Plan: Ms. Nuñez is a pleasant 47 yo F w/ hx of DVT on chronic anticoagulation, PE, IVC filter, RA/SLE, antiphospholipid antibody syndrome, Sjogren's, Raynaud's, hypogammaglobulinemia, recurrent infections, CKD III, iron deficiency anemia, and nasal septal perforation s/p button placement who presents to rheumatology clinic to establish care. She was a former patient of Dr. Martin, a director of early childhood in [place], [place]. Pt returns for f/u. History of systemic lupus erythematosus/rheumatoid arthritis Polyarthralgia Chronic B/L knee pain, Antiphospholipid syndrome on chronic anticoagulation (xarelto) Sjogren's syndrome Hypogammaglobulinemia on IVIG replacement therapy Recurrent infections, follows w/ ID History of SVC from port 01/2018 CKD 3 Iron deficiency anemia fibromyalgia nasal septal perforation s/p button placement, follows w/ [facility] Raynaud's Incidental pulmonary nodules on CT chest 12/2017 Large hiatal hernia on CT - again no overt synovitis on exam today. However, her history and symptoms are concerning for inflammatory arthritis. - pt has noted improvement of her joint symptoms w/ SC mtx (rasuvo) and has not had any infections. However, unable to afford the co-pay. - will increase mtx to 17.5 mg SC weekly and switch to mtx vials. - recent labs reviewed. Continue w/ lab monitoring q 2 months. - continue HCQ 200 mg bid and prednisone 5 mg qd. Will request eye exam records from Dr. Rigo Norman, her ranch helper in [place], [place]. - future options: increasing mtx dose, AZA, MMF, belimumab - pt reports previous dx of OA B/L knees, s/p IA cortisone and viscosupplement injections w/ no benefits. Knee x-ray from 03/2018 did not show significant OA. Ddx: patellofemoral syndrome vs a referred pain from hip. - will obtain XR B/L hips. - pt has an appointment w/ Dr. Jackson in orthopedic clinic this afternoon. - continue conservative measures for raynaud's -- avoiding cold, wearing gloves/ mittens, socks, keeping her body warm. - continue symptomatic treatment for dry eyes and dry month. - continue to follow w/ ENT for nasal septal perforation. - pt is advised to hold mtx when she is taking antibiotics. - plan to repeat CT 6-12 months to follow up on pulmonary nodules per radiology recommendations. Order placed. RTC 3 months w/ new physician Orders Placed This Encounter HIP 2-3 VIEWS WO PELVIS LT HIP 2-[address] CHEST W/O CONTRAST (HIGH RESOLUTION),today CBC AND DIFF COMPREHENSIVE METABOLIC PANEL hydroxychloroquine (PLAQUENIL) 200 mg tablet methotrexate PF 25 mg/mL injection Syringe with Needle (Disp) (MONOJECT TB SAFETY SYRINGE) 1 mL 25 gauge x 5/8 " syrg in this encounter Plan of Treatment Name Priority Associated Diagnoses Order Schedule HIP 2-3 VIEWS WO PELVIS LT Routine Chronic pain of both hips Expected: 05/11/2018 (Approximate), Expires: 05/11/2019 HIP 2-3 VIEWS WO PELVIS RT Routine Chronic pain of both hips Expected: 05/11/2018 (Approximate), Expires: 05/11/2019 CT CHEST WO CONTRAST Routine Pulmonary nodules Expected: 05/11/2018 (Approximate), Expires: 05/11/2019 CBC AND DIFF Routine Inflammatory arthritis ONE TIME for 10 Therapeutic drug Occurrences starting monitoring 05/11/2018 until 05/11/2019 COMPREHENSIVE METABOLIC PANEL Routine Inflammatory arthritis ONE TIME for 10 Therapeutic drug Occurrences starting monitoring 05/11/2018 until 05/11/2019 as of this encounter Visit Diagnoses Diagnosis Inflammatory arthritis - Primary Unspecified inflammatory polyarthropathy Chronic pain of both hips Therapeutic drug monitoring Encounter for therapeutic drug monitoring Pulmonary nodules Other nonspecific abnormal finding of lung field Polyarthralgia Pain in joint, multiple sites Antiphospholipid syndrome (HCC) Primary hypercoagulable state Hypogammaglobulinemia (HCC) Hypogammaglobulinaemia, unspecified Raynaud's disease without gangrene Nasal septal perforation Other diseases of nasal cavity and sinuses
--- OUTSIDE RECORDS SUMMARY | 2018-05-29 06:44 | XMS REPORT | Encounter Summary ---
Author Author [facility] Organization [facility] Address Unknown Phone Unavailable Care Team Providers Care Hogshead Packer Name Role Phone Sonal Calderon MD Unavailable Rina Flores RN Unavailable Unavailable Hever Moran MD Unavailable Marcello Hill MD PCP Reason for Visit * Reason Comments Medication Refill Encounter Details Date Type Department Care Team Description 05/11/2018 Refill [facility] Madalyn Sahu MD [facility] [address] Rheumatology [address] [place] [address] [address] [facility] [phone] [place] [address] Social History Tobacco Use Types Packs/Day Years [...]
--- OUTSIDE RECORDS SUMMARY | 2018-05-29 06:44 | XMS REPORT | Encounter Summary ---
Author Author [facility] Organization [facility] Address Unknown Phone Unavailable Care Team Providers Care Intranet Support Name Role Phone Sonal Calderon MD Unavailable Rina Flores RN Unavailable Unavailable Hever Moran MD Unavailable Marcello Hill MD PCP Encounter Details Date Type Department Care Team Description 03/19/2018 Pharmacy Visit [facility] [id number] [place] [address] [place] [phone] Social History Tobacco Use Types Packs/Day Years [...]
[2018-05-29 06:45] VITALS: BP 107/77
[2018-05-29] MEDS ORDERED: LIDOCAINE PF 1% 2 ML AMP IR PRN (06:45)
[2018-05-29] MEDS ORDERED: POVIDONE (BETADINE) OPHTH SOLN 5% 30 ML OP ONE (06:45)
[2018-05-29] MEDS ORDERED: TIMOLOL MALEATE 0.5% 5 ML (TIMOPTIC) BTL OU PRN (06:45)
[2018-05-29] MEDS ORDERED: BSS 15 ML IR PRN (06:45)
[2018-05-29] MEDS ORDERED: MOXIFLOXACIN OPHTH SOLN 5 MG/ML 0.3 ML SYRINGE OP ONE (06:45)
[2018-05-29] MEDS ORDERED: EPINEPHrine INJECTION 1 MG/ML AMP INJ ONE (06:45)
--- OUTSIDE RECORDS SUMMARY | 2018-05-29 06:45 | XMS REPORT | Encounter Summary ---
Author Author [facility] Organization [facility] Address Unknown Phone Unavailable Care Team Providers Care Heel Cover Splitter Name Role Phone Sonal Calderon MD Unavailable Rina Flores RN Unavailable Unavailable Hever Moran MD Unavailable Marcello Hill MD PCP Reason for Referral * Consult, Test & Treat Status Reason Specialty Diagnoses / Referred By Referred To Procedures Contact Contact No Auth Needed Specialty Orthopedic Surgery Diagnoses Madalyn Sahu, Zhao Jackson MD Services Chronic pain of MD [address] Required both knees [address] [place], [place] erythematosus [place] [id number] (SLE) in adult [place], [place] Phone: ([facility]) [address] Phone: * Consult, Test & Treat Status Reason Specialty Diagnoses / Referred By Referred To Procedures Contact Contact New Request Specialty Diagnoses Madalyn Sahu, Services Chronic pain of Required both knees [address] [place] [address] Reason for Visit * Reason Comments Follow Up Encounter Details Date Type Department Care Team Description 03/16/2018 Office Visit [facility] Madalyn Sahu MD Systemic lupus [facility] [address] erythematosus (SLE) in Rheumatology [place] [address] adult ([facility]) (Primary Dx); [place] [address] Chronic pain of both [address] [phone] knees; [place], [place] Therapeutic drug [id number] monitoring; [phone] Polyarthralgia; Antiphospholipid syndrome (HCC); Hypogammaglobulinemia (HCC); Recurrent infections; Fibromyalgia; Raynaud's disease without gangrene; Pulmonary nodules Social History Tobacco Use Types Packs/Day Years Used Date Never Smoker Smokeless Tobacco: Never Used Alcohol Use Drinks/Week oz/Week Comments Yes one glass of wine every week to two Sex Assigned at Date Recorded Not on file as of this encounter Last Filed Vital Signs Vital Sign Reading Time Taken Blood Pressure 114/74 03/16/2018 9:56 AM CDT Pulse 75 03/16/2018 9:56 AM CDT Temperature 36.4 C (97.5 F) 03/16/2018 9:56 AM CDT Respiratory Rate 16 03/16/2018 9:56 AM CDT Oxygen Saturation 100% 03/16/2018 9:56 AM CDT Inhaled Oxygen - - Concentration Weight 81.8 kg (180 lb 6.4 oz) 03/16/2018 9:56 AM CDT Height 162.6 cm (5' 4") 03/16/2018 9:56 AM CDT Body Mass Index 30.97 03/16/2018 9:56 AM CDT in this encounter Functional Status [...] encounter Instructions * Patient Instructions - Madalyn Sahu MD - 03/16/2018 10:00 AM CDT Will plan to switch oral methotrexate to subcutaenous injection. Please get labs done. If possible, please get x-ray of your knees done at your convenience. Please continue taking plaquenil 1 tab twice daily. Please get an eye exam done. in this encounter Progress Notes * Madalyn Sahu MD - 03/16/2018 10:00 AM CDT Formatting of this note may be different from the original. Date of Service: 03/16/2018 Pt is accompanied by her today. Subjective: [...] a former patient of Dr. Martin, a clinical nutritionist in [place], [place]. Patient reports that she previously worked [...] arthritis around that time. She saw a clinical nutritionist, Dr. Helm, in [place], where she was living at that time and was diagnosed with fibromyalgia. She states that her symptoms went away and she went into remission when she was with her third child in 2001. All her symptoms returned when her daughter was 6 weeks old. She asked her then clinical nutritionist to check for rheumatoid arthritis and was found to have a positive CCP. She was then diagnosed with rheumatoid arthritis. She transitioned care to Dr. Brink, another clinical nutritionist in 2002. She was started on injectable [...] months in 11/2006. When she moved to [place] in 03/2009, she started seeing Dr. Martin, her previous clinical nutritionist. She was continued on the same medications, [...] she was evaluated by Dr. Garcia, an sales support associate, for low IgG levels and was started on IVIG replacement therapy in 08/2013. She reports that Dr. Martin subsequently recommended that she try stopping the IVIG when her insurance changed. She then had a sinus infection. She was off of IVIG for about 6 months. Her primary care doctor, Dr. Hill, referred her to a dietary supervisor in [place] for evaluation of anemia. She was restarted [...] +History of blood clot and 2 miscarriages. History of Present Illness The patient complains of worsening chronic bilateral knee pain. The pain has been present for 2-3 years. She only notes pain when she goes up/down the stairs or w/ physical activity. She denies pain at rest. She endorses some swelling in her knees. She was told that she had osteoarthritis along with rheumatoid arthritis by her previous clinical nutritionist. She was given cortisone injections to her knees with no relief. She was then given Synvisc injections, which helped for only 1 month. She states that she went to a concert and stood for 1.5 hours. Today her knees are hurting badly particularly when she is walking. She continues to have pain in her wrists, fingers, feet/toes. She notes intermittent joint swelling. Each episode lasts 1-2 days. Her morning stiffness lasts about 30 minutes. She has been taking Plaquenil as prescribed since the last clinic visit. She states that it helped with her knee pain for only 1 month and the effect seems to have worn off. She started SC IVIG 3 weeks ago. She was experiencing some side effects, including headaches and flulike symptoms. These have improved since she started Palio diet last week. She states that she always feels better when she is on the Palio diet, but has to be careful with the amount of protein intake. Otherwise, she will have ketone in her urine. 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 She states that her face was swollen and turning blue. She was told that she had 80% occlusion. She underwent stent placement and replacement of her port. She is taking Xarelto. She states that the swelling that she had over her neck at the last clinic visit has completely resolved. She had a shingles infection over her right flank a few weeks ago. She denies other infections or hospitalization. Current SLE meds: - HCQ 200 mg bid, started 12/05/17 - mtx 15 mg po q week - prednisone 5 mg qd Review of Systems Constitutional: Positive for activity change, appetite change and fatigue. Endocrine: Positive for polydipsia, polyphagia and polyuria. Excess dry mouth Musculoskeletal: Positive for arthralgias, back pain, neck pain and neck stiffness. All other systems reviewed and are negative. Past Medical History: Diagnosis Date Anemia Antiphospholipid antibody syndrome ([facility]) Anxiety Bilaterl fracture of great toe Chronic kidney disease (CKD), stage III (moderate) ([facility]) Chronic migraine Chronic sinus infection Depression DVT (deep venous thrombosis) ([facility]) H/O hiatal hernia H/O Sjogren's disease Hypogammaglobulinemia ([facility]) PE (pulmonary embolism) Post herpetic neuralgia Raynaud's disease Rheumatoid arthritis ([facility]) Sjogren's syndrome ([facility]) SLE (systemic lupus erythematosus) ([facility]) Past Surgical History: Procedure Laterality Date HX [...] Oral Thrush. OLANZAPINE PO Take by mouth. [place]-3 Fatty Acids (SALMON OIL-1000) cap Take 2 [...] - mother has psoriatic arthritis Objective: Vitals: 03/16/18 0956 BP: 114/74 Pulse: 75 Resp: 16 Temp: 36.4 C (97.5 F) TempSrc: Oral SpO2: 100% Weight: 81.8 kg (180 lb 6.4 oz) Height: 162.6 cm (64") Body mass index is 30.97 kg/m. and falls within the category of Obesity 1 (30 to <35); specialist visit only, referred back to Primary Care Provider for follow up. Physical Exam GEN: Well developed. Well nourished. Appropriate affect. No apparent distress. Alert. HEENT: Moist mucous membranes. No oral sores. Normal exam of external ear. Normal hearing. No parotid or submandibular gland swelling. EYES: normal conjunctiva. EOMI. RESP: Clear to auscultation bilaterally. No wheezes. No crackles. Normal respiratory effort. CV: regular rate and rhythm. No murmurs. EXT: No edema. Warm. ABD: Soft. Nontender. No distension. SKIN: +facial erythema over her cheeks and chin. No alopecia. Normal nailfold capillaries. LYMPH: No enlarged cervical lymph nodes NEURO: No focal neuro deficits. Normal gait. MsK: Spine: Normal ROM of cervical lumbar spine. +midline tenderness over the lumber spine. +paraspinal tenderness. + tenderness over SI joints. Shoulders: FROM, no tenderness. Elbows: FROM, no synovitis. Wrists: FROM, No synovitis. +TTP B/L. Hands: no synovitis. +TTP over the PIP and DIP joints. Hips: Normal pain-free ROM Knees: FROM. TTP, crepitus B/L knees. No swelling or effusion is appreciated. Ankles: FROM, no synovitis Feet: no synovitis. +diffuse muscle tenderness/tender points. Labs: 12/18/17 YOHAN 640*, dsDNA neg, anti-toney neg, anti-AUTO SELF SERVICE STATION ATTENDANT neg, SSA/B neg, RF neg, anti-CCP neg, [...] a former patient of Dr. Martin, a clinical nutritionist in [place], [place]. Pt returns for f/u. History of systemic lupus erythematosus/rheumatoid arthritis Polyarthralgia Chronic B/L knee pain, likely 2/2 OA Antiphospholipid syndrome on chronic anticoagulation (xarelto) Sjogren's [...] symptoms are concerning for inflammatory arthritis. - she was started on HCQ at the last clinic visit. Has been tolerating it well. Pt is advised to get a baseline eye exam. - her joint symptoms appear to have not been adequately controlled, will switch oral mtx to SC. - recent lab and imaging study results reviewed w/ pt and in detail. - continue HCQ 200 mg bid and prednisone 5 mg qd. - continue mtx at 15 mg po weekly and prednisone 5 mg qd for now. - future options: increasing mtx dose, AZA, MMF, belimumab - pt reports previous dx of OA B/L knees, s/p IA cortisone and viscosupplement injections w/ no benefits. - recommend physical therapy and orthopedic referral. - will obtain knee x-rays. - continue conservative measures for raynaud's -- avoiding cold, wearing gloves/ mittens, socks, keeping her body warm. - continue symptomatic treatment for dry eyes and dry month. - continue to follow w/ ENT for nasal septal perforation. - labs as below. - plan to repeat CT 6-12 months to follow up on pulmonary nodules per radiology recommendations. *Today's visit was prolonged due to additional time spent on counseling, education, answering of questions, discussion of options and diagnosis. Visit start time 10.00 am and end time 11.15 am. RTC 2 months Orders Placed This Encounter KNEE 3 VIEWS BILATERAL, today CBC AND DIFF today SED RATE today C REACTIVE PROTEIN (CRP) today COMPREHENSIVE METABOLIC PANEL today PHYSICAL THERAPY ORTHOPEDIC SURGERY hydroxychloroquine (PLAQUENIL) 200 mg tablet methotrexate (PF) (RASUVO (PF)) 15 mg/0.3 mL syringe in this encounter Plan of Treatment Name Priority Associated Diagnoses Order Schedule AMB REFERRAL TO PHYSICAL THERAPY Routine Chronic pain of both Ordered: 03/16/2018 knees AMB REFERRAL TO ORTHOPEDICS Routine Chronic pain of both Ordered: 2017 knees Systemic lupus erythematosus (SLE) in adult (HCC) as of this encounter Results * KNEE 3 VIEWS BILATERAL (03/16/2018 [...] on 03/16/2018 4:09 PM. Performing Organization Address City/State/Zipcode Phone Number [facility] * COMPREHENSIVE METABOLIC PANEL (03/16/2018 11:24 AM) [...] for questions. Specimen Blood Performing Organization Address City/[facility]/Zipcode Phone Number [facility] [address] [phone] * C REACTIVE PROTEIN (CRP) (03/16/2018 11:24 AM) C-Reactive Protein 0.73 <1.0 MG/DL MAIN LAB Specimen Blood Performing Organization Address City/[facility]/Zipcode Phone Number [facility] [address] [place] [address] * SED RATE (03/16/2018 11:24 AM) Sed Rate -ESR 5 0 - 20 MM/HR MAIN LAB Specimen Blood Performing Organization Address City/[facility]/Zipcode Phone Number [facility] [address] [place] [address] * CBC AND DIFF (03/16/2018 11:24 AM) White Blood Cells 4.1 (L) 4.5 - 11.0 K/UL [facility] RBC 4.24 4.0 - 5.0 M/UL MAIN LAB Hemoglobin 13.3 12.0 - 15.0 [...] MAIN LAB Specimen Blood Performing Organization Address City/State/Zipcode Phone Number [facility] [address] [place] [address] in this encounter Visit Diagnoses Diagnosis Systemic lupus erythematosus (SLE) in adult (HCC) - Primary Chronic pain of both knees Therapeutic drug monitoring Encounter for therapeutic drug monitoring Polyarthralgia Pain in joint, multiple sites Antiphospholipid syndrome (HCC) Primary hypercoagulable state Hypogammaglobulinemia (HCC) Hypogammaglobulinaemia, unspecified Recurrent infections Unspecified infectious and parasitic diseases Fibromyalgia Mylagia and myositis, unspecified Raynaud's disease without gangrene Pulmonary nodules Other nonspecific abnormal finding of lung field
--- OUTSIDE RECORDS SUMMARY | 2018-05-29 06:45 | XMS REPORT | Encounter Summary ---
Author Author [facility] Organization [facility] Address Unknown Phone Unavailable Care Team Providers Care Blood Bank Booking Clerk Name Role Phone Sonal Calderon MD Unavailable Rina Flores RN Unavailable Unavailable Hever Moran MD Unavailable Marcello Hill MD PCP Encounter Details Date Type Department Care Team Description 03/16/2018 Pharmacy Visit [facility] [address] [place] [address] Social History Tobacco Use Types Packs/Day Years [...]
--- OUTSIDE RECORDS SUMMARY | 2018-05-29 06:45 | XMS REPORT | Encounter Summary ---
Author Author [facility] Organization [facility] Address Unknown Phone Unavailable Care Team Providers Care Card Player Name Role Phone Sonal Calderon MD Unavailable Rina Flores RN Unavailable Unavailable Hever Moran MD Unavailable Marcello Hill MD PCP Encounter Details Date Type Department Care Team Description 03/16/2018 Hospital [facility] Madalyn Sahu MD Encounter Hospital Radiology [address] [facility] [address] [place] [address] [address] [place] [address] [address] [phone] [place] [address] [phone] Social History Tobacco Use Types Packs/Day Years [...] Take 0.25 mg by mouth mg tablet every 12 hours as needed. ALPRAZolam (XANAX) 0.25 Take 0.25 mg by mouth mg tablet twice daily as needed for Anxiety. AMIKACIN (BULK) MISC Use as directed. Using amakacin in neti pot bid. CETIRIZINE HCL (ZYRTEC Take by mouth. PO) cyclobenzaprine Take 20 mg by mouth at (FLEXERIL) 10 mg tablet bedtime daily. cyclosporine (RESTASIS) Place 1 Drop into or 0.05 % ophthalmic around eye(s) twice emulsion daily. fluconazole (DIFLUCAN) Take 100 mg by mouth. 100 mg tablet fluconazole (DIFLUCAN) Take 100 mg by mouth [...] Take by mouth. mupirocin (BACTROBAN) 2 % Apply topically to 30 g 0 12/23/2017 topical ointment affected area twice daily. nitrofurantoin Take 100 mg by mouth monohyd/m-cryst daily. Take with food. (MACROBID) 100 mg capsule nystatin (MYCOSTATIN) Take 500,000 Units by 100,000 units/mL oral mouth twice daily as suspension needed for Oral Thrush. OLANZAPINE PO Take by mouth. [place]-3 Fatty Acids Take 2 Caps by mouth at (SALMON OIL-1000) cap bedtime daily. omeprazole DR(+) Take 20 mg by mouth twice (PRILOSEC) 20 mg capsule daily. ondansetron (ZOFRAN) 4 mg Take 4 mg by mouth every tablet 8 hours as needed. other medication 1 Dose. Medication Name & Strength: Blink Dose(how many): 1-2 drops to [...] mouth g tablet twice daily as needed. amoxicillin/K clavulanate Take 1 Tab by mouth every 05/11/2018 (AUGMENTIN) 500/125 mg 12 hours. Take with food. tablet hydroxychloroquine Take 1 tablet by mouth 180 tablet 0 03/16/2018 (PLAQUENIL) 200 mg tablet twice daily. Take with food. methotrexate (PF) (RASUVO Inject 0.3 mL under the 4 Syringe 1 201705/11/2018 (PF)) 15 mg/0.3 mL skin every 7 days. syringe as of this encounter Progress Notes * Madalyn Sahu MD - 03/20/2018 12:11 PM CDT Dear Ms. Nuñez, Your knee x-rays did not show evidence of significant osteoarthritis. Sincerely, Madalyn Sahu MD in this encounter Plan of Treatment Not on fileas of this encounter Procedures Procedure Name Priority Date/Time Associated Diagnosis Comments KNEE 3 VIEWS BILATERAL Routine 03/16/2018 Chronic pain of both Results for this 4:05 PM CDT knees procedure are in the Systemic lupus results section. erythematosus (SLE) in adult ([facility]) in this encounter Results * KNEE 3 VIEWS [...] Address City/State/Zipcode Phone Number [facility] in this encounter Visit Diagnoses Diagnosis Chronic pain of both knees Systemic lupus erythematosus (SLE) in adult ([facility])
--- OUTSIDE RECORDS SUMMARY | 2018-05-29 06:45 | XMS REPORT | Encounter Summary ---
Author Author [facility] Organization [facility] Address Unknown Phone Unavailable Care Team Providers Care Change Consultant Name Role Phone Sonal Calderon MD Unavailable Rina Flores RN Unavailable Unavailable Hever Moran MD Unavailable Marcello Hill MD PCP Encounter Details Date Type Department Care Team Description 03/16/[address] [facility] Madalyn Sahu MD Encounter [facility] [address] [place] [address] [place] [address] [place] [address] [phone] Social History Tobacco Use Types Packs/Day Years [...] Oral Thrush. OLANZAPINE PO Take by mouth. [place]-3 Fatty Acids Take 2 Caps by mouth [...] Notes * Madalyn Sahu MD - 03/16/2018 3:57 PM CDT Jeimy, would you please fax her lab results to her PCP? Thank you. Dear Savannah, I apologize for the delay in notifying you of your recent lab results. Both of your inflammatory markers were not elevated. Your kidney function test was stable. Your liver function test was normal. Of note, your potassium level was mildly low and I would recommend that you follow-up with your primary care provider regarding this. Your complete blood count showed mildly low white blood cell count and was normal otherwise. We will fax your lab results to your primary care provider for his/her review. Please feel free to let me know, should you have any questions or concerns. Sincerely, Madalyn Sahu MD in this encounter Plan of Treatment Not on fileas of this encounter Procedures Procedure Name Priority Date/Time Associated Diagnosis Comments SED RATE Routine 03/16/2018 Systemic lupus Results for this 11:24 AM CDT erythematosus (SLE) in procedure are in the adult ([facility]) results section. Therapeutic drug monitoring CBC AND DIFF Routine 03/16/2018 Systemic lupus Results for this 11:24 AM CDT erythematosus (SLE) in procedure are in the adult ([facility]) results section. Therapeutic drug monitoring C REACTIVE PROTEIN (CRP) Routine 03/16/2018 Systemic lupus Results for this 11:24 AM CDT erythematosus (SLE) in procedure are in the adult ([facility]) results section. Therapeutic drug monitoring COMPREHENSIVE METABOLIC Routine 03/16/2018 Systemic lupus Results for this PANEL 11:24 AM CDT erythematosus (SLE) in procedure are in the adult ([facility]) results section. Therapeutic drug monitoring in this encounter Results * COMPREHENSIVE METABOLIC PANEL (03/16/2018 11:24 AM) [...] for questions. Specimen Blood Performing Organization Address City/[facility]/Zipcode Phone Number [facility] [address] [place] [address] * C REACTIVE PROTEIN (CRP) (03/16/2018 11:24 AM) C-Reactive Protein 0.73 <1.0 MG/DL MAIN LAB Specimen Blood Performing Organization Address City/[facility]/Zipcode Phone Number [facility] [address] [place] [address] * SED RATE (03/16/2018 11:24 AM) Sed Rate -ESR 5 0 - 20 MM/HR MAIN LAB Specimen Blood Performing Organization Address City/[facility]/Zipcode Phone Number [facility] [address] [place] [address] * CBC AND DIFF (03/16/2018 11:24 AM) White Blood Cells 4.1 (L) 4.5 - 11.0 K/UL MAIN LAB RBC 4.24 4.0 - 5.0 [...] Address City/State/Zipcode Phone Number [facility] [address] [place] [address] in this encounter Visit Diagnoses Diagnosis Systemic lupus erythematosus (SLE) in adult (HCC) Therapeutic drug monitoring Encounter for therapeutic drug monitoring
[2018-05-29] MEDS: TETRACAINE 0.5% OPHTH SOLN 4 ML BTL (SINGLE DOSE ONLY) OU PRN ×4 (06:55→07:15)
--- OUTSIDE RECORDS SUMMARY | 2018-05-29 06:56 | XMS REPORT | Continuity of Care Document ---
Author Author [facility] Organization [facility] Address Unknown Phone Unavailable Allergies Active Description Code Type Severity Reaction Onset Reported/Identified Relationship to Patient Clinical Status Yes TEGADERM TEGADERM Unknown BLISTERS 01/23/2014 Yes tramadol HCl [id number] Drug Allergy Severe ANAPHYLAXIS 11/11/2016 Yes levofloxacin [id number] Drug Allergy Moderate N/A 11/11/2016 Medications There [...] DO Ot 486 PNEUMONIA, ORGANISM NOS 04/06/2013 FARHIA EDMONDSON DO Ot 493.90 ASTHMA, UNSPECIFIED 04/06/2013 FRAIHA EDMONDSON DO Ot 530.81 ESOPHAGEAL REFLUX 04/06/2013 [...] FEVER) 07/25/2013 LION DE LA CRUZ C ROLLER STRUCTURAL MILL Ot 786.2 COUGH 09/06/2013 RIDLION CHAPPELL ROLLER STRUCTURAL MILL Ot 959.09 INJURY OF FACE AND NECK 09/06/2013 LION DE LA CRUZ ROLLER STRUCT[employer] MILL Ot E000.8 OTHER EXTERNAL CAUSE STATUS 09/06/2013 LION DE LA CRUZ ROLLER [employer] MILL Ot E928.9 ACCIDENT NOS 09/06/2013 RIDLION CHAPPELL ROLLER STRUCTURAL MILL Ot V58.81 FIT/ADJ VASCULAR CATHETER 12/06/2013 JEANNETTE [...] EDMONDSON DO Ot V76.12 06/29/2014 LION EDMONDSON HEAD 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 Ot 250.00 06/29/2014 LION EDMONDSON HEAD 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 Ot 486 06/29/2014 LION EDMONDSON HEAD 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 Ot 780.79 06/29/2014 LION EDMONDSON HEAD 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 Ot V58.69 06/29/2014 LION DE LA CRUZ ROLLER STRUCTURAL MILL Ot 486 06/29/2014 MARIA LUZ ANDRADE HEAD 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 Ot 279.00 06/29/2014 MARIA LUZ ANDRADE HEAD 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 Ot 280.9 06/29/2014 MARIAL UZ ANDRADE HEAD 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 Ot 453.40 06/29/2014 MARIA LUZ ANDRADE HEAD 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 Ot 585.3 06/29/2014 MARIA LUZ ANDRADE HEAD 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 Ot 710.0 06/29/2014 MARIA LUZ ANDRADE HEAD 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 Ot 714.0 06/29/2014 MARIA LUZ ANDRADE HEAD 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 Ot V58.61 06/29/2014 MARIA LUZ ANDRADE HEAD 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 Ot V58.65 06/29/2014 MARIA LUZ ANDRADE HEAD 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 Ot V58.69 06/29/2014 FARIHA EDMONDSON DO Ot [...] Angie Ot 280.9 07/06/2014 KEVIN BEY, JEANNETTE dAams Ot 710.0 07/06/2014 KEVIN BEY, JEANNETTE Adams [...] IRON DEFIC ANEMIA NOS 10/03/2014 KEVIN BEY, JENANETTE Adams Ot 710.0 SYST LUPUS ERYTHEMATOSIS 10/03/2014 [...] BEY, JEANNETTE Adams Ot 710.0 10/05/2014 KEVIN BYE, JEANNETTE Adams Ot 714.0 10/05/2014 KEVIN BEY, JEANNETTE Adams Ot V58.65 10/05/2014 KEVIN BYE, JEANNETTE Adams Ot V58.69 10/05/2014 KEVIN BEY, [...] LETA SAUER ZAC M Ot 276.8 11/04/2014 [facility] DO ZAC Scott Ot 584.9 11/04/2014 [facility] DO ZAC Scott Ot 710.0 11/04/2014 [facility] DO ZAC M Ot 276.8 11/04/2014 LETAMARGARITA [...] EDMONDSON DO Ot V76.12 11/07/2014 LION EDMONDSON HEAD 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 Ot 250.00 11/07/2014 LION EDMONDSON HEAD 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 Ot 486 11/07/2014 LION EDMONDSON HEAD 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 Ot 780.79 11/07/2014 LION EDMONDSON HEAD 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 Ot V58.69 11/07/2014 LION DE LA CRUZ ROLLER STRUCTURAL MILL Ot 486 11/07/2014 MARIA LUZ ANDRADE HEAD 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 Ot 279.00 11/07/2014 MARIA LUZ ANDRADE HEAD 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 Ot 280.9 11/07/2014 MARIA LUZ ANDRADE HEAD 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 Ot 453.40 11/07/2014 MARIA LUZ ANDRADE HEAD 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 Ot 585.3 11/07/2014 MARIA LUZ ANDRADE HEAD 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 Ot 710.0 11/07/2014 MARIA LUZ ANDRADE HEAD 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 Ot 714.0 11/07/2014 MARIA LUZ ANDRADE HEAD 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 Ot V58.61 11/07/2014 MARIA LUZ ANDRADE HEAD 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 Ot V58.65 11/07/2014 MARIA LUZ ANDRADE HEAD 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 Ot V58.69 11/07/2014 FARIHA EDMONDSON DO Ot [...] EDMONDSONMANUEL SAUER FARIHA Blakely Ot 486 11/07/2014 EDMONDSNO DO FARIHA Blakely Ot 486 11/07/2014 EDMONDSONFARIHA [...] EDMONDSON DO Ot V76.12 11/07/2014 LION EDMONDSON HEAD 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 Ot 250.00 11/07/2014 LION EDMONDSON HEAD 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 Ot 486 11/07/2014 LION EDMONDSON HEAD 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 Ot 780.79 11/07/2014 LION EDMONDSON HEAD 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 Ot V58.69 11/07/2014 LION DE LA CRUZ ROLLER STRUCTURAL MILL Ot 486 11/07/2014 MARIA LUZ ANDRADE HEAD 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 Ot 279.00 11/07/2014 MARIA LUZ ANDRADE HEAD 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 Ot 280.9 11/07/2014 MARIA LUZ ANDRADE HEAD 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 Ot 453.40 11/07/2014 MARIA LUZ ANDRADE HEAD 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 Ot 585.3 11/07/2014 MARIA LUZ ANDRADE HEAD 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 Ot 710.0 11/07/2014 MARIA LUZ ANDRADE HEAD 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 Ot 714.0 11/07/2014 MARIA LUZ ANDRADE HEAD 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 Ot V58.61 11/07/2014 MARIA LUZ ANDRADE HEAD 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 Ot V58.65 11/07/2014 MARIA LUZ ANDRADE HEAD 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 Ot V58.69 11/07/2014 FARIHA EDMONDSON DO Ot [...] SAUER Ot 599.70 11/07/2014 KEVIN BEY, JEANNETTE Adams Ot 279.00 11/07/2014 KVEIN BEY, JEANNETTE Adams Ot 280.9 11/07/2014 KEVIN [...] BEY, JEANNETTE Adams Ot 280.9 11/16/2014 JEANNETTE BROWN MD Ot 710.0 11/16/2014 JEANNETTE BROWN MD Ot 714.0 11/16/2014 JEANNETTE BROWN MD Ot V58.65 11/16/2014 JEANNETTE BROWN MD Ot V58.69 11/18/2014 FARIHA EDMONDSON DO Ot 466.0 12/05/2014 LETA DO ZAC M Ot 276.8 12/05/2014 [facility] DO ZAC Tyler Ot 584.9 12/05/2014 [facility] DO ZAC M Ot 710.0 12/19/2014 [facility] ZAC SAUER Ot 599.70 12/19/2014 [facility] DO ZAC M Ot 599.70 01/03/2015 JEANNETTE [...] BEY, JEANNETTE Adams Ot V58.65 01/06/2015 KEVIN BEY, JEANNETTE Adams Ot V58.69 01/09/2015 KEVIN BEY, [...] DO Ot V76.12 02/09/2015 DELVIS LION L HEAD 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 Ot 250.00 02/09/2015 KELL EDMONDSONRICKY Gross HEAD 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 Ot 486 02/09/2015 LION EDMONDSON HEAD 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 Ot 780.79 02/09/2015 LION EDMONDSON HEAD 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 Ot V58.69 02/09/2015 MALULION CHAPPELL ROLLER STRUCTURAL MILL Ot 486 02/09/2015 MARIA LUZ ANDRADE HEAD 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 Ot 279.00 02/09/2015 MARIA LUZ ANDRADE HEAD 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 Ot 280.9 02/09/2015 MARIA LUZ ANDRADE HEAD 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 Ot 453.40 02/09/2015 MARIA LUZ ANDRADE HEAD 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 Ot 585.3 02/09/2015 MARIA LUZ ANDRADE HEAD 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 Ot 710.0 02/09/2015 MARIA LUZ ANDRADE HEAD 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 Ot 714.0 02/09/2015 MARIA LUZ ANDRADE HEAD 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 Ot V58.61 02/09/2015 MARIA LUZ ANDRADE HEAD 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 Ot V58.65 02/09/2015 MARIA LUZ ANDRADE HEAD 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 Ot V58.69 02/09/2015 FARIHA EDMONDSON DO Ot [...] LETA DO, ZAC Scott Ot 710.0 02/09/2015 EDMNODSON DO, FARIHA Blakely Ot 466.0 02/09/2015 EDMONDSON [...] ZAC M Ot 599.70 02/16/2015 LETA DO, ZCA M Ot 710.0 02/16/2015 LETA DO, ZAC [...] EDMONDSON FARIHA Ot V76.12 02/22/2015 LION EDMONDSON HEAD 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 Ot 250.00 02/22/2015 LION EDMONDSON HEAD 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 Ot 486 02/22/2015 LION EDMONDSON HEAD 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 Ot 780.79 02/22/2015 LION EDMONDSON HEAD 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 Ot V58.69 02/22/2015 LION DE LA CRUZ ROLLER STRUCTURAL MILL Ot 486 02/22/2015 MARIA LUZ ANDRADE HEAD 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 Ot 279.00 02/22/2015 MARIA LUZ ANDRADE HEAD 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 Ot 280.9 02/22/2015 MARIA LUZ ANDRADE HEAD 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 Ot 453.40 02/22/2015 MARIA LUZ ANDRADE HEAD 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 Ot 585.3 02/22/2015 MARIA LUZ ANDRADE HEAD 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 Ot 710.0 02/22/2015 MAIRA LUZ ANDRADE HEAD 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 Ot 714.0 02/22/2015 MARIA LUZ ANDRADE HEAD 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 Ot V58.61 02/22/2015 MARIA LUZ ANDRADE HEAD 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 Ot V58.65 02/22/2015 ANDRADEMARIA LUZ HEAD 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 Ot V58.69 02/22/2015 EDMONDSON DO, FARIHA Blakely [...] LETA DOZAC M Ot 279.00 02/22/2015 LETA DOMCAKE M Ot 584.9 02/22/2015 LETA DOMACKE M [...] DO Ot V76.12 03/30/2015 DELVIS LION Renato HEAD 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 Ot 250.00 03/30/2015 DELVIS LION Renato HEAD 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 Ot 486 03/30/2015 FABY EDMONDSONIA Renato HEAD 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 Ot 780.79 03/30/2015 LION EDMONDSON HEAD 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 Ot V58.69 03/30/2015 JONOFABYCALEB Robin ROLLER STRUCTURAL MILL Ot 486 03/30/2015 MARIA LUZ ANDRADE HEAD 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 Ot 279.00 03/30/2015 MARIA LUZ ANDRADE HEAD 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 Ot 280.9 03/30/2015 MARIA LUZ ANDRADE HEAD 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 Ot 453.40 03/30/2015 MARIA LUZ ANDRADE HEAD 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 Ot 585.3 03/30/2015 MARIA LUZ ANDRADE HEAD 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 Ot 710.0 03/30/2015 MARIA LUZ ANDRADE HEAD 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 Ot 714.0 03/30/2015 MARIA LUZ ANDRADE HEAD 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 Ot V58.61 03/30/2015 MARIA LUZ ANDRADE HEAD 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 Ot V58.65 03/30/2015 MARIA LUZ ANDRADE HEAD 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 Ot V58.69 03/30/2015 FARIHA EDMONDSON DO Ot [...] KEVIN BEY, JEANNETTE Adams Ot 280.9 05/04/2015 KEVIN BEY, JEANNETTE Adams Ot 710.0 05/04/2015 KEVIN [...] FARIHA EDMONDSON DO Ot V76.12 05/05/2015 DELVISLION HEAD 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 Ot 250.00 05/05/2015 DELVISLION HEAD 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 Ot 486 05/05/2015 DELVISLION Renato HEAD 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 Ot 780.79 05/05/2015 DELVISLION Renato HEAD 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 Ot V58.69 05/05/2015 MALULION CHAPPELL ROLLER STRUCTURAL MILL Ot 486 05/05/2015 MARIA LUZ ANDRADE HEAD 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 Ot 279.00 05/05/2015 MARIA LUZ ANDRADE HEAD 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 Ot 280.9 05/05/2015 MARIA LUZ ANDRADE HEAD 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 Ot 453.40 05/05/2015 MARIA LUZ ANDRADE HEAD 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 Ot 585.3 05/05/2015 MARIA LUZ ANDRADE HEAD 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 Ot 710.0 05/05/2015 MARIA LUZ ANDRADE HEAD 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 Ot 714.0 05/05/2015 MARIA LUZ ANDRADE HEAD 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 Ot V58.61 05/05/2015 MARIA LUZ ANDRADE HEAD 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 Ot V58.65 05/05/2015 MARIA LUZ ANDRADE HEAD 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 Ot V58.69 05/05/2015 FARIHA EDMONDSON DO Ot [...] JEANNETTE Adams Ot V58.69 06/13/2015 LION EDMONDSON HEAD 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 Ot L03.90 06/13/2015 LION EDMONDSONP Ot R50.9 [...] EDMONDSON DO Ot V76.12 06/21/2015 LION EDMONDSON HEAD 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 Ot 250.00 06/21/2015 LION EDMONDSON HEAD 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 Ot 486 06/21/2015 LION EDMONDSON HEAD 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 Ot 780.79 06/21/2015 LION EDMONDSON HEAD 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 Ot V58.69 06/21/2015 LION DE LA CRUZ ROLLER STRUCTURAL MILL Ot 486 06/21/2015 MARIA LUZ ANDRADE HEAD 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 Ot 279.00 06/21/2015 MARIA LUZ ANDRADE HEAD 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 Ot 280.9 06/21/2015 MARIA LUZ ANDRADE HEAD 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 Ot 453.40 06/21/2015 MARIA LUZ ANDRADE HEAD 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 Ot 585.3 06/21/2015 MARIA LUZ ANDRADE HEAD 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 Ot 710.0 06/21/2015 MARIA LUZ ANDRADE HEAD 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 Ot 714.0 06/21/2015 MARIA LUZ ANDRADE HEAD 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 Ot V58.61 06/21/2015 MARIA LUZ ANDRADE HEAD 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 Ot V58.65 06/21/2015 MARIA LUZ ANDRADE HEAD 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 Ot V58.69 06/21/2015 FARIHA EDMONDSON DO Ot [...] JEANNETTE Adams Ot V58.69 06/21/2015 LION EDMONDSON HEAD 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 Ot L03.90 06/21/2015 LION EDMONDSON HEAD 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 Ot R50.9 06/22/2015 Ot 289.81 06/22/2015 Ot [...] EDMONDSON DO Ot V76.12 06/22/2015 LION EDMONDSON HEAD 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 Ot 250.00 06/22/2015 FABY EDMONDSONIA L HEAD 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 Ot 486 06/22/2015 EDMONDSONLION CLEMENTE HEAD 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 Ot 780.79 06/22/2015 DELVISLION HEAD 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 Ot V58.69 06/22/2015 LION DE LA CRUZ ROLLER STRUCTURAL MILL Ot 486 06/22/2015 ANDRADE MARIA LUZ S HEAD 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 Ot 279.00 06/22/2015 LUPE MARIA LUZ S HEAD 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 Ot 280.9 06/22/2015 LUPE MARIA LUZ S HEAD 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 Ot 453.40 06/22/2015 ANDRADE MARIA LUZ S HEAD 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 Ot 585.3 06/22/2015 ANDRADE MARIA LUZ S HEAD 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 Ot 710.0 06/22/2015 LUPE MARIA LUZ S HEAD 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 Ot 714.0 06/22/2015 LUPE MARIA LUZ S HEAD 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 Ot V58.61 06/22/2015 LUPE MARIA LUZ S HEAD 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 Ot V58.65 06/22/2015 LUPE MARIA LUZ S HEAD 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 Ot V58.69 06/22/2015 FARIHA EDMONDSON DO Ot [...] MD Ot V58.69 06/22/2015 LION EDMONDSON L HEAD 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 Ot L03.90 06/22/2015 DELVIS LINO L HEAD 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 Ot R50.9 06/23/2015 DELVIS LION L HEAD 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 Ot J32.9 06/23/2015 DELVIS LION L HEAD 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 Ot R50.9 07/20/2015 DELVIS LION L HEAD 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 Ot J32.9 07/20/2015 DELVIS LION L HEAD 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 Ot R50.9 07/25/2015 DELVIS LION L HEAD 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 Ot J32.9 07/25/2015 DELVIS LION L HEAD 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 Ot R50.9 07/31/2015 DELVIS LION L HEAD 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 Ot L03.90 07/31/2015 DELVIS LION L HEAD 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 Ot R50.9 08/10/2015 JEANNETTE BROWN MD Ot [...] LUPUS ERYTHEMATOSUS, ORGAN OR S 08/15/2015 JEANNETTE RBOWN MD Ot V58.65 LONG-TERM(CURRENT)USE OF STEROIDS 08/15/2015 JEANNETTE BROWN MD, Ot V58.69 OTH MED,LT,CURRENT USE 08/15/2015 LION EDMONDSON HEAD 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 Ot J32.9 08/15/2015 LION EDMONDSON HEAD 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 Ot R50.9 09/06/2015 LION EDMONDSON HEAD 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 Ot L03.90 09/06/2015 LION EDMONDSON HEAD 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 Ot R50.9 09/06/2015 LION EDMONDSON HEAD 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 Ot J06.9 09/06/2015 FARIHA EDMONDSON DO Ot J18.9 09/06/2015 RAHEL BEY, DAX Scott Ot Z51.81 09/06/2015 RAHEL BEY, DAX Scott Ot Z79.899 09/06/2015 ZAC GILLETTE DO Ot D64.9 09/06/2015 ZAC GILLETTE DO Ot M32.9 09/06/2015 ZAC GILLETTE DO Ot N17.9 09/06/2015 ZAC GILLETTE DO Ot R19.7 09/21/2015 FARIHA EDMONDSON DO Ot D50.9 09/21/2015 FARIHA EDMONDSON DO Ot M06.9 10/01/2015 LION EDMONDSON HEAD 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 Ot J06.9 ACUTE UPPER RESPIRATORY INFECTION, UNSPE [...] DAX M Ot Z79.899 10/19/2015 LION EDMONDSON HEAD 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 Ot J32.9 10/19/2015 LION EDMONDSON HEAD 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 Ot R50.9 10/19/2015 FARIHA EDMONDSON DO Ot [...] FARIHA EDMONDSON DO Ot M06.9 10/19/2015 KEVIN EBY, JEANNETTE Adams Ot J06.9 10/23/2015 FARIHA EDMONDSON DO Ot J01.00 11/15/2015 FARIHA EDMONDSON DO Ot J01.00 01/15/2016 DEEPA RONDON MD Ot J32.9 CHRONIC SINUSITIS, UNSPECIFIED 01/15/2016 DEEPA RONDON MD Ot 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 01/15/2016 DEPEA RONDON MD Ot J34.89 OTHER SPECIFIED DISORDERS [...] RAHEL BEY, DAX Scott Ot 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 02/16/2016 ZAC GILLETTE DO [...] 05/08/2016 DAX MCGINNIS MD, Ot 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 05/08/2016 ZAC GILLETTE DO, [...] PNEUMONIA, UNSPECIFIED ORGANISM 06/11/2016 EDMONDSON, LION L HEAD 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 Ot R59.0 LOCALIZED ENLARGED LYMPH NODES 06/11/2016 EDMONDSON, LION L HEAD 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 Ot R68.84 JAW PAIN 06/11/2016 EDMONDSON, LION L HEAD 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 Ot R59.0 LOCALIZED ENLARGED LYMPH NODES 06/11/2016 EDMONDSON, LION L HEAD 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 Ot R68.84 JAW PAIN 06/17/2016 EDMONDSON, LION L HEAD 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 Ot R59.0 LOCALIZED ENLARGED LYMPH NODES 06/17/2016 EDMONDSON, LION L HEAD 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 Ot R68.84 JAW PAIN 07/10/2016 EDMONDSON, LION L HEAD 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 Ot R59.0 LOCALIZED ENLARGED LYMPH NODES 07/10/2016 EDMONDSON, LION L HEAD 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 Ot R68.84 JAW PAIN 07/18/2016 JEANNETTE BROWN MD Ot D50.9 IRON DEFICIENCY ANEMIA, UNSPECIFIED 07/18/2016 JEANNETTE BROWN MD Ot D80.1 NONFAMILIAL HYPOGAMMAGLOBULINEMIA 07/18/2016 JEANNETTE BROWN MD Ot M06.9 RHEUMATOID ARTHRITIS, UNSPECIFIED 07/18/2016 JEANNETTE BROWN MD, Ot M32.10 SYSTEMIC LUPUS ERYTHEMATOSUS, ORGAN OR S 07/18/2016 JEANNETTE BROWN MD Ot 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 07/30/2016 JEANNETTE BROWN MD Ot D50.9 IRON DEFICIENCY ANEMIA, UNSPECIFIED 07/30/2016 JEANNETTE BROWN MD, Ot D80.1 NONFAMILIAL HYPOGAMMAGLOBULINEMIA 07/30/2016 JEANNETTE BROWN MD Ot M06.9 RHEUMATOID ARTHRITIS, UNSPECIFIED 07/30/2016 JEANNETTE BROWN MD Ot M32.10 SYSTEMIC LUPUS ERYTHEMATOSUS, ORGAN OR S 07/30/2016 JEANNETTE BROWN MD Ot 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 08/13/2016 JEANNETTE BROWN MD Ot D50.9 IRON DEFICIENCY ANEMIA, UNSPECIFIED 08/13/2016 JEANNETTE BROWN MD Ot D80.1 NONFAMILIAL HYPOGAMMAGLOBULINEMIA 08/13/2016 JEANNETTE BROWN MD, Ot M06.9 RHEUMATOID ARTHRITIS, UNSPECIFIED 08/13/2016 JEANNETTE BROWN MD Ot M32.10 SYSTEMIC LUPUS ERYTHEMATOSUS, ORGAN OR S 08/13/2016 JEANNETTE BROWN MD Ot 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 09/04/2016 JEANNETTE BROWN MD [...] KEVIN BEY, JEANNETTE Adams Ot Z79.899 OTHER NURSING HOME (CURRENT) DRUG THERAPY 09/13/2016 Ot V58.61 ANTICOAGULANTS,LT,CURRENT [...] MAMMO-MALIGN NEOPLASM OF [place] 09/13/2016 LION EDMONDSON HEAD 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 Ot 250.00 DIAB WILLY WO COMPL, TYPE II OR UNSPEC TY 09/13/2016 LION EDMONDSON HEAD 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 Ot 486 PNEUMONIA, ORGANISM NOS 09/13/2016 LION EDMONDSON HEAD 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 Ot 780.79 OTH MALAISE FATIGUE 09/13/2016 LION EDMONDSON HEAD 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 Ot V58.69 OTH MED,LT,CURRENT USE 09/13/2016 JONO LIONRICKY Robin APRN Ot 486 PNEUMONIA, ORGANISM NOS 09/13/2016 MARIA LUZ ANDRADE HEAD 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 Ot 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 09/13/2016 MARIA LUZ ANDRADE HEAD 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 Ot 280.9 IRON DEFIC ANEMIA NOS 09/13/2016 MARIA LUZ ANDRADEP Ot 453.40 ACUTE VENOUS EMBOLISM THROMBOSIS UNSP 09/13/2016 MARIA LUZ ANDRADE HEAD 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 Ot 585.3 CHRONIC KIDNEY DISEASE, STAGE III (MODER 09/13/2016 MARIA LUZ ANDRADE HEAD 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 Ot 710.0 SYST LUPUS ERYTHEMATOSIS 09/13/2016 MARIA LUZ ANDRADEP Ot 714.0 RHEUMATOID ARTHRITIS 09/13/2016 MARIA LUZ ANDRADEP Ot V58.61 ANTICOAGULANTS,LT,CURRENT USE 09/13/2016 MARIA LUZ ANDRADE HEAD 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 Ot V58.65 LONG-TERM(CURRENT)USE OF STEROIDS 09/13/2016 MARIA LUZ ANDRADE HEAD 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 Ot V58.69 OTH MED,LT,CURRENT USE 09/13/2016 FARIHA EDMONDSON DO Ot 593.9 RENAL URETERAL DIS NOS 09/13/2016 FARIHA EDMONDSON DO Ot 780.60 FEVER, UNSPECIFIED 09/13/2016 FARIHA EDMONDSON DO Ot 784.0 HEADACHE 09/13/2016 FARIHA EDMONDSON DO, Ot 780.60 FEVER, UNSPECIFIED 09/13/2016 FARIHA EDMONDSON DO Ot 919.4 INSECT BITE NEC 09/13/2016 FARIHA EDMONDSON DO, Ot E906.4 NONVENOM ARTHROPOD BITE 09/13/2016 FARIAH EDMONDSON DO, Ot V58.81 FIT/ADJ VASCULAR CATHETER [...] Ot 584.9 ACUTE RENAL FAILURE, UNSPECIFIED 09/13/2016 AZC GILLETTE DO Ot 710.0 SYST LUPUS ERYTHEMATOSIS [...] DISEASE, STAGE III (MODER 09/13/2016 LION EDMONDSON HEAD 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 Ot L03.90 CELLULITIS, UNSPECIFIED 09/13/2016 LION EDMONDSON HEAD 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 Ot R50.9 FEVER, UNSPECIFIED 09/13/2016 LOIN EDMONDSON HEAD 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 Ot J32.9 CHRONIC SINUSITIS, UNSPECIFIED 09/13/2016 LION EDMONDSONP Ot R50.9 FEVER, UNSPECIFIED 09/13/2016 FARIHA EDMONDSON DO Ot J18.9 PNEUMONIA, UNSPECIFIED ORGANISM 09/13/2016 RAHEL BEY, DAX Scott Ot Z51.81 ENCOUNTER FOR THERAPEUTIC DRUG LEVEL MON 09/13/2016 DAX MCGINNIS MD, Ot Z79.899 OTHER NURSING HOME (CURRENT) DRUG THERAPY 09/13/2016 ZAC GILLETTE DO Ot D64.9 ANEMIA, UNSPECIFIED 09/13/2016 ZAC GILLETTE DO, Ot M32.9 SYSTEMIC LUPUS ERYTHEMATOSUS, UNSPECIFIE 09/13/2016 ZAC GILLETTE DO Ot N17.9 ACUTE KIDNEY FAILURE, UNSPECIFIED 09/13/2016 ZAC GILLETTE DO Ot R19.7 DIARRHEA, UNSPECIFIED 09/13/2016 FARIAH EDMONDSON DO Ot D50.9 IRON DEFICIENCY ANEMIA, UNSPECIFIED 09/13/2016 FARIHA EDMONDSON DO Ot M06.9 RHEUMATOID ARTHRITIS, UNSPECIFIED 09/13/2016 KEVIN BEY, JEANNETTE Adams Ot J06.9 ACUTE UPPER RESPIRATORY INFECTION, UNSPE 09/13/2016 FARIHA EDMONDSON DO Ot J01.00 ACUTE MAXILLARY SINUSITIS, UNSPECIFIED 09/13/2016 FARIHA EDMONDSON DO Ot D50.9 IRON DEFICIENCY ANEMIA, UNSPECIFIED 09/13/2016 FARIHA EDMONDSON DO Ot J18.9 PNEUMONIA, UNSPECIFIED ORGANISM 09/13/2016 LION EDMONDSON HEAD 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 Ot R59.0 LOCALIZED ENLARGED LYMPH NODES 09/13/2016 LION EDMONDSON HEAD 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 Ot R68.84 JAW PAIN 09/13/2016 JEANNETTE BROWN MD Ot D50.9 IRON DEFICIENCY ANEMIA, UNSPECIFIED 09/13/2016 JEANNETTE BROWN MD Ot D80.1 NONFAMILIAL HYPOGAMMAGLOBULINEMIA 09/13/2016 JEANNETTE BROWN MD Ot M06.9 RHEUMATOID ARTHRITIS, UNSPECIFIED 09/13/2016 JEANNETTE BROWN MD Ot M32.10 SYSTEMIC LUPUS ERYTHEMATOSUS, ORGAN OR S 09/13/2016 KEVIN BEY, JEANNETTE Adams Ot 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 09/13/2016 ALCON BEY, DEEPA [...] MAMMO-MALIGN NEOPLASM OF [place] 10/01/2016 LION EDMONDSON HEAD 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 Ot 250.00 DIAB WILLY WO COMPL, TYPE II OR UNSPEC TY 10/01/2016 LION EDMONDSON HEAD 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 Ot 486 PNEUMONIA, ORGANISM NOS 10/01/2016 LION EDMONDSON HEAD 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 Ot 780.79 OTH MALAISE FATIGUE 10/01/2016 LION EDMONDSON HEAD 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 Ot V58.69 OT MED,LT,CURRENT USE 10/01/2016 LION DE LA CRUZ ROLLER STRUCTURAL MILL Ot 486 PNEUMONIA, ORGANISM NOS 10/01/2016 MARIA LUZ ANDRADEP Ot 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 10/01/2016 MARIA LUZ ANDRADE HEAD 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 Ot 280.9 IRON DEFIC ANEMIA NOS 10/01/2016 MARIA LUZ ANDRADEP Ot 453.40 ACUTE VENOUS EMBOLISM THROMBOSIS UNSP 10/01/2016 MARIA LUZ ANDRADEP Ot 585.3 CHRONIC KIDNEY DISEASE, STAGE III [...] DISEASE, STAGE III (MODER 10/01/2016 LION EDMONDSON HEAD 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 Ot L03.90 CELLULITIS, UNSPECIFIED 10/01/2016 LION EDMONDSON HEAD 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 Ot R50.9 FEVER, UNSPECIFIED 10/01/2016 ALCON BEY, [...] D50.9 IRON DEFICIENCY ANEMIA, UNSPECIFIED 10/09/2016 JEANNETTE BRWON MD, Ot D80.1 NONFAMILIAL HYPOGAMMAGLOBULINEMIA 10/09/2016 JEANNETTE BROWN MD Ot M06.9 RHEUMATOID ARTHRITIS, UNSPECIFIED 10/09/2016 JEANNETTE BROWN MD Ot M32.10 SYSTEMIC LUPUS ERYTHEMATOSUS, ORGAN OR S 10/09/2016 JEANNETTE BROWN MD Ot 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 10/16/2016 ZAC GILLETTE DO, [...] 10/25/2016 JEANNETTE BROWN MD Ot Z79.899 OTHER NURSING HOME (CURRENT) DRUG THERAPY 10/28/2016 DEEPA RONDON MD [...] 11/14/2016 JEANNETTE BROWN MD Ot 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 11/14/2016 DEEPA RONDON MD [...] 12/03/2016 JEANNETTE BROWN MD Ot 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 12/24/2016 Ot 719.66 JOINT [...] NEOPLASM OF [place] 12/24/2016 DELVIS LION Gross HEAD 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 Ot 250.00 DIAB WILLY WO COMPL, TYPE II OR UNSPEC TY 12/24/2016 EDMONDSONLION JACKSON HEAD 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 Ot 486 PNEUMONIA, ORGANISM NOS 12/24/2016 EDMONDSON LION Gross HEAD 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 Ot 780.79 OTH MALAISE FATIGUE 12/24/2016 LION EDMONDSON HEAD 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 Ot V58.69 OTH MED,LT,CURRENT USE 12/24/2016 LION DE LA CRUZ RO[employer] M[employer] Ot 486 PNEUMONIA, ORGANISM NOS 12/24/2016 MARIA LUZ ANDRADE HEAD 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 Ot 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 12/24/2016 MARIA LUZ ANDRADE HEAD 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 Ot 280.9 IRON DEFIC ANEMIA NOS 12/24/2016 MARIA LUZ ANDRADE HEAD 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 Ot 453.40 ACUTE VENOUS EMBOLISM THROMBOSIS UNSP 12/24/2016 MARIA LUZ ANDRADE HEAD 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 Ot 585.3 CHRONIC KIDNEY DISEASE, STAGE III (MODER 12/24/2016 MARIA LUZ ANDRADE HEAD 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 Ot 710.0 SYST LUPUS ERYTHEMATOSIS 12/24/2016 MARIA LUZ ANDRADE HEAD 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 Ot 714.0 RHEUMATOID ARTHRITIS 12/24/2016 MARIA LUZ ANDRADE HEAD 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 Ot V58.61 ANTICOAGULANTS,LT,CURRENT USE 12/24/2016 MARIA LUZ ANDRADE HEAD 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 Ot V58.65 LONG-TERM(CURRENT)USE OF STEROIDS 12/24/2016 MARIA LUZ ANDRADE HEAD 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 Ot V58.69 OT MED,LT,CURRENT USE 12/24/2016 FARIHA [...] Ot 486 PNEUMONIA, ORGANISM NOS 12/24/2016 FARIHA EMDONDSON DO Ot 786.2 COUGH 12/24/2016 ZAC GILLETTE [...] DISEASE, STAGE III (MODER 12/24/2016 LION EDMONDSON HEAD 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 Ot L03.90 CELLULITIS, UNSPECIFIED 12/24/2016 LION EDMONDSONP Ot R50.9 FEVER, UNSPECIFIED 12/24/2016 LION EDMONDSON HEAD 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 Ot J32.9 CHRONIC SINUSITIS, UNSPECIFIED 12/24/2016 LION EDMONDSONP Ot R50.9 FEVER, UNSPECIFIED 12/24/2016 FARIHA EDMONDSON DO, Ot J18.9 PNEUMONIA, UNSPECIFIED ORGANISM 12/24/2016 RAHEL BEY, DAX Scott Ot Z51.81 ENCOUNTER FOR THERAPEUTIC DRUG LEVEL MON 12/24/2016 DAX MCGINNIS MD, Ot Z79.899 OTHER NURSING HOME (CURRENT) DRUG THERAPY 12/24/2016 ZAC GILLETTE DO [...] (MODERAT 12/25/2016 LETA DO, ZAC M Ot E83.31 FAMILIAL [...] 07/23/2017 ESTELITA BAUM MD Ot 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 07/28/2017 ZAC GILLETTE DO [...] 08/07/2017 ESTELITA BAUM MD Ot 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 08/14/2017 FARIHA EDMONDSON DO Ot K44.9 DIAPHRAGMATIC HERNIA WITHOUT OBSTRUCTION 08/14/2017 FARIHA EDMONDSON DO Ot M79.621 PAIN IN RIGHT UPPER ARM 08/14/2017 FARIHA EDMONDSON DO Ot R07.9 CHEST PAIN, UNSPECIFIED 08/17/2017 ESTELITA BAUM MD Ot D50.9 IRON DEFICIENCY ANEMIA, UNSPECIFIED 08/17/2017 ESTELITA BAUM MD Ot D80.1 NONFAMILIAL HYPOGAMMAGLOBULINEMIA 08/17/2017 ESTELITA BAUM MD Ot M06.9 RHEUMATOID ARTHRITIS, UNSPECIFIED 08/17/2017 ESTELITA BAUM MD Ot M32.10 SYSTEMIC LUPUS ERYTHEMATOSUS, ORGAN OR S 08/17/2017 ESTELITA BAUM MD Ot Z79.899 OTHER NURSING HOME (CURRENT) DRUG THERAPY 08/28/2017 FARIHA EDMONDSON DO, Ot J11.1 FLU DUE TO UNIDENTIFIED INFLUENZA VIRUS 09/10/2017 ESTELITA BAUM MD Ot D50.9 IRON DEFICIENCY ANEMIA, UNSPECIFIED 09/10/2017 ESTELITA BAUM MD Ot D80.1 NONFAMILIAL HYPOGAMMAGLOBULINEMIA 09/10/2017 ESTELITA BAUM MD Ot M06.9 RHEUMATOID ARTHRITIS, UNSPECIFIED 09/10/2017 ESTELITA BAUM MD Ot M32.10 SYSTEMIC LUPUS ERYTHEMATOSUS, ORGAN OR S 09/10/2017 ESTELITA BAUM MD Ot Z79.899 OTHER NURSING HOME (CURRENT) DRUG THERAPY 09/15/2017 ESTELITA BAUM MD Ot D50.9 IRON DEFICIENCY ANEMIA, UNSPECIFIED 09/15/2017 ESTELITA BAUM MD Ot D80.1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 11.5-16.0 Blood hematocrit (volume fraction) 43 % 35-52 Automated erythrocyte mean corpuscular volume 89 [foz_us] 80-99 Automated erythrocyte mean corpuscular hemoglobin (mass per erythrocyte) 31 pg 25-34 Automated erythrocyte mean corpuscular hemoglobin concentration measurement ( mass/volume) 35 g/dL 32-36 Automated erythrocyte distribution width ratio 18.6 % 10.0-14.5 Automated blood platelet count (count/volume) 207 10*3/uL 130-400 Automated blood platelet mean volume measurement 12.3 [foz_us] 7.4-10.4 Automated blood neutrophils/100 leukocytes 73 % 42-75 Automated blood lymphocytes/100 leukocytes 21 % 12-44 Blood monocytes/100 leukocytes 4 % 0-12 Automated blood eosinophils/100 leukocytes 1 % 0-10 Automated blood basophils/100 leukocytes 0 % 0-10 Blood neutrophils automated count (number/volume) 5.1 10*3 1.8-7.8 Blood lymphocytes automated count (number/volume) 1.5 10*3 1.0-4.0 Blood monocytes automated count (number/volume) 0.3 10*3 0.0-1.0 Automated eosinophil count 0.1 10*3/uL 0.0-0.3 Automated blood basophil count (count/volume) 0.0 10*3/uL 0.0-0.1 Complete urinalysis with reflex to culture - 10/27/17 14:20 Urine color determination YELLOW NRG Urine clarity determination SLIGHTLY CLOUDY NRG Urine pH measurement by test strip 5 5-9 Specific gravity of urine by test strip 1.015 1.016- 1.022 Urine protein assay by test strip, semi-quantitative NEGATIVE NEGATIVE Urine glucose detection by automated test strip NEGATIVE NEGATIVE Erythrocytes detection in urine sediment by light microscopy 1+ NEGATIVE Urine ketones detection by automated test strip NEGATIVE NEGATIVE Urine nitrite detection by test strip NEGATIVE NEGATIVE Urine total bilirubin detection by test strip NEGATIVE NEGATIVE Urine urobilinogen measurement by automated test strip (mass/volume) NORMAL NORMAL Urine leukocyte esterase detection by dipstick NEGATIVE NEGATIVE Automated urine sediment erythrocyte count by microscopy (number/high power field) [HPF] NRG Automated urine sediment leukocyte count by [...] urinalysis with reflex to culture NO NRG Serum or plasma renal function panel (Na, K, Cl, CO2, BUN, Cr, glucose,Ca, phos , alb) - 10/27/17 14:20 Serum or plasma sodium measurement (moles/volume) 138 mmol/L 135-145 Serum or plasma potassium measurement (moles/volume) 3.6 mmol/L 3.6-5.0 Serum or plasma chloride measurement (moles/volume) 111 mmol/L 98-107 Carbon dioxide 19 mmol/L 21-32 Serum or plasma anion gap determination (moles/volume) 8 mmol/L 5-14 Serum or plasma urea nitrogen measurement (mass/volume) 14 mg/dL 7-18 Serum or plasma creatinine measurement (mass/volume) 1.11 mg/dL 0.60-1.30 Serum or plasma urea nitrogen/creatinine mass ratio 13 NRG Serum or plasma creatinine measurement with calculation of estimated glomerular filtration rate 52 NRG Serum or plasma glucose measurement (mass/volume) 105 mg/dL 70-105 Serum or plasma calcium measurement (mass/volume) 8.9 mg/dL 8.5-10.1 Serum or plasma albumin measurement (mass/volume) 4.3 g/dL 3.2-4.5 Serum or plasma phosphate measurement (mass/volume) 2.4 mg/dL 2.3-4.7 Serum or plasma uric acid measurement (mass/volume) - 10/27/17 14:20 Serum or plasma uric acid measurement (mass/volume) 5.8 mg/dL 2.6-7.2 Magnesium - 10/27/17 14:20 Magnesium 2.1 mg/dL 1.8-2.4 Urine protein/creatinine mass ratio - 10/27/17 14:20 Urine protein measurement (mass/volume) < mg/dL 6-12 Urine creatinine measurement (mass/volume) 77 mg/dL 30- 125 Urine protein/creatinine mass ratio TNP NRG Serum DNA double strand antibody detection - 10/27/17 14:20 Serum DNA double strand antibody assay (units/volume) 48 [iU]/mL 0-300 Serum or plasma complement C3 measurement (mass/volume) - 10/27/17 14:20 Complement C3 nephritic [mass/volume] in serum or plasma 95 % 73-183 Complement C4 [mass/volume] in serum or plasma - 10/27/17 14:20 Complement C4 [mass/volume] in serum or plasma 25 % 15- 59 Serum or plasma intact pararthyroid hormone measurement (mass/volume) - 14:20 Serum or plasma intact parathyroid hormone measurement (mass/volume) 42.0 pg/mL 10.0-65.0 Bio-intact parathyroid hormone (PTH) measurement with calcium 9.3 % 8.5-10.5 VITAMIN D 25-HYDROXY - 10/27/17 14:20 VITAMIN D 25-HYDROXY (TOTAL) 31 % 30-100 Encounters ACCT No. Visit Date/Time Discharge Status Pt. Type Provider Facility Loc./Unit Complaint [id number] 05/11/2018 00:43:00 05/11/2018 23:59:59 CLS Preadmit ESTELITA BAUM MD [facility] ONC [id number] 03/27/2018 09:06:00 04/10/2018 00:01:00 DIS Outpatient ESTELTIA BAUM MD [facility] ONC [id number] 02/02/2018 13:02:00 02/04/2018 00:01:00 DIS Outpatient ESTELITA BAUM MD [facility] ONC [id number] 01/23/2018 08:30:00 01/23/2018 23:59:59 [facility] [id number] 09/11/2017 14:13:00 10/29/2017 00:01:00 DIS Outpatient ESTELITA BAUM MD [facility] ONC [id number] 10/27/2017 13:47:00 10/27/2017 23:59:59 CLS Outpatient ZAC GILLETTE DO [facility] LAB N83.299 [id number] 10/17/2017 09:56:00 10/17/2017 11:52:00 DIS Outpatient AZEEM RABAGO MD [facility] SDC CATARACT LEFT EYE [id number] 10/13/2017 06:13:00 10/13/2017 14:14:00 DIS Outpatient AZEEM RABAGO MD [facility] PREOP CATARACT LEFT EYE [id number] 08/27/2017 14:58:00 08/27/2017 23:59:59 CLS Outpatient FARIHA EDMONDSON DO [facility] LAB J11.1 [id number] 07/16/2017 12:41:00 07/16/2017 23:59:59 CLS Outpatient FARIHA EDMONDSON DO [facility] RAD R AXILLARY PAIN [id number] 06/13/2017 10:28:00 06/13/2017 23:59:59 CLS Outpatient ZAC GILLETTE DO [facility] LAB R82.99 N83.299 R60.9 [id number] 01/31/2017 15:40:00 01/31/2017 23:59:59 CLS Outpatient ZAC GILLETTE DO [facility] LAB N18.3 [id number] 01/22/2017 11:20:00 01/22/2017 23:59:59 CLS Outpatient SUAD LADD DPM [facility] RAD TARSAL TUNNEL SYNDROME G57.50 [id number] 01/22/2017 11:10:00 01/22/2017 23:59:59 CLS Outpatient PARK HAWKINS MD [facility] RAD SPONDYLOSIS OF CERVIAL REGION W/O MYELOPATHY [id number] 12/24/2016 14:28:00 12/24/2016 23:59:59 CLS Outpatient ZAC GILLETTE DO [facility] LAB N17.9 R10.9 E83.51 N18.3 [id number] 09/04/2016 09:51:00 12/03/2016 00:01:00 DIS Outpatient JEANNETTE BROWN MD [facility] ONC [id number] 11/27/2016 22:40:00 11/27/2016 23:59:59 CLS Preadmit MALCOLM JUSTIN MD [facility] HH PSUEDOMONAS INFECTION [id number] 11/14/2016 06:06:00 11/14/2016 12:20:00 DIS [facility] [id number] 11/11/2016 11:43:00 11/11/2016 15:00:00 DIS Outpatient DEEPA RONDON MD [facility] PREOP SEPTAL BUTTON [id number] 10/01/2016 10:43:00 10/01/2016 23:59:59 CLS Outpatient ZAC GILLETTE DO [facility] LAB KD STAGE III [id number] 10/01/2016 09:42:00 10/01/2016 23:59:59 CLS Outpatient DEEPA RONDON MD [facility] RAD COUGH [id number] 09/21/2016 09:42:00 09/21/2016 23:59:59 CLS Outpatient DEEPA RONDON MD [facility] LAB UN PAROTITIS IN IMMUNOSUPPRESSED PT [id number] 09/13/2016 11:58:00 09/13/2016 23:59:59 CLS Outpatient ZAC GILLETTE DO [facility] RAD ACUTE RENAL FAILURE [id number] 09/04/2016 10:28:00 09/04/2016 23:59:59 CLS Outpatient ZAC GILLETTE DO [facility] LAB [id number] 09/04/2016 09:47:00 09/04/2016 09:47:00 CAN Preadmit JEANNETTE BROWN MD [facility] ONC [id number] 08/20/2016 06:15:00 08/20/2016 23:59:59 CLS Outpatient DEEPA RONDON MD [facility] PREOP SLIPPED SEPTAL BUTTON [id number] 05/16/2016 15:01:00 08/13/2016 00:01:00 DIS Outpatient JEANNETTE BROWN MD [facility] ONC [id number] 06/10/2016 16:26:00 06/10/2016 23:59:59 CLS Outpatient LION EDMONDSON [facility] RAD MASS LT SALIVARY GLAND [id number] 04/19/2016 15:05:00 05/13/2016 11:08:00 DIS Outpatient JEANNETTE BROWN MD [facility] ONC [id number] 05/08/2016 09:19:00 05/08/2016 23:59:59 CLS Outpatient FARIHA EDMONDSON DO [facility] SDC PORT ACCESS [id number] 03/19/2016 13:28:00 03/19/2016 23:59:59 CLS Outpatient FARIHA EDMONDSON DO [facility] LAB IRON DEFICIENCY [id number] 02/16/2016 07:07:00 02/16/2016 13:20:00 DIS Outpatient DEEPA RONDON MD [facility] CHRONIC SINUSITIS, DEVIATED SEPTUM [id number] 02/13/2016 05:32:00 02/13/2016 09:44:00 DIS Outpatient DEEPA RONDON MD [facility] PREOP SEPTAL NASAL PERF [id number] 01/15/2016 13:58:00 01/15/2016 16:20:00 DIS Outpatient DEEPA RONDON MD [facility] PREOP SINUSITIS,DEVAITED SEPTUM [id number] 10/19/2015 14:21:00 10/19/2015 23:59:59 CLS Outpatient FARIHA EDMONDSON DO [facility] RAD CONTUSSION OF THROAT [id number] 10/06/2015 13:26:00 10/06/2015 23:59:59 CLS Outpatient BOGDAN BARBOUR [facility] QUICK [id number] 07/03/2015 15:17:00 10/01/2015 00:01:00 DIS Outpatient LION EDMONDSON [facility] LAB [id number] 09/11/2015 13:51:00 09/11/2015 23:59:59 CLS Outpatient FARIHA EDMONDSON DO [facility] LAB Rheumatoid arthritis, Iron deficiency anemia, unspe [id number] 08/16/2015 00:08:00 08/16/2015 23:59:59 CLS Preadmit JEANNETTE BROWN MD [facility] ONC [id number] 05/05/2015 09:45:00 08/15/2015 00:01:00 DIS Outpatient JEANNETTE BROWN MD [facility] ONC [id number] 07/14/2015 10:49:00 08/10/2015 00:01:00 DIS Outpatient JEANNETTE BROWN MD [facility] ONC [id number] 07/12/2015 13:13:00 07/12/2015 23:59:59 CLS Outpatient ZAC GILLETTE DO [facility] LAB [id number] 07/05/2015 14:39:00 07/05/2015 23:59:59 CLS Outpatient DAX MCGINNIS MD [facility] LAB [id number] 06/26/2015 14:32:00 06/26/2015 23:59:59 CLS Outpatient FARIHA EDMONDSON DO [facility] LAB [id number] 06/21/2015 15:03:00 06/21/2015 23:59:59 CLS Outpatient LION EDMONDSON [facility] LAB FEVER [id number] 05/31/2015 09:23:00 05/31/2015 23:59:59 CLS Outpatient LION EDMONDSON [facility] LAB [id number] 03/30/2015 10:27:00 04/06/2015 00:01:00 DIS Outpatient JEANNETTE BROWN MD [facility] ONC [id number] 03/30/2015 20:42:00 03/31/2015 15:50:00 DIS Inpatient VIDA SPENCER DOI [facility] CSD CHEST PAIN [id number] 02/09/2015 09:37:00 02/09/2015 23:59:59 CLS Outpatient LETA DOZAC [facility] RAD HEMATURIA,ACUTE RENAL FAILURE [id number] 02/02/2015 11:05:00 02/02/2015 23:59:59 CLS Outpatient LETA ZAC Tyler [facility] LAB [id number] 01/03/2015 11:55:00 01/03/2015 00:01:00 DIS Outpatient JEANNETTE BROWN MD [facility] ONC [id number] 11/16/2014 14:45:00 11/16/2014 23:59:59 CLS Outpatient FARIHA EDMONDSON DO [facility] RAD SMOKE INHALATION, FEVER [id number] 11/16/2014 14:00:00 11/16/2014 23:59:59 CLS Outpatient FARIHA EDMONDSON DO [facility] LAB [id number] 11/10/2014 16:02:00 11/10/2014 23:59:59 CLS Outpatient ZAC GILLETTE DO [facility] LAB [id number] 11/07/2014 17:35:00 11/07/2014 23:59:59 CLS Outpatient FARIHA EDMONDSON DO [facility] SURG RCR PORT ACCESS [id number] 11/07/2014 17:31:00 11/07/2014 23:59:59 CLS Outpatient FARIHA EDMONDSON DO [facility] LAB ACUTE BRONCHITIS [id number] 10/31/2014 13:48:00 10/31/2014 23:59:59 CLS Outpatient ZAC GILLETTE DO [facility] LAB [id number] 09/27/2014 09:50:00 09/27/2014 23:59:59 CLS Outpatient ZAC GILLETTE DO [facility] LAB [id number] 09/07/2014 09:39:00 09/07/2014 23:59:59 CLS Outpatient JEANNETTE BROWN MD [facility] ONC [id number] 08/25/2014 11:33:00 08/25/2014 23:59:59 CLS Outpatient FARIHA EDMONDSON DO [facility] RAD [id number] 08/25/2014 11:26:00 08/25/2014 23:59:59 CLS Outpatient FARIHA EDMONDSON DO [facility] LAB [id number] 07/05/2014 10:16:00 07/05/2014 23:59:59 CLS Outpatient ZAC GILLETTE DO [facility] LAB [id number] 06/13/2014 12:52:00 06/29/2014 00:01:00 DIS Outpatient JEANNETTE BROWN MD [facility] ONC [id number] 01/04/2014 10:35:00 04/04/2014 00:01:00 DIS Outpatient FARIHA EDMONDSON DO [facility] LAB CHRONIC KIDNEY DISEASE [id number] 02/01/2014 09:54:00 03/08/2014 00:01:00 DIS Outpatient JEANNETTE BROWN MD [facility] ONC [id number] 02/01/2014 09:57:00 02/01/2014 23:59:59 CLS Outpatient DAX MCGINNIS MD [facility] LAB [id number] 01/27/2014 10:17:00 01/27/2014 23:59:59 CLS Outpatient FARIHA EDMONDSON DO [facility] ONC [id number] 01/22/2014 23:49:00 01/23/2014 02:05:00 DIS Emergency SHANDA BEY, PATRICK Tran [facility] ER HEADACHE;ON IV ANTIBIOTICS [id number] 01/17/2014 16:26:00 01/17/2014 23:59:59 CLS Outpatient FARIHA EDMONDSON DO [facility] ONC [id number] 01/13/2014 10:22:00 01/13/2014 23:59:59 CLS Outpatient FARIHA EDMONDSON DO [facility] SDC TICK BITE,HEADACHE, FEVER [id number] 01/12/2014 15:07:00 01/12/2014 23:59:59 CLS Outpatient FARIHA EDMONDSON DO [facility] LAB [id number] 01/04/2014 10:41:00 01/04/2014 23:59:59 CLS Outpatient FARIHA EDMONDSON DO [facility] RAD RENAL INSUFFINCENCY [id number] 12/08/2013 09:04:00 12/08/2013 23:59:59 CLS Outpatient MARIA LUZ ANDRADE [facility] ONC [id number] 11/16/2013 08:54:00 12/06/2013 00:01:00 DIS Outpatient JEANNETTE BROWN MD [facility] ONC [id number] 11/25/2013 08:52:00 11/25/2013 23:59:59 CLS Outpatient FARIHA EDMONDSON DO [facility] RAD SCREENING [id number] 09/27/2013 16:00:00 09/27/2013 23:59:59 CLS Outpatient LION DE LA CRUZ APRN [facility] RAD COUGH,PNUEMOINA [id number] 09/22/2013 14:36:00 09/22/2013 23:59:59 CLS Outpatient LION EDMONDSON [employer] 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 [facility] PNUEMONIA, DIABETES [id number] 06/08/2013 11:23:00 09/06/2013 00:01:00 DIS Outpatient RIDINGS LION [employer] [facility] MONTHLY PORT FLUSH [id number] 08/23/2013 15:46:00 08/23/2013 23:59:59 CLS Outpatient FARIHA EDMONDSON DO [facility] ANEMIA [id number] 04/27/2013 07:31:00 07/25/2013 00:01:00 DIS Outpatient RIDINGSLION [employer] [facility] LAB COUGH/CHILLS, ELEVATED TEMP [id number] 06/08/2013 11:17:00 06/08/2013 23:59:59 CLS Outpatient FARIHA EDMONDSON DO [facility] RAD TRAUMA [id number] 04/04/2013 21:53:00 04/06/2013 12:22:00 DIS Inpatient FARIHA EDMONDSON DO [facility] 4TH PNEUMONIA UNRESPONSIVE TO OUTPATIENT TREATMENT [id number] 05/29/2018 08:00:00 PEN PreadAZEEM Prakash MD [facility] CATARACT RIGHT [id number] 11/07/2014 17:31:00 Document Registration [id number] 11/07/2014 17:31:00 Document Registration [id number] 11/07/2014 17:31:00 Document Registration [id number] 11/07/2014 17:31:00 Document Registration [id number] 11/07/2014 17:30:00 Document Registration [id number] 04/05/2014 00:00:00 Document Registration [id number] 09/07/2013 00:00:00 Document Registration [id number] 07/26/2013 00:00:00 Document Registration [id number] 09/17/2012 18:45:00 Document Registration [id number] 09/04/2012 12:27:00 Document Registration [id number] 07/21/2012 08:17:00 Document Registration [id number] 08/09/2011 13:43:00 Document Registration [id number] 06/19/2011 08:59:00 Document Registration [id number] 06/07/2011 11:43:00 Document Registration [id number] 05/25/2011 11:02:00 Document Registration [id number] 05/20/2011 12:14:00 Document Registration [id number] 05/18/2011 11:19:00 Document Registration
[2018-05-29] MEDS: CYCLOPENTOLATE 1% (CYCLOGYL) 2 ML DROPS OP SCH ×3 (06:58→07:15)
[2018-05-29] MEDS: PHENYLEPHRINE 10% OPHTH (NEO-SYN) 5 ML BTL OU SCH ×3 (06:58→07:15)
[2018-05-29] MEDS ORDERED: MIDAZOLAM 2 MG/2 ML (VERSED) VIAL ONE (07:03)
[2018-05-29] MEDS ORDERED: ONDANSETRON 4 MG/2 ML (SDV) Z0FRAN ONE (07:27)
--- NOTE | 2018-05-29 07:27 | Ophthalmologist Pre-Op Note ---
Pre-Operative Progress Note H&P Reviewed The H&P was reviewed, patient examined and no changes noted. Date H&P Reviewed: May 29, 2018 Time H&P Reviewed: 07:27 Pre-Op Dx Cataract, Right Eye AZEEM RABAGO MD May 29, 2018 07:27
[2018-05-29] MEDS ORDERED: HEParin (CENTRAL IV FLUSH) 500 UNIT/5 ML SYR ONE (07:47)
--- NOTE | 2018-05-29 07:48 | Ophthalmology Operative Report ---
Cataract removal/placement IOL PREOPERATIVE DIAGNOSIS: Cataract Right Eye POSTOPERATIVE DIAGNOSIS: Cataract Right Eye PROCEDURE: Cataract removal and placement of posterior chamber implant, right eye SURGEON: Te Rabago ANESTHESIA: Topical with sedation COMPLICATIONS: None ESTIMATED BLOOD LOSS: Minimal DESCRIPTION OF PROCEDURE: After proper informed consent was obtained, the patient, a 48 female, was taken to the Operating Room and the right eye was anesthetized with tetracaine. The right eye was then prepped and draped in the usual manner. A wire lid speculum was placed. A paracentesis was made at the left hand position. Preservative free lidocaine was injected into the anterior chamber followed by viscoelastic. A clear corneal incision was made in the temporal position. A capsulorrhexis was preformed and the central nuclear and cortical material were removed. The posterior capsule was polished and [place] 20.5 AU00T0 IOL was placed into the capsular bag. The residual viscoelastic was aspirated and balanced saline solution was injected into the anterior chamber. Moxifloxacin was injected into the anterior chamber. The wound was checked and found to be water tight. The patient tolerated the procedure well without complications. TE RABAGO MD May 29, 2018 07:48
[2018-05-29] MEDS ORDERED: HEParin (CENTRAL IV FLUSH) 500 UNIT/5 ML SYR IV ONE (08:00)
[2018-05-29 08:05] VITALS: BP 101/70
--- NOTE | 2018-05-29 11:24 | Anesthesia-General Post-Op ---
MAC Patient Condition Mental Status/LOC: Same as Preop Cardiovascular: Satisfactory Nausea/Vomiting: Absent Respiratory: Satisfactory Pain: Controlled Complications: Absent Post Op Complications Complications None Follow Up Care/Instructions Patient Instructions None needed. Anesthesiology Discharge Order Discharge Order Patient is doing well, no complaints, stable vital signs, no apparent adverse anesthesia problems. No complications reported per nursing. WING WINKLER CRNA May 29, 2018 11:24
== END 2018-05-29 08:05 | disposition home or self-care (01) ==
LOC: SDC 06:38
PROVIDERS: ATTEND Specialist
DX: H25.11 Age-related nuclear cataract, right eye (principal); M35.00 Sjogren syndrome, unspecified; Z86.718 Personal history of other venous thrombosis and embolism; Z87.891 Personal history of nicotine dependence; Z79.01 Long term (current) use of anticoagulants; Z79.899 Other long term (current) drug therapy

== ENCOUNTER → 2018-06-19 | Outpatient (CLI) | payer OTHER, MEDICARE ==
[~2018-06-19] MED LIST changes: -acetaZOLAMIDE ER 500 MG CAP (DIAMOX SEQUELS) PO ONE
== END ==
LOC: LAB 10:28
PROVIDERS: ATTEND Internal Medicine
DX: E03.9 Hypothyroidism, unspecified (principal)
CPT/HCPCS: 36415; 84443

== ENCOUNTER → 2018-07-15 | Outpatient (CLI) | payer OTHER, MEDICARE ==
[2018-07-15 11:40] LABS: BASOPHILS % (AUTO) 1 % (0-10); EOSINOPHILS # (AUTO) 0.2 10^3/uL (0.0-0.3); EOSINOPHILS % (AUTO) 3 % (0-10); HEMATOCRIT 38 % (35-52); HEMOGLOBIN 12.4 G/DL (11.5-16.0); LYMPHOCYTES # (AUTO) 1.5 X 10^3 (1.0-4.0); LYMPHOCYTES % (AUTO) 28 % (12-44); MEAN CORPUSCULAR HEMOGLOBIN 29 PG (25-34); MEAN CORPUSCULAR HGB CONC 33 G/DL (32-36); MEAN CORPUSCULAR VOLUME 90 FL (80-99); MEAN PLATELET VOLUME 12.4 FL (7.4-10.4); MONOCYTES # (AUTO) 0.4 X 10^3 (0.0-1.0); MONOCYTES % (AUTO) 8 % (0-12); NEUTROPHILS # (AUTO) 3.3 X 10^3 (1.8-7.8); NEUTROPHILS % (AUTO) 61 % (42-75); PLATELET COUNT 215 10^3/uL (130-400); RED BLOOD COUNT 4.26 10^6/uL (4.35-5.85); RED CELL DISTRIBUTION WIDTH 15.8 % (10.0-14.5); WHITE BLOOD COUNT 5.5 10^3/uL (4.3-11.0)
[2018-07-15 11:48] LABS: BILIRUBIN,URINE NEGATIVE (NEGATIVE); CLARITY,URINE SLIGHTLY CLOUDY; COLOR,URINE YELLOW; GLUCOSE, URINE (UA) NEGATIVE (NEGATIVE); KETONES,URINE NEGATIVE (NEGATIVE); LEUKOCYTE ESTERASE ,URINE NEGATIVE (NEGATIVE); NITRITE,URINE NEGATIVE (NEGATIVE); PH,URINE 5 (5-9); PROTEIN,URINE 1+ (NEGATIVE); UROBILINOGEN,URINE NORMAL (NORMAL)
[2018-07-15 11:56] LABS: BACTERIA,URINE FEW /HPF
[2018-07-15 11:56] LABS: CALCIUM 9.4 MG/DL (8.5-10.1); CREATININE SERUM 1.05 MG/DL (0.60-1.30); PHOSPHORUS 2.8 MG/DL (2.3-4.7); POTASSIUM 3.3 MMOL/L (3.6-5.0)
[2018-07-15 11:57] LABS: HYALINE CASTS, URINE 0-2 /LPF
== END ==
LOC: LAB 11:11
PROVIDERS: ATTEND Internal Medicine Nephrology
DX: N18.3 Chronic kidney disease, stage 3 (moderate) (principal)
CPT/HCPCS: 36415; 80069; 81000; 82570; 84156; 85025; 87088

== ENCOUNTER → 2018-07-15 | Outpatient (CLI) | payer OTHER, MEDICARE | LOC: LAB 11:02 | PROVIDERS: ATTEND Internal Medicine | DX: E03.9 Hypothyroidism, unspecified (principal) | CPT/HCPCS: 36415; 84480; 84482 ==

== ENCOUNTER → 2018-09-14 | Outpatient (CLI) | payer OTHER, MEDICARE ==
[2018-09-14 16:15] LABS: BILIRUBIN,URINE NEGATIVE (NEGATIVE); CLARITY,URINE SLIGHTLY CLOUDY; COLOR,URINE YELLOW; GLUCOSE, URINE (UA) NEGATIVE (NEGATIVE); KETONES,URINE NEGATIVE (NEGATIVE); LEUKOCYTE ESTERASE ,URINE NEGATIVE (NEGATIVE); NITRITE,URINE NEGATIVE (NEGATIVE); PH,URINE 6 (5-9); PROTEIN,URINE NEGATIVE (NEGATIVE); UROBILINOGEN,URINE NORMAL (NORMAL)
[2018-09-14 16:19] LABS: BASOPHILS % (AUTO) 0 % (0-10); EOSINOPHILS # (AUTO) 0.1 10^3/uL (0.0-0.3); EOSINOPHILS % (AUTO) 3 % (0-10); HEMATOCRIT 33 % (35-52); LYMPHOCYTES # (AUTO) 1.7 X 10^3 (1.0-4.0); LYMPHOCYTES % (AUTO) 32 % (12-44); MEAN CORPUSCULAR HEMOGLOBIN 25 PG (25-34); MEAN CORPUSCULAR HGB CONC 30 G/DL (32-36); MEAN CORPUSCULAR VOLUME 83 FL (80-99); MEAN PLATELET VOLUME 12.3 FL (7.4-10.4); MONOCYTES # (AUTO) 0.4 X 10^3 (0.0-1.0); MONOCYTES % (AUTO) 8 % (0-12); NEUTROPHILS # (AUTO) 3.1 X 10^3 (1.8-7.8); NEUTROPHILS % (AUTO) 57 % (42-75); PLATELET COUNT 335 10^3/uL (130-400); RED CELL DISTRIBUTION WIDTH 14.9 % (10.0-14.5); WHITE BLOOD COUNT 5.4 10^3/uL (4.3-11.0)
[2018-09-14 16:23] LABS: BACTERIA,URINE NEGATIVE /HPF; WBC,URINE RARE /HPF
[2018-09-14 16:32] LABS: ALBUMIN 3.8 GM/DL (3.2-4.5); CALCIUM 8.7 MG/DL (8.5-10.1); CREATININE SERUM 1.09 MG/DL (0.60-1.30); PHOSPHORUS 3.1 MG/DL (2.3-4.7); POTASSIUM 4.2 MMOL/L (3.6-5.0)
== END ==
LOC: LAB 15:41
PROVIDERS: ATTEND Internal Medicine Nephrology
DX: N18.3 Chronic kidney disease, stage 3 (moderate) (principal)
CPT/HCPCS: 36415; 80069; 81000; 84100; 85025

== ENCOUNTER 2018-09-16 12:59 | Outpatient (RCR) | payer OTHER, MEDICARE ==
[2018-06-19 10:56] LABS: BASOPHILS % (AUTO) 0 % (0-10); EOSINOPHILS # (AUTO) 0.2 10^3/uL (0.0-0.3); EOSINOPHILS % (AUTO) 2 % (0-10); HEMATOCRIT 40 % (35-52); HEMOGLOBIN 13.2 G/DL (11.5-16.0); LYMPHOCYTES # (AUTO) 1.1 X 10^3 (1.0-4.0); LYMPHOCYTES % (AUTO) 13 % (12-44); MEAN CORPUSCULAR HEMOGLOBIN 29 PG (25-34); MEAN CORPUSCULAR HGB CONC 33 G/DL (32-36); MEAN CORPUSCULAR VOLUME 89 FL (80-99); MEAN PLATELET VOLUME 12.1 FL (7.4-10.4); MONOCYTES # (AUTO) 0.5 X 10^3 (0.0-1.0); MONOCYTES % (AUTO) 6 % (0-12); NEUTROPHILS # (AUTO) 6.4 X 10^3 (1.8-7.8); NEUTROPHILS % (AUTO) 79 % (42-75); PLATELET COUNT 203 10^3/uL (130-400); RED CELL DISTRIBUTION WIDTH 15.5 % (10.0-14.5); WHITE BLOOD COUNT 8.2 10^3/uL (4.3-11.0)
[2018-06-19 11:25] LABS: ALBUMIN 4.3 GM/DL (3.2-4.5); BILIRUBIN,TOTAL 0.3 MG/DL (0.1-1.0); CALCIUM 9.2 MG/DL (8.5-10.1); CREATININE SERUM 1.03 MG/DL (0.60-1.30); POTASSIUM 3.5 MMOL/L (3.6-5.0); TOTAL PROTEIN 7.4 GM/DL (6.4-8.2)
[2018-08-12 16:06] LABS: BASOPHILS % (AUTO) 1 % (0-10); EOSINOPHILS # (AUTO) 0.1 10^3/uL (0.0-0.3); EOSINOPHILS % (AUTO) 2 % (0-10); HEMATOCRIT 37 % (35-52); HEMOGLOBIN 11.7 G/DL (11.5-16.0); LYMPHOCYTES # (AUTO) 1.9 X 10^3 (1.0-4.0); LYMPHOCYTES % (AUTO) 32 % (12-44); MEAN CORPUSCULAR HEMOGLOBIN 28 PG (25-34); MEAN CORPUSCULAR HGB CONC 32 G/DL (32-36); MEAN CORPUSCULAR VOLUME 87 FL (80-99); MEAN PLATELET VOLUME 11.6 FL (7.4-10.4); MONOCYTES # (AUTO) 0.4 X 10^3 (0.0-1.0); MONOCYTES % (AUTO) 6 % (0-12); NEUTROPHILS # (AUTO) 3.5 X 10^3 (1.8-7.8); NEUTROPHILS % (AUTO) 59 % (42-75); PLATELET COUNT 289 10^3/uL (130-400)
[2018-08-12 16:26] LABS: ALBUMIN 4.2 GM/DL (3.2-4.5); BILIRUBIN,TOTAL 0.2 MG/DL (0.1-1.0); CALCIUM 9.1 MG/DL (8.5-10.1); CREATININE SERUM 1.14 MG/DL (0.60-1.30); POTASSIUM 3.7 MMOL/L (3.6-5.0); TOTAL PROTEIN 6.9 GM/DL (6.4-8.2)
[2018-09-14 16:20] LABS: BASOPHILS % (AUTO) 1 % (0-10); EOSINOPHILS # (AUTO) 0.1 10^3/uL (0.0-0.3); EOSINOPHILS % (AUTO) 3 % (0-10); HEMATOCRIT 33 % (35-52); HEMOGLOBIN 9.9 G/DL (11.5-16.0); LYMPHOCYTES # (AUTO) 1.7 X 10^3 (1.0-4.0); LYMPHOCYTES % (AUTO) 32 % (12-44); MEAN CORPUSCULAR HEMOGLOBIN 25 PG (25-34); MEAN CORPUSCULAR HGB CONC 30 G/DL (32-36); MEAN CORPUSCULAR VOLUME 83 FL (80-99); MEAN PLATELET VOLUME 12.4 FL (7.4-10.4); MONOCYTES # (AUTO) 0.4 X 10^3 (0.0-1.0); MONOCYTES % (AUTO) 8 % (0-12); NEUTROPHILS % (AUTO) 57 % (42-75); PLATELET COUNT 319 10^3/uL (130-400); RED CELL DISTRIBUTION WIDTH 14.8 % (10.0-14.5); WHITE BLOOD COUNT 5.3 10^3/uL (4.3-11.0)
[2018-09-14 16:36] LABS: ALBUMIN 3.9 GM/DL (3.2-4.5); BILIRUBIN,TOTAL 0.2 MG/DL (0.1-1.0); CALCIUM 8.6 MG/DL (8.5-10.1); CREATININE SERUM 1.13 MG/DL (0.60-1.30); POTASSIUM 4.2 MMOL/L (3.6-5.0); TOTAL PROTEIN 6.1 GM/DL (6.4-8.2)
[2018-09-16] MEDS ORDERED: FERRIC CARBOXYMALTOSE (CANCER) 750 MG in NS (IVPB) CANCER CENTER 250 ML IV SCH (14:00)
== END 2018-09-17 | disposition home or self-care (01) ==
LOC: ONC 12:59
PROVIDERS: ATTEND Internal Medicine Hematology & Oncology
DX: D80.1 Nonfamilial hypogammaglobulinemia (principal); D50.9 Iron deficiency anemia, unspecified; M32.10 Systemic lupus erythematosus, organ or system involvement unspecified; M06.9 Rheumatoid arthritis, unspecified; Z79.899 Other long term (current) drug therapy
CPT/HCPCS: 36415; 36591; 80053; 82728; 82784; 83540; 85025; 99213

== ENCOUNTER 2018-09-28 12:03 | Outpatient (RCR) | payer OTHER, MEDICARE ==
[~2018-09-28 12:03] MED LIST changes: +FERRIC CARBOXYMALTOSE (CANCER) 750 MG in NS (IVPB) CANCER CENTER 250 ML IV SCH; -RIVA20TA PO
== END 2018-12-20 | disposition home or self-care (01) ==
LOC: ONC 12:03
PROVIDERS: ATTEND Internal Medicine Hematology & Oncology
DX: D80.1 Nonfamilial hypogammaglobulinemia (principal); D50.9 Iron deficiency anemia, unspecified; M32.10 Systemic lupus erythematosus, organ or system involvement unspecified; M06.9 Rheumatoid arthritis, unspecified; Z79.899 Other long term (current) drug therapy
CPT/HCPCS: 96365

== ENCOUNTER 2018-12-23 09:26 | Outpatient (RCR) | payer OTHER, MEDICARE ==
[~2018-12-23 09:26] MED LIST changes: -FERRIC CARBOXYMALTOSE (CANCER) 750 MG in NS (IVPB) CANCER CENTER 250 ML IV SCH
[2018-12-23] MEDS ORDERED: ALTEPLASE 2 MG (CATHFLO) CANCER CENTER IV ONE (10:15)
[2018-12-23 11:05] LABS: BASOPHILS % (AUTO) 0 % (0-10); EOSINOPHILS # (AUTO) 0.2 10^3/uL (0.0-0.3); EOSINOPHILS % (AUTO) 2 % (0-10); HEMATOCRIT 46 % (35-52); HEMOGLOBIN 15.5 G/DL (11.5-16.0); LYMPHOCYTES # (AUTO) 1.7 X 10^3 (1.0-4.0); LYMPHOCYTES % (AUTO) 18 % (12-44); MEAN CORPUSCULAR HEMOGLOBIN 32 PG (25-34); MEAN CORPUSCULAR HGB CONC 34 G/DL (32-36); MEAN CORPUSCULAR VOLUME 96 FL (80-99); MEAN PLATELET VOLUME 11.9 FL (7.4-10.4); MONOCYTES # (AUTO) 0.6 X 10^3 (0.0-1.0); MONOCYTES % (AUTO) 6 % (0-12); NEUTROPHILS # (AUTO) 6.8 X 10^3 (1.8-7.8); NEUTROPHILS % (AUTO) 73 % (42-75); PLATELET COUNT 247 10^3/uL (130-400); WHITE BLOOD COUNT 9.3 10^3/uL (4.3-11.0)
[2018-12-23 11:33] LABS: ALBUMIN 4.4 GM/DL (3.2-4.5); BILIRUBIN,TOTAL 0.4 MG/DL (0.1-1.0); CALCIUM 9.5 MG/DL (8.5-10.1); CREATININE SERUM 1.26 MG/DL (0.60-1.30); POTASSIUM 3.5 MMOL/L (3.6-5.0); TOTAL PROTEIN 6.7 GM/DL (6.4-8.2)
== END 2019-03-23 | disposition home or self-care (01) ==
LOC: ONC 09:26
PROVIDERS: ATTEND Internal Medicine Hematology & Oncology
DX: D80.1 Nonfamilial hypogammaglobulinemia (principal); D50.9 Iron deficiency anemia, unspecified; M32.10 Systemic lupus erythematosus, organ or system involvement unspecified; M06.9 Rheumatoid arthritis, unspecified; Z79.899 Other long term (current) drug therapy
CPT/HCPCS: 36415; 36593; 80053; 82728; 82784; 83540; 85025

== ENCOUNTER 2019-01-08 13:29 | Day surgery (SDC) | payer OTHER, MEDICARE ==
[~2019-01-08] VITALS: Ht 162.6 cm; Wt 87.5 kg
[2019-01-08] MEDS ORDERED: cefTRIAXone 1,000 MG/SWFI 10 ML IV PUSH IV ONE ×2 (13:45)
[2019-01-08] MEDS ORDERED: HEParin (CENTRAL IV FLUSH) 500 UNIT/5 ML SYR ONE (13:47)
[2019-01-08] MEDS ORDERED: cefTRIAXone 1,000 MG IV (ROCEPHIN) VIAL ONE (13:47)
[2019-01-08] MEDS ORDERED: WATER (STERILE) FOR INJECTION 10 ML ONE (13:47)
[2019-01-08 14:21] LABS: HEMOGLOBIN 14.8 G/DL (11.5-16.0); MEAN PLATELET VOLUME 12.4 FL (7.4-10.4); RED CELL DISTRIBUTION WIDTH 14.3 % (10.0-14.5); WHITE BLOOD COUNT 6.1 10^3/uL (4.3-11.0)
[2019-01-08 14:22] LABS: BILIRUBIN,URINE NEGATIVE (NEGATIVE); CLARITY,URINE CLEAR; COLOR,URINE YELLOW; GLUCOSE, URINE (UA) NEGATIVE (NEGATIVE); KETONES,URINE NEGATIVE (NEGATIVE); LEUKOCYTE ESTERASE ,URINE NEGATIVE (NEGATIVE); NITRITE,URINE NEGATIVE (NEGATIVE); PH,URINE 5 (5-9); PROTEIN,URINE 1+ (NEGATIVE); UROBILINOGEN,URINE NORMAL (NORMAL)
[2019-01-08 14:25] VITALS: BP 99/70
[2019-01-08 14:30] LABS: BACTERIA,URINE NEGATIVE /HPF; CALCIUM OXALATE CRYSTALS,UR FEW /LPF; RBC,URINE RARE /HPF
[2019-01-08 14:43] LABS: ALBUMIN 4.1 GM/DL (3.2-4.5); BILIRUBIN,TOTAL 0.3 MG/DL (0.1-1.0); CALCIUM 9.1 MG/DL (8.5-10.1); CREATININE SERUM 1.09 MG/DL (0.60-1.30); POTASSIUM 3.7 MMOL/L (3.6-5.0); TOTAL PROTEIN 5.9 GM/DL (6.4-8.2)
[2019-01-08] MEDS ORDERED: HEParin (CENTRAL IV FLUSH) 500 UNIT/5 ML SYR IV ONE (15:15)
== END 2019-01-08 14:25 | disposition home or self-care (01) ==
LOC: SDC 13:29
PROVIDERS: ATTEND Nurse Practitioner Family
DX: J18.9 Pneumonia, unspecified organism (principal)
CPT/HCPCS: 36415; 36591; 80053; 81000; 85027; 96365; 96374

== ENCOUNTER → 2019-01-15 | Outpatient (CLI) | payer OTHER, MEDICARE ==
[~2019-01-15] VITALS: Ht 162.6 cm; Wt 87.5 kg
[~2019-01-15] MED LIST changes: +HEParin (CENTRAL IV FLUSH) 500 UNIT/5 ML SYR IV ONE; +HEParin (CENTRAL IV FLUSH) 500 UNIT/5 ML SYR ONE
[2019-01-15 10:37] VITALS: BP 96/60
== END ==
LOC: SDC 10:07
PROVIDERS: ATTEND Nurse Practitioner Family
DX: Z45.2 Encounter for adjustment and management of vascular access device (principal)
CPT/HCPCS: 96523

== ENCOUNTER 2019-04-01 08:45 | Outpatient (RCR) | payer OTHER, MEDICARE ==
[~2019-04-01 08:45] MED LIST changes: -HEParin (CENTRAL IV FLUSH) 500 UNIT/5 ML SYR IV ONE; -HEParin (CENTRAL IV FLUSH) 500 UNIT/5 ML SYR ONE
[2019-04-01 09:02] LABS: BASOPHILS % (AUTO) 0 % (0-10); EOSINOPHILS # (AUTO) 0.2 10^3/uL (0.0-0.3); EOSINOPHILS % (AUTO) 3 % (0-10); HEMATOCRIT 42 % (35-52); HEMOGLOBIN 14.4 G/DL (11.5-16.0); LYMPHOCYTES # (AUTO) 1.6 X 10^3 (1.0-4.0); LYMPHOCYTES % (AUTO) 28 % (12-44); MEAN CORPUSCULAR HEMOGLOBIN 33 PG (25-34); MEAN CORPUSCULAR HGB CONC 34 G/DL (32-36); MEAN CORPUSCULAR VOLUME 95 FL (80-99); MONOCYTES # (AUTO) 0.4 X 10^3 (0.0-1.0); MONOCYTES % (AUTO) 6 % (0-12); NEUTROPHILS # (AUTO) 3.8 X 10^3 (1.8-7.8); NEUTROPHILS % (AUTO) 63 % (42-75); PLATELET COUNT 208 10^3/uL (130-400); RED CELL DISTRIBUTION WIDTH 13.1 % (10.0-14.5)
[2019-04-01 09:25] LABS: ALBUMIN 3.9 GM/DL (3.2-4.5); BILIRUBIN,TOTAL 0.4 MG/DL (0.1-1.0); CALCIUM 8.1 MG/DL (8.5-10.1); CREATININE SERUM 1.2 MG/DL (0.60-1.30); POTASSIUM 2.9 MMOL/L (3.6-5.0); TOTAL PROTEIN 5.8 GM/DL (6.4-8.2)
== END 2019-06-30 | disposition home or self-care (01) ==
LOC: ONC 08:45
PROVIDERS: ATTEND Internal Medicine Hematology & Oncology
DX: D80.1 Nonfamilial hypogammaglobulinemia (principal); D50.9 Iron deficiency anemia, unspecified; M32.10 Systemic lupus erythematosus, organ or system involvement unspecified; M06.9 Rheumatoid arthritis, unspecified; Z79.899 Other long term (current) drug therapy
CPT/HCPCS: 36591; 80053; 82784; 85025

== ENCOUNTER 2019-07-21 10:37 | Outpatient (RCR) | payer OTHER, MEDICARE ==
[2019-07-19 15:25] LABS: BASOPHILS % (AUTO) 1 % (0-10); EOSINOPHILS # (AUTO) 0.3 10^3/uL (0.0-0.3); EOSINOPHILS % (AUTO) 4 % (0-10); HEMATOCRIT 38 % (35-52); HEMOGLOBIN 12.2 G/DL (11.5-16.0); LYMPHOCYTES # (AUTO) 1.4 X 10^3 (1.0-4.0); LYMPHOCYTES % (AUTO) 19 % (12-44); MEAN CORPUSCULAR HEMOGLOBIN 31 PG (25-34); MEAN CORPUSCULAR HGB CONC 32 G/DL (32-36); MEAN CORPUSCULAR VOLUME 96 FL (80-99); MEAN PLATELET VOLUME 11.7 FL (7.4-10.4); MONOCYTES # (AUTO) 0.4 X 10^3 (0.0-1.0); MONOCYTES % (AUTO) 5 % (0-12); NEUTROPHILS # (AUTO) 5.3 X 10^3 (1.8-7.8); NEUTROPHILS % (AUTO) 72 % (42-75); PLATELET COUNT 574 10^3/uL (130-400); RED CELL DISTRIBUTION WIDTH 13.6 % (10.0-14.5); WHITE BLOOD COUNT 7.4 10^3/uL (4.3-11.0)
[2019-07-19 15:40] LABS: ALBUMIN 3.8 GM/DL (3.2-4.5); BILIRUBIN,TOTAL 0.3 MG/DL (0.1-1.0); CREATININE SERUM 1.56 MG/DL (0.60-1.30); POTASSIUM 3.2 MMOL/L (3.6-5.0); TOTAL PROTEIN 6.5 GM/DL (6.4-8.2)
[~2019-07-21 10:37] MED LIST changes: -GUAI400T71 PO; +GUAI400T86 PO
== END 2019-10-17 | disposition home or self-care (01) ==
LOC: ONC 10:37
PROVIDERS: ATTEND Internal Medicine Hematology & Oncology
DX: D80.1 Nonfamilial hypogammaglobulinemia (principal); D50.9 Iron deficiency anemia, unspecified; M32.10 Systemic lupus erythematosus, organ or system involvement unspecified; M06.9 Rheumatoid arthritis, unspecified; N18.3 Chronic kidney disease, stage 3 (moderate); E87.6 Hypokalemia; Z86.718 Personal history of other venous thrombosis and embolism; Z87.891 Personal history of nicotine dependence; Z90.49 Acquired absence of other specified parts of digestive tract; Z98.1 Arthrodesis status; Z98.61 Coronary angioplasty status; Z90.89 Acquired absence of other organs; Z80.1 Family history of malignant neoplasm of trachea, bronchus and lung
CPT/HCPCS: 36591; 80053; 82728; 85025; 99213

== ENCOUNTER 2019-09-03 11:49 | Outpatient (RCR) | payer MEDICARE, BC ==
[~2019-09-03] VITALS: Ht 170.2 cm
[~2019-09-03 11:49] MED LIST changes: +GUAI400T71 PO; -GUAI400T86 PO
[2019-09-03] MEDS ORDERED: MEROPENEM 1,000 MG/SWFI 20 ML IV PUSH IV SCH ×2 (12:30)
[2019-09-03 13:25] VITALS: BP 112/73
== END 2019-09-03 13:25 | disposition home or self-care (01) ==
LOC: SDC 11:49
PROVIDERS: ATTEND Internal Medicine
DX: J18.9 Pneumonia, unspecified organism (principal)
CPT/HCPCS: 96365; 96374

== ENCOUNTER 2019-10-06 10:19 | Outpatient (CLI) | payer BC, MEDICARE ==
[~2019-10-06] VITALS: Ht 162 cm; Wt 81.4 kg
[~2019-10-06 10:19] MED LIST changes: -GUAI400T71 PO; +GUAI400T86 PO
[2019-10-06] MEDS ORDERED: MEROPENEM 1000 MG (MERREM) VIAL IV ONE (10:23)
[2019-10-06] MEDS ORDERED: WATER (STERILE) FOR INJECTION 20 ML ONE (10:23)
[2019-10-06] MEDS ORDERED: MEROPENEM 1,000 MG/SWFI 20 ML IV PUSH IV SCH ×2 (10:30)
[2019-10-06 10:55] VITALS: BP 110/56
[2019-10-06] MEDS ORDERED: CATHETER FLUSH 10 ML SYR IV PRN (11:15)
--- NOTE | 2019-10-06 11:25 | NUR ---
PATIENT STATES THAT [facility] IS DELIVERING [facility] 1[facility] INFUSIONS AND THAT [facility] IS TO TAKE OVER TREATMENTS AFTER THIS FIRST INITIAL DOSE.
== END 2019-10-06 11:30 | disposition home or self-care (01) ==
LOC: SDC 10:19
PROVIDERS: ATTEND Internal Medicine
DX: J15.1 Pneumonia due to Pseudomonas (principal)
CPT/HCPCS: 96374

== ENCOUNTER 2019-10-27 08:58 | Outpatient (RCR) | payer BC, MEDICARE | END 2020-01-25 | disposition home or self-care (01) | LOC: LAB 08:58 | PROVIDERS: ATTEND Internal Medicine Critical Care Medicine | DX: J18.9 Pneumonia, unspecified organism (principal) | CPT/HCPCS: 87070; 87077; 87185; 87205 ==

== ENCOUNTER 2019-11-04 13:22 | Outpatient (CLI) | payer BC, MEDICARE ==
[~2019-11-04] VITALS: Ht 165.1 cm; Wt 81.4 kg
[2019-11-04 13:55] VITALS: BP 104/63
== END 2019-11-04 13:55 | disposition home or self-care (01) ==
LOC: SDC 13:22
PROVIDERS: ATTEND Internal Medicine Critical Care Medicine
DX: J14 Pneumonia due to Hemophilus influenzae (principal)
CPT/HCPCS: 96523

== ENCOUNTER → 2020-01-05 | Outpatient (CLI) | payer BC, MEDICARE ==
[2020-01-05 10:33] LABS: BASOPHILS % (AUTO) 0 % (0-10); EOSINOPHILS # (AUTO) 0.2 10^3/uL (0.0-0.3); EOSINOPHILS % (AUTO) 3 % (0-10); HEMATOCRIT 40 % (35-52); HEMOGLOBIN 13.2 G/DL (11.5-16.0); LYMPHOCYTES # (AUTO) 1.7 X 10^3 (1.0-4.0); LYMPHOCYTES % (AUTO) 33 % (12-44); MEAN CORPUSCULAR HEMOGLOBIN 28 PG (25-34); MEAN CORPUSCULAR HGB CONC 33 G/DL (32-36); MEAN CORPUSCULAR VOLUME 84 FL (80-99); MEAN PLATELET VOLUME 12.3 FL (7.4-10.4); MONOCYTES # (AUTO) 0.4 X 10^3 (0.0-1.0); MONOCYTES % (AUTO) 8 % (0-12); NEUTROPHILS # (AUTO) 2.9 X 10^3 (1.8-7.8); NEUTROPHILS % (AUTO) 55 % (42-75); PLATELET COUNT 226 10^3/uL (130-400); RED CELL DISTRIBUTION WIDTH 14.9 % (10.0-14.5); WHITE BLOOD COUNT 5.2 10^3/uL (4.3-11.0)
[2020-01-05 10:43] LABS: BILIRUBIN,URINE NEGATIVE (NEGATIVE); CLARITY,URINE CLEAR; COLOR,URINE YELLOW; GLUCOSE, URINE (UA) NEGATIVE (NEGATIVE); KETONES,URINE NEGATIVE (NEGATIVE); LEUKOCYTE ESTERASE ,URINE NEGATIVE (NEGATIVE); NITRITE,URINE NEGATIVE (NEGATIVE); PH,URINE 5.5 (5-9); PROTEIN,URINE NEGATIVE (NEGATIVE)
[2020-01-05 10:44] LABS: BACTERIA,URINE TRACE /HPF; RBC,URINE RARE /HPF; WBC,URINE 0-2 /HPF
[2020-01-05 10:53] LABS: CREATININE SERUM 1.14 MG/DL (0.60-1.30); POTASSIUM 3.7 MMOL/L (3.6-5.0)
[2020-01-05 10:54] LABS: CALCIUM 8.7 MG/DL (8.5-10.1)
[2020-01-05 10:58] LABS: URINE CREATININE FOR RATIO 116 MG/DL (30-125); URINE PROTEIN FOR RATIO ONLY < 6 MG/DL (6-12)
[2020-01-05 11:05] LABS: MAGNESIUM 1.8 MG/DL (1.6-2.4); PHOSPHORUS 3.7 MG/DL (2.3-4.7)
== END ==
LOC: LAB 10:10
PROVIDERS: ATTEND Internal Medicine Nephrology
DX: E87.6 Hypokalemia (principal); N18.3 Chronic kidney disease, stage 3 (moderate); N20.0 Calculus of kidney; M32.8 Other forms of systemic lupus erythematosus
CPT/HCPCS: 36415; 80069; 81000; 82570; 83735; 84100; 84156

== ENCOUNTER 2020-01-12 12:43 | Outpatient (RCR) | payer BC, MEDICARE ==
[2020-01-05 10:31] LABS: BASOPHILS % (AUTO) 0 % (0-10); EOSINOPHILS # (AUTO) 0.2 10^3/uL (0.0-0.3); EOSINOPHILS % (AUTO) 3 % (0-10); HEMATOCRIT 40 % (35-52); HEMOGLOBIN 13.2 G/DL (11.5-16.0); LYMPHOCYTES # (AUTO) 1.7 X 10^3 (1.0-4.0); LYMPHOCYTES % (AUTO) 33 % (12-44); MEAN CORPUSCULAR HEMOGLOBIN 28 PG (25-34); MEAN CORPUSCULAR HGB CONC 33 G/DL (32-36); MEAN CORPUSCULAR VOLUME 84 FL (80-99); MEAN PLATELET VOLUME 12.3 FL (7.4-10.4); MONOCYTES # (AUTO) 0.4 X 10^3 (0.0-1.0); MONOCYTES % (AUTO) 8 % (0-12); NEUTROPHILS # (AUTO) 2.9 X 10^3 (1.8-7.8); NEUTROPHILS % (AUTO) 55 % (42-75); PLATELET COUNT 226 10^3/uL (130-400); RED CELL DISTRIBUTION WIDTH 14.9 % (10.0-14.5); WHITE BLOOD COUNT 5.2 10^3/uL (4.3-11.0)
[2020-01-05 10:50] LABS: BILIRUBIN,TOTAL 0.4 MG/DL (0.1-1.0); CALCIUM 8.7 MG/DL (8.5-10.1); CREATININE SERUM 1.14 MG/DL (0.60-1.30); POTASSIUM 3.7 MMOL/L (3.6-5.0); TOTAL PROTEIN 6.1 GM/DL (6.4-8.2)
== END 2020-04-04 | disposition home or self-care (01) ==
LOC: ONC 12:43
PROVIDERS: ATTEND Internal Medicine Hematology & Oncology
DX: Z86.2 Personal history of diseases of the blood and blood-forming organs and certain disorders involving the immune mechanism (principal)
CPT/HCPCS: 36591; 80053; 82728; 83540; 85025; 99213

== ENCOUNTER → 2020-02-04 | Outpatient (CLI) | payer BC, MEDICARE ==
--- NOTE | 2020-02-04 12:02 | Diagnostic Imaging Report ---
Indication: Lower respiratory infection PA and lateral chest There is a moderate-sized hiatal hernia. Left subclavian Port-A-Cath tip projects over the SVC. Lungs are clear. There are no effusions or pneumothoraces. IMPRESSION: Moderate-sized hiatal hernia. Dictated by: Dictated on workstation # [id number]
== END ==
LOC: RAD 11:41
PROVIDERS: ATTEND Internal Medicine
DX: J18.1 Lobar pneumonia, unspecified organism (principal); K44.9 Diaphragmatic hernia without obstruction or gangrene; Z95.828 Presence of other vascular implants and grafts
CPT/HCPCS: 71046

== ENCOUNTER 2020-05-08 12:04 | Emergency (ER) | payer BC, MEDICARE ==
[~2020-05-08] VITALS: Ht 162 cm; Wt 84.0 kg
[2020-05-08] MEDS ORDERED: NS IV 1000 ML 1,000 ML IV SCH (13:15)
--- NOTE | 2020-05-08 13:16 | ED Lower Extremity ---
General Chief Complaint: Lower Extremity Stated Complaint: SYNCOPAL EPISODE/FALL ANKLE INJ Nursing Triage Note: pt presents to ed with complaitns of l foot/ankle pain after having a syncopal episode at home around 0930 today. pt reports she had a syncopal episode episode on 04/18 as well. pt reports she did recently start taking xaniflex for migraines and is unsure if it is related to her syncope. Nursing Sepsis Screen: No Definite Risk Source: patient Exam Limitations: no limitations History of Present Illness Date Seen by Provider: May 08, 2020 Time Seen by Provider: 13:14 Initial Comments To ER with reports of a syncopal episode. This is the second time this has happened. She believes is related to her Zanaflex because she has baseline hypotension, that she passed out despite cutting the dose of Zanaflex and a half. Today during one of these syncopal events she injured the left foot, the forefoot specifically which is now bruised and very tender. Onset: just prior to arrival Severity: moderate Pain/Injury Location: left foot Method of Injury: fell Modifying Factors: Worse With Movement Allergies and Home Medications Allergies Coded Allergies: tramadol HCl (Verified Allergy, Severe, ANAPHYLAXIS, 11/11/16) levofloxacin (Verified Allergy, Intermediate, 11/11/16) Uncoded Allergies: TEGADERM (Allergy, Unknown, BLISTERS, 01/23/14) Home Medications Acetaminophen with Codeine 1 Each Tablet, 1-2 TAB PO Q4H PRN for PAIN-MILD TO MODERATE, (Reported) Albuterol Sulfate 1 Puff Puff, 2 PUFF IH Q4H PRN for WHEEZING, (Reported) 1 PUFF = 90 MCG Alprazolam 0.25 Mg Tablet, 0.25 MG PO Q12H PRN for SEVERE ANXIETY, (Reported) Cetirizine HCl 10 Mg Tablet, 10 MG PO DAILY, (Reported) Cyclobenzaprine HCl 10 Mg Tablet, 10 MG PO TID, (Reported) Cyclosporine 1 Each Droperette, 1 EACH OP BID, (Reported) Fluconazole 100 Mg Tablet, 100 MG PO MoWeFr, (Reported) Folic Acid 1 Mg Tablet, 3 MG PO HS, (Reported) TAKE 3 (1MG) TABS Hydrocodone/Acetaminophen 1 Each Tablet, 1 EACH PO Q4-6HR PRN for PAIN-MODERATE Prescribed by: BHARATI TURNER on 05/08/20 1409 Hydroxychloroquine Sulfate 200 Mg Tablet, 200 MG PO BID, (Reported) Levothyroxine Sodium 50 Mcg Tablet, 50 MCG PO DAILY, (Reported) Linaclotide 145 Mcg Capsule, 145 MCG PO DAILY, (Reported) Lorazepam 1 Mg Tablet, 1 MG PO HS, (Reported) Methotrexate Sodium 25 Mg/1 Ml Vial, 17.5 MG SC WEEK, (Reported) Metoclopramide HCl 10 Mg Tablet, 10 MG PO BID, (Reported) Multivitamin 1 Each Tablet, 1 TAB PO BID, (Reported) Nitrofurantoin Monohyd/M-Cryst 100 Mg Capsule, 1 CAP PO DAILY PRN for UTI, (Reported) Omeprazole Magnesium 20 Mg Tablet.dr, 20 MG PO BID, (Reported) Ondansetron 8 Mg Tab.rapdis, 8 MG PO Q8H PRN for NAUSEA, (Reported) Potassium Bicarbonate/Cit AC 25 Meq Tablet.eff, 25 MEQ PO DAILY, (Reported) Prednisone 5 Mg Tablet, 5 MG PO DAILY, (Reported) Pregabalin 100 Mg Capsule, 100 MG PO BID, (Reported) Rivaroxaban 20 Mg Tablet, 20 MG PO DAILY, (Reported) Rizatriptan Benzoate 10 Mg Tablet, 10 MG PO UD PRN for MIGRAINE, (Reported) TAKE AT ONSET OF MIGRAINE MAY REPEAT IN 24 HOURS E[place]rick Oil/[place]-3 Fatty Acids 1 Each Capsule, 2,000 MG PO HS, (Reported) TAKE 2 (1,000MG) TABS Sertraline HCl 50 Mg Tablet, 50 MG PO DAILY, (Reported) Temazepam 30 Mg Capsule, 30 MG PO HS, (Reported) Topiramate 50 Mg Tablet, 50 MG PO MORNING, (Reported) Topiramate 100 Mg Tablet, 100 MG PO HS, (Reported) TAKE 2 (50MG) TABS Valacyclovir HCl 1,000 Mg Tablet, 1,000 MG PO TID PRN for SHINGLES, (Reported) [Ivig] , 13.5 SC WEEK, (Reported) Patient Home Medication List Home Medication List Reviewed: Yes Review of Systems Constitutional: see HPI EENTM: see HPI Respiratory: no symptoms reported Cardiovascular: no symptoms reported Genitourinary: no symptoms reported Musculoskeletal: no symptoms reported Skin: no symptoms reported Psychiatric/Neurological: No Symptoms Reported Past Bcshcsl-Noxqsx-Dcvjyz Hx Patient Social History Alcohol Use: Rarely Uses Recreational Drug Use: No Smoking Status: Former Smoker Type Used: Cigarettes Former Smoker, Quit: Jan 14, 1991 Recent Foreign Travel: No Contact w/Someone Who Travel: No Recent Infectious Disease Expo: No Recent Hopitalizations: No Physical Abuse: No Sexual Abuse: No Mistreated: No Fear: No Immunizations Up To Date Tetanus Booster (TDap): Less than 5yrs PED Vaccines UTD: No Date of Pneumonia Vaccine: May 20, 2016 Date of Influenza Vaccine: Jul 10, 2012 Seasonal Allergies Seasonal Allergies: Yes (GLUTEN FREE) Past Medical History Surgeries: Yes ("ACDF--CERVICAL SPINAL FUSION", PORT, IVC FILTER, MULT. VASC. PROC. L LEG,) Adenoidectomy, Appendectomy, Gallbladder, Tonsillectomy, Tubal Ligation, Vascular Surgery Respiratory: Yes ("PLEURESY". P.E. 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 Sexually Transmitted Disease: No HIV/AIDS: No Renal Failure Gastrointestinal: Yes ("[id number] ENTERITIS R/T LUPUS") Colitis, Gastroesophageal Reflux, Chronic Constipation, C-Diff, Hiatal Hernia, Irritable Bowel Musculoskeletal: Yes (CHRONIC GENERALIZED PAIN, RAYNAUDS,) Osteoporosis, Rheumatoid Arthritis, Fractures Endocrine: Yes (Boreline DM) Diabetes, Non-Insulin dep, Lupus Loss of Vision: Denies Hearing Impairment: Denies Cancer: No Psychosocial: Yes Anxiety, Depression Integumentary: Yes (CELLULITIS RIGHT ELBOW WITH SEPSIS 09/2012, POST HERPATIC NEURALGIA, SHINGL) Eczema, Herpes Blood Disorders: Yes (HYPOGAMMAGLOBULINNEMIA, ANEMIA, APA) Adverse Reaction/Blood Tranf: No (HAS HAD BLOOD WITH NO PROBLEM) Family Medical History Alzheimer's disease Grandmother Cardiovascular disease 19 FATHER FH: COPD (chronic obstructive pulmonary disease) 19 FATHER FH: lung cancer 19 FATHER FHx: psoriatic arthritis 19 MOTHER Hypertension 19 FATHER Parkinson's disease G8 BROTHER TIAs Grandmother Physical Exam Vital Signs Vital Signs - First Documented 05/08/20 12:50 Temp 37.0 Pulse 71 Resp 20 B/P (MAP) 102/59 (73) Pulse Ox 100 Capillary Refill : Less Than 3 Seconds Height, Weight, BMI Height: 5'4.00" Weight: 193lbs. 0.0oz. 87.534148vh; 32.00 BMI Method:Stated General Appearance: WD/WN, no apparent distress Respiratory: no respiratory distress, no accessory muscle use Hips: bilateral hip non-tender, bilateral hip normal inspection, bilateral hip normal range of motion Legs: bilateral leg non-tender, bilateral leg normal inspection, bilateral leg normal range of motion Knees: bilateral knee non-tender, bilateral knee normal inspection, bilateral knee normal range of motion Ankles: bilateral ankle non-tender, bilateral ankle normal inspection, bilateral ankle normal range of motion Feet: left foot soft tissue tenderness (bruising and swelling to the forefoot), left foot swelling Neurologic/Psychiatric: alert, normal mood/affect, oriented x 3 Skin: normal color, warm/dry Progress/Results/Core Measures Results/Orders Lab Results Laboratory Tests Test 05/08/20 13:20 Range/Units White Blood Count 5.9 4.3-11.0 10^3/uL Red Blood Count 4.48 3.80-5.11 10^6/uL Hemoglobin 12.2 11.5-16.0 g/dL Hematocrit 38 35-52 % Mean Corpuscular Volume 86 80-99 fL Mean Corpuscular Hemoglobin 27 25-34 pg Mean Corpuscular Hemoglobin Concent 32 32-36 g/dL Red Cell Distribution Width 14.7 H 10.0-14.5 % Platelet Count 213 130-400 10^3/uL Mean Platelet Volume 13.0 H 9.0-12.2 fL Immature Granulocyte % (Auto) 0 % Neutrophils (%) (Auto) 57 42-75 % Lymphocytes (%) (Auto) 33 12-44 % Monocytes (%) (Auto) 5 0-12 % Eosinophils (%) (Auto) 4 0-10 % Basophils (%) (Auto) 0 0-10 % Neutrophils # (Auto) 3.4 1.8-7.8 10^3/uL Lymphocytes # (Auto) 2.0 1.0-4.0 10^3/uL Monocytes # (Auto) 0.3 0.0-1.0 10^3/uL Eosinophils # (Auto) 0.2 0.0-0.3 10^3/uL Basophils # (Auto) 0.0 0.0-0.1 10^3/uL Immature Granulocyte # (Auto) 0.0 0.0-0.1 10^3/uL Sodium Level 138 135-145 MMOL/L Potassium Level 4.4 3.6-5.0 MMOL/L Chloride Level 110 H 98-107 MMOL/L Carbon Dioxide Level 19 L 21-32 MMOL/L Anion Gap 9 5-14 MMOL/L Blood Urea Nitrogen 18 7-18 MG/DL Creatinine 1.21 0.60-1.30 MG/DL Estimat Glomerular Filtration Rate 47 BUN/Creatinine Ratio 15 Glucose Level 81 70-105 MG/DL Calcium Level 8.7 8.5-10.1 MG/DL Corrected Calcium 8.9 8.5-10.1 MG/DL Total Bilirubin 0.2 0.1-1.0 MG/DL Aspartate Amino Transf (AST/SGOT) 29 5-34 U/L Alanine Aminotransferase (ALT/SGPT) 17 0-55 U/L Alkaline Phosphatase 89 40-136 U/L Total Protein 6.0 L 6.4-8.2 GM/DL Albumin 3.8 3.2-4.5 GM/DL My Orders Orders - BHARATI TURNER APRN Foot, Left, 3 Views (05/08/20 13:12) Chest 1 View, Ap/Pa Only (05/08/20 13:12) Cbc With Automated Diff (05/08/20 13:12) Comprehensive Metabolic Panel (05/08/20 13:12) Ekg Tracing (05/08/20 13:12) Ua Culture If Indicated (05/08/20 13:12) Ed Iv/Invasive Line Start (05/08/20 13:12) Ns Iv 1000 Ml (Sodium Chloride 0.9%) (05/08/20 13:15) Hydrocodone/Apap 5/325 Tablet (Lortab 5 (05/08/20 13:26) Diphenhydramine Tablet (Benadryl Tablet) (05/08/20 14:00) Diphenhydramine Tablet (Benadryl Tablet) (05/08/20 13:49) Drug Screen Stat (Urine) (05/08/20 14:10) Medications Given in ED Current Medications Medications Dose Ordered Sig/Marianna Route Start Time Stop Time Status Last Admin Dose Admin Acetaminophen/ Hydrocodone Bitart 1 tab STK-MED ONCE .ROUTE 05/08/20 13:26 05/08/20 13:34 DC 05/08/20 13:39 1 TAB Diphenhydramine HCl 25 mg ONCE PRN PO 05/08/20 14:00 05/08/20 13:55 25 MG Vital Signs/I&O 05/08/20 12:50 Temp 37.0 Pulse 71 Resp 20 B/P (MAP) 102/59 (73) Pulse Ox 100 Blood Pressure Mean: 73 Diagnostic Imaging Diagonstic Imaging: Xray Comments NAME: SAAD ALVAREZ [facility] REC#: [id number] PT STATUS: REG ER : 1970 PHYSICIAN: BHARATI TURNER APRN ADMIT DATE: 05/08/20/ER Draft Date of Exam:05/08/20 FOOT, LEFT, 3 VIEWS INDICATION: Injury to left foot. TECHNIQUE: AP, oblique, and lateral views of the left foot were obtained. FINDINGS: There is an acute fracture at the base of the 2nd metatarsal which extends into the 2nd tarsometatarsal joint. There appears to be an avulsion fracture off the dorsal aspect of the navicular. IMPRESSION: Acute fracture at the base of the 2nd metatarsal. Avulsion fracture off the base of the navicular dorsally. Further anatomic definition could be obtained with CT in this area if clinically warranted. Dictated on workstation # [id number] Dict: 05/08/20 1412 Trans: 05/08/20 1414 [id number] Interpreted by: AV SERNA MD Electronically signed by: Departure Communication (Admissions) Medication list including K Tracks reveals a multitude of sedating medications, this could certainly contribute to her syncopal events. I'll put her in a walking boot, have her follow-up with foot and ankle surgery, crutches as needed, short-term supply of pain medication. Impression Primary Impression: Metatarsal fracture Qualified Codes: S92.322A - Displaced fracture of second metatarsal bone, left foot, initial encounter for closed fracture Disposition: HOME, SELF-CARE Condition: Stable Departure-Patient Inst. Decision time for Depature: 14:05 Referrals: KAREN PERRIN DPM, WILLIAM J DO (PCP/Family) Primary Care Physician SUAD LADD DPTyler Patient Instructions: Foot Fracture (DC) Add. Discharge Instructions: Tizanidine should be stopped. Certainly in combination with the other sedating medications that you're already taking this could contribute to you falling. Fol low-up with Dr. Hill for further workup on the passing out episodes. Follow- up with one of the orthopedic surgeons listed in regards to the foot fracture. All discharge instructions reviewed with patient and/or family. Voiced understanding. Scripts Hydrocodone/Acetaminophen (Lorcet 5-325 mg Tablet) 1 Each Tablet 1 EACH PO Q4-6HR PRN for PAIN-MODERATE MDD 10 for 7 Days, #14 TAB Prov: BHARATI TURNER APRN 05/08/20 BHARATI TURNER APRN May 08, 2020 13:16
[2020-05-08] MEDS ORDERED: HYDROcodone/APAP 5 MG/325 MG (LORTAB) TAB ONE (13:26)
[2020-05-08 13:34] LABS: BASOPHILS % (AUTO) 0 % (0-10); EOSINOPHILS # (AUTO) 0.2 10^3/uL (0.0-0.3); EOSINOPHILS % (AUTO) 4 % (0-10); HEMATOCRIT 38 % (35-52); HEMOGLOBIN 12.2 g/dL (11.5-16.0); LYMPHOCYTES % (AUTO) 33 % (12-44); MEAN CORPUSCULAR HEMOGLOBIN 27 pg (25-34); MEAN CORPUSCULAR HGB CONC 32 g/dL (32-36); MEAN CORPUSCULAR VOLUME 86 fL (80-99); MONOCYTES # (AUTO) 0.3 10^3/uL (0.0-1.0); MONOCYTES % (AUTO) 5 % (0-12); NEUTROPHILS # (AUTO) 3.4 10^3/uL (1.8-7.8); NEUTROPHILS % (AUTO) 57 % (42-75); PLATELET COUNT 213 10^3/uL (130-400); WHITE BLOOD COUNT 5.9 10^3/uL (4.3-11.0)
[2020-05-08 13:46] LABS: ALBUMIN 3.8 GM/DL (3.2-4.5)
[2020-05-08 13:47] LABS: POTASSIUM 4.4 MMOL/L (3.6-5.0)
[2020-05-08 13:48] LABS: CALCIUM 8.7 MG/DL (8.5-10.1)
[2020-05-08] MEDS ORDERED: diphenhydrAMINE 25 MG TAB (BENADRYL) PO ONE (13:49)
[2020-05-08 13:51] LABS: BILIRUBIN,TOTAL 0.2 MG/DL (0.1-1.0)
[2020-05-08 13:53] LABS: CREATININE SERUM 1.21 MG/DL (0.60-1.30)
[2020-05-08] MEDS ORDERED: diphenhydrAMINE 25 MG TAB (BENADRYL) PO PRN (14:00)
--- NOTE | 2020-05-08 14:05 | Diagnostic Imaging Report ---
INDICATION: Syncope. EXAMINATION: Portable chest at 1:53 PM. FINDINGS: There is scoliosis of the thoracic spine, convex to the right. The heart size and pulmonary vascularity are normal. The lungs are clear. There are no effusions or pneumothoraces. The left subclavian Port-A-Cath tip projects over the SVC. IMPRESSION: No acute abnormalities in the chest. Dictated by: Dictated on workstation # [id number]
[2020-05-08] MEDS ORDERED: HYDR-3870 PO (14:08)
--- NOTE | 2020-05-08 14:14 | Diagnostic Imaging Report ---
INDICATION: Injury to left foot. TECHNIQUE: AP, oblique, and lateral views of the left foot were obtained. FINDINGS: There is an acute fracture at the base of the 2nd metatarsal which extends into the 2nd tarsometatarsal joint. There appears to be an avulsion fracture off the dorsal aspect of the navicular. IMPRESSION: Acute fracture at the base of the 2nd metatarsal. Avulsion fracture off the base of the navicular dorsally. Further anatomic definition could be obtained with CT in this area if clinically warranted. Dictated by: Dictated on workstation # [id number]
[2020-05-08 14:35] VITALS: BP 114/60
== END 2020-05-08 14:35 | disposition home or self-care (01) ==
LOC: EDUNIT# 12:04 → ER 12:08
DX: S92.322A Displaced fracture of second metatarsal bone, left foot, initial encounter for closed fracture (principal); K21.9 Gastro-esophageal reflux disease without esophagitis; F41.9 Anxiety disorder, unspecified; J45.909 Unspecified asthma, uncomplicated; F32.9 Major depressive disorder, single episode, unspecified; K59.09 Other constipation; Z82.49 Family history of ischemic heart disease and other diseases of the circulatory system; Z82.61 Family history of arthritis; Z80.1 Family history of malignant neoplasm of trachea, bronchus and lung; Z87.891 Personal history of nicotine dependence; Z88.1 Allergy status to other antibiotic agents; Z88.5 Allergy status to narcotic agent; Z88.8 Allergy status to other drugs, medicaments and biological substances; Z86.711 Personal history of pulmonary embolism; Z86.718 Personal history of other venous thrombosis and embolism; Z79.52 Long term (current) use of systemic steroids; Z79.01 Long term (current) use of anticoagulants; W19.XXXA Unspecified fall, initial encounter
CPT/HCPCS: 36415; 71045; 73630; 80053; 85025; 93005

== ENCOUNTER → 2021-05-08 | Outpatient (CLI) | payer OTHER, MEDICARE ==
[~2021-05-08] MED LIST changes: -FOLI1TAB24 PO; +FOLI1TAB33 PO; +HYDR-3870 PO; -METO10TA3 PO; +MTC10T PO; +SERT-413 PO; -SERT50TA9 PO
--- NOTE | 2021-05-08 16:04 | Diagnostic Imaging Report ---
INDICATION: Acute bronchitis due to other specified organisms. COMPARISON: 05/08/2020. FINDINGS: Frontal and lateral views of the chest demonstrate normal heart size and pulmonary vascularity. The lungs are clear. There are no signs of infiltrate, pleural effusions or pneumothoraces. The visualized osseous structures show no acute abnormalities. A left-sided Port-A-Cath is identified with the tip in the low SVC. IMPRESSION: No acute process. No signs of infiltrates, effusions, or pneumothoraces. Dictated by: Dictated on workstation # [id number]
== END ==
LOC: RAD 14:11
PROVIDERS: ATTEND Internal Medicine
DX: J20.8 Acute bronchitis due to other specified organisms (principal); B00.1 Herpesviral vesicular dermatitis; J45.909 Unspecified asthma, uncomplicated; I51.4 Myocarditis, unspecified; Z20.822 Contact with and (suspected) exposure to COVID-19
CPT/HCPCS: 71046

== ENCOUNTER → 2021-07-24 | Outpatient (CLI) | payer OTHER, MEDICARE ==
[~2021-07-24] MED LIST changes: +CYCL10TA25 PO; -CYCL10TA9 PO
--- NOTE | 2021-07-24 18:12 | Diagnostic Imaging Report ---
PROCEDURE: CT chest without contrast. TECHNIQUE: Multiple contiguous axial images were obtained through the chest without the use of intravenous contrast. Auto Exposure Controls were utilized during the CT exam to meet ALARA standards for radiation dose reduction. DATE: July 24, 2021. COMPARISON: None. INDICATION: 51-year-old female, cough and shortness of breath. PROCEDURE: Axial noncontrasted CT images of the chest. Noncontrasted limits the evaluation of the mediastinum and vascular structures. FINDINGS: There is a noncalcified right lower lobe pulmonary nodule on axial image 84 measuring 8 mm in size. There is a 3 mm subpleural nodule in the left upper lobe on axial image 85. There is a 3 mm subpleural left lower lobe pulmonary nodule on axial image 84. There is a pleurally-based 5 mm left lower lobe pulmonary nodule on axial image 90. There is a 2 mm left lower lobe pulmonary nodule on axial image 110. There are tiny additional 2 mm pulmonary nodules also present. There is no additional focal airspace consolidation. There is no pneumothorax. There is no pleural effusion. The central airways are patent. The heart is not enlarged. There is no pericardial effusion. There is no identified abnormally enlarged mediastinal lymph node meeting CT size criteria for adenopathy. There are several subcentimeter short axis left axillary lymph nodes which are asymmetric compared to the right. One of the largest example is on axial image 33 and measures 8 mm in short axis. There are procedural related changes near the level of the gastroesophageal junction. There is an inferior vena cava filter noted. There is subcutaneous edema in the midline anterior abdominal wall. Additional evaluation of the imaged portions of the upper abdomen is grossly unremarkable. There is scoliosis. There are multilevel degenerative changes of the spine. There is cervical spine hardware. There is no identified acute bony abnormality. There are degenerative changes of the spine. IMPRESSION: 1. No identified acute cardiopulmonary abnormality. 2. Multiple subcentimeter pulmonary nodules measuring up to maximally 5 mm in size. This is a change since March 30, 2015. Follow-up CT chest without contrast to assess for stability is recommended in 3-6 months. 3. Asymmetrically prominent left axillary lymph nodes which are subcentimeter in short axis. Recommend correlation for cause. Dictated by: Dictated on workstation # [id number]
== END ==
LOC: RAD 17:11
PROVIDERS: ATTEND Nurse Practitioner Family
DX: R91.8 Other nonspecific abnormal finding of lung field (principal); R05.9 Cough, unspecified; R06.02 Shortness of breath
CPT/HCPCS: 71250

== ENCOUNTER 2021-08-01 13:49 | Outpatient (CLI) | payer OTHER, MEDICARE ==
[2021-08-01 14:42] VITALS: BP 112/62
== END 2021-08-01 14:42 ==
LOC: SDC 13:49
PROVIDERS: ATTEND Pediatrics
DX: Z45.2 Encounter for adjustment and management of vascular access device (principal); D80.1 Nonfamilial hypogammaglobulinemia
CPT/HCPCS: 96523

== ENCOUNTER 2021-10-08 19:04 | Emergency (ER) | payer MEDICARE, OTHER ==
[~2021-10-08] VITALS: Ht 162.6 cm; Wt 90.7 kg
[2021-10-08 19:52] VITALS: BP 111/73
--- NOTE | 2021-10-08 20:23 | ED Fall/Injury ---
General Chief Complaint: Trauma-Non Activation Stated Complaint: FELL AND HURT R ANKLE L KNEE Nursing Triage Note: PT TO FT 2 VIA WC W REPORTS OF FALL AT APPROX 1730, C/O L ELBOW PAIN, L KNEE PAIN, AND RIGHT ANKLE PAIN. PT A&OX4. Source: patient Exam Limitations: no limitations History of Present Illness Date Seen by Provider: Oct 08, 2021 Time Seen by Provider: 20:21 Initial Comments Or by private vehicle with reports of right lateral ankle pain, left knee pain left shoulder pain after she tripped on some uneven sidewalk while in [place] today. Occurred: this afternoon Severity: moderate Injuries/Pain Location: upper extremity, lower extremity Context: tripped Loss of Consciousness: no loss of consciousness Associated Symptoms (Fall): Denies Symptoms Allergies and Home Medications Allergies Coded Allergies: tramadol HCl (Verified Allergy, Severe, ANAPHYLAXIS, 11/11/16) levofloxacin (Verified Allergy, Intermediate, 11/11/16) Uncoded Allergies: TEGADERM (Allergy, Unknown, BLISTERS, 01/23/14) Patient Home Medication List Home Medication List Reviewed: Yes Acetaminophen with Codeine (Tylenol with Codeine #3 Tablet) 1 Each Tablet, 1-2 TAB PO Q4H PRN for PAIN-MILD TO MODERATE, (Reported) Entered as Reported by: ZACHARY ELIZABETH on 11/11/16 1207 Albuterol Sulfate (Proair Hfa) 1 Puff Puff, 2 PUFF IH Q4H PRN for WHEEZING, (Reported) Entered as Reported by: PRASHANT GONZALEZ on 10/13/17 1407 Alprazolam (Xanax) 0.25 Mg Tablet, 0.25 MG PO Q12H PRN for SEVERE ANXIETY, (Reported) Entered as Reported by: SINA YODER on 03/31/15 0213 Cetirizine HCl (Cetirizine HCl) 10 Mg Tablet, 10 MG PO DAILY, (Reported) Entered as Reported by: PRASHANT GONZALEZ on 10/13/17 1407 Cyclobenzaprine HCl (Cyclobenzaprine HCl) 10 Mg Tablet, 10 MG PO TID, (Reported) Entered as Reported by: PRASHANT GONZALEZ on 10/13/17 1407 Cyclosporine (Restasis) 1 Each Droperette, 1 EACH OP BID, (Reported) Entered as Reported by: ZACHARY ELIZABETH on 05/27/18 142 Fluconazole (Diflucan) 100 Mg Tablet, 100 MG PO MoWeFr, (Reported) Entered as Reported by: SINA YODER on 03/30/152231 Folic Acid (Folic Acid) 1 Mg Tablet, 3 MG PO HS, (Reported) Entered as Reported by: PRASHANT GONZALEZ on 10/13/171406 Hydrocodone/Acetaminophen (Lorcet 5-325 mg Tablet) 1 Each Tablet, 1 EACH PO Q4- 6HR PRN for PAIN-MODERATE Prescribed by: BHARATI TURNER on 05/08/20 140 Hydrocodone/Acetaminophen (Hydrocodone-Acetamin 5-325 mg) 1 Each Tablet, 1 TAB PO Q4H PRN for PAIN-MODERATE (5-7) Prescribed by: BHARATI TURNER on 10/08/212051 Hydroxychloroquine Sulfate (Plaquenil) 200 Mg Tablet, 200 MG PO BID, (Reported) Entered as Reported by: ZACHARY ELIZABETH on 05/27/181422 Levothyroxine Sodium (Synthroid) 50 Mcg Tablet, 50 MCG PO DAILY, (Reported) Entered as Reported by: ZACHARY ELIZABETH on 05/27/181422 Linaclotide (Linzess) 145 Mcg Capsule, 145 MCG PO DAILY, (Reported) Entered as Reported by: SINA YODER on 03/30/152231 Lorazepam (Lorazepam) 1 Mg Tablet, 1 MG PO HS, (Reported) Entered as Reported by: YUSRA KIRKPATRICK on 03/31/15 09 Methotrexate Sodium (Methotrexate) 25 Mg/1 Ml Vial, 17.5 MG SC WEEK, (Reported) Entered as Reported by: ZACHARY ELIZABETH on 05/27/18 142 Metoclopramide HCl (Metoclopramide HCl) 10 Mg Tablet, 10 MG PO BID, (Reported) Entered as Reported by: PRASHANT GONZALEZ on 10/13/171406 Multivitamin (Multi-Vitamin Daily) 1 Each Tablet, 1 TAB PO BID, (Reported) Entered as Reported by: SINA YODER on 03/30/152231 Nitrofurantoin Monohyd/M-Cryst (Nitrofurantoin [place]-Mcr 100 mg) 100 Mg Capsule, 1 CAP PO DAILY PRN for UTI, (Reported) Entered as Reported by: YUSRA KIRKPATRICK on 03/31/15925 Omeprazole Magnesium (Prilosec Otc) 20 Mg Tablet.dr, 20 MG PO BID, (Reported) Entered as Reported by: YUSRA KIRKPATRICK on 03/31/15925 Ondansetron (Zofran Odt) 8 Mg Tab.rapdis, 8 MG PO Q8H PRN for NAUSEA, (Reported) Entered as Reported by: SIAN YODER on 03/30/152231 Potassium Bicarbonate/Cit AC (Potassium 25 Meq Tablet Eff) 25 Meq Tablet.eff, 25 MEQ PO DAILY, (Reported) Entered as Reported by: SINA YODER on 03/30/152231 Prednisone (Prednisone) 5 Mg Tablet, 5 MG PO DAILY, (Reported) Entered as Reported by: SINA YODER on 03/30/152231 Pregabalin (Lyrica) 100 Mg Capsule, 100 MG PO BID, (Reported) Entered as Reported by: SINA YODER on 03/30/152231 Rivaroxaban (Xarelto Tablet) 20 Mg Tablet, 20 MG PO DAILY, (Reported) Entered as Reported by: PRASHANT GONZALEZ on 10/13/171406 Rizatriptan Benzoate (Maxalt) 10 Mg Tablet, 10 MG PO UD PRN for MIGRAINE, (Reported) Entered as Reported by: PRASHANT GONZALEZ on 10/13/171406 Hinckley Oil/[place]-3 Fatty Acids ([place]inckley Oil 1,000 mg Softgel) 1 Each Capsule, 2,000 MG PO HS, (Reported) Entered as Reported by: PRASHANT GONZALEZ on 10/13/171406 Sertraline HCl (Sertraline HCl) 50 Mg Tablet, 50 MG PO DAILY, (Reported) Entered as Reported by: YUSRA KIRKPATRICK on 03/31/15925 Temazepam (Temazepam) 30 Mg Capsule, 30 MG PO HS, (Reported) Entered as Reported by: PRASHANT GONZALEZ on 10/13/171406 Topiramate (Topamax) 50 Mg Tablet, 50 MG PO MORNING, (Reported) Entered as Reported by: SINA YODER on 03/30/15 2232 Topiramate (Topamax) 100 Mg Tablet, 100 MG PO HS, (Reported) Entered as Reported by: ZACHARY ELIZABETH on 11/11/16 1207 Valacyclovir HCl (Valtrex) 1,000 Mg Tablet, 1,000 MG PO TID PRN for SHINGLES, (Reported) Entered as Reported by: PRASHANT GONZALEZ on 10/13/17 1407 [Ivig] , 13.5 SC WEEK, (Reported) Entered as Reported by: SINA YODER on 03/31/15 0213 Review of Systems Review of Systems Constitutional: see HPI Eyes: No Symptoms Reported Ears, Nose, Mouth, Throat: no symptoms reported Respiratory: no symptoms reported Cardiovascular: no symptoms reported Genitourinary: no symptoms reported Musculoskeletal: see HPI Skin: no symptoms reported Psychiatric/Neurological: No Symptoms Reported Past Xtlemff-Gcfzyb-Mmwiqz Hx Patient Social History Tobacco Use?: No Use of E-Cig and/or Vaping dev: No Substance use?: No Alcohol Use?: No Immunizations Up To Date Tetanus Booster (TDap): Less than 5yrs PED Vaccines UTD: No Influenza Vaccine Up-to-Date: Yes; Up-to-Date First/Initial COVID19 Vaccinat: 2020 Second COVID19 Vaccination Martin: 2020 Third COVID19 Vaccination Date: 2020 COVID19 Vaccine 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 VASC. PROC. L LEG,) Adenoidectomy, Appendectomy, Gallbladder, Tonsillectomy, Tubal Ligation, Vascular Surgery Respiratory: Yes ("PLEURESY". P.E. 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 Sexually Transmitted Disease: No HIV/AIDS: No Renal Failure Gastrointestinal: Yes ("[id number] ENTERITIS R/T LUPUS") Colitis, Gastroesophageal Reflux, Chronic Constipation, C-Diff, Hiatal Hernia, Irritable Bowel Musculoskeletal: Yes (CHRONIC GENERALIZED PAIN, RAYNAUDS,) Osteoporosis, Rheumatoid Arthritis, Fractures Endocrine: Yes (Boreline DM) Diabetes, Non-Insulin dep, Lupus Loss of Vision: Denies Hearing Impairment: Denies Cancer: No Psychosocial: Yes Anxiety, Depression Integumentary: Yes (CELLULITIS RIGHT ELBOW WITH SEPSIS 09/2012, POST HERPATIC NEURALGIA, SHINGL) Eczema, Herpes Blood Disorders: Yes (HYPOGAMMAGLOBULINNEMIA, ANEMIA, APA) Adverse Reaction/Blood Tranf: No (HAS HAD BLOOD WITH NO PROBLEM) Family Medical History Alzheimer's disease Grandmother Cardiovascular disease 19 FATHER FH: COPD (chronic obstructive pulmonary disease) 19 FATHER FH: lung cancer 19 FATHER FHx: psoriatic arthritis 19 MOTHER Hypertension 19 FATHER Parkinson's disease G8 BROTHER TIAs Grandmother Physical Exam Vital Signs Vital Signs - First Documented 10/08/21 19:52 Temp 36.6 Pulse 90 Resp 20 B/P (MAP) 111/73 (86) Pulse Ox 99 O2 Delivery Room Air Capillary Refill : Less Than 3 Seconds Height, Weight, BMI Height: 5'4.00" Weight: 193lbs. 0.0oz. [id number]; 34.00 BMI Method:Stated General Appearance: WD/WN, no apparent distress HEENT: PERRL/EOMI, normal ENT inspection Neck: non-tender, full range of motion Respiratory: no respiratory distress, no accessory muscle use Extremities: other (Swelling and ecchymosis over the lateral malleolus of the right ankle. Dorsalis pedis pulse intact. She reports some paresthesias down to the toes. Abrasion to the left anterior knee. Abrasion to the dorsal left elbow. Full flexion and extension supination and pronation at the elbow without pain but movement of the arm does cause pain at the shoulder. Tetanus is up-to-date within the past 5 years.) Neurologic/Psychiatric: alert, normal mood/affect, oriented x 3 Skin: normal color, warm/dry Karie Coma Score Best Eye Response: (4) Open Spontaneously Best Verbal Response: (5) Oriented Best Motor Response: (6) Obeys Commands [place] Total: 15 Progress/Results/Core Measures Results/Orders My Orders Orders - BHARATI TURNER APRN Hydrocodone/Apap 5/325 Tablet (Lortab 5 (10/08/21 20:30) Shoulder, Left, 3 Views (10/08/21 20:19) Knee, Left, 3 Views (10/08/21 20:19) Ankle, Right, 3 Views (10/08/21 20:19) Medications Given in ED Current Medications Medications Dose Ordered Sig/Marianna Route Start Time Stop Time Status Last Admin Dose Admin Acetaminophen/ Hydrocodone Bitart 1 ea ONCE ONCE PO 10/08/21 20:30 10/08/21 20:31 DC 10/08/21 20:42 1 EA Vital Signs/I&O 10/08/21 19:52 Temp 36.6 Pulse 90 Resp 20 B/P (MAP) 111/73 (86) Pulse Ox 99 O2 Delivery Room Air Blood Pressure Mean: 86 Departure Impression Primary Impression: Ankle sprain Disposition: HOME, SELF-CARE Condition: Stable Departure-Patient Inst. Decision time for Depature: 20:51 Referrals: FARIHA EDMONDSON DO (PCP/Family) Primary Care Physician Patient Instructions: Ankle Sprain ED Add. Discharge Instructions: 1. Pain medication as directed. Return to ER for any concerns. Elevate the ankle as much as possible. Keep the Michael wrap on. Wear the ankle brace as much as possible when you are up and about. You can take it off to sleep. Follow-up with your doctor later next week. All discharge instructions reviewed with patient and/or family. Voiced understanding. Scripts Hydrocodone/Acetaminophen (Hydrocodone-Acetamin 5-325 mg) 1 Each Tablet 1 TAB PO Q4H PRN for PAIN-MODERATE (5-7), #10 TAB Prov: BHARATI TURNER APRN 10/08/21 Work/School Note: Work Release Form Date Seen in the Emergency Department: Oct 08, 2021 Return to Work: Oct 10, 2021 BHARATI TURNER APRN Oct 08, 2021 20:23
[2021-10-08] MEDS ORDERED: HYDROcodone/APAP 5 MG/325 MG (LORTAB) TAB PO ONE (20:30)
--- NOTE | 2021-10-08 20:46 | Diagnostic Imaging Report ---
KNEE, LEFT, 3 VIEWS INDICATION: Left knee pain from injury COMPARISON: None available. TECHNIQUE: 3 views of left knee FINDINGS: No fracture. Alignment is normal. No knee joint effusion. No radiopaque foreign body or soft tissue gas. IMPRESSION: No acute osseous abnormality. Dictated by: Dictated on workstation # [id number]
--- NOTE | 2021-10-08 20:48 | Diagnostic Imaging Report ---
SHOULDER, LEFT, 3 VIEWS INDICATION: Left shoulder pain after a fall COMPARISON: None available. TECHNIQUE: 3 views of the left shoulder FINDINGS: Normal alignment. No acute fracture. Subacromial space is preserved. No abnormal soft tissue mineralizations. Left subclavian Port-A-Cath is noted. IMPRESSION: No fracture or malalignment. Dictated by: Dictated on workstation # [id number]
--- NOTE | 2021-10-08 20:49 | Diagnostic Imaging Report ---
ANKLE, RIGHT, 3 VIEWS COMPARISON: None available. INDICATION: Right ankle pain TECHNIQUE: Non-weight bearing AP, oblique, and lateral views. FINDINGS: There is a tiny ossific fragment along the lateral aspect of the talus that could represent an avulsion fracture. Mild soft tissue swelling is present along the lateral aspect of the ankle. No osteochondral lesion of the talar dome. No posterior or medial malleolar fractures. Small plantar calcaneal spur. Achilles shadow is normal. IMPRESSION: 1. Tiny ossific fragment at the tip of lateral malleolus with associated soft tissue swelling could represent a small avulsion fracture from lateral collateral ligamentous complex injury. Dictated by: Dictated on workstation # [id number]
[2021-10-08] MEDS ORDERED: ACHD5005 PO (20:52)
== END 2021-10-08 21:30 | disposition home or self-care (01) ==
LOC: EDUNIT# 19:04 → ER 19:09
DX: S93.401A Sprain of unspecified ligament of right ankle, initial encounter (principal); S80.212A Abrasion, left knee, initial encounter; S50.312A Abrasion of left elbow, initial encounter; W01.0XXA Fall on same level from slipping, tripping and stumbling without subsequent striking against object, initial encounter
CPT/HCPCS: 73030; 73562; 73610; 99282; L4350

== ENCOUNTER 2022-01-11 13:11 | Emergency (ER) | payer OTHER, MEDICARE ==
--- NOTE | 2022-01-11 13:29 | ED Cough/URI ---
General Chief Complaint: COVID19 Suspect/Confirmed Stated Complaint: COVID INFUSION Source: patient Exam Limitations: no limitations History of Present Illness Date Seen by Provider: Jan 11, 2022 Time Seen by Provider: 13:26 Initial Comments Patient is a 51-year-old female who presents ED with flulike symptoms. Patient reports body aches, chills, cough for the past 10 days. Recently returned from [place]. Patient states she felt congested sinus pressure thought she may have had allergies. She went to her primary care physician today tested positive for COVID. She does have a history of lupus, asthma, Anjum's, chronic kidney disease, asthma. She has been having some right-sided chest pain started yesterday constant without radiation. Mild shortness of breath but reports a wet productive cough. She was recommended sent to the ED for infusion with monoclonal antibody. She states she has been feeling tired with a mild headache. She does have a port. 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 Patient is currently on Xarelto Allergies and Home Medications Allergies Coded Allergies: tramadol HCl (Verified Allergy, Severe, ANAPHYLAXIS, 11/11/16) levofloxacin (Verified Allergy, Intermediate, 11/11/16) Uncoded Allergies: TEGADERM (Allergy, Unknown, BLISTERS, 01/23/14) Patient Home Medication List Home Medication List Reviewed: Yes Acetaminophen with Codeine (Tylenol with Codeine #3 Tablet) 1 Each Tablet, 1-2 TAB PO Q4H PRN for PAIN-MILD TO MODERATE, (Reported) Entered as Reported by: ZACHARY ELIZABETH on 11/11/16 1207 Albuterol Sulfate (Proair Hfa) 1 Puff Puff, 2 PUFF IH Q4H PRN for WHEEZING, (Reported) Entered as Reported by: PRASHANT GONZALEZ on 10/13/17 1407 Alprazolam (Xanax) 0.25 Mg Tablet, 0.25 MG PO Q12H PRN for SEVERE ANXIETY, (Reported) Entered as Reported by: SINA YODER on 03/31/15 0213 Cetirizine HCl (Cetirizine HCl) 10 Mg Tablet, 10 MG PO DAILY, (Reported) Entered as Reported by: PRASHANT GONZALEZ on 10/13/17 1407 Cyclobenzaprine HCl (Cyclobenzaprine HCl) 10 Mg Tablet, 10 MG PO TID, (Reported) Entered as Reported by: PRASHANT GONZALEZ on 10/13/17 140 Cyclosporine (Restasis) 1 Each Droperette, 1 EACH OP BID, (Reported) Entered as Reported by: ZACHARY ELIZABETH on 05/27/18 142 Fluconazole (Diflucan) 100 Mg Tablet, 100 MG PO MoWeFr, (Reported) Entered as Reported by: SINA YODER on 03/30/152231 Folic Acid (Folic Acid) 1 Mg Tablet, 3 MG PO HS, (Reported) Entered as Reported by: PRASHANT GONZALEZ on 10/13/171406 Hydrocodone/Acetaminophen (Lorcet 5-325 mg Tablet) 1 Each Tablet, 1 EACH PO Q4- 6HR PRN for PAIN-MODERATE Prescribed by: BHARATI TURNER on 05/08/20 140 Hydrocodone/Acetaminophen (Hydrocodone-Acetamin 5-325 mg) 1 Each Tablet, 1 TAB PO Q4H PRN for PAIN-MODERATE (5-7) Prescribed by: BHARATI TURNER on 10/08/212051 Hydroxychloroquine Sulfate (Plaquenil) 200 Mg Tablet, 200 MG PO BID, (Reported) Entered as Reported by: ZACHARY ELIZABETH on 05/27/18 142 Levothyroxine Sodium (Synthroid) 50 Mcg Tablet, 50 MCG PO DAILY, (Reported) Entered as Reported by: ZACHARY ELIZABETH on 05/27/18 142 Linaclotide (Linzess) 145 Mcg Capsule, 145 MCG PO DAILY, (Reported) Entered as Reported by: SINA YODER on 03/30/152231 Lorazepam (Lorazepam) 1 Mg Tablet, 1 MG PO HS, (Reported) Entered as Reported by: YUSRA KIRKPATRICK on 03/31/15 0926 Methotrexate Sodium (Methotrexate) 25 Mg/1 Ml Vial, 17.5 MG SC WEEK, (Reported) Entered as Reported by: ZACHARY ELIZABETH on 05/27/18 142 Metoclopramide HCl (Metoclopramide HCl) 10 Mg Tablet, 10 MG PO BID, (Reported) Entered as Reported by: PRASHANT GONZALEZ on 10/13/171406 Multivitamin (Multi-Vitamin Daily) 1 Each Tablet, 1 TAB PO BID, (Reported) Entered as Reported by: SINA YODER on 03/30/152231 Nitrofurantoin Monohyd/M-Cryst (Nitrofurantoin [place]-Mcr 100 mg) 100 Mg Capsule, 1 CAP PO DAILY PRN for UTI, (Reported) Entered as Reported by: YUSRA KIRKPATRICK on 03/31/15925 Omeprazole Magnesium (Prilosec Otc) 20 Mg Tablet.dr, 20 MG PO BID, (Reported) Entered as Reported by: YUSRA KIRKPATRICK on 03/31/15925 Ondansetron (Zofran Odt) 8 Mg Tab.rapdis, 8 MG PO Q8H PRN for NAUSEA, (Reported) Entered as Reported by: SINA YODER on 03/30/152231 Potassium Bicarbonate/Cit AC (Potassium 25 Meq Tablet Eff) 25 Meq Tablet.eff, 25 MEQ PO DAILY, (Reported) Entered as Reported by: SINA YODER on 03/30/152231 Prednisone (Prednisone) 5 Mg Tablet, 5 MG PO DAILY, (Reported) Entered as Reported by: SINA YODER on 03/30/152231 Pregabalin (Lyrica) 100 Mg Capsule, 100 MG PO BID, (Reported) Entered as Reported by: SINA YODER on 03/30/152231 Rivaroxaban (Xarelto Tablet) 20 Mg Tablet, 20 MG PO DAILY, (Reported) Entered as Reported by: PRASHANT GONZALEZ on 10/13/171406 Rizatriptan Benzoate (Maxalt) 10 Mg Tablet, 10 MG PO UD PRN for MIGRAINE, (Reported) Entered as Reported by: PRASHANT GONZALEZ on 10/13/171406 [place] Oil/[place]-3 Fatty Acids ([place] Oil 1,000 mg Softgel) 1 Each Capsule, 2,000 MG PO HS, (Reported) Entered as Reported by: PRAHSANT GONZALEZ on 10/13/171406 Sertraline HCl (Sertraline HCl) 50 Mg Tablet, 50 MG PO DAILY, (Reported) Entered as Reported by: YUSRA KIRKPATRICK on 03/31/15925 Temazepam (Temazepam) 30 Mg Capsule, 30 MG PO HS, (Reported) Entered as Reported by: PRASHANT GONZALEZ on 10/13/17 1407 Topiramate (Topamax) 50 Mg Tablet, 50 MG PO MORNING, (Reported) Entered as Reported by: SINA YODER on 03/30/15 2232 Topiramate (Topamax) 100 Mg Tablet, 100 MG PO HS, (Reported) Entered as Reported by: ZACHARY ELIZABETH on 11/11/16 1207 Valacyclovir HCl (Valtrex) 1,000 Mg Tablet, 1,000 MG PO TID PRN for SHINGLES, (Reported) Entered as Reported by: PRASHANT GONZALEZ on 10/13/17 1407 [Ivig] , 13.5 SC WEEK, (Reported) Entered as Reported by: SINA YODER on 03/31/15 0213 Review of Systems Review of Systems Constitutional: chills, malaise, weakness EENTM: nose congestion; No blurred vision, No double vision, No mouth pain, No mouth swelling, No nose pain, No throat pain Respiratory: cough, short of breath Cardiovascular: chest pain; No edema, No Hx of Intervention Gastrointestinal: No abdominal pain, No diarrhea, No nausea, No vomiting Genitourinary: No decreased output, No discharge Musculoskeletal: No back pain, No joint pain Skin: No change in color, No change in hair/nails All Other Systems Reviewed Negative Unless Noted: Yes Past Seqiedl-Ehuayj-Fnafkj Hx Immunizations Up To Date Tetanus Booster (TDap): Less than 5yrs PED Vaccines UTD: No First/Initial COVID19 Vaccinat: 2020 Second COVID19 Vaccination Martin: 2020 Third COVID19 Vaccination Date: 2020 Seasonal Allergies Seasonal Allergies: Yes (GLUTEN FREE) Past Medical History Surgeries: Yes ("ACDF--CERVICAL SPINAL FUSION", PORT, IVC FILTER, MULT. VASC. PROC. L LEG,) Adenoidectomy, Appendectomy, Gallbladder, Tonsillectomy, Tubal Ligation, Vascular Surgery Respiratory: Yes ("PLEURESY". P.E. 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 Sexually Transmitted Disease: No HIV/AIDS: No Renal Failure Gastrointestinal: Yes ("[id number] ENTERITIS R/T LUPUS") Colitis, Gastroesophageal Reflux, Chronic Constipation, C-Diff, Hiatal Hernia, Irritable Bowel Musculoskeletal: Yes (CHRONIC GENERALIZED PAIN, RAYNAUDS,) Osteoporosis, Rheumatoid Arthritis, Fractures Endocrine: Yes (Boreline DM) Diabetes, Non-Insulin dep, Lupus Loss of Vision: Denies Hearing Impairment: Denies Cancer: No Psychosocial: Yes Anxiety, Depression Integumentary: Yes (CELLULITIS RIGHT ELBOW WITH SEPSIS 09/2012, POST HERPATIC NEURALGIA, SHINGL) Eczema, Herpes Blood Disorders: Yes (HYPOGAMMAGLOBULINNEMIA, ANEMIA, APA) Adverse Reaction/Blood Tranf: No (HAS HAD BLOOD WITH NO PROBLEM) Family Medical History Alzheimer's disease Grandmother Cardiovascular disease 19 FATHER FH: COPD (chronic obstructive pulmonary disease) 19 FATHER FH: lung cancer 19 FATHER FHx: psoriatic arthritis 19 MOTHER Hypertension 19 FATHER Parkinson's disease G8 BROTHER TIAs Grandmother Physical Exam Vital Signs - First Documented 01/11/22 01/11/22 13:20 15:06 Temp 37.0 Pulse 87 Resp 17 B/P (MAP) 136/70 (92) O2 Delivery Room Air Capillary Refill : Height: 5'4.00" Weight: 193lbs. 0.0oz. 87.347215wt; 34.00 BMI Method:Stated General Appearance: WD/WN, no apparent distress Eyes: Bilateral Eye Normal Inspection, Bilateral Eye PERRL, Bilateral Eye EOMI HEENT: PERRL/EOMI, normal ENT inspection, TMs normal, pharynx normal Neck: non-tender, full range of motion, supple Respiratory: chest non-tender, lungs clear, normal breath sounds, no respiratory distress, no accessory muscle use Cardiovascular: regular rate, rhythm, no edema, no gallop, no JVD Gastrointestinal: normal bowel sounds, non tender, soft, no organomegaly Extremities: normal range of motion, non-tender, normal inspection, no pedal e leeanne Neurologic/Psychiatric: geriatric nurse II-XII nml as tested, no motor/sensory deficits, alert, normal mood/affect, oriented x 3 Skin: normal color, warm/dry Progress/Results/Core Measures Suspected Sepsis SIRS Temperature: Pulse: Respiratory Rate: Laboratory Tests 01/11/22 14:15: White Blood Count 4.2L Blood Pressure / Mean: Laboratory Tests 01/11/22 14:15: Creatinine 1.20, Platelet Count 269, Total Bilirubin 0.3 Results/Orders Lab Results Laboratory Tests Test 01/11/22 14:15 Range/Units White Blood Count 4.2 L 4.3-11.0 10^3/uL Red Blood Count 4.47 3.80-5.11 10^6/uL Hemoglobin 11.0 L 11.5-16.0 g/dL Hematocrit 36 35-52 % Mean Corpuscular Volume 80 80-99 fL Mean Corpuscular Hemoglobin 25 25-34 pg Mean Corpuscular Hemoglobin Concent 31 L 32-36 g/dL Red Cell Distribution Width 15.9 H 10.0-14.5 % Platelet Count 269 130-400 10^3/uL Mean Platelet Volume 12.2 9.0-12.2 fL Immature Granulocyte % (Auto) 0 % Neutrophils (%) (Auto) 51 42-75 % Lymphocytes (%) (Auto) 42 12-44 % Monocytes (%) (Auto) 6 0-12 % Eosinophils (%) (Auto) 0 0-10 % Basophils (%) (Auto) 1 0-10 % Neutrophils # (Auto) 2.1 1.8-7.8 10^3/uL Lymphocytes # (Auto) 1.8 1.0-4.0 10^3/uL Monocytes # (Auto) 0.3 0.0-1.0 10^3/uL Eosinophils # (Auto) 0.0 0.0-0.3 10^3/uL Basophils # (Auto) 0.0 0.0-0.1 10^3/uL Immature Granulocyte # (Auto) 0.0 0.0-0.1 10^3/uL Sodium Level 139 135-145 MMOL/L Potassium Level 3.8 3.6-5.0 MMOL/L Chloride Level 104 98-107 MMOL/L Carbon Dioxide Level 24 21-32 MMOL/L Anion Gap 11 5-14 MMOL/L Blood Urea Nitrogen 15 7-18 MG/DL Creatinine 1.20 0.60-1.30 MG/DL Estimat Glomerular Filtration Rate 54 BUN/Creatinine Ratio 13 Glucose Level 92 70-105 MG/DL Calcium Level 8.6 8.5-10.1 MG/DL Corrected Calcium 8.8 8.5-10.1 MG/DL Total Bilirubin 0.3 0.1-1.0 MG/DL Aspartate Amino Transf (AST/SGOT) 22 5-34 U/L Alanine Aminotransferase (ALT/SGPT) 18 0-55 U/L Alkaline Phosphatase 88 40-136 U/L Troponin I < 0.028 <0.028 NG/ML B-Type Natriuretic Peptide 32.6 <100.0 PG/ML Total Protein 6.6 6.4-8.2 GM/DL Albumin 3.8 3.2-4.5 GM/DL Lipase 37 8-78 U/L My Orders Orders - AGNES LEVY Bebtelovimab (Bebtelovimab) (01/11/22 13:30) Nursing Communication (Order) (01/11/22 13:18) Cbc With Automated Diff (01/11/22 13:25) Comprehensive Metabolic Panel (01/11/22 13:25) Lipase (01/11/22 13:25) Bnp Sonny (01/11/22 13:25) Troponin I [place] (01/11/22 13:25) Chest 1 View, Ap/Pa Only (01/11/22 13:25) Acetaminophen Tablet (Tylenol Tablet) (01/11/22 14:30) Ekg Tracing (01/11/22 14:29) Heparin (Central Iv Flush) (Heparin (Yovany (01/11/22 15:30) Medications Given in ED Current Medications Medications Dose Ordered Sig/Marianna Route Start Time Stop Time Status Last Admin Dose Admin Acetaminophen 1,000 mg ONCE ONCE PO 01/11/22 14:30 01/11/22 14:31 DC 01/11/22 14:26 1,000 MG Bebtelovimab 175 mg ONCE ONCE IV 01/11/22 13:30 01/11/22 13:31 DC 01/11/22 14:12 175 MG Heparin Sodium (Porcine) 500 unit ONCE ONCE IV 01/11/22 15:30 01/11/22 15:31 01/11/22 15:23 500 UNIT Vital Signs/I&O 01/11/22 01/11/22 13:20 15:06 Temp 37.0 Pulse 87 Resp 17 B/P (MAP) 136/70 (92) O2 Delivery Room Air Capillary Refill : ECG Comment Sinus rhythm, nonspecific T wave abnormality, 79 bpm, QRS duration 80 MS, QTc 395 MS Departure Communication (PCP) Patient is a 51-year-old female with a history of autoimmune diseases, immunocompromise presents ED for infusion of the bebtelovimab. Patient is 10 days out of the start of her symptoms. Tested positive for COVID. Patient Was sent over to the ED by Dr. Hill. She states she has had flulike symptoms body aches chills some chest discomfort with wet productive cough. She is afebrile with stable vital signs. EKG shows sinus rhythm without evidence of ST elevation or depression. Cardiac work-up unremarkable. 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 Lab work showed hemoglobin 11. White blood count of 4.2. Chest x-ray was negative for consolidation, effusion. No specific chest pain at this time. Troponin and BNP negative and she is currently on Xarelto. No history of coronary artery disease. Patient appears well and nontoxic. Symptoms of the chest pain cough likely secondary to COVID. She is not hypoxic, tachycardic or shows signs of PE. Patient received a mild headache and was given Tylenol after the effusion. No evidence of rash. No difficulty breathing. Discussed outpatient follow-up with primary care physician. Continue with conservative treatment. Recommend hydration. Patient states she is feeling much better. Return precaution were discussed. Impression Primary Impression: COVID-19 Disposition: 01 HOME, SELF-CARE Condition: Stable Departure-Patient Inst. Decision time for Depature: 15:16 Referrals: FARIHA HILL DO (PCP/Family) Primary Care Physician Patient Instructions: COVID-19 (DC) AGNES LEVY Jan 11, 2022 13:29
[2022-01-11] MEDS ORDERED: BEBTELOVIMAB 175 MG/2 ML VIAL IV ONE (13:30)
[2022-01-11 14:24] LABS: BASOPHILS % (AUTO) 1 % (0-10); EOSINOPHILS % (AUTO) 0 % (0-10); HEMATOCRIT 36 % (35-52); LYMPHOCYTES # (AUTO) 1.8 10^3/uL (1.0-4.0); LYMPHOCYTES % (AUTO) 42 % (12-44); MEAN CORPUSCULAR HEMOGLOBIN 25 pg (25-34); MEAN CORPUSCULAR HGB CONC 31 g/dL (32-36); MEAN CORPUSCULAR VOLUME 80 fL (80-99); MEAN PLATELET VOLUME 12.2 fL (9.0-12.2); MONOCYTES # (AUTO) 0.3 10^3/uL (0.0-1.0); MONOCYTES % (AUTO) 6 % (0-12); NEUTROPHILS # (AUTO) 2.1 10^3/uL (1.8-7.8); NEUTROPHILS % (AUTO) 51 % (42-75); PLATELET COUNT 269 10^3/uL (130-400); WHITE BLOOD COUNT 4.2 10^3/uL (4.3-11.0)
--- NOTE | 2022-01-11 14:26 | Diagnostic Imaging Report ---
INDICATION: Chest pain. TECHNIQUE: AP view of the chest is obtained with comparison made to study of 04/18/2020. FINDINGS: Overall heart size and pulmonary vascularity are within normal limits. There is air trapping bilaterally involving primarily the upper lobes. Left anterior chest wall port is in place. Catheter appears to pass through the superior vena caval stent. There is no pneumothorax, consolidation or definite pleural fluid. Thoracic scoliosis is stable. IMPRESSION: Stable appearance of the chest without acute abnormality detected. Dictated by: Dictated on workstation # [id number]
[2022-01-11] MEDS ORDERED: ACETAMINOPHEN 500 MG TAB (TYLENOL) PO ONE (14:30)
[2022-01-11 14:33] LABS: ALBUMIN 3.8 GM/DL (3.2-4.5)
[2022-01-11 14:34] LABS: CHLORIDE 104 MMOL/L (98-107); POTASSIUM 3.8 MMOL/L (3.6-5.0); SODIUM 139 MMOL/L (135-145)
[2022-01-11 14:35] LABS: CALCIUM 8.6 MG/DL (8.5-10.1)
[2022-01-11 14:36] LABS: GLUCOSE 92 MG/DL (70-105); TOTAL PROTEIN 6.6 GM/DL (6.4-8.2)
[2022-01-11 14:37] LABS: CARBON DIOXIDE 24 MMOL/L (21-32)
[2022-01-11 14:38] LABS: BILIRUBIN,TOTAL 0.3 MG/DL (0.1-1.0)
[2022-01-11 14:39] LABS: ALKALINE PHOSPHATASE 88 U/L (40-136)
[2022-01-11 14:40] LABS: GFR ESTIMATED 54
[2022-01-11 14:41] LABS: BUN/CREATININE RATIO 13
[2022-01-11 14:43] LABS: ALANINE AMINOTRANSFERASE 18 U/L (0-55); LIPASE 37 U/L (8-78)
[2022-01-11] MEDS ORDERED: HEParin (CENTRAL IV FLUSH) 500 UNIT/5 ML SYR IV ONE (15:30)
[2022-01-11 15:33] VITALS: BP 116/67
== END 2022-01-11 15:34 | disposition home or self-care (01) ==
LOC: EDUNIT# 13:11 → ER 13:13
DX: U07.1 COVID-19 (principal); I25.10 Atherosclerotic heart disease of native coronary artery without angina pectoris; Z86.718 Personal history of other venous thrombosis and embolism; Z73.0 Burn-out; Z79.01 Long term (current) use of anticoagulants
CPT/HCPCS: 36415; 71045; 80053; 83690; 83880; 84484; 85025; 93005

== ENCOUNTER 2022-04-04 09:35 | Emergency (ER) | payer OTHER, MEDICARE ==
[~2022-04-04] VITALS: Ht 170 cm; Wt 88.0 kg
[2022-04-04] MEDS ORDERED: methylPREDNISolone 125 MG (Solu-MEDROL) VIAL ONE (10:33)
[2022-04-04] MEDS ORDERED: methylPREDNISolone 125 MG (Solu-MEDROL) VIAL IV STA (10:35)
--- NOTE | 2022-04-04 10:38 | ED General ---
General Chief Complaint: Allergic Reaction Stated Complaint: ALLERGIC REACTION TO DOXY Nursing Triage Note: PT STATES SHE HAS TAKEN DOXYCYCLINE AND IS HAVING AN ALLERGIC RXN, FLUSHED AND FEELS LIKE A LUMP IN HER THROAT, NO DIFFICULTY BREATHING, SKIN IS RED Source of Information: Patient Exam Limitations: No Limitations History of Present Illness Date Seen by Provider: Apr 04, 2022 Time Seen by Provider: 10:10 Initial Comments Here with report of allergic reaction after taking doxycycline. She took first dose last night and then had a little itching but it went away. She did think about it this morning and took it again and she started feeling flush and having skin redness and feeling a lump in her throat. She is not having any respiratory difficulty. 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 She is not currently on steroids. She is being treated for sinus infection with the doxycycline. She had a reaction to cephalexin last year. Timing/Duration: 12 Hours Severity: Mild, Moderate Associated Systoms: No Cough, No Fever/Chills; Rash; No Shortness of Air Allergies and Home Medications Allergies Coded Allergies: tramadol HCl (Verified Allergy, Severe, ANAPHYLAXIS, 11/11/16) levofloxacin (Verified Allergy, Intermediate, 11/11/16) Uncoded Allergies: TEGADERM (Allergy, Unknown, BLISTERS, 01/23/14) Patient Home Medication List Home Medication List Reviewed: Yes Acetaminophen with Codeine (Tylenol with Codeine #3 Tablet) 1 Each Tablet, 1-2 TAB PO Q4H PRN for PAIN-MILD TO MODERATE, (Reported) Entered as Reported by: ZACHARY ELIZABETH on 11/11/16 1207 Albuterol Sulfate (Proair Hfa) 1 Puff Puff, 2 PUFF IH Q4H PRN for WHEEZING, (Reported) Entered as Reported by: PRASHANT GONZALEZ on 10/13/17 1407 Alprazolam (Xanax) 0.25 Mg Tablet, 0.25 MG PO Q12H PRN for SEVERE ANXIETY, (Reported) Entered as Reported by: SINA YODER on 03/31/15 0213 Cetirizine HCl (Cetirizine HCl) 10 Mg Tablet, 10 MG PO DAILY, (Reported) Entered as Reported by: PRASHANT GONZALEZ on 10/13/17 1407 Cyclobenzaprine HCl (Cyclobenzaprine HCl) 10 Mg Tablet, 10 MG PO TID, (Reported) Entered as Reported by: PRASHANT GONZALEZ on 10/13/17 140 Cyclosporine (Restasis) 1 Each Droperette, 1 EACH OP BID, (Reported) Entered as Reported by: ZACHARY ELIZABETH on 05/27/18 142 Fluconazole (Diflucan) 100 Mg Tablet, 100 MG PO MoWeFr, (Reported) Entered as Reported by: SINA YODER on 03/30/152231 Folic Acid (Folic Acid) 1 Mg Tablet, 3 MG PO HS, (Reported) Entered as Reported by: PRASHANT GONZALEZ on 10/13/171406 Hydrocodone/Acetaminophen (Lorcet 5-325 mg Tablet) 1 Each Tablet, 1 EACH PO Q4- 6HR PRN for PAIN-MODERATE Prescribed by: BHARATI TURNER on 05/08/20 140 Hydrocodone/Acetaminophen (Hydrocodone-Acetamin 5-325 mg) 1 Each Tablet, 1 TAB PO Q4H PRN for PAIN-MODERATE (5-7) Prescribed by: BHARATI TURNER on 10/08/212051 Hydroxychloroquine Sulfate (Plaquenil) 200 Mg Tablet, 200 MG PO BID, (Reported) Entered as Reported by: ZACHARY ELIZABETH on 05/27/181422 Levothyroxine Sodium (Synthroid) 50 Mcg Tablet, 50 MCG PO DAILY, (Reported) Entered as Reported by: ZACHARY ELIZABETH on 05/27/18 142 Linaclotide (Linzess) 145 Mcg Capsule, 145 MCG PO DAILY, (Reported) Entered as Reported by: SINA YODER on 03/30/152231 Lorazepam (Lorazepam) 1 Mg Tablet, 1 MG PO HS, (Reported) Entered as Reported by: YUSRA KIRKPATRICK on 03/31/15 09 Methotrexate Sodium (Methotrexate) 25 Mg/1 Ml Vial, 17.5 MG SC WEEK, (Reported) Entered as Reported by: ZACHARY ELIZABETH on 05/27/18 142 Metoclopramide HCl (Metoclopramide HCl) 10 Mg Tablet, 10 MG PO BID, (Reported) Entered as Reported by: PRASHANT GONZALEZ on 10/13/171406 Multivitamin (Multi-Vitamin Daily) 1 Each Tablet, 1 TAB PO BID, (Reported) Entered as Reported by: SINA YODER on 03/30/152231 Nitrofurantoin Monohyd/M-Cryst (Nitrofurantoin [place]-Mcr 100 mg) 100 Mg Capsule, 1 CAP PO DAILY PRN for UTI, (Reported) Entered as Reported by: YUSRA KIRKPATRICK on 03/31/15925 Omeprazole Magnesium (Prilosec Otc) 20 Mg Tablet.dr, 20 MG PO BID, (Reported) Entered as Reported by: YUSRA KIRKPATRICK on 03/31/15925 Ondansetron (Zofran Odt) 8 Mg Tab.rapdis, 8 MG PO Q8H PRN for NAUSEA, (Reported) Entered as Reported by: SINA YODER on 03/30/152231 Potassium Bicarbonate/Cit AC (Potassium 25 Meq Tablet Eff) 25 Meq Tablet.eff, 25 MEQ PO DAILY, (Reported) Entered as Reported by: SINA YODER on 03/30/152231 Prednisone (Prednisone) 5 Mg Tablet, 5 MG PO DAILY, (Reported) Entered as Reported by: SINA YODER on 03/30/152231 Pregabalin (Lyrica) 100 Mg Capsule, 100 MG PO BID, (Reported) Entered as Reported by: SINA YODER on 03/30/152231 Rivaroxaban (Xarelto Tablet) 20 Mg Tablet, 20 MG PO DAILY, (Reported) Entered as Reported by: PRASHANT GONZALEZ on 10/13/171406 Rizatriptan Benzoate (Maxalt) 10 Mg Tablet, 10 MG PO UD PRN for MIGRAINE, (Reported) Entered as Reported by: PRASHANT GONZALEZ on 10/13/171406 [place] Oil/[place]-3 Fatty Acids ([place] Oil 1,000 mg Softgel) 1 Each Capsule, 2,000 MG PO HS, (Reported) Entered as Reported by: PRASHANT GONZALEZ on 10/13/171406 Sertraline HCl (Sertraline HCl) 50 Mg Tablet, 50 MG PO DAILY, (Reported) Entered as Reported by: YUSRA KIRKPATRICK on 03/31/15925 Temazepam (Temazepam) 30 Mg Capsule, 30 MG PO HS, (Reported) Entered as Reported by: PRASHANT GONZALEZ on 10/13/17 1407 Topiramate (Topamax) 50 Mg Tablet, 50 MG PO MORNING, (Reported) Entered as Reported by: SINA YODER on 03/30/15 2232 Topiramate (Topamax) 100 Mg Tablet, 100 MG PO HS, (Reported) Entered as Reported by: ZACHARY ELIZABETH on 11/11/16 1207 Valacyclovir HCl (Valtrex) 1,000 Mg Tablet, 1,000 MG PO TID PRN for SHINGLES, (Reported) Entered as Reported by: PRASHANT GONZALEZ on 10/13/17 1407 [Ivig] , 13.5 SC WEEK, (Reported) Entered as Reported by: SINA YODER on 03/31/15 0213 Review of Systems Review of Systems Constitutional: see HPI; No chills, No fever EENTM: nose congestion, throat pain, other (Currently being treated for sin usitis and has sinus pressure); No mouth swelling Respiratory: No cough, No short of breath Cardiovascular: No chest pain, No edema Gastrointestinal: No nausea, No vomiting Genitourinary: no symptoms reported Musculoskeletal: muscle pain; No muscle weakness Skin: change in color; No pruritus Psychiatric/Neurological: Denies Headache, Denies Weakness All Other Systems Reviewed Negative Unless Noted: Yes Past Ayjzayc-Woqzmh-Azpozf Hx Patient Social History Tobacco Use?: No Use of E-Cig and/or Vaping dev: No Substance use?: No Alcohol Use?: No Immunizations Up To Date Tetanus Booster (TDap): Less than 5yrs PED Vaccines UTD: No First/Initial COVID19 Vaccinat: 10/25/2020 Second COVID19 Vaccination Martin: 12/08/2020 Third COVID19 Vaccination Date: 2020 COVID19 Vaccine [employer] T[employer]: FAVIO Seasonal Allergies Seasonal Allergies: Yes (GLUTEN FREE) Past Medical History Surgery/Hospitalization HX: IMMUNOCOMPROMISD, LUPUS TNA, VENKAT, APPY, HIATAL HERNIA Surgeries: Yes ("ACDF--CERVICAL SPINAL FUSION", PORT, IVC FILTER, MULT. VASC. PROC. L LEG,) Adenoidectomy, Appendectomy, Gallbladder, Tonsillectomy, Tubal Ligation, Vascular Surgery Respiratory: Yes ("PLEURESY". P.E. 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 Sexually Transmitted Disease: No HIV/AIDS: No Renal Failure Gastrointestinal: Yes ("[id number] ENTERITIS R/T LUPUS") Colitis, Gastroesophageal Reflux, Chronic Constipation, C-Diff, Hiatal Hernia, Irritable Bowel Musculoskeletal: Yes (CHRONIC GENERALIZED PAIN, RAYNAUDS,) Osteoporosis, Rheumatoid Arthritis, Fractures Endocrine: Yes (Boreline DM) Diabetes, Non-Insulin dep, Lupus Loss of Vision: Denies Hearing Impairment: Denies Cancer: No Psychosocial: Yes Anxiety, Depression Integumentary: Yes (CELLULITIS RIGHT ELBOW WITH SEPSIS 09/2012, POST HERPATIC NEURALGIA, SHINGL) Eczema, Herpes Blood Disorders: Yes (HYPOGAMMAGLOBULINNEMIA, ANEMIA, APA) Adverse Reaction/Blood Tranf: No (HAS HAD BLOOD WITH NO PROBLEM) Family Medical History Reviewed Nursing Family Hx Alzheimer's disease Grandmother Cardiovascular disease 19 FATHER FH: COPD (chronic obstructive pulmonary disease) 19 FATHER FH: lung cancer 19 FATHER FHx: psoriatic arthritis 19 MOTHER Hypertension 19 FATHER Parkinson's disease G8 BROTHER TIAs Grandmother Physical Exam Vital Signs Vital Signs - First Documented 04/04/22 09:55 Temp 36.7 Pulse 86 Resp 20 B/P (MAP) 129/87 (101) Pulse Ox 99 O2 Delivery Room Air Capillary Refill : Less Than 3 Seconds Height, Weight, BMI Height: 5'4.00" Weight: 193lbs. 0.0oz. 87.550925fu; 30.00 BMI Method:Stated General Appearance: No Apparent Distress, WD/WN HEENT: PERRL/EOMI, Pharynx Normal, Other (Facial erythema) Neck: Non Tender, Supple Respiratory: Lungs Clear, Normal Breath Sounds, No Accessory Muscle Use Cardiovascular: Regular Rate, Rhythm, No Murmur Gastrointestinal: Non Tender, Soft Back: Normal Inspection, No CVA Tenderness, No Vertebral Tenderness Extremity: Normal Range of Motion, Non Tender Neurologic/Psychiatric: Alert, Oriented x3 Skin: Warm/Dry, Erythema (Skin reddened especially on the face and neck) Progress/Results/Core Measures Suspected Sepsis SIRS Temperature: Pulse: 86 Respiratory Rate: 20 Blood Pressure 129 /87 Mean: 101 Results/Orders My Orders Orders - PATRICK LAND MD Methylprednisolone Sod Succ (Solu-Medrol (04/04/22 10:35) Methylprednisolone Sod Succ (Solu-Medrol (04/04/22 10:33) Vital Signs/I&O 04/04/22 09:55 Temp 36.7 Pulse 86 Resp 20 B/P (MAP) 129/87 (101) Pulse Ox 99 O2 Delivery Room Air Capillary Refill : Less Than 3 Seconds Blood Pressure Mean: 101 Progress Note : Progress Note Seen and evaluated. IV established. Patient is already taken 50 mg of Benadryl and 40 mg of Pepcid p.o. at home. We will go ahead and give Solu-Medrol 125 mg IV as she is complaining of some throat complaints without physical exam findings. We will hold on epinephrine at this point but will continue to monitor for improvement and/or worsening and adjust accordingly. This was discussed with the patient who agrees. Monitor patient. 1215: Overall much i mproved. Redness is decreased and now he can see some small hive nodules but that is improving. Patient feels comfortable going home. We will initiate outpatient steroid as well as have her stop her doxycycline and start azithromycin. Discharged home with return precautions. Patient verbalized understanding instructions and agreement with plan. Departure Impression Primary Impression: Allergic reaction caused by a drug Qualified Codes: T78.40XA - Allergy, unspecified, initial encounter Disposition: 01 HOME, SELF-CARE Condition: Stable Departure-Patient Inst. Decision time for Depature: 12:17 Referrals: FARIHA EDMONDSON DO (PCP/Family) Primary Care Physician Patient Instructions: Adverse Drug Reactions, Adult (DC), Drug Allergy Add. Discharge Instructions: All discharge instructions reviewed with patient and/or family. Voiced understanding. Continue home medications as previously prescribed but stop the doxycycline. You will initiate a azithromycin antibiotic as prescribed. Take other medications as prescribed today. You may take Pepcid or the generic famotidine 20 mg daily for the next 5 days while you are taking the antibiotics. You may use Benadryl/diphenhydramine 25 mg every 4-6 hours as needed for itching or hives. 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 Return for difficulty breathing or swallowing, weakness, nausea or vomiting, increasing hives or other concerns as needed. Scripts Prednisone (Prednisone) 20 Mg Tab 40 MG PO DAILY, #8 TAB 0 Refills Prov: PATRICK LAND MD 04/04/22 Azithromycin (Azithromycin) 250 Mg Tablet 250 MG PO UD, #6 TAB TAKE 2 TABLETS ON DAY ONE THEN TAKE 1 TABLET DAILY FOR FOUR MORE DAYS Prov: PATRICK LAND MD 04/04/22 Copy Copies To 1: FARIHA EDMONDSON TIMOTHY D MD Apr 04, 2022 10:38
[2022-04-04] MEDS ORDERED: PRD20T PO (12:19)
[2022-04-04] MEDS ORDERED: AZIT250T12 PO (12:19)
[2022-04-04 12:40] VITALS: BP 121/78
== END 2022-04-04 12:39 | disposition home or self-care (01) ==
LOC: EDUNIT# 09:35 → ER 09:37
DX: T36.4X1A Poisoning by tetracyclines, accidental (unintentional), initial encounter (principal)

== ENCOUNTER → 2022-06-18 | Outpatient (CLI) | payer OTHER, MEDICARE ==
[~2022-06-18] VITALS: Wt 88.0 kg
[~2022-06-18] MED LIST changes: +ALBU8.5H6 IH; +AZIT250T12 PO; +RIZA-1 PO; -RT-ALBUINH IH
[2022-06-18 14:17] VITALS: BP 108/75
== END ==
LOC: SDC 13:41
PROVIDERS: ATTEND Pediatrics
DX: D80.1 Nonfamilial hypogammaglobulinemia (principal)

== ENCOUNTER → 2022-11-28 | Outpatient (CLI) | payer OTHER, MEDICARE ==
[~2022-11-28] MED LIST changes: +MONT-47 PO; -MONT10TA21 PO; +TOPI-241 PO; -TOPI50TA13 PO
--- NOTE | 2022-11-28 17:33 | Diagnostic Imaging Report ---
INDICATION: Chin pain EXAMINATION: Right tibia and fibula 11/28/2022. FINDINGS: 3 views of the tibia and fibula. No fractures or dislocations appreciated. Joint spaces maintained. IMPRESSION: 1. Negative tibia and fibula. Dictated by: Dictated on workstation # [id number]
== END ==
LOC: RAD 11:23
PROVIDERS: ATTEND Family Medicine
DX: M25.511 Pain in right shoulder (principal); W19.XXXA Unspecified fall, initial encounter
CPT/HCPCS: 73590